=== PATIENT | male | born 1960 | race Caucasian/White ===

== ENCOUNTER 2020-07-30 20:57 | Inpatient (IN) ==
[2020-07-30 21:56] LABS: Alanine Aminotransferase 26 U/L (12-78); Aspartate Aminotransferase 12 U/L (15-37); BUN Creatinine Ratio 14.3 (10-20); Basophils # (auto) 0.02 K/uL (0-0.2); Basophils % (auto) 0.2 %; Blood Urea Nitrogen 20 mg/dl (7-18); Carbon Dioxide 27 mmol/L (21-32); Chloride 107 mmol/L (98-107); Eosinophils # (auto) 0.05 K/uL (0-0.5); Eosinophils % (auto) 0.5 %; Est GFR (African American) 63.5 ml/min; Est GFR (Non-African American) 54.8 ml/min; Glucose 89 mg/dl (70-99); Hematocrit (blood only) 44.5 % (42-52); Hemoglobin 15.3 g/dL (14.0-18.0); Immature Granulocytes # (auto) 0.01 K/uL (0.00-0.02); Immature Granulocytes % (auto) 0.1 %; Lymphocytes # (auto) 1.33 K/uL (1.2-3.4); Lymphocytes % (auto) 14.3 %; Magnesium 2.3 mg/dl (1.8-2.4); Mean Corpuscular Hemoglobin 31.7 pg (25-34); Mean Corpuscular Hgb Conc 34.4 g/dL (32-36); Mean Corpuscular Volume 92.1 fL (80-100); Mean Platelet Volume 9.8 fL (7.4-10.4); Monocytes # (auto) 0.82 K/uL (0.11-0.59); Monocytes % (auto) 8.8 %; Neutrophils # (auto) 7.07 K/uL (1.4-6.5); Neutrophils % (auto) 76.1 %; Partial Thromboplastin Ratio 0.9; Partial Thromboplastin Time 24.6 Seconds (21.0-31.0); Platelet Count 236 K/uL (130-400); Potassium 4.1 mmol/L (3.5-5.1); RDW Coefficient of Variation 13.3 % (11.5-14.5); RDW Standard Deviation 44.9 fL (36.4-46.3); Red Blood Count 4.83 M/uL (4.7-6.1); Sodium 141 mmol/L (136-145)
[2020-07-30 22:01] LABS: Albumin Globulin Ratio 1.1 (0.9-2); Alkaline Phosphatase 115 U/L (45-117); Bilirubin,Total 0.4 mg/dl (0.2-1); Globulin 3.8 gm/dl (2.5-4.0); Total Protein 7.8 gm/dl (6.4-8.2); Troponin I < 0.015 ng/ml (0-0.045)
[2020-07-30] MEDS ORDERED: OPTIRAY 320 125ml IV ONE (22:38)
--- NOTE | 2020-07-30 22:45 | Emergency Department Note ---
Impression & Plan Right leg weakness, HTN (hypertension) ED Provider Note Provider: Meek Puentes MD DATE OF SERVICE: 07/30/2020 CHIEF COMPLAINT: Right-sided leg weakness HISTORY OF PRESENT ILLNESS: Patient is a 60-year-old gentleman distant history in 2002 of a fairly large right-sided stroke as well as a history of chronic back pain hypertension on aspirin presenting today via private vehicle from home with reports that he started to have some difficulty with his right leg today. Evidently went to the pharmacy around 5:00pm had difficulty getting on the car because his right leg was not working as well as it normally does. Reports significant chronic weakness in the right arm and a little bit in the right leg but much worsened today in the right leg. Normally drives and ambulates without issues. No reported chronic speech issues. No trauma or falls reported. He is evidently able to get his stuff at the pharmacy and come home and was ambulating normally at home but very anxious. Family was able to convince him to come here for further evaluation after some delay at home. Presents here for 1/2-hour since the onset of his symptoms. The patient in discussion with his family does not reportedly have new speech issues or facial droop although he is quite anxious and tearful at times. Patient is chronic low back pain issues chronically on narcotics at home but this is not reported to be changed. REVIEW OF SYSTEMS: A total of 10 review of systems was obtained and negative except as stated above in the HPI. PAST MEDICAL HISTORY: As noted above MEDICATIONS: Reviewed home medications includes aspirin SOCIAL HISTORY: Former smoker, lives at home PHYSICAL EXAM: GENERAL: alert and oriented on stretcher but anxious Head: normocephalic and atraumatic EYES: No injection, discharge or icterus. PERRL NECK: Trachea midline. Supple. ENT: Mucous membranes pink and moist. Pharynx without erythema or exudate. LUNGS: Airway patent. No retractions. Breath sounds clear HEART: Regular rate and rhythm. No chest wall tenderness ABDOMEN: Soft and non-tender, without guarding or rebound. SKIN: Acyanotic, warm, dry, without rashes EXTREMITIES: No significant tenderness or deformity of the lower extremities with the right lower extremity in a foot drop orthotic NEUROLOGICAL: No aphasia. No slurred speech. Patient with a questionable slight right facial droop but family are states this is unchanged from previous. Patient with chronic right arm weakness he states is at baseline. Some slight right leg drift initially on exam he states does feel worse than normal. Left a rm and leg seem to be working appropriately. No aphasia. Some very slight dysarthria but discussion with patient and family not sure that this is new. EK bpm normal sinus rhythm. No PVC or PAC. No acute ST segment elevation or depression. QTC 447. CONTINUOUS CARDIAC MONITORING: was ordered and showed a heart rate of 70s to 90s bpm in normal sinus rhythm Patient's laboratory studies and imaging reviewed. Differential includes Infection, dehydration, metabolic abnormality, hypo/hyperg lycemia, electrolyte disturbance, anemia, hypoxia, cardiac sources, intracerebral event, toxicologic, neurologic, as well as other pathologies. IMPRESSION/MEDICAL DECISION MAKING: Patient with history of CVA with worsening right leg issues he reports this evening arrives at 4 and half hours an outside the TPA window. Was not made a stroke alert because of this. CTA without evidence of large vessel occlusion discussed the CONCHITA findings with telestroke Dr. Johns at [facility] believes likely more congenital. Stenoses of the carotids are noted but do not need acute intervention tonight. Blood work years without significant abnormality. Patient quite anxious initially hypertensive though this improves some while here. Given his evening medications. Question if this is a new stroke versus TIA/recrudescence of old CVA. Given this and his history recommended he stay for further evaluation overnight as well as MRI. He was in agreement with this plan. Patient is already on aspirin. Hospitalist was contacted. DIAGNOSIS: Right leg weakness, hypertension DISPOSITION: Hospitalist will evaluate Patient was agreeable with this plan. Preliminary Findings Only See Final Report For Complete Findings CT HEAD: Large zone of encephalomalacia involving the left frontal and parietal lobes suggesting combined chronic left MCA and CONCHITA territory infarcts. Wallerian degeneration extending through the left corticospinal tract. Ex vacuo enlargement of the left lateral ventricle. Background of involutional and chronic small vessel ischemic change. No CT evidence of acute territorial infarct. No hemorrhage. No skull fracture. Sinuses and mastoid air cells are clear. Radiologist: Luis Antonio Schmitz M.D. Study ready at 22:53 and initial results transmitted at 23:06 Preliminary Findings Only See Final Report For Complete Findings CTA HEAD: Intracranial atherosclerosis. Absent right A1 segment with filling of the right CONCHITA via the anterior communicating artery. Patent intracranial circulation. No large vessel occlusion. No aneurysm. Radiologist: Luis Antonio Schmitz M.D. Study ready at 22:53 and initial results transmitted at 23:06 Preliminary Findings Only See Final Report For Complete Findings CTA NECK: Right common carotid artery is patent and normal in caliber. Severe stenosis at the origin of the right ICA due to atherosclerotic plaque. Remainder of the right ICA is adequately patent. Mild (less than 50%) stenosis of the mid left common carotid artery due to atherosclerotic plaque. Right ICA is adequately patent. Bilateral vertebral arteries are adequately patent, with dominant left vertebral artery. Left thyroid lobe nodule measuring 1.5 cm. Recommend further evaluation with thyroid ultrasound if not previously performed. Radiologist: Luis Antonio Schmitz M.D. Study ready at 22:53 and initial results transmitted at 23:06 Past Med/Surg History Social History Smoking Status: Former smoker Feels Safe at Home: Yes Allergies Allergies Allergy/AdvReac Type Severity Reaction Status Date / Time No Known Allergies Allergy Severe Verified 07/30/20 21:51 Home Meds Home Medications Medication Instructions Recorded Confirmed aspirin 81 mg PO HS 07/30/20 07/30/20 atorvastatin 20 mg PO HS 07/30/20 07/30/20 gabapentin 300 mg PO QID 07/30/20 07/30/20 hydrocodone-acetaminophen 1 tab PO DIRECTED PRN 07/30/20 07/30/20 lisinopril 10 mg PO HS 07/30/20 07/30/20 sertraline 100 mg PO HS 07/30/20 07/30/20 trazodone 100 mg PO HS 07/30/20 07/30/20 Results & Data (ED) Vital Signs Vital Signs - 24 hr 07/30/20 21:03 07/30/20 21:24 07/30/20 21:25 Temperature 36.8 C Temperature Source Temporal Artery Scan Pulse Rate 91 H 90 90 Pulse Rate from SpO2 Sensor Respiratory Rate 18 Respiratory Effort / Characteristics Non-Labored Respiratory Depth Normal Blood Pressure 184/89 H 211/118 H Blood Pressure Mean 120 149 Pulse Oximetry 98 Oxygen Delivery Method Room Air Sepsis Recent Fever Within 48 Hours No Sepsis New/Unexplained Change in Mental Status No Sepsis Action Taken by Nursing No Action Required 07/30/20 21:30 07/30/20 21:35 07/30/20 21:40 Temperature Temperature Source Pulse Rate 85 81 84 Pulse Rate from SpO2 Sensor Respiratory Rate 20 16 22 Respiratory Effort / Characteristics Respiratory Depth Blood Pressure 207/137 H Blood Pressure Mean 160 Pulse Oximetry Oxygen Delivery Method Sepsis Recent Fever Within 48 Hours Sepsis New/Unexplained Change in Mental Status Sepsis Action Taken by Nursing 07/30/20 21:50 07/30/20 22:00 07/30/20 22:10 Temperature Temperature Source Pulse Rate 81 83 79 Pulse Rate from SpO2 Sensor 80 82 80 Respiratory Rate 20 19 18 Respiratory Effort / Characteristics Respiratory Depth Blood Pressure 145/83 H Blood Pressure Mean 103 Pulse Oximetry 96 96 95 Oxygen Delivery Method Sepsis Recent Fever Within 48 Hours Sepsis New/Unexplained Change in Mental Status Sepsis Action Taken by Nursing 07/30/20 22:20 07/30/20 23:00 07/30/20 23:30 Temperature Temperature Source Pulse Rate 79 79 79 Pulse Rate from SpO2 Sensor 79 79 Respiratory Rate 16 15 17 Respiratory Effort / Characteristics Respiratory Depth Blood Pressure 151/80 H 131/72 Blood Pressure Mean 103 91 Pulse Oximetry 96 95 Oxygen Delivery Method Sepsis Recent Fever Within 48 Hours Sepsis New/Unexplained Change in Mental Status Sepsis Action Taken by Nursing Laboratory Data Result diagrams: 07/30/20 21:20 07/30/20 21:20 Lab Results 07/30/20 07/30/20 07/30/20 Range/Units 21:20 21:20 21:20 WBC 9.30 (4.8-10.8) K/uL RBC 4.83 (4.7-6.1) M/uL Hgb 15.3 (14.0-18.0) g/dL Hct 44.5 (42-52) % MCV 92.1 (80-100) fL MCH 31.7 (25-34) pg MCHC 34.4 (32-36) g/dL RDW Std Deviation 44.9 (36.4-46.3) fL RDW Coeff of Jamarcus 13.3 (11.5-14.5) % Plt Count 236 (130-400) K/uL MPV 9.8 (7.4-10.4) fL Immature Gran % (Auto) 0.1 % Neut % (Auto) 76.1 % Lymph % (Auto) 14.3 % Mobile % (Auto) 8.8 % Eos % (Auto) 0.5 % Baso % (Auto) 0.2 % Neut # (Auto) 7.07 H (1.4-6.5) K/uL Lymph # (Auto) 1.33 (1.2-3.4) K/uL Mobile # (Auto) 0.82 H (0.11-0.59) K/uL Eos # (Auto) 0.05 (0-0.5) K/uL Baso # (Auto) 0.02 (0-0.2) K/uL Immature Gran # (Auto) 0.01 (0.00-0.02) K/uL PT 10.0 (9.0-12.0) Seconds INR 1.0 (0.9-1.1) APTT 24.6 (21.0-31.0) Seconds PTT Ratio 0.9 Sodium 141 (136-145) mmol/L Potassium 4.1 (3.5-5.1) mmol/L Chloride 107 (98-107) mmol/L Carbon Dioxide 27 (21-32) mmol/L Anion Gap 6.0 (3-11) BUN 20 H (7-18) mg/dl Creatinine 1.38 (0.6-1.4) mg/dl Est Cr Clr Drug Dosing Not Reportable Est GFR ( Amer) 63.5 ml/min Est GFR (Non-Af Amer) 54.8 ml/min BUN/Creatinine Ratio 14.3 (10-20) Glucose 89 (70-99) mg/dl POC Glucose (70-99) mg/dl Calcium 9.0 (8.5-10.1) mg/dl Magnesium 2.3 (1.8-2.4) mg/dl Total Bilirubin 0.4 (0.2-1) mg/dl AST 12 L (15-37) U/L ALT 26 (12-78) U/L Alkaline Phosphatase 115 (45-117) U/L Troponin I < 0.015 (0-0.045) ng/ml Total Protein 7.8 (6.4-8.2) gm/dl Albumin 4.0 (3.4-5.0) gm/dl Globulin 3.8 (2.5-4.0) gm/dl Albumin/Globulin Ratio 1.1 (0.9-2) COVID-19 Eval Order SARS-CoV-2 (PCR) (Negative) Blood Type Antibody Screen 07/30/20 07/30/20 07/30/20 Range/Units 21:22 21:41 22:02 WBC (4.8-10.8) K/uL RBC (4.7-6.1) M/uL Hgb (14.0-18.0) g/dL Hct (42-52) % MCV (80-100) fL MCH (25-34) pg MCHC (32-36) g/dL RDW Std Deviation (36.4-46.3) fL RDW Coeff of Jamarcus (11.5-14.5) % Plt Count (130-400) K/uL MPV (7.4-10.4) fL Immature Gran % (Auto) % Neut % (Auto) % Lymph % (Auto) % [place] % (Auto) % Eos % (Auto) % Baso % (Auto) % Neut # (Auto) (1.4-6.5) K/uL Lymph # (Auto) (1.2-3.4) K/uL [place] # (Auto) (0.11-0.59) K/uL Eos # (Auto) (0-0.5) K/uL Baso # (Auto) (0-0.2) K/uL Immature Gran # (Auto) (0.00-0.02) K/uL PT (9.0-12.0) Seconds INR (0.9-1.1) APTT (21.0-31.0) Seconds PTT Ratio Sodium (136-145) mmol/L Potassium (3.5-5.1) mmol/L Chloride (98-107) mmol/L Carbon Dioxide (21-32) mmol/L Anion Gap (3-11) BUN (7-18) mg/dl Creatinine (0.6-1.4) mg/dl Est Cr Clr Drug Dosing Est GFR ( Amer) ml/min Est GFR (Non-Af Amer) ml/min BUN/Creatinine Ratio (10-20) Glucose (70-99) mg/dl POC Glucose 108 H (70-99) mg/dl Calcium (8.5-10.1) mg/dl Magnesium (1.8-2.4) mg/dl Total Bilirubin (0.2-1) mg/dl AST (15-37) U/L ALT (12-78) U/L Alkaline Phosphatase (45-117) U/L Troponin I (0-0.045) ng/ml Total Protein (6.4-8.2) gm/dl Albumin (3.4-5.0) gm/dl Globulin (2.5-4.0) gm/dl Albumin/Globulin Ratio (0.9-2) COVID-19 Eval Order Covid19 at [facility] SARS-CoV-2 (PCR) (Negative) Blood Type O Positive Antibody Screen NEGATIVE 07/30/20 Range/Units 22:02 WBC (4.8-10.8) K/uL RBC (4.7-6.1) M/uL Hgb (14.0-18.0) g/dL Hct (42-52) % MCV (80-100) fL MCH (25-34) pg MCHC (32-36) g/dL RDW Std Deviation (36.4-46.3) fL RDW Coeff of Jamarcus (11.5-14.5) % Plt Count (130-400) K/uL MPV (7.4-10.4) fL Immature Gran % (Auto) % Neut % (Auto) % Lymph % (Auto) % [place] % (Auto) % Eos % (Auto) % Baso % (Auto) % Neut # (Auto) (1.4-6.5) K/uL Lymph # (Auto) (1.2-3.4) K/uL Mobile # (Auto) (0.11-0.59) K/uL Eos # (Auto) (0-0.5) K/uL Baso # (Auto) (0-0.2) K/uL Immature Gran # (Auto) (0.00-0.02) K/uL PT (9.0-12.0) Seconds INR (0.9-1.1) APTT (21.0-31.0) Seconds PTT Ratio Sodium (136-145) mmol/L Potassium (3.5-5.1) mmol/L Chloride (98-107) mmol/L Carbon Dioxide (21-32) mmol/L Anion Gap (3-11) BUN (7-18) mg/dl Creatinine (0.6-1.4) mg/dl Est Cr Clr Drug Dosing Est GFR ( Amer) ml/min Est GFR (Non-Af Amer) ml/min BUN/Creatinine Ratio (10-20) Glucose (70-99) mg/dl POC Glucose (70-99) mg/dl Calcium (8.5-10.1) mg/dl Magnesium (1.8-2.4) mg/dl Total Bilirubin (0.2-1) mg/dl AST (15-37) U/L ALT (12-78) U/L Alkaline Phosphatase (45-117) U/L Troponin I (0-0.045) ng/ml Total Protein (6.4-8.2) gm/dl Albumin (3.4-5.0) gm/dl Globulin (2.5-4.0) gm/dl Albumin/Globulin Ratio (0.9-2) COVID-19 Eval Order SARS-CoV-2 (PCR) NEGATIVE (Negative) Blood Type Antibody Screen Administered Medications Discontinued Medications Ioversol (Optiray 320 125ml) 120 ml IV ONCE ONE Stop: 07/30/20 22:39 Last Admin: 07/30/20 22:38 Dose: 120 ml Documented by: [id number] Discharge Plan Visit Data Chief Complaint: Stroke/CVA Symptoms Stated Complaint: STROKE SYMPTOMS, SLURRED SPEECH ED Provider: Meek Puentes Discharge Problem: Right leg weakness, HTN (hypertension) Patient Disposition: Being Evaluated by Hospitalist Forms Stand Alone Forms: [facility] Prescriptions Prescriptions: No Action atorvastatin 20 mg tablet 20 mg PO HS RF: 0 trazodone 50 mg tablet 100 mg PO HS RF: 0 sertraline 100 mg tablet 100 mg PO HS RF: 0 aspirin 81 mg Tablet,Delayed Release (Dr/Ec) 81 mg PO HS RF: 0 hydrocodone-acetaminophen 7.5-325 mg tablet 1 tab PO DIRECTED PRN (Reason: Pain) RF: 0 lisinopril 10 mg tablet 10 mg PO HS RF: 0 gabapentin 300 mg capsule 300 mg PO QID RF: 0 Referrals Referrals: Lacie Santoro PA-C [Primary Care Provider] - Discharge Problem: HTN (hypertension) Qualifiers: Hypertension type: unspecified Qualified Code(s): I10 - Essential (primary) hypertension
[2020-07-31] MEDS ORDERED: lisinopril 5 MG TAB PO ONE (00:25)
[2020-07-31] MEDS ORDERED: ASPIRIN 81 MG CHEW PO STA (00:25)
[2020-07-31] MEDS ORDERED: HYDROCODONE/ACETAMINOPHEN 7.5/325MG TAB PO STA (00:25)
[2020-07-31] MEDS ORDERED: GABAPENTIN 300 MG CAP PO ONE (00:27)
[2020-07-31] MEDS ORDERED: CLOPIDOGREL BISULFATE 75 MG TAB PO ONE (00:55)
[2020-07-31] MEDS ORDERED: MULTI-VITAMIN INFUSION 10 ML, THIAMINE HCL 100 MG, FOLIC ACID 1 MG in SODIUM CHLORIDE 0... IV ONE (00:55)
--- NOTE | 2020-07-31 00:57 | History & Physical Report ---
Date of Service July 31, 2020 Assessment & Plan (1) TIA (transient ischemic attack): Transient worsening of chronic RLE weakness secondary to old CVA Possible TIA Possible aspirin failure hypertension, stable hyperlipidemia on statin Rx chronic pain, stable on regimen past tobacco abuse alcohol abuse as per records. Incidental finding of thyroid nodule on CT OBS Medical telemetry Neurochecks MRI brain Plavix for possible aspirin failure until recurrent stroke ruled out TTE for additional stroke work-up Neurology consult Re: TIA AWSS, DT precautions Follow official read for CT neck regarding thyroid nodule, outpatient thyroid ultrasound if warranted DVT prophylaxis. Lovenox subcu Full code Text document was generated using [employer] voice recognition software. It may contain grammatical or spelling errors. Kindly contact undersigned for clarification of any documentation item in question. History of Present Illness Chief Complaint: Right leg weakness Primary Care Provider: Dr. Gu History obtained from patient and records. Medical history significant CVA, PVD sp surgery, hypertension, hyperlipidemia, chronic pain anxiety disorder, past tobacco abuse, alcohol abuse as per records. Last [facility] confinement 2002 for right hemiparesis secondary to ischemic CVA. Right upper extremity weakness did not improve with rehab. RLE weakness and speech improved as per patient. This morning, patient noted RLE weakness more than usual, transient symptoms. Patient denies headache, chest pain, S OB. Usual dysarthria, right facial droop as per patient. Patient compliant with home meds. Patient's family sent patient to the ER for evaluation. Medical History as above Surgical History : Appendectomy, back surgery, carotid endarterectomy Family History : DM, heart disease, stroke Personal/Social history : Past tobacco abuse, alcohol abuse as per records although denied by patient, disabled Allergies Allergy/AdvReac Type Severity Reaction Status Date / Time No Known Allergies Allergy Severe Verified 07/30/20 21:51 Home Medications Medication Instructions Recorded Confirmed Type aspirin 81 mg PO HS 07/30/20 07/30/20 History atorvastatin 20 mg PO HS 07/30/20 07/30/20 History gabapentin 300 mg PO QID 07/30/20 07/30/20 History hydrocodone-acetaminophen 1 tab PO DIRECTED PRN 07/30/20 07/30/20 History lisinopril 10 mg PO HS 07/30/20 07/30/20 History sertraline 100 mg PO HS 07/30/20 07/30/20 History trazodone 100 mg PO HS 07/30/20 07/30/20 History Past Med/Surg History Social History Smoking Status: Former smoker Second Hand Exposure: No; Do You Dip or Chew Tobacco: No; Hx Alcohol Use: Yes Alcohol type: beer Hx Substance Use: No Preferred Language: Hebrew Communication Ability: Effective 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 Also has right foot orthotic Review of Systems Review of Systems: As per HPI, all 10 systems reviewed, all other ROS negative Physical Exam Physical Exam: GENERAL: Comfortable, pleasant, obese, dysarthric (chronic as per patient), no respiratory distress SKIN: Normal color, warm HEENT: [place] palpebral conjunctivae, no ptosis, dry buccal mucosa NECK : Supple, short neck, no tenderness CHEST : CTA, no tenderness HEART : RRR, no obvious murmurs ABDOMEN: Some distention, nontender EXTREMITIES : No LE swelling/tenderness, no other conspicuous deformities noted NEUROLOGIC : Coherent, chronic right facial droop, chronic dysarthria, chronic RUE paralysis, MMTS RLE 3/5 (chronic as per patient), LUE/LLE 4/5 Results & Data Results & Data ([facility]) Vital Signs (Past 12 Hours) Vital Signs Temp Pulse Resp BP Pulse Ox 07/30/20 23:30 79 17 131/72 95 07/30/20 23:00 79 15 151/80 H 07/30/20 22:20 79 16 96 07/30/20 22:10 79 18 95 07/30/20 22:00 83 19 145/83 H 96 07/30/20 21:50 81 20 96 07/30/20 21:40 84 22 07/30/20 21:35 81 16 207/137 H 07/30/20 21:30 85 20 07/30/20 21:25 90 07/30/20 21:24 90 211/118 H 07/30/20 21:03 36.8 C 91 H 18 184/89 H 98 Laboratory Results Laboratory Results WBC 9.30 K/uL (4.8-10.8) 07/30/20 21:20 RBC 4.83 M/uL (4.7-6.1) 07/30/20 21:20 Hgb 15.3 g/dL (14.0-18.0) 07/30/20 21:20 Hct 44.5 % (42-52) 07/30/20 21:20 MCV 92.1 fL (80-100) 07/30/20 21:20 MCH 31.7 pg (25-34) 07/30/20 21:20 MCHC 34.4 g/dL (32-36) 07/30/20 21:20 RDW Std Deviation 44.9 fL (36.4-46.3) 07/30/20 21: RDW Coeff of Jamarcus 13.3 % (11.5-14.5) 07/30/20 21: Plt Count 236 K/uL (130-400) 07/30/20 21:20 MPV 9.8 fL (7.4-10.4) 07/30/20 21:20 Immature Gran % (Auto) 0.1 % 07/30/20 21:20 Neut % (Auto) 76.1 % 07/30/20 21:20 Lymph % (Auto) 14.3 % 07/30/20 21:20 [place] % (Auto) 8.8 % 07/30/20 21:20 Eos % (Auto) 0.5 % 07/30/20 21:20 Baso % (Auto) 0.2 % 07/30/20 21:20 Neut # (Auto) 7.07 K/uL (1.4-6.5) H 07/30/20 21:20 Lymph # (Auto) 1.33 K/uL (1.2-3.4) 07/30/20 21:20 [place] # (Auto) 0.82 K/uL (0.11-0.59) H 07/30/20 21:20 Eos # (Auto) 0.05 K/uL (0-0.5) 07/30/20 21:20 Baso # (Auto) 0.02 K/uL (0-0.2) 07/30/20 21:20 Immature Gran # (Auto) 0.01 K/uL (0.00-0.02) 07/30/20 21:20 PT 10.0 Seconds (9.0-12.0) 07/30/20 21:20 INR 1.0 (0.9-1.1) 07/30/20 21:20 APTT 24.6 Seconds (21.0-31.0) 07/30/20 21:20 PTT Ratio 0.9 07/30/20 21:20 Sodium 141 mmol/L (136-145) 07/30/20 21:20 Potassium 4.1 mmol/L (3.5-5.1) 07/30/20 21:20 Chloride 107 mmol/L (98-107) 07/30/20 21:20 Carbon Dioxide 27 mmol/L (21-32) 07/30/20 21:20 Anion Gap 6.0 (3-11) 07/30/20 21:20 BUN 20 mg/dl (7-18) H 07/30/20 21:20 Creatinine 1.38 mg/dl (0.6-1.4) 07/30/20 21:20 Est Cr Clr Drug Dosing Not Reportable 07/30/20 21:20 Est GFR ( Amer) 63.5 ml/min 07/30/20 21:20 Est GFR (Non-Af Amer) 54.8 ml/min 07/30/20 21:20 BUN/Creatinine Ratio 14.3 (10-20) 07/30/20 21:20 Glucose 89 mg/dl (70-99) 07/30/20 21:20 POC Glucose 108 mg/dl (70-99) H 07/30/20 21:22 Calcium 9.0 mg/dl (8.5-10.1) 07/30/20: Magnesium 2.3 mg/dl (1.8-2.4) 07/30/20 21:20 Total Bilirubin 0.4 mg/dl (0.2-1) 07/30/20 21:20 AST 12 U/L (15-37) L 07/30/20 21:20 ALT 26 U/L (12-78) 07/30/20 21:20 Alkaline Phosphatase 115 U/L (45-117) 07/30/20 21:20 Troponin I < 0.015 ng/ml (0-0.045) 07/30/20 21: Total Protein 7.8 gm/dl (6.4-8.2) 07/30/20 21:20 Albumin 4.0 gm/dl (3.4-5.0) 07/30/20 21:20 Globulin 3.8 gm/dl (2.5-4.0) 07/30/20 21:20 Albumin/Globulin Ratio 1.1 (0.9-2) 07/30/20 21:20 COVID-19 Eval Order Covid19 at [facility] 07/30/20 22:02 SARS-CoV-2 (PCR) NEGATIVE (Negative) 07/30/20 22:02 Blood Type O Positive 07/30/20 21:41 Antibody Screen NEGATIVE 07/30/20 21:[address] head initial read: Large zone encephalomalacia left frontal and parietal lobes suggesting chronic left MCA and CONCHITA territory infarcts. Wallerian degeneration extending through the left corticospinal tract. Ex vacuo enlargement of the left lateral ventricle. Involutional and chronic small vessel ischemic change. No CT evidence of acute territorial infarct. No hemorrhage. No skull fracture. Sinus and mastoid air cells are clear. CT angio head initial read: Intracranial atherosclerosis. Absent right A1 segment with filling of the right CONCHITA via anterior communicating artery. Patent intracranial circulation. No large vessel occlusion. No aneurysm. CTA neck initial read: Right common carotid artery is patent normal caliber. Severe stenosis at the origin of the right ICA due to atherosclerotic plaque. Remainder of right ICA as adequately patent. Mild less than 50% stenosis mid left common carotid artery due to atherosclerotic plaque. Right ICA is adequately patent. Bilateral vertebral arteries are adequately patent with dominant left vertebral artery. Left thyroid lobe nodule measuring 1.5 cm. Recommend further evaluation with thyroid ultrasound if not previously performed. EKG as per my interpretation: Rate 85, NSR, normal axis, no ischemia
[2020-07-31 01:55] LABS: Appearance Urine Clear (Clear); Bacteria Urine Automated Negative (Negative); Bilirubin Urine Negative (Negative); Blood Urine 2+ (Negative); Cast Urine Automated 0 /lpf (0-5); Color Urine Yellow; Glucose Urine UA Negative (Negative); Ketones Urine Negative (Negative); Leukocyte Esterase Urine Negative (Negative); Nitrite Urine Negative (Negative); Protein Urine Negative (Negative); Specific Gravity Urine > 1.045 (1.000-1.030); Urobilinogen Urine Negative (Negative)
[2020-07-31] MEDS ORDERED: LORazepam 2 MG/4 ML VIAL IV PRN (03:04)
[2020-07-31] MEDS ORDERED: PROMETHAZINE HCL 12.5 MG in SODIUM CHLORIDE 0.9% 50 ML IV PRN (03:04)
[2020-07-31] MEDS ORDERED: ATIVAN IV ALCOHOL WITHDRAWL IV PRN (03:04)
[2020-07-31] MEDS ORDERED: ACETAMINOPHEN 325 MG TAB PO PRN (03:04)
[2020-07-31] MEDS ORDERED: LORazepam 1 MG/2 ML VIAL IV PRN (03:04)
[2020-07-31] MEDS ORDERED: LORazepam 3 MG/6 ML VIAL IV PRN (03:04)
[2020-07-31 06:05] LABS: Basophils # (auto) 0.01 K/uL (0-0.2); Basophils % (auto) 0.1 %; Eosinophils % (auto) 1.2 %; Hematocrit (blood only) 41.2 % (42-52); Hemoglobin 13.8 g/dL (14.0-18.0); Immature Granulocytes # (auto) 0.01 K/uL (0.00-0.02); Immature Granulocytes % (auto) 0.1 %; Lymphocytes % (auto) 19.3 %; Mean Corpuscular Hemoglobin 31.7 pg (25-34); Mean Corpuscular Hgb Conc 33.5 g/dL (32-36); Mean Corpuscular Volume 94.5 fL (80-100); Mean Platelet Volume 9.5 fL (7.4-10.4); Monocytes # (auto) 0.79 K/uL (0.11-0.59); Monocytes % (auto) 9.5 %; Neutrophils # (auto) 5.79 K/uL (1.4-6.5); Neutrophils % (auto) 69.8 %; Platelet Count 221 K/uL (130-400); RDW Coefficient of Variation 13.6 % (11.5-14.5); RDW Standard Deviation 47.2 fL (36.4-46.3); Red Blood Count 4.36 M/uL (4.7-6.1)
[2020-07-31 06:34] LABS: Estimated Average Glucose 100 mg/dl; Hemoglobin A1C 5.1 % (4.5-5.6)
[2020-07-31 06:40] LABS: BUN Creatinine Ratio 20.1 (10-20); Calcium 8.8 mg/dl (8.5-10.1); Creatinine Clr Calc Pharmacy 87.2 ml/min; Est GFR (African American) 88.4 ml/min; Est GFR (Non-African American) 76.2 ml/min; Potassium 4.1 mmol/L (3.5-5.1)
--- NOTE | 2020-07-31 07:03 | CT Scan Report ---
CT head/brain wo con CLINICAL HISTORY: Stroke Like Symptoms COMPARISON STUDY: No previous studies for comparison. TECHNIQUE: Axial CT of the brain is performed from the vertex to the skull base. IV contrast was not administered for this examination. A dose lowering technique was utilized adhering to the principles of ALARA. CT DOSE: FINDINGS: No intra or extra-axial mass lesions are visualized. There is a large old left MCA, and CONCHITA distribut ion infarct. This involves portions of the left frontal lobe, left parietal lobe and left basal gangl ia. There is an equivocal age indeterminate right central pontine infarct.. There are patchy white matter hypodensities likely on a small vessel basis. There is compensatory dilatation of the left lateral ventricle due to the old left hemispheric infarc t There is mild maxillary sinus mucosal thickening. IMPRESSION: 1. Old large left MCA distribution infarct 2. Equivocal age indeterminant right central pontine infarct 2. No evidence of acute hemorrhage. ACT 112: Negative or not required by law. Electronically signed by: Benito Monroe M.D. 07/31/2020 7:02 AM
[2020-07-31] MEDS: ENOXAPARIN INJ 40 MG/0.4 ML SYR SQ SCH (08:40)
--- NOTE | 2020-07-31 08:56 | Magnetic Resonance Report ---
MRI OF THE BRAIN WITHOUT IV CONTRAST CLINICAL HISTORY: Transient ischemic attack. Right upper and lower extremity weakness. COMPARISON STUDY: CT of the brain dated 07/30/2020. TECHNIQUE: MRI of the brain was performed utilizing various T1 and T2-weighted sequences in the axial , sagittal, and coronal planes. IV contrast was not administered for this examination. FINDINGS: Brain parenchyma: Left MCA territory encephalomalacia is consistent with a remote infarct. There is w allerian degeneration of the left mariusz an ex vacuo dilatation of the left lateral ventricle. There is mild microangiopathic disease. There is no hemorrhage or mass effect. There is an 11 mm focus of res tricted diffusion identified in the right aspect of the mariusz consistent with acute to subacute ischem ia. No additional foci of acute ischemia are identified. Alba-white matter differentiation is preserv ed. A small focus of hemosiderin deposition in the left basal ganglia may represent the sequelae of r emote hemorrhage. Chronic lacunar infarcts are noted in the thalami and mariusz. No extra-axial fluid co llection is seen. The cerebellar tonsils are normal in configuration. Ventricles, sulci, and cisterns: Prominent secondary to involutional change. See above. Pituitary and sella: Partially empty sella is incidentally noted. Intracranial vasculature: Normal flow voids are maintained at the skull base. Orbits: The bony orbits are grossly intact. Orbital contents are normal in appearance. Sinuses and mastoids: There is trace mucosal thickening within the maxillary antra. The paranasal sin uses are otherwise clear. There is a small right mastoid effusion. Calvarium: Unremarkable. Cervical cord: Partially visualized cervical spinal cord is normal in morphology and signal intensity . IMPRESSION: 1. There is a small acute to subacute lacunar infarct identified in the mariusz. 2. No additional foci of acute ischemia are identified. 3. There is no evidence of hemorrhage or mass effect. 4. Remote left MCA territory infarct. ACT 112: Negative or not required by law. Electronically signed by: Alvin Spears M.D. 07/31/2020 8:55 AM
--- NOTE | 2020-07-31 09:18 | CT Scan Report ---
CT angio neck with con CLINICAL HISTORY: Stroke Like Symptoms COMPARISON STUDY: No previous studies for comparison. TECHNIQUE: CT angiography was performed from the aortic arch to the skull base. MIP imaging was perfo rmed. The patient was scanned in a dynamic helical fashion during intravenous administration of 120 c c of Optiray. A dose lowering technique was utilized adhering to the principles of ALARA. CT DOSE: 1353.38 mGy.cm Technique: CT angiogram of the carotid and vertebral arteries was obtained using intravenous contrast and 3-D reconstruction. NASCET criteria was utilized. Findings: Partially calcified atherosclerotic plaques are seen within bilateral carotid bulbs and associated wi th severe, approximately 90% stenosis at the origin of the right internal carotid artery. Peripheral calcified plaques are seen within cavernosal portion of the right and left internal caroti d arteries associated with less than 50% stenosis. Calcified plaque is seen at the origin of the right vertebral artery which might cause approximately 50% stenosis however evaluation is limited due to motion and beam hardening artifact. Left predominan t vertebral circulation is seen. Distal aspect of the left vertebral artery is tortuous. Peripheral c alcified plaques are seen at the origin of the left vertebral artery and within the C3 and C4 segment without hemodynamically significant stenosis. Diffuse narrowing of the V4 segment of the right vertebral artery is seen which might represent devel opmental variant. There is no evidence of vertebral dissection. Irregular heterogeneously hypoattenuating 1.6 cm nodule is seen within left thyroid lobe. IMPRESSION: 1. Severe stenosis at the origin of the right internal carotid artery due to partially calcified ludy que. 2. Other areas of atherosclerotic involvement of the carotid and vertebral arteries without hemodyna mically significant stenosis as detailed above. 3. Left predominant vertebral circulation. Diffuse narrowing of the V4 segment of the right vertebra l artery might represent developmental variant. 4. Large left thyroid nodule. Please correlate above-mentioned findings was prior history and result s of thyroid ultrasound. ACT 112: Positive. There are findings on this exam that require communication between the performing entity and the patient following Patient Test Result Information Act ([place] Act 112) guidelines. The above report was generated using voice recognition software. It may contain grammatical, syntax o r spelling errors. Electronically signed by: Gema Mo DO 07/31/2020 9:17 AM
--- NOTE | 2020-07-31 09:31 | CT Scan Report ---
CT angio head w con CLINICAL HISTORY: Stroke Like Symptoms TECHNIQUE: CT angiography of the head was performed in a dynamic helical fashion during intravenous a dministration of 120 cc of Optiray. MIP imaging was performed. A dose lowering technique was utilized adhering to the principles of ALARA. CT DOSE: COMPARISON STUDY: No previous studies for comparison. FINDINGS: Peripherally calcified plaques are seen within cavernosal and supraclinoid aspect of bilateral dental intern al carotid artery which probably causing moderate stenosis in the supraclinoid portion however evalua tion is limited due to blooming artifact from heavily calcified plaques. Right and left middle cerebral arteries are normally opacified without evidence of focal occlusion or significant stenosis. A1 segment on the right is not opacified. Bilateral anterior cerebral arteries are filling from the l eft anterior communicating artery. Distal aspect of right and left ACAs are patent. Basilar artery is normally opacified. Right and left [place] are patent. Hypoplastic bilateral posterior communicating arteries likely representing developmental variant. IMPRESSION: 1. Absent A1 segment on the right. Right and left anterior cerebral arteries are patent and extendin g from the left anterior communicating artery. Above-mentioned findings might represent developmental variant. 2. Heavy peripherally calcified plaques within supraclinoid aspect of bilateral internal carotid art eries with possible moderate stenosis. Limited exam due to blooming artifact. ACT 112: Positive. There are findings on this exam that require communication between the performing entity and the patient following Patient Test Result Information Act [place] Act 112) guidelines. The above report was generated using voice recognition software. It may contain grammatical, syntax o r spelling errors. Electronically signed by: Gema Mo DO 07/31/2020 9:30 AM
[2020-07-31] MEDS: GABAPENTIN 300 MG CAP PO SCH ×4 (11:30→20:24)
[2020-07-31] MEDS: oxyCODONE HCL IR 5 MG TAB (IMMEDIATE RELEASE) PO PRN ×2 (12:40→20:23)
--- NOTE | 2020-07-31 15:15 | Electrocardiogram Report ---
Test Reason : Blood Pressure : / mmHG Vent. Rate : 087 BPM Atrial Rate : 087 BPM P-R Int : 140 ms QRS Dur : 082 ms QT Int : 372 ms P-R-T Axes : 059 052 033 degrees QTc Int : 447 ms Normal sinus rhythm Normal ECG When compared with ECG of 10-NOV-2002 04:22, ST no longer elevated in Anterior leads Confirmed by Jermaine Mittal ([id number]) on 07/31/2020 3:14:57 PM Referred By: Lacie Santoro Confirmed By:Jermaine Mittal
[2020-07-31] MEDS ORDERED: ASPIRIN 81 MG ECTAB PO SCH (21:00)
[2020-07-31] MEDS ORDERED: traZODone HCL 100 MG TAB PO SCH (21:00)
[2020-07-31] MEDS ORDERED: SERTRALINE HCL 100 MG TABLET PO SCH (21:00)
[2020-07-31] MEDS ORDERED: ATORVASTATIN 20 MG TAB PO SCH (21:00)
[2020-08-01] MEDS: oxyCODONE HCL IR 5 MG TAB (IMMEDIATE RELEASE) PO PRN (04:16)
--- NOTE | 2020-08-01 08:01 | Consultation Report ---
DATE OF CONSULTATION: 07/31/2020 REASON FOR CONSULTATION: Stroke. HISTORY OF PRESENT ILLNESS: The patient is a 60-year-old right-handed male with a history of prior l eft MCA stroke in the setting of high-grade left carotid stenosis, status post left carotid endartere ctomy, hypertension, hyperlipidemia, chronic pain, anxiety, past tobacco use and alcohol abuse. At baseline, the patient has fairly significant right hemiparesis affecting the right arm greater karime n leg and needs a brace in his right lower extremity. He typically ambulates without a cane or a wal ker. He has no history of seizure. On this background, the patient has otherwise been well, and whi le running an errand, he attempted to get out of a car and noted increased weakness in his right lowe r extremity, which has persisted. He denies any double vision, change in vision, vertigo, new facial numbness or numbness elsewhere. H e denies any new weakness in the arms. His gait is more unstable. There was no accompanying headach e, chest pain, palpitations or shortness of breath. No history of rheumatic fever or murmur. PAST MEDICAL HISTORY: As above. PAST SURGICAL HISTORY: Appendectomy, multiple lumbar surgeries, left carotid endarterectomy. FAMILY HISTORY: Father had a stroke in his 40s related to carotid artery disease. Diabetes and hear t disease are also present in the family. SOCIAL HISTORY: The patient is a former smoker, drinks about 2 cans of beer per day and was on disab ility prior to his stroke in 2002. HOME MEDICATIONS: Aspirin 81 mg, atorvastatin, gabapentin 300 mg 4 times a day, hydrocodone, lisinop ril, sertraline and trazodone. DATA: Echocardiogram: Study was technically adequate. Left ventricular systolic function is normal, EF 60%-65%. There is rtfz-ft-wlnbbosd mitral annular calcification. Grade I diastolic dysfunction. Atria are normal in size. Resolution does not allow assessment for a PFO. The study was technical ly difficult. The patient's electrocardiogram is notable for normal sinus rhythm, normal ECG. MRI o f the brain, which I have reviewed, shows a small acute to subacute lacunar infarction in the right h emipons. No other additional foci of acute ischemia. Remote large left MCA infarction. Some hemosi terrence in the left basal ganglia, may represent sequela of a remote hemorrhage. Chronic lacunar infar ctions are noted in the thalami and mariusz. CTA of the head shows an absent A1 segment on the right, h eavily peripherally calcified plaques within the supraclinoid bilateral internal carotid arteries wit h possible mild stenosis. There is severe stenosis at the origin of the right internal carotid arter y due to partially calcified plaque. Other areas of atherosclerotic involvement of the carotid and v erts without hemodynamically significant stenosis. Left predominant vertebral circulation. Diffuse n arrowing of the V4 segment of the right vertebral, may be a developmental variant. Large left thyroid nodule. White count 9.3, H and H 15.3/44.5, platelet count 236. PT, PTT unremarkable. Chemistry n otable for a BUN of 20, glucose of 108. His LDL is 66. Urinalysis notable for 2+ blood, 10-30 red c ells, 5-10 epithelial cells and negative ethanol. PHYSICAL EXAMINATION: VITAL SIGNS: Blood pressure 150/83, 75, 18, 36.7, 96% on room air. The patient is awake and alert. Speech is dysarthric with a component of expressive language dysfunc tion. Naming to confrontation was normal. Three-step commands were normal and there was no right/le ft confusion. There are no carotid bruits and no heart murmurs. Heart is regular rate and rhythm. Pupils are equal, round and reactive to light. The optic nerves are unremarkable. There are normal singh to confrontation and motility. There is a flattening of the right nasolabial fold and dysarth jamie. Right upper extremity is at best about 2+. Any sustained movement results in significant tremo r of the right upper extremity. Right lower extremity is 3- proximally. The quad is 4-, TA is trace , the gastroc about 2, the hamstring about 3-. Tone is increased in the right arm and right leg. Ref lexes are diffusely increased on the right. Toes are downgoing. Uhakbu-hs-ygmf is normal on the lef t as is [id number]. On the right, he is unable to perform and npin-lo-ynwa is not able to be perfor med. Gait was not testable. There is right hemianesthesia in the face, arm and leg to temperature a nd light touch. IMPRESSION: History of large left middle cerebral artery infarction in the setting of high-grade lef t carotid stenosis. New right pontine infarction, likely small vessel. PLAN: 1. Add Plavix to aspirin, continue for 21 days and then Plavix 75 mg once a day. 2. Blood pressure monitoring. If it remains above goal after discharge, then a more intensive regime n would be recommended. 3. LDL is at goal. 4. The patient is not known to be diabetic. 5. Asymptomatic right internal carotid stenosis, recommend vascular surgery consultation as an outpa tient. Recommend physical therapy consultation. The patient will likely need inpatient rehabilitati on. 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 The patient should see us in followup post kassy limon. Job ID: [id number]
[2020-08-01] MEDS: ENOXAPARIN INJ 40 MG/0.4 ML SYR SQ SCH (08:36)
[2020-08-01] MEDS: GABAPENTIN 300 MG CAP PO SCH (08:36)
[2020-08-01] MEDS ORDERED: FOLIC ACID 1 MG TAB PO SCH (09:00)
[2020-08-01] MEDS ORDERED: MULTIVITAMIN TAB PO SCH (09:00)
[2020-08-01] MEDS ORDERED: CLOPIDOGREL BISULFATE 75 MG TAB PO SCH (09:00)
[2020-08-01] MEDS ORDERED: THIAMINE HCL 100 MG TAB PO SCH (09:00)
--- NOTE | 2020-08-01 11:45 | Discharge Summary ---
Date of Service August 01, 2020 Admission HPI Per Admitting Provider History obtained from patient and records. Medical history significant CVA, PVD sp surgery, hypertension, hyperlipidemia, chronic pain anxiety disorder, past tobacco abuse, alcohol abuse as per records. Last [facility] confinement 2002 for right hemiparesis secondary to ischemic CVA. Right upper extremity weakness did not improve with rehab. RLE weakness and speech improved as per patient. This morning, patient noted RLE weakness more than usual, transient symptoms. Patient denies headache, chest pain, S OB. Usual dysarthria, right facial droop as per patient. Patient compliant with home meds. Patient's family sent patient to the ER for evaluation. Medical History as above Surgical History : Appendectomy, back surgery, carotid endarterectomy Family History : DM, heart disease, stroke Personal/Social history : Past tobacco abuse, alcohol abuse as per records although denied by patient, disabled Admission Exam Per Admitting Provider GENERAL: Comfortable, pleasant, obese, dysarthric (chronic as per patient), no respiratory distress SKIN: Normal color, warm HEENT: [place] palpebral conjunctivae, no ptosis, dry buccal mucosa NECK : Supple, short neck, no tenderness CHEST : CTA, no tenderness HEART : RRR, no obvious murmurs ABDOMEN: Some distention, nontender EXTREMITIES : No LE swelling/tenderness, no other conspicuous deformities noted NEUROLOGIC : Coherent, chronic right facial droop, chronic dysarthria, chronic RUE paralysis, MMTS RLE 3/5 (chronic as per patient), LUE/LLE 4/5 Principal Diagnosis Acute/Subacute Pontine CVA Hypertension hyperlipidemia chronic pain past tobacco abuse alcohol abuse as per records. Incidental finding of thyroid nodule on CT Discharge Exam ROS-No Headache, No Visual Changes, No Nausea, No Vomiting, No Fever, No Chills, No Neck Pain or Stiffness, No Chest Pain, No Palpitations, No SOB, No MALCOLM, No Cough, No Sputum, No Wheezing, No Abdominal Pain, No Diarrhea, No Hematemesis, No Hemoptysis, No Unexpected Weight Loss, No Flank pain, No Melena, No Hematochezia, No Frequency, No Urgency, No Burning, No Hematuria, No Rashes, No Diaphoresis. Appetite is Normal, +R sided weakness at baseline Physical Exam Gen-AAO x 3, NAD, Afebrile Head-NCAT, EOMI, PERRLA, Anicteric Sclera, No Posterior Pharyngeal Erythema Neck-Supple, No JVD, No Thyromegaly, No Masses, No LAD, No Bruits Lungs-Clear to Auscultation Bilaterally, No Rales, No Rhonchi, No Wheezing, No Crepitus Chest-No S4, +S1, +S2, No S3, No Murmurs, No Rubs, No Gallops, No Ectopy Abdomen-Soft, Bowel Sounds Present, Non Tender, Non Distended, No Hepatomegaly, No Splenomegaly, No Palpable Masses, No Rebound, No Rigidity, No Guarding Musculoskeletal-Full Range of Motion Bilaterally, No CVAT Extremities-No Cyanosis, No Clubbing, No Edema Nuero-Cranial Nerves II-XII grossly intact, Motor/DTRs/Strength decreased on R- Chronicl Psych-Normal Mood Discharge Data Allergies Allergy/AdvReac Type Severity Reaction Status Date / Time No Known Allergies Allergy Severe Verified 07/30/20 21:51 Consultations 07/31/20 00:10 ED Decision to Admit Stat 07/31/20 03:04 Consult Neurology Routine Ordered Studies 07/30/20 21:34 CT angio head w con Stat CT angio neck with con Stat CT head/brain wo con Stat 07/31/20 03:04 MR brain wo con Routine Current Diagnoses Transient cerebral ischemic attack, unspecified (07/31/20) Allergies No Known Allergies Allergy (Severe, Verified 07/30/20 21:51) Height/Weight/Isolation Height 5 ft 9 in Weight 102 kg Chemistry 07/30/20 07/31/20 21:20 05:47 Sodium 141 141 Potassium 4.1 4.1 Chloride 107 110 H Carbon Dioxide 27 28 Anion Gap 6.0 3.0 BUN 20 H 21 H Creatinine 1.38 1.05 Glucose 89 98 Urinalysis 07/31/20 01:28 Urine Color Yellow Urine Appearance Clear Urine pH 5.0 Ur Specific [place] > 1.045 H Urine Protein Negative Urine Glucose (UA) Negative Urine Ketones Negative Urine Blood 2+ H Urine Nitrite Negative Urine Bilirubin Negative Hospital Course (1) HTN (hypertension): (2) Right leg weakness: (3) Pontine lesion: Did not have a TIA hypertension, stable hyperlipidemia on statin Rx chronic pain, stable on regimen past tobacco abuse alcohol abuse as per records. Incidental finding of thyroid nodule on CT Plavix and aspirin for 21 days then DC ASA and continue Plavix Neurology on case-OP vascular and ZIO Thyroid nodule Patient refusing rehab or SNF, will DC c HHC/HPT/OT Total Time Total Time Spent Total Time Spent (In Minutes): 45 mins Total Time Includes: Examination of the Patient, Discharge Planning, Medication Reconciliation and Communication With Other Providers Discharge Plan Discharge Items Patient Disposition: Home - Home Health Services Reason For Visit: CVA Discharge Diagnosis: Acute/Subacute Pontine CVA Hypertension hyperlipidemia chronic pain past tobacco abuse alcohol abuse as per records. Incidental finding of thyroid nodule on CT Condition on Discharge: Fair Health Concerns: Worsening symptoms Activity: Resume your previous activity Lifting: Gradually increase as tolerated Bathing: No limitations Sexual Activity: When tolerated Exercise/Sports: Gradually increase as tolerated Driving/Machine Use: None Weightbearing: Left weightbearing and Right partial Non-emergency contact: Primary Care Provider and Neurologist Call non-emergency contact if: you have any medication questions Follow-up/Referrals: Alexsandra Francisco MD [Physician] - Lacie Santoro PA-C [Primary Care Provider] - (Date & Time 08/08/2020 9:00 AM Provider [facility]orne[facility] Diet: Heart Healthy Addtl Attending Provider Instructions: Follow up with PCP for ZIO monitor for your heart and a Vascular Surgery eval to check you carotids. Stop Aspirin in 21 days and just continue Plavix (Clopridogrel) Pending Studies at Discharge: No Stand-Alone Forms: My [employer], Smoking Cessation Medications and DC Order Prescriptions: New clopidogrel 75 mg Tablet 75 mg PO QAM Qty: 30 RF: 3 multivitamin [Daily-Bret] Tablet 1 tab PO QAM Qty: 30 RF: 0 thiamine HCl (vitamin B1) [Vitamin B-1] 100 mg Tablet 100 mg PO QAM Qty: 30 RF: 0 folic acid 1 mg Tablet 1 mg PO QAM Qty: 30 RF: 0 Continued atorvastatin 20 mg tablet 20 mg PO HS RF: 0 trazodone 50 mg tablet 100 mg PO HS RF: 0 sertraline 100 mg tablet 100 mg PO HS RF: 0 hydrocodone-acetaminophen 7.5-325 mg tablet 1 tab PO DIRECTED PRN (Reason: Pain) RF: 0 lisinopril 10 mg tablet 10 mg PO HS RF: 0 gabapentin 300 mg capsule 300 mg PO QID RF: 0 aspirin 81 mg Tablet,Delayed Release (Dr/Ec) 81 mg PO HS Qty: 0 RF: 0 Discharge Orders: Discharge Order (Routine); Ordered 08/01/20 Ordered By: Neal Winston Admission Data Admit Date/Time: 07/31/20 09:45 Attending Provider: Neal Winston Admit Provider: Rick Bernardo Primary Care Provider: Lacie Santoro Other Providers: Rick Bernardo ; Alexsandra Molina ; Gil Lim Kathleen ; Eloy Julian
== END 2020-08-01 13:26 | disposition home health service (06) | DRG 65 ==
LOC: ED 20:57 → 2S 20:57

== ENCOUNTER 2023-11-22 15:28 | Inpatient (IN) ==
--- OUTSIDE RECORDS SUMMARY | 2023-11-22 15:32 | External Medical Summary | Summary of Care ---
Author Name Unknown Organization [facility] Address [address] [facility] [place] [address] Phone [phone] Care Team Providers Care Revenue Investigator Name Role Phone Lacie Santoro PA-C Primary Care Provider Reason for Visit * Reason Onset Date Comments Med Request 10/07/2023 Encounter Details Date Type Department Care Team (Late st Contact Info) Description 10/07/2023 Telephone Family Practice/Pediatrics, [place] [address] [facility] [place] [address] Lacie Santoro PA-C [address] [facility] [place] [address] Med Request Allergies No known active allergiesdocumented as of this encounter (statuses as of 10/07/2023) Medications Medication Sig Dispensed Refills Start Date End Date Status Multivitamin Adult Extra C Oral Tablet Chewable 1 Tablet. 08/01/2020 Active Thiamine HCl 100 MG Oral Tablet (vitamin B-1) Take 1 Tablet by mouth in the morning. 08/01/2020 Active Atorvastatin Calcium 20 MG Oral Tablet (Lipitor)Indications: Dyslipidemia, goal LDL below 70 Take 1 Tablet by mouth in the morning. 90 Tablet 3 09/24/2022 Active Citalopram Hydrobromide 40 MG Oral Tablet (CeleXA)Indications:M ajor depressive disorder, recurrent episode, moderate (HCC) TAKE 1 TABLET BY MOUTH EVERY DAY IN THE MORNING 90 Tablet 3 09/24/2022 Active Docusate Sodium 100 MG Oral Capsule (Colace)Indications:C onstipation, unspecified constipation type Take 1 Capsule by mouth in the morning and 1 Capsule before bedtime. 180 Capsule 3 09/24/2022 Active predniSONE 5 MG Oral Tablet (Deltasone)Indication s:Malignant neoplasm of prostate (HCC) Take 1 Tablet by mouth in the morning. 30 Tablet 5 11/24/2022 Active Gabapentin 800 MG Oral Tablet (Neurontin)Indication s:Other chronic back pain TAKE 1 TABLET BY MOUTH IN THE MORNING AND 1 TABLET AT NOON AND 1 TABLET BEFORE BEDTIME. 90 Tablet 3 05/10/2023 Active Abiraterone Acetate 250 MG Oral Tablet (Zytiga)Indications:M alignant neoplasm of prostate (HCC) Take 4 Tablets by mouth in the morning. Take on an empty stomach (1 hour before or 2 hours after food). 120 Tablet 5 06/18/2023 Active amLODIPine Besylate 5 MG Oral Tablet (Norvasc) Take 1 Tablet by mouth in the morning. 30 Tablet 5 06/27/2023 Active traZODone HCl 50 MG Oral Tablet (Desyrel)Indications: Insomnia, unspecified type TAKE 1 TO 2 TABLETS BY MOUTH EVERY DAY PRIOR TO SLEEPING DIRECTED 180 Tablet 3 07/10/2023 Active predniSONE 5 MG Oral Tablet (Deltasone)Indication s:Malignant neoplasm of prostate (HCC) Take 1 tablet by mouth in the morning. 30 Tablet 5 07/27/2023 Active Lisinopril 40 MG Oral Tablet TAKE 1 TABLET EVERY MORNING. 90 Tablet 1 09/08/2023 Active HYDROcodone-Acetamino phen 5-325 MG Oral TabletIndications:Dis placement of lumbar intervertebral disc without myelopathy,Pain medication agreement Take 1 Tablet by mouth every 6 hours as needed for Pain, Mild. 75 Tablet 09/10/2023 Active Clopidogrel Bisulfate 75 MG Oral Tablet (pLAVix) TAKE 1 TABLET BY MOUTH EVERY DAY IN THE MORNING 90 Tablet 1 09/30/2023 Active documented as of this encounter (statuses as of 10/07/2023) Active Problems Problem Noted Date Diagnosed Date Malignant neoplasm of prostate 11/14/2022 Elevated prostate specific antigen (PSA) 022 Thyroid nodule 08/04/2020 Overview: Seen when he had CVA 07/2020 Left nodule Would recommend f/u thyroid us History of adenomatous polyp of colon 05/15/2014 Overview: 09/24/2017 tubullovillous Pain medication agreement 03/01/2012 Dyslipidemia, goal LDL below 70 06/17/2011 HTN, GOAL BELOW 140/90 01/15/2009 Overview: Modified per HTN protocol #16. 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 ADVANCE DIRECTIVE INFORMATION 08/14/2004 06/13/2016 Overview: No, Advance Directive brochure given to patient. Alcohol dependence 05/16/2004 8 Overview: deleted in error ICD-10 update of inactive term Dyslipidemia, goal to be determined 01/16/2004 03/09/2008 Overview: Resolved per Duplicate Protocol #2. Hemorrhagic disorder due to intrinsic circulating anticoagulants 01/04/2003 08/11/2017 Overview: inr 2-3 ICD-10 update of inactive term Dyslipidemia, goal to be determined 09/17/2001 06/17/2011 HYPERTENSION NOS 01/01/2009 Overview: Modified per HTN protocol #16. Alcohol dependence 5 Overview: ICD-10 update of inactive term documented as of this encounter (statuses as of 10/07/2023) Immunizations Name Administration Dates Next Due COVID-19 mRNA, LNP-s, No Pre serve, 2-Dose Series (Pfizer) 05/25/2020,05/04/2020 Pneumococcal Polysaccharide PPV23 (Pneumovax) 11/18/2005 Seasonal Influenza Virus Vac cine, Unspecified Formulation 01/11/2020,12/20/2018,05/20/2018,01/14,11/19/2015,10/23/2014,10/17/2013 ,2013,12/03/2010,11/29/2007,08/2006,11/18/2005 Seasonal Influenza, PF, 6 M & above, IM , (FluLaval or Fluzone) 11/13/2022,10/30/2020,01/11/2020,12/20,05/20/2018,01/14/2017 Seasonal Influenza, Quadriva lent, No Preserve, IM 11/19/2015 Seasonal Influenza, Split, I IV3, With Preserve, Inj 10/23/2014,10/17/2013,2013,12/03,11/29/2007,12/16/2006,11/18/2005 TD, Preservative Free 07/31/2022,03/21/2005 TDAP (age 10 and older)(Boostrix) 10/01/2011 documented as of this encounter Social History Tobacco Use Types Packs/Day Years Used Date Smoking Tobacco: Former Cigarettes 0.5 28 1 975 - 2002 Smokeless Tobacco: Never Comments:after cva (approx 1 0 yrs ago) Alcohol Use Standard Drinks/Week Comments Yes 14 (1 standard drink = 0.6 oz pure alcohol) 2- beers a day liquor 2 shots daily PHQ-2 Answer Date Recorded PHQ Adult Total Score 0 08/25/2022 Hunger Vital Sign Answer Date Recorded Within the past 12 months, y ou worried that your food would run out before you got the money to buy more. Patient declined Within the past 12 months, t he food you bought just didn't last and you didn't have money to get more. Patient declined Sex and Gender Information Value Date Recorded Sex Assigned at Male 05/20/2018 3:06 PM EDT Gender Identity Male 05/20/2018 3:06 PM EDT Sexual Orientation Straight 05/20/2018 3: 06 PM EDT Job Start Date Occupation Industry Not on file Not on file Not on file documented as of this encounter Miscellaneous Notes * Telephone Encounter - Soraida Nascimento CPhT - 10/07/2023 3:42 PM EDT Patient calling in regarding a medication last prescribed by PCP office, transferring caller to Medication Refill Line for further assistance. Thank you, Cindy Nascimento CPhT [employer] Crewmember III [facility] [address] [place] [address], [address] [address] documented in this encounter Plan of Treatment Upcoming Encounters Date Type Department Care Team (Late st Contact Info) Description 10/26/2023 9:45 AM EDT Pharmacy Pharmacy Hematology Oncology [facility], [address] [address] [facility], [facility] Clinic Hem/Onc [facility] [place] [address] 12/18/2023 3:00 PM EST Office Visit Hematology Oncology, [address] [place] [address] Florin Young MD [address] [facility] [place] [address] 03/08/2024 4:20 PM EST Telemedicine Family Practice/Pediatrics, [place] [address] [place] [address] Sherry Casas MD [address] [place] [address] 09/05/2024 12:30 PM EDT Office Visit Oral Maxillofacial Surgery, [place] [address] [place] [address] Reginaldo Allred DDS, MD [address] [place] [address] Scheduled Procedures Name Priority Associated Diagnoses Date/Ti me COLONOSCOPY FLEXIBLE PROXIMAL DIAGNOSTIC Recall History of colon polyps Health Maintenance Due Date Last Done Comments HIV Screening 1974 Zoster Vaccines (1 of 2) 1978 Cologuard 2004 Sigmoidoscopy 2004 Pneumococcal Vaccine: Pediatrics (0 to 5 Years) and At-Risk Patients (6 to 64 Years) (2 of 2 - PCV) 11/18/2006 11/18/2005 Fecal Occult Blood Test 03/01/2013 03/01/19 13, 12/03/2010, 12/16/2006 COVID-19 Vaccine (3 - Pfizer risk series) 06/22/2020 05/25/2020, 05/04/2020 Colonoscopy 09/21/2020 09/21/2017, 09/09, 05/12/2014, Additional history exists Colorectal Cancer Screening 09/21/2020 Depression Monitoring 08/26/2023 08/25/2022 Influenza Vaccine (FLU shot) (#1) 2023 11/13/2022, 10/30/2020, 01/11/2020, Additional history exists GFR 06/07/2024 06/08/2023, 04/10, 04/06/2023, Additional history exists Albumin/Creatinine Ratio 11/06/2024 11/06/2021 Diabetes Screening 06/07/2026 06/08/2023, 0 05/04/2023, 04/06/2023, Additional history exists Lipid Panel 09/09/2028 09/10/2023, 07/11, 11/06/2021, Additional history exists DTap/Tdap Vaccines (3 - Td or Tdap) 07/31/2032 07/31/2022, 10/01/2011, 03/21/2005, Additional history exists HPV (Gardasil) Vaccine Aged Out No lo nger eligible based on patient's age to complete this topic Hepatitis B Vaccine Aged Out No longe r eligible based on patient's age to complete this topic MENINGOCOCCAL (MENACTRA/MENVEO) Aged Out No longer eligible based on patient's age to complete this topic documented as of this encounter Medical Devices Not on filedocumented as of this encounter Care Teams Revenue Investigator Relationship Specialty Start Date End Date Lacie Santoro PA-C [address] [place] [address] PCP - General Physician Immigration Attorney 10/30/20 documented as of this encounter
--- OUTSIDE RECORDS SUMMARY | 2023-11-22 15:32 | External Medical Summary | Summary of Care ---
Author Name Unknown Organization [facility] Address [address] [place] [address] Phone [phone] Care Team Providers Care Ware Cleaner Name Role Phone Lacie Santoro PA-C Primary Care Provider Encounter Details Date Type Department Care Team (Late st Contact Info) Description 09/08/2023 Telephone Oral Maxillofacial Surgery, [place] [address] [place], [place] [id number] Services, Replaced By [facility] [address] [place] [address] Allergies No known active allergiesdocumented as of this encounter (statuses as of 09/08/2023) Medications Medication Sig Dispensed Refills Start Date [...] the morning. 30 Tablet 5 11/24/2022 Active Clopidogrel Bisulfate 75 MG Oral Tablet (pLAVix) TAKE 1 TABLET BY MOUTH EVERY DAY IN THE MORNING 90 Tablet 3 01/26/2023 Active Gabapentin 800 MG Oral Tablet (Neurontin)Indication [...] the morning. 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 75 Tablet 08/14/2023 Active Lisinopril 40 MG Oral Tablet TAKE 1 TABLET EVERY MORNING. 90 Tablet 1 09/08/2023 Active documented as of this encounter (statuses as of 09/08/2023) Active Problems Problem Noted Date Diagnosed Date [...] as of this encounter (statuses as of 09/08/2023) Resolved Problems Problem Noted Date Diagnosed Date [...] as of this encounter (statuses as of 09/08/2023) Immunizations Name Administration Dates Next Due COVID-19 mRNA, LNP-s, No Pre serve, 2-Dose Series ([employer]) 05/25/2020,05/04/2020 Pneumococcal Polysaccharide PPV23 (Pneumovax) 11/18/2005 Seasonal [...] encounter Miscellaneous Notes * Telephone Encounter - Gail Dolan OSA - 09/08/2023 2:28 PM EDT Pts exts were cx by the office pt is currently going through chemo treatments there is nothing to reschedule to until August of next year please advise Ty documented in this encounter Plan of Treatment Upcoming Encounters Date Type Department Care Team (Late st Contact Info) Description 09/10/2023 7:10 AM EDT Laboratory Lab Mobile Phlebotomy [facility] [address] [place] [address] [facility], [facility] Mobile Home Draw [address] [place] [address] 09/11/2023 3:00 PM EDT Office Visit Hematology Oncology, [address] [place] [address] Florin Young MD [address] [place] [address] [place] [address] 10/26/2023 9:45 AM EDT Pharmacy Pharmacy Hematology Oncology [facility] [address] [place] [address] [facility], [facility] Hem/Onc [address] [place] [address] 03/08/2024 5:20 PM EST Telemedicine Family Practice/Pediatrics, [place] [address] [place] [address] Lacie Santoro PA-C [address] [place] [address] Scheduled Procedures Name Priority Associated Diagnoses Date/Ti [...] 05/04/2023, 04/06/2023, Additional history exists Lipid Panel 08/01/2027 07/31/2022, 10/11, 01/03/2020, Additional history exists DTaP,Tdap,and Td Vaccines (3 - Td or Tdap) 07/31/2032 07/31/2022, 10/01/2011, 03/21/2005, Additional history exists Hepatitis C Screening Completed 05/20/2018 HPV (Gardasil) Vaccine Aged Out No lo [...] filedocumented as of this encounter Care Teams Ware Cleaner Relationship Specialty Start Date End Date Lacie Santoro PA-C [place] [phone] PCP - General Physician Manager Fixed Income 10/30/20 documented as of this encounter
--- OUTSIDE RECORDS SUMMARY | 2023-11-22 15:32 | External Medical Summary | Summary of Care ---
Author Name Unknown Organization [facility] Address [address] [facility] [place] [address] Phone [phone] Care Team Providers Care Shower Room Attendant Name Role Phone Kee Santoro PA-C Primary Care Provider Reason for Visit * Reason Comments eRx-Medication Refill Encounter Details Date Type Department Care Team (Late st Contact Info) Description [facility] [address] [facility] [place] [address] Kee Santoro PA-C [address] [facility] [place] [phone] Allergies No known active allergiesdocumented as of this encounter (statuses as of 09/08/2023) Medications Medication Sig Dispensed Refills Start Date End Date Status Multivitamin Adult Extra C Oral Tablet Chewable 1 Tablet. 08/01/2020 Active Thiamine HCl 100 MG Oral Tablet (vitamin B-1) Take 1 Tablet by mouth in the morning. 08/01/2020 Active Atorvastatin Calcium 20 MG Oral Tablet (Lipitor)Indication s:Dyslipidemia, goal LDL below 70 Take 1 Tablet by mouth in the morning. 90 Tablet 3 09/24/2022 Active Citalopram Hydrobromide 40 MG Oral Tablet (CeleXA)Indications :Major depressive disorder, recurrent episode, moderate (HCC) TAKE 1 TABLET BY MOUTH EVERY DAY IN THE MORNING 90 Tablet 3 09/24/2022 Active Docusate Sodium 100 MG Oral Capsule (Colace)Indications :Constipation, unspecified constipation type Take 1 Capsule by mouth in the morning and 1 Capsule before bedtime. 180 Capsule 3 09/24/2022 Active predniSONE 5 MG Oral Tablet (Deltasone)Indicati ons:Malignant neoplasm of prostate (HCC) Take 1 Tablet by mouth in the morning. 30 Tablet 5 11/24/2022 Active Clopidogrel Bisulfate 75 MG Oral Tablet (pLAVix) TAKE 1 TABLET BY MOUTH EVERY DAY IN THE MORNING 90 Tablet 3 01/26/2023 Active Gabapentin 800 MG Oral Tablet (Neurontin)Indicati ons:Other chronic back pain TAKE 1 TABLET BY MOUTH IN THE MORNING AND 1 TABLET AT NOON AND 1 TABLET BEFORE BEDTIME. 90 Tablet 3 05/10/2023 Active Abiraterone Acetate 250 MG Oral Tablet (Zytiga)Indications :Malignant neoplasm of prostate (HCC) Take 4 Tablets by mouth in the morning. Take on an empty stomach (1 hour before or 2 hours after food). 120 Tablet 5 06/18/2023 Active amLODIPine Besylate 5 MG Oral Tablet (Norvasc) Take 1 Tablet by mouth in the morning. 30 Tablet 5 06/27/2023 Active traZODone HCl 50 MG Oral Tablet (Desyrel)Indication s:Insomnia, unspecified type TAKE 1 TO 2 TABLETS BY MOUTH EVERY DAY PRIOR TO SLEEPING DIRECTED 180 Tablet 3 07/10/2023 Active predniSONE 5 MG Oral Tablet (Deltasone)Indicati ons:Malignant neoplasm of prostate (HCC) Take 1 tablet by mouth in the morning. 30 Tablet 5 07/27/2023 Active HYDROcodone-Acetami nophen 5-325 MG Oral TabletIndications:D isplacement of lumbar intervertebral disc without myelopathy,Pain medication agreement Take 1 Tablet by mouth every 6 hours as needed for Pain, Mild. 75 Tablet 08/14/2023 Active Lisinopril 40 MG Oral Tablet TAKE 1 TABLET EVERY MORNING. 90 Tablet 1 09/08/2023 Active Lisinopril 40 MG Oral Tablet Take 1 Tablet by mouth in the morning. 30 Tablet 5 01/11/2023 09/08/19 24 Discontinued documented as of this encounter (statuses as [...] Former Cigarettes 0.5 28 1 975 - 2003 Smokeless Tobacco: Never Comments:after cva (approx 1 [...] encounter Miscellaneous Notes * Telephone Encounter - Walter Rios [facility] - 09/08/2023 2:23 PM EDTSigned Prescriptions: Disp Refills Lisinopril 40 MG Oral Tablet 90 Tab*1 Sig: TAKE 1 TABLET EVERY MORNING.Authorizing Provider: KEE SANTORO User: WALTER RIOS documented in this encounter Plan of Treatment Upcoming Encounters Date Type Department Care Team (Late st Contact Info) Description 09/10/2023 7:10 AM EDT Laboratory Lab [facility]lebotomy [facility] [address] [facility] [place] [address] [facility], [facility] Mobile Home Draw [address] [place] [address] 09/11/2023 3:00 PM EDT Office Visit Hematology Oncology, [place] [address] [place] [address] [place] [address] Florin Young MD [address] [place] [address] [place] [address] 10/26/2023 9:45 AM EDT Pharmacy Pharmacy Hematology Oncology [facility] [address] [place] [address] [facility], [facility] Hem/Onc [address] [place] [address] 03/08/2024 5:20 PM EST Telemedicine Family Practice/Pediatrics, [place] [address] [place] [address] Kee Santoro PA-C [address] [place] [address] Scheduled Procedures Name Priority Associated Diagnoses Date/Ti [...] filedocumented as of this encounter Care Teams Shower Room Attendant Relationship Specialty Start Date End Date Kee Santoro PA-C [facility] [place] [address] PCP - General Physician Animal Warden 10/30/20 documented as of this encounter
--- OUTSIDE RECORDS SUMMARY | 2023-11-22 15:32 | External Medical Summary | Summary of Care ---
Author Name Unknown Organization [facility] Address [address] [facility] [place] [address] Phone [phone] Care Team Providers Care Margin Analyst Name Role Phone Kee Santoro PA-C Primary Care Provider Reason for Visit * Reason Onset Date Comments Medication Refill 09/09/2023 Encounter Details Date Type Department Care Team (Late st Contact Info) Description 09/09[facility]2023 [facility] [address] [facility] [place] [id number] Kee Santoro PA-C [address] [facility] [place] [phone] LUMBAR DISC DISPLACEMENT; Pain medication agreement Allergies No known active allergiesdocumented as of this encounter (statuses as of 09/10/2023) Medications Medication Sig Dispensed Refills Start Date End Date Status Multivitamin Adult Extra C Oral Tablet Chewable 1 Tablet. 08/01/2020 Active Thiamine HCl 100 MG Oral Tablet (vitamin B-1) Take 1 Tablet by mouth in the morning. 08/01/2020 Active Atorvastatin Calcium 20 MG Oral Tablet (Lipitor)Indications :Dyslipidemia, goal LDL below 70 Take 1 Tablet by mouth in the morning. 90 Tablet 3 09/24/2022 Active Citalopram Hydrobromide 40 MG Oral Tablet (CeleXA)Indications: Major depressive disorder, recurrent episode, moderate (HCC) TAKE 1 TABLET BY MOUTH EVERY DAY IN THE MORNING 90 Tablet 3 09/24/2022 Active Docusate Sodium 100 MG Oral Capsule (Colace)Indications: Constipation, unspecified constipation type Take 1 Capsule by mouth in the morning and 1 Capsule before bedtime. 180 Capsule 3 09/24/2022 Active predniSONE 5 MG Oral Tablet (Deltasone)Indicatio ns:Malignant neoplasm of prostate (HCC) Take 1 Tablet by mouth in the morning. 30 Tablet 5 11/24/2022 Active Clopidogrel Bisulfate 75 MG Oral Tablet (pLAVix) TAKE 1 TABLET BY MOUTH EVERY DAY IN THE MORNING 90 Tablet 3 01/26/2023 Active Gabapentin 800 MG Oral Tablet (Neurontin)Indicatio ns:Other chronic back pain TAKE 1 TABLET BY MOUTH IN THE MORNING AND 1 TABLET AT NOON AND 1 TABLET BEFORE BEDTIME. 90 Tablet 3 05/10/2023 Active Abiraterone Acetate 250 MG Oral Tablet (Zytiga)Indications: Malignant neoplasm of prostate (HCC) Take 4 Tablets by mouth in the morning. Take on an empty stomach (1 hour before or 2 hours after food). 120 Tablet 5 06/18/2023 Active amLODIPine Besylate 5 MG Oral Tablet (Norvasc) Take 1 Tablet by mouth in the morning. 30 Tablet 5 06/27/2023 Active traZODone HCl 50 MG Oral Tablet (Desyrel)Indications :Insomnia, unspecified type TAKE 1 TO 2 TABLETS BY MOUTH EVERY DAY PRIOR TO SLEEPING DIRECTED 180 Tablet 3 07/10/2023 Active predniSONE 5 MG Oral Tablet (Deltasone)Indicatio ns:Malignant neoplasm of prostate (HCC) Take 1 tablet by mouth in the morning. 30 Tablet 5 07/27/2023 Active Lisinopril 40 MG Oral Tablet TAKE 1 TABLET EVERY MORNING. 90 Tablet 1 09/08/2023 Active HYDROcodone-Acetamin ophen 5-325 MG Oral TabletIndications: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 75 Tablet 09/10/2023 Active HYDROcodone-Acetamin ophen 5-325 MG Oral TabletIndications: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 75 Tablet 08/14/2023 4 Discontinue d(Refill) documented as of this encounter (statuses as of 09/10/2023) Active Problems Problem Noted Date Diagnosed Date [...] as of this encounter (statuses as of 09/10/2023) Resolved Problems Problem Noted Date Diagnosed Date [...] as of this encounter (statuses as of 09/10/2023) Immunizations Name Administration Dates Next Due COVID-19 [...] encounter Miscellaneous Notes * Telephone Encounter - Kee Santoro PA-C - 09/10/2023 9:46 AM EDT Signed Prescriptions: Disp Refills HYDROcodone-Acetaminophen 5-325 MG Oral Ta*75 Tab*0 Sig: Take 1 Tablet by mouth every 6 hours as needed for Pain, Mild.Authorizing Provider: KEE SANTORO---- * Telephone Encounter - Maddie Bhandari [facility] - 09/10/2023 9:11 AM EDTPending Prescriptions: Disp Refills HYDROcodone-Acetaminophen 5-325 MG Oral Ta*75 Tab*0 Sig: Take 1 Tablet by mouth every 6 hours as needed for Pain, Mild. * Telephone Encounter - Maddie Bhandari [facility] - 09/10/2023 9:11 AM EDT I have reviewed the patients controlled substance dispensing history in the Prescription Drug Monitoring Program in compliance with the [facility] regulations before prescribing a controlled substance. PDMP checked on 09/10/2023. Pending Prescriptions: Disp Refills HYDROcodone-Acetaminophen 5-325 MG Oral T*75 Tab*0 Sig: Take 1 Tablet by mouth every 6 hours as needed for Pain, Mild. Last Visit: 09/02/2023 (in office), 07/01/2023 (telemedicine) Next Visit: 03/08/2024 Date medication was last filled: 08/17/23 Date medication is due for refill: 09/04/23 Pharmacy: [address] Is this request for a controlled substance? Yes and Urine Drug Screen was completed Toxicology results: Results for orders placed or performed in visit on 09/02/23 PAIN MANAGEMENT DRUG PANEL, URINE W/ INTERPRETATION Result Value Compliance Interpretation Based on medication info provided, The presence of hydrocodone, dihydrocodeine and hydromorphone is CONSISTENT with hydrocodone prescription. Amphetamines Screen, U Negative Benzodiazepines Screen, U Negative Cannabinoids Screen, U Negative Cocaine Metabolite Screen, U Negative Fentanyl Screen, U Negative Hydrocodone Screen, U Positive (A) Methadone Metabolite Screen, U Negative Morphine/Codeine Screen, U Refer to confirmation results (A) Oxycodone Screen, U Negative Valid Interpretation Normal Creatinine, U 71 Narrative Cutoff Concentrations: Drug Level Amphetamines 500 ng/mL Benzodiazepines 100 ng/mL Cannabinoids 50 ng/mL Cocaine Metabolite 150 ng/mL Fentanyl 1 ng/mL Hydrocodone / Hydromorphone 300 ng/mL Methadone Metabolite 100 ng/mL Morphine / Codeine 300 ng/mL Oxycodone / Oxymorphone 100 ng/mL Screening results are presumptive and can only be used for medical purposes. Confirmatory testing is available upon request. Please approve if appropriate. Thanks, Maddie Bhandari Clinical Pharmacist [facility] ([facility]) [phone] 09/10/2023, 9:11 AM * Telephone Encounter - Maranda Sousa CPhT - 09/09/2023 1:49 PM EDT Did you pend patient's preferred pharmacy and medication before forwarding?yes Pharmacy: [facility] [address] Pending Prescriptions: Disp Refills HYDROcodone-Acetaminophen 5-325 MG Oral T*75 Tab*0 Sig: Take 1 Tablet by mouth every 6 hours as needed for Pain, Mild. Last Visit: 09/02/2023 (in office), 07/01/2023 (telemedicine) Next Visit: 03/08/2024 If no future appointments scheduled, and last appointment is greater than a year ago, please schedule patient for a follow-up appointment Last date the medication was ordered: Is this request for a controlled substance?Yes, What was the last refill date w/ quantity 75 and dosage 5/325mg and Urine Drug Screen was completed Urine Drug Screen: Results for orders placed or performed in visit on 09/02/23 PAIN MANAGEMENT DRUG PANEL, URINE W/ INTERPRETATION Result Value Compliance Interpretation Based on medication info provided, The presence of hydrocodone, dihydrocodeine and hydromorphone is CONSISTENT with hydrocodone prescription. Amphetamines Screen, U Negative Benzodiazepines Screen, U Negative Cannabinoids Screen, U Negative Cocaine Metabolite Screen, U Negative Fentanyl Screen, U Negative Hydrocodone Screen, U Positive (A) Methadone Metabolite Screen, U Negative Morphine/Codeine Screen, U Refer to confirmation results (A) Oxycodone Screen, U Negative Valid Interpretation Normal Creatinine, U 71 Narrative Cutoff Concentrations: Drug Level Amphetamines 500 ng/mL Benzodiazepines 100 ng/mL Cannabinoids 50 ng/mL Cocaine Metabolite 150 ng/mL Fentanyl 1 ng/mL Hydrocodone / Hydromorphone 300 ng/mL Methadone Metabolite 100 ng/mL Morphine / Codeine 300 ng/mL Oxycodone / Oxymorphone 100 ng/mL Screening results are presumptive and can only be used for medical purposes. Confirmatory testing is available upon request. Patient Phone Numbers Labs: Lab Results Component Value Date/Time CREAT 1.3 (H) 06/08/2023 07:55 AM CREAT 1.4 (H) 01/03/2020 03:15 PM POTASSIUM 4.7 06/08/2023 07:55 AM POTASSIUM 4.8 01/03/2020 03:15 PM TSH 1.14 11/06/2021 01:11 PM TSH 0.92 12/03/2010 12:54 PM LDLCALC 71 07/31/2022 03:02 PM LDLCALC 70 01/03/2020 03:15 PM LDLDIRECT NOT APPLICABLE 01/03/2020 03:15 PM ALT 10 06/08/2023 07:55 AM ALT 23 01/03/2020 03:15 PM documented in this encounter Plan of Treatment Upcoming Encounters Date Type Department Care Team (Late st Contact Info) Description 09/11/2023 3:00 PM EDT Office Visit Hematology Oncology, [address] [place] [phone] Florin Young MD [address] [place] [address] [place] [phone] 10/26/2023 9:45 AM EDT Pharmacy Pharmacy Hematology Oncology [facility] [address] [place] [address] Gm, [facility] Hem/Onc [address] [place] [address] 03/08/2024 5:20 PM EST [facility] [address] [place] [address] Kee Santoro PA-C [address] [place] [address] Scheduled Procedures Name Priority Associated Diagnoses Date/Ti [...] Not on filedocumented as of this encounter Visit Diagnoses Diagnosis LUMBAR DISC DISPLACEMENT Displacement of lumbar intervertebral disc without myelopathy Pain medication agreement Encounter for long-term (current) use of other medications documented in this encounter Care Teams Margin Analyst Relationship Specialty Start Date End Date Kee Santoro PA-C [facility] [place] [address] PCP - General Physician Sewer Pipe Offbearer 10/30/20 documented as of this encounter
--- OUTSIDE RECORDS SUMMARY | 2023-11-22 15:32 | External Medical Summary ---
Author Name Unknown Address Unknown Organization [facility] [address] [place] [id number] Laboratory Report Ordering Provider Test Date Status MARY DODSON 09/10/2023 07:43:00 Final Observation Date Value Abnormality Reference (Units ) Status SYNC LEUKOCYTES IN BLOOD BY AUTOMATED COUNT 09/10/2023 07:43:00 8.70 4.00-10.80 (K/uL) Final Segs 09/10/2023 07:43:00 59.0 40.0-75.0 (%) Final Lymphs % 09/10/2023 07:43:00 22.9 18.0-42.0 (%) Final Monos 09/10/2023 07:43:00 8.3 1.0-11.0 (%) Final Eosinophils 09/10/2023 07:43:00 9.5 Above high normal 0.0-6.0 (%) Final Basos 09/10/2023 07:43:00 0.3 0.0-2.0 (%) Final Absolute Segs 09/10/2023 07:43:00 5.13 1.80-7.70 (K/uL) Final Lymphs, absolute 09/10/2023 07:43:00 1.99 1.00-4.80 (K/ul) Final Monos, Abs 09/10/2023 07:43:00 0.72 0.00-1.10 (K/uL) Final Eos, Abs 09/10/2023 07:43:00 0.83 Above high normal 0.00-0.70 (K/uL) Final Basos, Abs 09/10/2023 07:43:00 0.03 0.00-0.20 (K/uL) Final Performing Location [facility] [address] [place] [id number]
--- OUTSIDE RECORDS SUMMARY | 2023-11-22 15:32 | External Medical Summary | Summary of Care ---
Author Name Unknown Organization [facility] Address [address] [facility] [address] Phone [phone] Care Team Providers Care Cleaning Validation Consultant Name Role Phone MaudeLouLaciesamson Santana PA-C Primary Care Provider Reason for Visit * Reason Comments Follow Up Encounter Details Date Type Department Care Team (Late st Contact Info) Description 09/11/2023 3:00 PM EDT Office Visit Hematology Oncology, [address] [place] [address] Florin Bergman MD [address] [place] [address] [place] [phone] Malignant neoplasm of prostate (HCC)* Allergies No known active allergiesdocumented as of this encounter (statuses as of 09/11/2023) Medications Medication Sig Dispensed Refills Start Date [...] for Pain, Mild. 75 Tablet 09/10/2023 Active documented as of this encounter (statuses as of 09/11/2023) Active Problems Problem Noted Date Diagnosed Date [...] as of this encounter (statuses as of 09/11/2023) Resolved Problems Problem Noted Date Diagnosed Date [...] as of this encounter (statuses as of 09/11/2023) Immunizations Name Administration Dates Next Due COVID-19 [...] on file documented as of this encounter Last Filed Vital Signs Vital Sign Reading Time Taken Comments Blood Pressure 119/63 09/11/2023 3:15 PM EDT Pulse 72 09/11/2023 3:15 PM EDT Temperature 36.4 C (97.5 F) 09/11/2023 3:15 PM ED T Respiratory Rate 18 09/11/2023 3:15 PM EDT Oxygen Saturation 98% 09/11/2023 3:15 PM EDT Inhaled Oxygen Concentration - - Weight 96 kg (211 lb 9.6 oz) 09/11/2023 3:15 PM EDT Height - - Body Mass Index 30.89 09/02/2023 3:02 PM EDT documented in this encounter Progress Notes * Florin Bergman MD - 09/11/2023 4:42 PM EDT 09/11/2023 Ziggy Acuna 1960 MD Lacie Matthews PA-C [address] [facility] [place] [address] HPI: He is a very pleasant 63 year old man who is seen at this time for evaluation of advanced prostate cancer he has been noted to have elevated PSA he also has had multiple medical problems including 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 Current Outpatient Medications Medication Sig Dispense Refill Multivitamin Adult Extra C Oral Tablet Chewable 1 Tablet. Thiamine HCl 100 MG Oral Tablet (vitamin B-1) Take 1 Tablet by mouth in the morning. Atorvastatin Calcium 20 MG Oral Tablet (Lipitor) Take 1 Tablet by mouth in the morning. 90 Tablet 3 Citalopram Hydrobromide 40 MG Oral Tablet (CeleXA) TAKE 1 TABLET BY MOUTH EVERY DAY IN THE MORNING 90 Tablet 3 Docusate Sodium 100 MG Oral Capsule (Colace) Take 1 Capsule by mouth in the morning and 1 Capsule before bedtime. 180 Capsule 3 predniSONE 5 MG Oral Tablet (Deltasone) Take 1 Tablet by mouth in the morning. 30 Tablet 5 Clopidogrel Bisulfate 75 MG Oral Tablet (pLAVix) TAKE 1 TABLET BY MOUTH EVERY DAY IN THE MORNING 90Tablet 3 Gabapentin 800 MG Oral Tablet (Neurontin) TAKE 1 TABLET BY MOUTH IN THE MORNING AND 1 TABLET AT NOON AND 1 TABLET BEFORE BEDTIME. 90 Tablet 3 Abiraterone Acetate 250 MG Oral Tablet (Zytiga) Take 4 Tablets by mouth in the morning. Take on an empty stomach (1 hour before or 2 hours after food). 120 Tablet 5 amLODIPine Besylate 5 MG Oral Tablet (Norvasc) Take 1 Tablet by mouth in the morning. 30 Tablet 5 traZODone HCl 50 MG Oral Tablet (Desyrel) TAKE 1 TO 2 TABLETS BY MOUTH EVERY DAY PRIOR TO SLEEPING DIRECTED 180 Tablet 3 predniSONE 5 MG Oral Tablet (Deltasone) Take 1 tablet by mouth in the morning. 30 Tablet 5 Lisinopril 40 MG Oral Tablet TAKE 1 TABLET EVERY MORNING. 90 Tablet 1 HYDROcodone-Acetaminophen 5-325 MG Oral Tablet Take 1 Tablet by mouth every 6 hours as needed for Pain, Mild. 75 Tablet 0 No current facility-administered medications for this visit. Past Medical History: Diagnosis Date Dyslipidemia Past Surgical History: Procedure Laterality Date COLONOSCOPY, DIAGNOSTIC (RECTUM) 05/12/2014 Diverticulosis, hyperplastic polyp, tubulovillous adenoma, 3 yr repeat/COLONOSCOPY FLEXIBLE PROXIMAL DIAGNOSTIC performed by Denny Augustin MD at [facility]COPY [facility] COLONOSCOPY, DIAGNOSTIC (RECTUM) 09/21/2017 TVA polyp, repeat 3 yrs/COLONOSCOPY FLEXIBLE PROXIMAL DIAGNOSTIC performed by Issac Magdaleno MD at [facility]OSCOPY [facility] MISCELLANEOUS ORDER ([facility] ONLY) lumbar surgery x 2 REMOVAL OF RUPTURED APPENDIX 06/2012 ev THROMBOENDARECTOMY W/PATCH,NECK INCISION 2003? left,carotid endarterectomy, [facility] Family History Problem Relation Name Age of Onset Other (not in touch) Brother Other (not in touch) Brother Other (not in touch) Sister Diabetes Father 46 Stroke Father 46 Hypertension Father 46 Heart Disorder Father 46 mi Heart Disorder Uncle (Unspecified) mi Heart Disorder Uncle (Unspecified) mi Heart Disorder Uncle (Unspecified) mi Other (car accident) Sister Social History Socioeconomic History Marital status: Unknown Spouse name: Not on file Number of children: 4 Years of education: Not on file Highest education level: Not on file Occupational History Occupation: disability Employer: [employer] 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 Employer: [place] [address] Tobacco Use Smoking status: Former Current packs/day: 0.00 Average packs/day: 0.5 packs/day for 28.0 years (14.0 ttl pk-yrs) Types: Cigarettes Start date: 1974 Quit date: 2002 Years since quittin.6 Smokeless tobacco: Never Tobacco comments: 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) Vaping Use Vaping status: Never Used Substance and Sexual Activity Alcohol use: Yes Alcohol/week: 14.0 standard drinks of alcohol Types: 14 12 oz of beer per week Comment: 2- beers a day liquor 2 shots daily Drug use: No Sexual activity: Yes Partners: Female Other Topics Concern Service Not Asked Blood Transfusions Not Asked Caffeine Concern Not Asked Occupational Exposure Not Asked Hobby Hazards Not Asked Sleep Concern Not Asked Stress Concern Not Asked Weight Concern Not Asked Special Diet Not Asked Back Care Not Asked Exercise Not Asked Bike Helmet Not Asked Seat Belt Not Asked Self-Exams Not Asked Social History Narrative Not on file Social Determinants of Health Financial Resource Strain: Not on file Food Insecurity: Patient Declined (08/25/2022) Hunger Vital Sign Worried About Running Out of Food in the Last Year: Patient declined Ran Out of Food in the Last Year: Patient declined Transportation Needs: Not on file Social Connections: Unknown (09/11/2023) Social Connections How often do you feel lonely or isolated from those around you? (Adult - for ages 18 years and over): Not on file Housing Stability: Not on file ROS: Constitutional: + weight loss , + weakness, and + fatigue Eyes: no worsening of vision, no eye pain, redness, discharge, and no diplopia ENT: no hearing loss, no congestion, no runny nose, no sore throat, no tinnitus Resp: no cough, no sputum, no wheezing, no SOB, and no hemoptysis Cardiac: no chest pain, no orthopnea, no dyspnea on exertion, no PND, no edema, no claudication, and no palpitations GI: no pain, no heartburn, no diarrhea, no constipation, no blood/melena, no nausea, no vomiting Musculoskeletal: no significant joint or muscle pain and no swelling Male : no nocturia and no hematuria Neuro: no memory loss, + paralysis right side , and + weakness right side Psych: denies feeling down, depressed or hopeless in past month, denies being bothered by little interest or pleasure in doing things in past month, and no insomnia Heme: no fever, no chills, no sweats, and no bleeding/bruising Endo: no unplanned weight change Skin: no rash, no itching, and no new/changing skin lesions PHYSICAL EXAMINATION: Triage Pain Assessment None General Appearance: He appears chronically ill in no distress unable to move right arm and leg significant other is with her for the visit feels ok at this time no specific issues Skin: Normal - No skin rash, petechiae, ecchymosis noted HEENT: Normal - No oral or pharyngeal masses, ulceration or thrush noted, no sinus tenderness Neck: Normal - Supple, normal carotid upstrokes, no palpable thyromegaly Lymph Nodes: Normal - No palpable lymph nodes in the neck, supraclavicular, axillary, inguinal, or epitrochlear areas Lungs/Thorax: Normal - Clear to auscultation and percussion Heart: Normal - Regular rate and rhythm, normal S1, S2, no appreciable murmurs, rubs, gallops Pulses: Normal - 2+ throughout and symmetrical Abdomen: Normal - Soft, nontender, bowel sounds present, no appreciable hepatosplenomegaly, no palpable masses Musculoskeletal: Normal - No pain on palpation over bony prominence, no edema, no evidence of gout,no joint or bony deformity Neurologic: right arm and leg plegia ambulates with cane Results for orders placed or performed in visit on 09/10/23 PSA Result Value Ref Range PSA 5.08 (H) <4.10 ng/mL LIPID PANEL WITH DIRECT LDL IF TG IS HIGH Result Value Ref Range Triglycerides 100 <=174 mg/dL Cholesterol 139 <200 mg/dL HDL Cholesterol 44 >39 mg/dL Non-HDL Cholesterol 95 <=159 mg/dL LDL Cholesterol 75 <=129 mg/dL CBC Result Value Ref Range WBC 8.70 4.00 - 10.80 K/uL RBC 3.35 4.50 - 5.25 M/uL HGB 11.2 (L) 14.0 - 16.8 g/dL HCT 34.8 (L) 40.0 - 48.4 % MCV 103.9 82.0 - 99.5 fL MCH 33.4 27.0 - 34.0 pg MCHC 32.2 32.0 - 36.0 g/dL RDW 13.8 11.5 - 15.5 % PLT 228 140 - 400 K/uL MPV 11.0 6.6 - 11.1 fL DIFFERENTIAL, AUTOMATED Result Value Ref Range WBC 8.70 4.00 - 10.80 K/uL Neutrophils % 59.0 40.0 - 75.0 % Lymphocytes % 22.9 18.0 - 42.0 % Monocytes % 8.3 1.0 - 11.0 % Eosinophils % 9.5 (H) 0.0 - 6.0 % Basophils % 0.3 0.0 - 2.0 % Absolute Neutrophils 5.13 1.80 - 7.70 K/uL Absolute Lymphocytes 1.99 1.00 - 4.80 K/ul Absolute Monocytes 0.72 0.00 - 1.10 K/uL Absolute Eosinophils 0.83 (H) 0.00 - 0.70 K/uL Absolute Basophils 0.03 0.00 - 0.20 K/uL ASSESSMENT: advanced prostate cancer hormone sensitive PLAN: discussed at length with them responding well to treatment PSA is 5.08 will plan to reevaluate in 3 months continue present treatment regimen all questions answered to apparent satisfaction cancall with any questions or concerns 30 minutes was spent reviewing records counseling and coordination of care and report preparation will proceed in this fashion Florin Bergman MD documented in this encounter Nursing Notes * Sindi Delong MED ASSIST - 09/11/2023 3:15 PM EDT Patient was instructed to not get up on the exam table/exam chair until directed and assisted by their provider; patient is to remain seated in the chair/ wheelchair/ exam table/ exam chair for fall prevention and safety reasons. Patient is aware to have assistance to step down off exam table/exam chair with personnel. Patient voiced full comprehension of instructions. documented in this encounter Plan of Treatment Upcoming Encounters Date Type Department Care Team (Late st Contact Info) Description 10/26/2023 9:45 AM EDT Pharmacy Pharmacy Hematology Oncology [facility] [address] [place] [address] Gm, [facility] Hem/Onc [address] [place] [address] 12/18/2023 3:00 PM EST Office Visit Hematology Oncology, [address] [place] [address] Florin Bergman MD [address] [place] [address] [place] [address] 03/08/2024 5:20 PM EST [facility] [address] [place] [address] Lacie Santoro PA-C [address] [place] [address] Scheduled Orders Name Type Priority Associated Diagnoses Orde r Schedule CBC WITH WBC DIFFERENTIAL Lab Routine Malignant neoplasm of prostate (HCC) Expected: 12/12/2023 (Approximate), Expires: 03/09/2024 COMPREHENSIVE METABOLIC PANEL Lab Routine Malignant neoplasm of prostate (HCC) Expected: 12/12/2023 (Approximate), Expires: 03/09/2024 PSA Lab Routine Malignant neoplasm of prostate (HCC) Expected: 12/12/2023 (Approximate), Expires: 03/09/2024 Scheduled Procedures Name Priority Associated Diagnoses Date/Ti [...] 09/09/2028 09/10/2023, 07/11, 11/06/2021, Additional history exists DTaP,Tdap,and Td Vaccines (3 [...] as of this encounter Visit Diagnoses Diagnosis Malignant neoplasm of prostate (HCC)- Primary Malignant neoplasm of prostate documented in this encounter Care Teams Cleaning Validation Consultant Relationship Specialty Start Date End Date Lacie Santoro PA-C [place] [address] PCP - General Physician Assistance Specialist 10/30/20 documented as of this encounter
--- OUTSIDE RECORDS SUMMARY | 2023-11-22 15:32 | External Medical Summary | Summary of Care ---
Author Name Unknown Organization [facility] Address [address] [facility] [place] [address] Phone [phone] Care Team Providers Care Data Reviewer Name Role Phone Lacie Santoro PA-C Primary Care Provider Reason for Visit * Reason Comments eRx-Medication Refill Encounter Details Date Type Department Care Team (Late st Contact Info) Description 09/25/2023 Refill Family Practice/Pediatrics, [place] [address] [facility] [place] [phone] Lacie Santoro PA-C [address] [facility] [place] [address] Allergies No known active allergiesdocumented as of this encounter (statuses as of 09/30/2023) Medications Medication Sig Dispensed Refills Start Date [...] as of this encounter (statuses as of 09/30/2023) Active Problems Problem Noted Date Diagnosed Date [...] as of this encounter (statuses as of 09/30/2023) Resolved Problems Problem Noted Date Diagnosed Date [...] as of this encounter (statuses as of 09/30/2023) Immunizations Name Administration Dates Next Due COVID-19 mRNA, LNP-s, No Pre serve, 2-Dose Series (Pfizer) 05/25/2020,05/04/2020 Diptheria/Tetanus (Adult) 03/14/1998 Pneumococcal Polysaccharide PPV23 (Pneumovax) 11/18/2005 Seasonal Influenza [...] as of this encounter Miscellaneous Notes * Addendum Note - Soraida Lin CPhT - 09/30/2023 4:00 PM EDTAddended by: SORAIDA LIN on: 09/30/2023 04:00 PM Modules accepted: Orders * Telephone Encounter - Soraida Lin CPhT - 09/30/2023 3:57 PM EDT Pt's was very upset stating that she has been using [facility] for almost 1 year anddoesn't understand why this was still listed as being at [facility]. Caller became very upset and [facility]. Caller requested to speak with a pt advocate. Transferred caller as requested. Please reroute Rx to [facility] Pending Prescriptions: Disp Refills Clopidogrel Bisulfate 75 MG Oral Tablet (*90 Tab*3 Sig: TAKE 1 TABLET BY MOUTH EVERY DAY IN THE MORNING Refused Prescriptions: Disp Refills Clopidogrel Bisulfate 75 MG Oral Tablet (p*90 Tab*3 Sig: TAKE 1 TABLET BY MOUTH DAILY IN THE MORNING Refused By: WALDEMAR PANTOJA Reason for Refusal: Too soon Last Visit: 09/02/2023 (in office), 07/01/2023 (telemedicine) 03/08/2024 If no future appointments scheduled, and last appointment is greater than a year ago, please schedule patient for a follow-up appointment Last date the medication was ordered: 01/26/23 Patient Phone Numbers Labs: Lab Results Component Value Date/Time CREAT 1.3 (H) 06/08/2023 07:55 AM CREAT 1.4 (H) 01/03/2020 03:15 PM POTASSIUM 4.7 06/08/2023 07:55 AM POTASSIUM 4.8 01/03/2020 03:15 PM TSH 1.14 11/06/2021 01:11 PM TSH 0.92 12/03/2010 12:54 PM LDLCALC 75 09/10/2023 07:43 AM LDLCALC 70 01/03/2020 03:15 PM LDLDIRECT NOT APPLICABLE 01/03/2020 03:15 PM ALT 10 06/08/2023 07:55 AM ALT 23 01/03/2020 03:15 PM * Telephone Encounter - [facility], located within [facility] - 09/28/2023 9:34 AM EDTRefused Prescriptions: Disp Refills Clopidogrel Bisulfate 75 MG Oral Tablet (p*90 Tab*3 Sig: TAKE 1TABLET BY MOUTH DAILY IN THE MORNINGRefused By: WALDEMAR PANTOJA for Refusal: Too soon------ Electronically signed by [facility]dem[facility], located [facility] at 09/28/2023 9:34 AM EDT documented in this encounter Plan of Treatment Upcoming Encounters Date Type Department Care Team (Late st Contact Info) Description 10/26/2023 9:45 AM EDT Pharmacy Pharmacy Hematology Oncology [place] [address] [place] [address] [facility], [facility] Hem/Onc [address] [place] [facility] [place] [address] 12/18/2023 3:00 PM EST Office Visit Hematology Oncology, [address] [place] [address] Florin Young MD [address] [place] [address] [place] [address] 03/08/2024 5:20 PM EST Telemedicine Family Practice/Pediatrics, [place] [address] [place] [address] Lacie Santoro PA-C [address] [place] [address] 09/05/2024 12:30 PM EDT [facility] [address] [place] [address] Reginaldo Allred DDS, MD [address] [place] [address] Scheduled Procedures Name Priority Associated Diagnoses Date/Ti [...] filedocumented as of this encounter Care Teams Data Reviewer Relationship Specialty Start Date End Date Lacie Santoro PA-C [facility] [place] [id number] PCP - General Physician Water Fabricator Operator 10/30/20 documented as of this encounter
--- OUTSIDE RECORDS SUMMARY | 2023-11-22 15:32 | External Medical Summary | Summary of Care ---
Author Name Unknown Organization [facility] Address [address] [place] [address] Phone [phone] Care Team Providers Care Innersole Fitter Name Role Phone MaudeLouLaciesamson Santana PA-C Primary Care Provider Reason for Visit * Reason Comments Medication Management Encounter Details Date Type Department Care Team (Late st Contact Info) Description 10/26/2023 9:45 AM EDT Pharmacy Pharmacy Hematology Oncology [facility] [address] [place] [address] [facility], [facility] Hem/Onc [address] [place] [address] Malignant neoplasm of prostate (HCC)* Allergies No known active allergiesdocumented as of this encounter (statuses as of 10/26/2023) Medications Medication Sig Dispensed Refills Start Date [...] the morning. 90 Tablet 3 09/24/2022 Active Docusate Sodium [...] EVERY MORNING. 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 75 Tablet 10/09/2023 Active Citalopram Hydrobromide 40 MG Oral Tablet (CeleXA)Indications:M ajor depressive disorder, recurrent episode, moderate (HCC) TAKE 1 TABLET BY MOUTH EVERY DAY IN THE MORNING 90 Tablet 3 10/21/2023 Active documented as of this encounter (statuses as of 10/26/2023) Active Problems Problem Noted Date Diagnosed Date [...] as of this encounter (statuses as of 10/26/2023) Resolved Problems Problem Noted Date Diagnosed Date [...] as of this encounter (statuses as of 10/26/2023) Immunizations Name Administration Dates Next Due COVID-19 mRNA, LNP-s, No Pre serve, 2-Dose Series (Pfizer) 05/25/2020,05/04/2020 Pneumococcal Polysaccharide PPV23 (Pneumovax) 11/18/2005 Seasonal Influenza Virus Vac cine, Unspecified Formulation 01/11/2020,12/20/2018,05/20/2018,01/14,11/19/2015,10/23/2014,10/17/2013 ,2013,12/03/2010,11/29/2007,08/2006,11/18/2005 Seasonal Influenza, PF, 6 M & above, IM , (FluLaval or Fluzone) 11/13/2022,10/30/2020,01/11/2020,12/20,05/20/2018,01/14/2017 Seasonal Influenza, Quadriva lent, No Preserve, IM 11/19/2015 Seasonal Influenza, Trivalen t, (IIV3), with Preserv, (Fluzone) 10/23/2014,10/17/2013,2013,12/03,11/29/2007,12/16/2006,11/18/2005 TD, Preservative Free 07/31/2022,03/21/2005 TDAP (age [...] on file documented as of this encounter Progress Notes * Eunice Victoria, [facility] - 10/26/2023 1:38 PM EDT MEDICATION THERAPY MANAGEMENT ABIRATERONE TREATMENT PROGRESS NOTE Ziggy Acuna June [id number] Patient Phone Numbers SO: Uriel Merchant Preferred Lab: [facility] ([facility]) Specialty Pharmacy: [facility] Communication: Left message requesting return call to assess toleration to therapy Treatment: Medication: Abiraterone (Zytiga) Indication/Staging/Diagnosis Code: prostate cancer / C61 Dose: 1000mg daily Administration: empty stomach (1 hour before or 2 hours after a meal) Start Date: 11/27/22 Primary Belting Cutter/Oncologist: Dr. Young Additional Therapy: Prednisone 5mg daily Supportive Care Meds: Leuprolide Prophylactic Meds: Lisinopril 40mg daily Amlodipine 2.5mg daily Treatment History: 11/03/22-present: Leuprolide 11/01/22-11/08/22: bicalutamide x 7 days to prevent tumor flare Dose adjustment / medication hold: 12/24/22-12/30/22: abiraterone held for HTN Interval History: Pt reports h/o stroke and chronic back pain resolved with gabapentin and [place] Per OV 06/05/23, lab monitoring extended to q3mo with OV Changes to medication list since last visit? No Assessment and Plan: Continue currrent therapy and q3mo labs via [facility] Next due with OV Staff message sent to [facility] requesting lab draw on 12/16 If pt continues good medication tolerability for > 1 year and every 3-4 month provider follow upwith labs, then MTM to discharge pt from clinic at next encounter Assessment of compliance: N/A Assessment of adverse effects attributed to drug therapy: N/A Dose adjustment needed based on lab or adverse drug reaction? No Follow up: 7 weeks OV/labs; 13 weeks MTM Eunice Victoria, PharmD, BCOP Clinical Pharmacist, [facility] Oral Chemotherapy [facility] 10/26/2023, 1:42 PM Monitoring Parameters: Estimated CrCl Serum creatinine: 1.3 mg/dL (H) 06/08/23 0755 Estimated creatinine clearance: 66.1 mL/min (A) Hepatitis panel Latest Reference Range & Units 12/15/22 07:18 Hepatitis B Surface Antigen Negative Negative Hepatitis B Surface Antibody, Quantitative mIU/mL <3.5 HEPATITIS B SURFACE ANTIBODY Rpt Hepatitis B Surface Antibody, Interpretation NOT immune to Hepatitis B Virus Hepatitis B Surface Antibody, Qualitative Negative Hepatitis B Core Antibodies IgG and IgM Negative Negative test N/A Suggested lab monitoring Suggested lab monitoring: LFTs baseline, every 2 weeks x 3 months, then every month (patients with moderate hep impairment: every 1 week x 1 month, every two weeks x 2 months, then every month), BMP baseline and monthly; BP baseline and monthly Treatment Parameters Per PI Pertinent labs: N/A Time Spent on Encounter: < 5 minutes documented in this encounter Plan of Treatment Upcoming Encounters Date Type Department Care Team (Late st Contact Info) Description 12/18/2023 3:00 PM EST Office Visit Hematology Oncology, [address] [place] [address] Florin Young MD [address] [place] [address] [place] [address] 01/25/2024 9:45 AM EST Pharmacy Pharmacy Hematology Oncology [facility] [address] [facility] [place] [address] [facility], [facility] Hem/Onc [address] [place] [address] 03/08/2024 4:20 PM EST Telemedicine Family Practice/Pediatrics, [place] [address] [place] [address] Sherry Casas MD [address] [place] [address] 09/05/2024 12:30 PM EDT Office Visit Oral Maxillofacial Surgery, [place] [address] [place] [address] Reginaldo Allred DDS, [address] [place] [address] Scheduled Procedures Name Priority Associated Diagnoses Date/Ti [...] prostate documented in this encounter Care Teams Innersole Fitter Relationship Specialty Start Date End Date Lacie Santoro PA-C [facility] [place] [address] PCP - General Physician Furnace Combustion Analyst 10/30/20 documented as of this encounter
--- OUTSIDE RECORDS SUMMARY | 2023-11-22 15:32 | External Medical Summary | Summary of Care ---
Author Name Unknown Organization [facility] Address [address] [place] [address] Phone [phone] Care Team Providers Care Choirmaster Name Role Phone Kee Santoro PA-C Primary Care Provider Reason for Visit * Reason Onset Date Comments Medication Refill 10/19/2023 Encounter Details Date Type Department Care Team (Late st Contact Info) Description [facility]/19[facility] [address] [place] [phone] Kee Santoro PA-C [address] [place] [address] Major depressive disorder, recurrent episode, moderate (HCC) Allergies No known active allergiesdocumented as of this encounter (statuses as of 10/21/2023) Medications Medication Sig Dispensed Refills Start Date [...] 11/24/2022 Active Gabapentin 800 MG Oral Tablet (Neurontin)Indicatio [...] THE MORNING 90 Tablet 1 09/30/2023 Active HYDROcodone-Acetamin ophen 5-325 MG Oral TabletIndications: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 75 Tablet 10/09/2023 Active Citalopram Hydrobromide 40 MG Oral Tablet (CeleXA)Indications: Major depressive disorder, recurrent episode, moderate (HCC) TAKE 1 TABLET BY MOUTH EVERY DAY IN THE MORNING 90 Tablet 3 10/21/2023 Active Citalopram Hydrobromide 40 MG Oral Tablet (CeleXA)Indications: Major depressive disorder, recurrent episode, moderate (HCC) TAKE 1 TABLET BY MOUTH EVERY DAY IN THE MORNING 90 Tablet 3 09/24/2022 4 Discontinue d(Refill) documented as of this encounter (statuses as of 10/21/2023) Active Problems Problem Noted Date Diagnosed Date [...] as of this encounter (statuses as of 10/21/2023) Resolved Problems Problem Noted Date Diagnosed Date [...] as of this encounter (statuses as of 10/21/2023) Immunizations Name Administration Dates Next Due COVID-19 [...] encounter Miscellaneous Notes * Telephone Encounter - Annmarie Wilson [facility] - 10/21/2023 6:17 AM EDTSigned Prescriptions: Disp Refills Citalopram Hydrobromide 40 MG Oral Tablet *90 Tab*3 Sig: TAKE 1 TABLET BY MOUTH EVERY DAY IN THE MORNING Authorizing Provider: KEE SANTORO Ordering User: ANNMARIE WILSON * Telephone Encounter - Hodan Bernal, manager of employee relations - 10/19/2023 10:32 AM EDT Did you pend patient's preferred pharmacy and medication before forwarding?yes Pharmacy: [facility] [address] Pending Prescriptions: Disp Refills Citalopram Hydrobromide 40 MG Oral Tablet*90 Tab*3 Sig: TAKE 1 TABLET BY MOUTH EVERY DAY IN THE MORNING Last Visit: 09/02/2023 (in office), 07/01/2023 (telemedicine) Next Visit: 03/08/2024 If no future appointments scheduled, and last appointment is greater than a year ago, please schedule patient for a follow-up appointment Last date the medication was ordered: Is this request for a controlled substance?No Urine Drug Screen: Results for orders placed [...] 01:11 PM TSH 0.92 12/03/2010 12:54 PM LDL 75 09/10/2023 07:43 AM LDL 70 01/03/2020 03:15 PM LDL NOT APPLICABLE 01/03/2020 03:15 PM ALT 10 06/08/2023 07:55 AM ALT 23 01/03/2020 03:15 PM documented in this encounter Plan of Treatment Upcoming Encounters Date Type Department Care Team (Late st Contact Info) Description 10/26/2023 9:45 AM EDT Pharmacy Pharmacy Hematology Oncology [address] [address] [facility], [facility] Hem/Onc [address] [place] [address] 12/18/2023 3:00 PM EST Office Visit Hematology Oncology, [address] [place] [address] Florin Young MD [address] [place] [address] [place] [address] 03/08/2024 4:20 PM EST Telemedicine Family Practice/Pediatrics, [place] [address] [place] [address] Sherry Casas MD [address] [place] [address] 09/05/2024 12:30 PM EDT [facility] [address] [place] [address] Reginaldo Allred DDS, MD [address] [place] [address] Scheduled Procedures Name Priority Associated Diagnoses Date/Ti [...] as of this encounter Visit Diagnoses Diagnosis Major depressive disorder, recurrent episode, moderate (HCC) Major depressive disorder, recurrent episode, moderate documented in this encounter Care Teams Choirmaster Relationship Specialty Start Date End Date Kee Santoro PA-C [facility] [place] [address] PCP - General Physician Mgmt Specialist 10/30/20 documented as of this encounter
--- OUTSIDE RECORDS SUMMARY | 2023-11-22 15:32 | External Medical Summary | Summary of Care ---
Author Name Unknown Organization [facility] Address [address] [place] [address] Phone [phone] Care Team Providers Care Director Of Category Management Name Role Phone Lacie Santoro PA-C Primary Care Provider Encounter Details Date Type Department Care Team (Late st Contact Info) Description 09/08/2023 Telephone Oral Maxillofacial Surgery, [place] [address] [place], [place] [id number] Services, [facility] [address] [place] [address] Allergies No known active allergiesdocumented as of this encounter (statuses as of 09/14/2023) Medications Medication Sig Dispensed Refills Start Date [...] as of this encounter (statuses as of 09/14/2023) Active Problems Problem Noted Date Diagnosed Date [...] as of this encounter (statuses as of 09/14/2023) Resolved Problems Problem Noted Date Diagnosed Date [...] as of this encounter (statuses as of 09/14/2023) Immunizations Name Administration Dates Next Due COVID-19 [...] encounter Miscellaneous Notes * Telephone Encounter - Fiona Menendez OSA - 09/14/2023 3:03 PM EDT Lvm to return to schedule * Telephone Encounter - Gail Dolan OSA [...] 9:45 AM EDT Pharmacy Pharmacy Hematology Oncology [facility] [address] [place] [address] [facility], [facility] Hem/Onc [address] [place] [address] 12/18/2023 3:00 PM EST Office Visit Hematology Oncology, [address] [place] [address] Florin Young MD [address] [place] [address] [place] [address] 03/08/2024 5:20 PM EST Telemedicine Family Practice/Pediatrics, [place] [address] [address] Lacie Santoro PA-C [address] [place] [address] Scheduled Procedures Name Priority Associated Diagnoses Date/Ti [...] filedocumented as of this encounter Care Teams Director Of Category Management Relationship Specialty Start Date End Date Lacie Santoro PA-C [facility] [place] [address] PCP - General Physician Senior Firmware Engineer 10/30/20 documented as of this encounter
--- OUTSIDE RECORDS SUMMARY | 2023-11-22 15:32 | External Medical Summary | Summary of Care ---
Author Name Unknown Organization [facility] Address [address] [facility] [place] [address] Phone [phone] Care Team Providers Care Van Driver Name Role Phone Lacie Santoro PA-C Primary Care Provider Reason for Visit * Reason Comments Follow Up Encounter Details Date Type Department Care Team (Latest Contact Info) Description 09/02/2023 3:00 PM EDT Office Visit Family Practice/Pediatrics [facility] [address] [facility] [place] [address] Lacie Santoro PA-C [address] [facility] [place] [address] HTN, GOAL BELOW 140/90*; Major depressive disorder, recurrent episode, moderate (HCC); Malignant neoplasm of prostate (HCC); MEDICATION USE AGREEMENT; Encounter for long-term (current) use of medications; Screening for cardiovascular condition Allergies No known active allergiesdocumented as of this encounter (statuses as of 09/07/2023) Medications Medication Sig Dispensed Refills Start Date [...] the morning. 30 Tablet 5 11/24/2022 Active Lisinopril 40 MG Oral Tablet Take 1 Tablet by mouth in the morning. 30 Tablet 5 01/11/2023 Active Clopidogrel Bisulfate 75 MG Oral Tablet [...] for Pain, Mild. 75 Tablet 08/14/2023 Active documented as of this encounter (statuses as of 09/07/2023) Active Problems Problem Noted Date Diagnosed Date [...] as of this encounter (statuses as of 09/07/2023) Resolved Problems Problem Noted Date Diagnosed Date [...] as of this encounter (statuses as of 09/07/2023) Immunizations Name Administration Dates Next Due COVID-19 [...] Sign Reading Time Taken Comments Blood Pressure 120/80 09/02/2023 3:02 PM EDT Pulse 71 09/02/2023 3:02 PM EDT Temperature 37.3 C (99.1 F) 09/02/2023 3:02 PM ED T Respiratory Rate 20 09/02/2023 3:02 PM EDT Oxygen Saturation 97% 09/02/2023 3:02 PM EDT Inhaled Oxygen Concentration - - Weight 96.4 kg (212 lb 9.6 oz) 09/02/2023 3:02 P M EDT Height 176.3 cm (5' 9.4") 09/02/2023 3:02 PM EDT Body Mass Index 31.03 09/02/2023 3:02 PM EDT documented in this encounter Progress Notes * Lacie Santoro PA-C - 09/02/2023 3:12 PM EDT Subjective: Ziggy Chan is a 63 year old male. Chief Complaint Patient presents with Follow Up HPI: Patient is a 63 y/o male who presents here today for a 6 month return. Presents by himself, his "" who he later calls his sig other dropped him off. He has been having a very hard time at home because she is depressed and does not want to help herself. She will help him "if he falls to call 911", but does not eat with her - he has to cook, she will talk at him but not have conversations. It is really affecting him that she does not want to get help - her excuse is she has no insurance which he offered to pay for the visit. She needs to call insurance to help him with his meds, which she has not done yet. His pain is stable, continues with same meds. I have evaluated Ziggy Chan and have documentation of an appropriate physical exam, diagnostic testing/imaging results, and pain assessment indicating [id number] pain. FOR RENEWAL REQUESTS: Ziggy experienced an improvement in pain control and level of functioning while taking the requested medication? Yes Ziggy is being monitored for adverse events and warning signs of serious problems, such as overdose and opioid use disorder? Yes FOR ALL REQUESTS: The requested opioid medication will be used in combination with tolerated non- drug therapies and non-opioid medications? Yes The anticipated duration of therapy with opioids is: 1 year Ziggy was evaluated for risk factors for opioid-related harm, and if at high risk for opioid-related harm I considered prescribing naloxone? Yes If the patient is also prescribed a benzodiazepine, the benzodiazepine or opioid is being tapered or concomitant use is medically necessary? Not applicable patient not prescribed benzodiazepine. Ziggy signed a medication use agreement which is scanned into their medical record? Yes I or my delegate searched the PDMP to review the patient's controlled substance prescription history before prescribing the requested medication? Yes CAGE-AID Have you felt you ought to cut down on your drinking or drug use? No Have people annoyed you by criticizing your drinking or drug use? No Have you felt bad or guilty about your drinking or drug use? No Have you ever had a drink or used drugs first thing in the morning to steady your nerves or to get rid of a hangover (eye-opening)? No Two or more positive responses indicate the need for further evaluation. Urine drug screen needed every 12 months for less than 50 MME, every 6 months for 50 MME and higher. Results for orders placed or performed in visit on 07/31/22 PAIN MANAGEMENT DRUG PANEL, URINE W/ INTERPRETATION Result Value Compliance Interpretation Based on the medication information provided: The presence of hydrocodone, dihydrocodeine and hydromorphone is CONSISTENT with hydrocodone use. Amphetamines Screen, U Negative Benzodiazepines Screen, U Negative Cannabinoids Screen, U Negative Cocaine Metabolite Screen, U Negative Fentanyl Screen, U Negative Hydrocodone Screen, U Refer to confirmation results (A) Methadone Metabolite Screen, U Negative Morphine/Codeine Screen, U Refer to confirmation results (A) Oxycodone Screen, U Refer to confirmation results (A) Valid Interpretation Normal Creatinine, U 128 Narrative Cutoff Concentrations: Drug Level Amphetamines 500 ng/mL Benzodiazepines 100 ng/mL Cannabinoids 50 ng/mL Cocaine Metabolite 150 ng/mL Fentanyl 1 ng/mL Hydrocodone / Hydromorphone 300 ng/mL Methadone Metabolite 100 ng/mL Morphine / Codeine 300 ng/mL Oxycodone / Oxymorphone 100 ng/mL Screening results are presumptive and can only be used for medical purposes. Confirmatory testing is available upon request. 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 30 Tablet 5 HYDROcodone-Acetaminophen 5-325 MG Oral Tablet Take 1 Tablet by mouth every 6 hours as needed for Pain, Mild. 75 Tablet 0 No current facility-administered medications for this visit. Review of patient's allergies indicates: No Known Allergies Objective: BP 120/80 (BP Site: Left Arm, BP Position: Sitting, BP Cuff Size: Regular) | Pulse 71 | Temp 37.3 C (99.1 F) (Tympanic) | Resp 20 | Ht 1.763 m (5' 9.4") | Wt 96.4 kg (212 lb 9.6 oz) | SpO2 97% | BMI 31.03 kg/m | BSA 2.17 m Physical Exam: General: alert, tearful Head: Normocephalic, No masses, lesions, tenderness or abnormalities Ears: External ears normal, Canals clear, TM's Normal Nose: no mucosal erythema, no mucosal edema, no purulent discharge Oropharynx: no exudate, no erythema, lips, buccal mucosa, and tongue normal, and mucous membranes are moist, poor dentition Neck: supple, no adenopathy, thyroid normal size, non-tender, without nodularity Heart: regular rate & rhythm, no murmur, and no gallops Lungs: lungs clear to auscultation Abdomen: abdomen soft, non-tender, normal bowel sounds, and no masses or organomegaly Extremities: no joint deformities, effusion, or inflammation, +brace to RLE ASSESSMENT/PLAN: HTN, GOAL BELOW 140/90 (Primary) - controlled Major depressive disorder, recurrent episode, moderate (HCC) - keep same meds, declined therapy Malignant neoplasm of prostate (HCC) - follows with hem/onc MEDICATION USE AGREEMENT - MERLIN and urine tox today, continue same meds - PAIN MANAGEMENT DRUG PANEL, URINE W/ INTERPRETATION; Future; Expected date: 09/02/2023 - PAIN MANAGEMENT DRUG PANEL, URINE W/ INTERPRETATION Encounter for long-term (current) use of medications - PAIN MANAGEMENT DRUG PANEL, URINE W/ INTERPRETATION; Future; Expected date: 09/02/2023 - PAIN MANAGEMENT DRUG PANEL, URINE W/ INTERPRETATION Screening for cardiovascular condition - will get labs with home draw on 09/09 - LIPID PANEL WITH DIRECT LDL IF TG IS HIGH; Future; Expected date: 09/10/2023 Return in 6 months video or sooner if needed Declined shingrix, prevnar, and colon cancer screen Lacie Santoro PA-C I spent a total of 36 minutes on the date of service in preparation, delivery, and documentation ofthe care provided to this patient. documented in this encounter Nursing Notes * Coleen Mabry CMA - 09/02/2023 3:02 PM EDT Chief Complaint Patient presents with Follow Up documented in this encounter Plan of Treatment Upcoming Encounters Date Type Department Care Team (Late st Contact Info) Description 09/10/2023 7:10 AM EDT Laboratory Lab Mobile Phlebotomy [facility] [address] [place] [address] [facility] Mobile Home Draw [address] [place] [address] 09/11/2023 3:00 PM EDT Office Visit Hematology Oncology, [address] [place] [address] Florin Young MD [address] [place] [address] [place] [address] 10/26/2023 9:45 AM EDT Pharmacy Pharmacy Hematology Oncology [facility] [address] [place] [address] [facility], [facility] Hem/Onc [address] [place] [address] 03/08/2024 5:20 PM EST Telemedicine Family Practice/Pediatrics, [place] [address] [place] [address] Lacie Santoro PA-C [address] [place] [address] Scheduled Orders Name Type Priority Associated Diagnoses Orde r Schedule LIPID PANEL WITH DIRECT LDL IF TG IS HIGH Lab Routine Screening for cardiovascular condition Expected: 09/10/2023, Expires: 09/01/2024 Scheduled Procedures Name Priority Associated Diagnoses Date/Ti [...] Not on filedocumented as of this encounter Procedures Procedure Name Priority Date/Time Associated Diagnosis Comments PAIN MANAGEMENT DRUG PANEL, URINE W/ INTERPRETATION Routine 09/02/2023 4:04 PM EDT MEDICATION USE AGREEMENT Encounter for long-term (current) use of medications OPIOIDS, URINE CONFIRMATION Routine 09/02/2023 4:04 PM EDT MEDICATION USE AGREEMENT Encounter for long-term (current) use of medications documented in this encounter Results * (ABNORMAL) OPIOIDS, URINE CONFIRMATION (09/02/2023 4:04 PM EDT) [facility] Methodology LC-MS/MS 09/06/2023 10:54 AM EDT LABORATORY [facility] Codeine Confirmation, U Negative Negative 09/06/2023 10:54 AM EDT LABORATORY C Morphine Confirmation, U Negative Negative 09/06/2023 10:54 AM EDT LABORATORY [facility] Hydrocodone Confirmation, U 900(H) Negative ng/mL 09/06/2023 10:54 AM EDT LABORATORY [facility] Hydromorphone Confirmation, U 177(H) Negative ng/mL 09/06/2023 10:54 AM EDT LABORATORY [facility] Dihydrocodeine Confirmation, U 337(H) Negative ng/mL 09/06/2023 10:54 AM EDT LABORATORY [facility] Oxycodone Confirmation, U Negative Negative 09/06/2023 10:54 AM EDT LABORATORY [facility] Oxymorphone Confirmation, U Negative Negative 09/06/2023 10:54 AM EDT LABORATORY [facility] Urine Urine specimen obtained by clean catch procedure / Unknown Non-blood Collection / Unknown 09/02/2023 4:04 PM EDT 09/02/2023 4:04 PM EDT Narrative LABORATORY [facility] - 09/06/2023 10:54 AM EDT Cutoff Concentrations: Drug Level Codeine 40 ng/mL Morphine 40 ng/mL Hydrocodone 40 ng/mL Hydromorphone 40 ng/mL Dihydrocodeine 40 ng/mL Oxycodone 50 ng/mL Oxymorphone 50 ng/mL This test was developed and its performance characteristics determined by [employer]. It has not been cleared or approved by the [place] Food and Drug Administration. Lacie Santoro PA-C LAB URINE ORDER LD LABORATORY [facility] [address] [place] [address] * (ABNORMAL) PAIN MANAGEMENT DRUG PANEL, URINE W/ INTERPRETATION (09/02/2023 4:04 PM EDT) Compliance Interpretation Based on medication info provided, The presence of hydrocodone, dihydrocodeine and hydromorphone is CONSISTENT with hydrocodone prescription. 09/07/2023 11:35 AM EDT LABORATORY [facility] Comment:Changed Report: Prev iously reported on 09/03/2023 at 1436 EDT. See Results History in EPIC for previous versions of the report. Amphetamines Screen, U Negative Negative 09/07/2023 11:35 AM EDT LABORATORY C Benzodiazepines Screen, U Negative Negative 09/07/2023 11:35 AM EDT LABORATORY [facility] Cannabinoids Screen, U Negative Negative 09/07/2023 11:35 AM EDT LAB[facility]ATORY [facility] Cocaine Metabolite Screen, U Negative Negative 09/07/2023 11:35 AM EDT LABORATORY [facility] Fentanyl Screen, U Negative Negative 09/07/2023 11:35 AM EDT LABORATORY C Hydrocodone Screen, U Positive(A) Negative 09/07/2023 11:35 AM EDT LABORATORY C Methadone Metabolite Screen, U Negative Negative 09/07/2023 11:35 AM EDT LABORATORY C Morphine/Codeine Screen, U Refer to confirmation results(A) Negative 09/07/2023 11:35 AM EDT LABORATORY C Oxycodone Screen, U Negative Negative 09/07/2023 11:35 AM EDT LABORATORY C Valid Interpretation Normal 09/07/2023 11:35 AM EDT LABORATORY C Creatinine, U 71 mg/dL 09/07/2023 11:35 AM EDT LABORATORY C Urine Urine specimen obtained by clean catch procedure / Unknown Non-blood Collection / Unknown 09/02/2023 4:04 PM EDT 09/02/2023 4:04 PM EDT Narrative LABORATORY [facility] - 09/07/2023 11:35 AM EDT Cutoff Concentrations: Drug Level Amphetamines 500 ng/mL Benzodiazepines 100 ng/mL Cannabinoids 50 ng/mL Cocaine Metabolite 150 ng/mL Fentanyl 1 ng/mL Hydrocodone / Hydromorphone 300 ng/mL Methadone Metabolite 100 ng/mL Morphine / Codeine 300 ng/mL Oxycodone / Oxymorphone 100 ng/mL Screening results are presumptive and can only be used for medical purposes. Confirmatory testing is available upon request. Lacie Santoro PA-C LAB URINE ORDER LD LABORATORY [facility] [address] [facility] [place] [phone] documented in this encounter Visit Diagnoses Diagnosis HTN, GOAL BELOW 140/90- Primary Unspecified essential hypertension Major depressive disorder, recurrent episode, moderate (HCC) Major depressive disorder, recurrent episode, moderate Malignant neoplasm of prostate (HCC) Malignant neoplasm of prostate MEDICATION USE AGREEMENT Encounter for long-term (current) use of medications Encounter for long-term (current) use of other medications Screening for cardiovascular condition Screening for other and unspecified cardiovascular conditions documented in this encounter Care Teams Van Driver Relationship Specialty Start Date End Date Lacie Santoro PA-C [facility] [place] [address] PCP - General Physician Railway Signal Operator 10/30/20 documented as of this encounter
--- OUTSIDE RECORDS SUMMARY | 2023-11-22 15:32 | External Medical Summary | Summary of Care ---
Author Name Unknown Organization [facility] Address [address] [facility] [place] [address] Phone [phone] Care Team Providers Care Social Organization Professor Name Role Phone Lacie Santoro PA-C Primary Care Provider Reason for Visit * Reason Comments eRx-Medication Refill Encounter Details Date Type Department Care Team (Late st Contact Info) Description 09/25/2023 Refill Family Practice/Pediatrics, [place] [address] [facility] [place] [phone] Lacie Santoro PA-C [address] [facility] [place] [address] Allergies No known active allergiesdocumented as of this encounter (statuses as of 09/28/2023) Medications Medication Sig Dispensed Refills Start Date [...] as of this encounter (statuses as of 09/28/2023) Active Problems Problem Noted Date Diagnosed Date [...] as of this encounter (statuses as of 09/28/2023) Resolved Problems Problem Noted Date Diagnosed Date [...] as of this encounter (statuses as of 09/28/2023) Immunizations Name Administration Dates Next Due COVID-19 [...] encounter Miscellaneous Notes * Telephone Encounter - Waldemar Pantoja [facility] - 09/28/2023 9:34 AM EDTRefused Prescriptions: Disp Refills Clopidogrel Bisulfate 75 MG Oral Tablet (p*90 Tab*3 Sig: TAKE 1TABLET BY MOUTH DAILY IN THE MORNINGRefused By: WALDEMAR PANTOJA for Refusal: Too soon------ documented in this encounter Plan of Treatment Upcoming Encounters Date Type Department Care Team (Late st Contact Info) Description 10/26/2023 9:45 AM EDT Pharmacy Pharmacy Hematology Oncology [facility] [address] [place] [address] [facility] [place], [facility] Hem/Onc [address] [place] [address] 12/18/2023 3:00 PM EST Office Visit Hematology Oncology, [address] [place] [address] Florin Young MD [address] [place] [address] [place] [address] 03/08/2024 5:20 PM EST Telemedicine Family Practice/Pediatrics, [place] [address] [place] [address] Lacie Santoro PA-C [address] [place] [address] 09/05/2024 12:30 PM EDT [facility] [address] [place] [address] Reginaldo Allred DDS, MD [address] [place], [place] [id number] Scheduled Procedures Name Priority Associated Diagnoses Date/Ti [...] filedocumented as of this encounter Care Teams Social Organization Professor Relationship Specialty Start Date End Date Lacie Santoro PA-C [facility] [place] [address] PCP - General Physician Slip Injector And Applicator 10/30/20 documented as of this encounter
--- OUTSIDE RECORDS SUMMARY | 2023-11-22 15:32 | External Medical Summary | Summary of Care ---
Author Name Unknown Organization [facility] Address [address] [facility] [place] [address] Phone [phone] Care Team Providers Care Plastics Sheet Finishing Press Operator Name Role Phone Kee Moscoso PA-C Primary Care Provider Reason for Visit * Reason Onset Date Comments Medication Refill 10/07/2023 Encounter Details Date Type Department Care Team (Late st Contact Info) Description [facility] [address] [facility] [place] [address] Kee Moscoso PA-C [address] [facility] [place] [address] LUMBAR DISC DISPLACEMENT; Pain medication agreement Allergies No known active allergiesdocumented as of this encounter (statuses as of 10/09/2023) Medications Medication Sig Dispensed Refills Start Date [...] for Pain, Mild. 75 Tablet 10/09/2023 Active HYDROcodone-Acetamin ophen 5-325 MG Oral TabletIndications: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 75 Tablet 09/10/2023 4 Discontinue d(Refill) documented as of this encounter (statuses as of 10/09/2023) Active Problems Problem Noted Date Diagnosed Date [...] as of this encounter (statuses as of 10/09/2023) Resolved Problems Problem Noted Date Diagnosed Date [...] as of this encounter (statuses as of 10/09/2023) Immunizations Name Administration Dates Next Due COVID-19 [...] Miscellaneous Notes * Telephone Encounter - Kee Moscoso PA-C - 10/09/2023 8:24 AM EDT Signed Prescriptions: Disp Refills HYDROcodone-Acetaminophen 5-325 MG Oral Ta*75 Tab*0 Sig: Take 1 Tablet by mouth every 6 hours as needed for Pain, Mild.Authorizing Provider: KEE MOSCOSO---- * Telephone Encounter - Cheryl Sebastian RP - 10/09/2023 7:34 AM EDT Pending Prescriptions: Disp Refills HYDROcodone-Acetaminophen 5-325 MG Oral Ta*75 Tab*0 Sig: Take 1 Tablet by mouth every 6 hours as needed for Pain, Mild. * Telephone Encounter - Cheryl Sebastian RPh - 10/09/2023 7:34 AM EDT I have reviewed the patients controlled substance dispensing history in the Prescription Drug Monitoring Program in compliance with the [facility] regulations before prescribing a controlled substance. PDMP checked on 10/09/2023. Pending Prescriptions: Disp Refills HYDROcodone-Acetaminophen 5-325 MG Oral T*75 Tab*0 Sig: Take 1 Tablet by mouth every 6 hours as needed for Pain, Mild. Last Visit: 09/02/2023 (in office), 07/01/2023 (telemedicine) Next Visit: 03/08/2024 Date medication was last filled: 09/10/23 Date medication is due for refill: 09/28/23 [facility]acy: [facility] [address] [place] Is this request for a controlled substance? [...] available upon request. Please approve if appropriate. Thank you, Cheryl Sebastian, PharmD Clinical Pharmacist [facility] [phone] 10/09/2023, 7:34 AM * Telephone Encounter - Jay Zhu, insurance sales executive - 10/07/2023 3:44 PM EDT Did you pend patient's preferred pharmacy and medication before forwarding?yes Pharmacy: [facility] [address] Pending Prescriptions: Disp Refills HYDROcodone-Acetaminophen 5-325 MG Oral T*75 Tab*0 Sig: Take 1 Tablet by mouth every 6 hours as needed for Pain, Mild. Last Visit: 09/02/2023 (in office), 07/01/2023 (telemedicine) Next Visit: 03/08/2024 If no future appointments scheduled, and last appointment is greater than a year ago, please schedule patient for a follow-up appointment Last date the medication was ordered: 09/10/2023 Is this request for a controlled substance?Yes, What was the last refill date 09/10/2023 w/ quantity 75 tabs and dosage 5-325 mg and Urine Drug Screen Not completed Urine Drug Screen: Results for orders [...] 9:45 AM EDT Pharmacy Pharmacy Hematology Oncology [address] [address] [facility] [place], [facility] Hem/Onc [address] [place] [address] 12/18/2023 3:00 PM EST Office Visit Hematology Oncology, [address] [place] [address] Florin Young MD [address] [place] [address] [place] [address] 03/08/2024 4:20 PM EST [facility] [address] [place] [address] Sherry Casas MD [address] [place] [address] 09/05/2024 12:30 PM EDT Office Visit Oral Maxillofacial Surgery[address] [address] Reginaldo Allred DDS, MD [facility] [place] [address] Scheduled Procedures Name Priority Associated Diagnoses Date/Ti [...] medications documented in this encounter Care Teams Plastics Sheet Finishing Press Operator Relationship Specialty Start Date End Date Kee Moscoso PA-C [facility] [place] [address] PCP - General Physician Programs Manager 10/30/20 documented as of this encounter
--- OUTSIDE RECORDS SUMMARY | 2023-11-22 15:32 | External Medical Summary | Summary of Care ---
Author Name Unknown Organization [facility] Address [address] [facility] [place] [address] Phone [phone] Care Team Providers Care Dispatch Lead Name Role Phone Lacie Santoro PA-C Primary Care Provider Reason for Visit * Reason Comments eRx-Medication Refill Encounter Details Date Type Department Care Team (Late st Contact Info) Description 09/25/2023 Refill Family Practice/Pediatrics, [place] [address] [facility] [place] [address] Lacie Santoro PA-C [facility] [place] [address] Allergies No known active allergiesdocumented as of [...] upset stating that she has been using [place] [facility] for almost 1 year anddoesn't understand why this was still listed as being at [facility]. Caller became very upset and [facility]. Caller requested to speak with a pt advocate. Transferred caller as requested. Please reroute Rx to [facility] Pending Prescriptions: Disp Refills Clopidogrel Bisulfate [...] PM * Telephone Encounter - Waldemar Pantoja [facility] - 09/28/2023 9:34 AM EDTRefused Prescriptions: Disp Refills Clopidogrel Bisulfate 75 MG Oral Tablet (p*90 Tab*3 Sig: TAKE 1TABLET BY MOUTH DAILY IN THE MORNINGRefused By: WALDEMAR PANTOJA for Refusal: Too soon------ documented in this encounter Plan of Treatment Upcoming Encounters Date Type Department Care Team (Late st Contact Info) Description 10/26/2023 9:45 AM EDT Pharmacy Pharmacy Hematology Oncology [place] [address] [place] [facility] [place] [address] [facility] [place], [facility] Hem/Onc [address] [place] [facility] [place] [address] 12/18/2023 3:00 PM EST Office Visit Hematology Oncology, [address] [place] [address] Florin Young MD [address] [place] [address] [place] [address] 03/08/2024 5:20 PM EST Telemedicine Family Practice/Pediatrics, [place] [address] [place] [address] Lacie Santoro PA-C [address] [place] [address] 09/05/2024 12:30 PM EDT [facility] [address] [place] [address] Reginaldo Allred DDS, MD [address] [place] [address] Scheduled Procedures Name Priority Associated Diagnoses Date/Ti [...] filedocumented as of this encounter Care Teams Dispatch Lead Relationship Specialty Start Date End Date Lacie Santoro PA-C [facility] [place] [address] PCP - General Physician Topographical Field Assistant 10/30/20 documented as of this encounter
--- OUTSIDE RECORDS SUMMARY | 2023-11-22 15:32 | External Medical Summary ---
Author Name Unknown Address Unknown Organization K01:[facility] [address] [place] [address] Laboratory Report Ordering Provider Test Date Status MARY DODSON 09/10/2023 07:43:00 Final Observation Date Value Abnormality Reference (Units ) Status PSA 09/10/2023 07:43:00 5.08 Above high normal <4 .10 (ng/mL) Final Performing Location [facility] - [address] [place] [address]
--- OUTSIDE RECORDS SUMMARY | 2023-11-22 15:32 | External Medical Summary | Summary of Care ---
Author Name Unknown Organization [facility] Address [address] [facility] [place] [address] Phone [phone] Care Team Providers Care Animal Eviscerator Name Role Phone Kee Santoro PA-C Primary Care Provider Reason for Visit * Reason Comments eRx-Medication Refill Encounter Details Date Type Department Care Team (Late st Contact Info) Description 09/25/2023 Refill Family Practice/Pediatrics, [place] 250 [facility] [place] [address] Kee Santoro PA-C 250 [facility] [place] [address] Allergies No known active allergiesdocumented as of [...] THE MORNING 90 Tablet 1 09/30/2023 Active Clopidogrel Bisulfate 75 MG Oral Tablet (pLAVix) TAKE 1 TABLET BY MOUTH EVERY DAY IN THE MORNING 90 Tablet 3 01/26/2023 Discontinue d(Refill) documented as of this encounter [...] encounter Miscellaneous Notes * Telephone Encounter - Fiordaliza Mcadams RP - 09/30/2023 4:51 PM EDT Signed Prescriptions: Disp Refills Clopidogrel Bisulfate 75 MG Oral Tablet (p*90 Tab*1 Sig: TAKE 1 TABLET BY MOUTH EVERY DAY IN THE MORNINGAuthorizing Provider: KEE SANTORO User: FIORDALIZA MCADAMS Prescriptions: Disp Refills Clopidogrel Bisulfate 75 MG Oral Tablet (p*90Tab*3 Sig: TAKE 1 TABLET BY MOUTH DAILY IN THE MORNINGRefused By: WALDEMAR PANTOJA for Refusal: Too soon * Addendum Note - Fiordaliza Mcadams RPh - 09/30/2023 4:51 PM EDTAddended by: FIORDALIZA MCADAMS on: 09/30/2023 04:51 PM Modules accepted: Orders * Telephone Encounter - Fiordaliza Mcadams RP - 09/30/2023 4:51 PM EDT Patient is switching pharmacies. Reissued balance of refills on current prescription(s) to [address] Thank you, Fiordaliza Mcadams PharmD, TONE Clinical Pharmacist [facility] ([facility]) 09/30/23 4:51 PM [phone] * Addendum Note - Soraida Lin CPhT - 09/30/2023 4:00 PM EDTAddended by: SORAIDA LIN on: 09/30/2023 04:00 PM Modules accepted: Orders * Telephone Encounter - Soraida Lin CPhT - 09/30/2023 3:57 PM EDT Pt's was very upset stating that she has been using [place] [facility] for almost 1 year anddoesn't understand why this was still listed as being at [facility]. Caller became very upset and [facility] not[facility]. Caller requested to speak with a pt advocate. Transferred caller as requested. Please reroute Rx to [address] Pending Prescriptions: Disp Refills Clopidogrel Bisulfate [...] PM * Telephone Encounter - Waldemar Pantoja [facility] - 09/28/2023 9:34 AM EDTRefused Prescriptions: Disp Refills Clopidogrel Bisulfate 75 MG Oral Tablet (p*90 Tab*3 Sig: TAKE 1 TABLET BY MOUTH DAILY IN THE MORNINGRefused By: WALDEMAR PANTOJA for Refusal: Too soon----- documented in this encounter Plan of Treatment Upcoming Encounters Date Type Department Care Team (Late st Contact Info) Description 10/26/2023 9:45 AM EDT Pharmacy Pharmacy Hematology Oncology [place] [address] [place] [facility] [place] [address] [facility] [place] Hem/Onc [address] [place] [address] 12/18/2023 3:00 PM EST Office Visit Hematology Oncology, [address] [place] [address] Florin Young MD [address] [place] [address] [place] [address] 03/08/2024 5:20 PM EST Telemedicine Family Practice/Pediatrics, [place] [address] [place] [address] Kee Santoro PA-C [address] [place] [address] 09/05/2024 12:30 PM EDT [facility] [address] [place] [address] Reginaldo Allred DDS, [address] [place] [address] Scheduled Procedures Name Priority Associated Diagnoses Date/Ti [...] filedocumented as of this encounter Care Teams Animal Eviscerator Relationship Specialty Start Date End Date Kee Santoro PA-C [facility] [place] [address] PCP - General Physician Medical Social Worker 10/30/20 documented as of this encounter
--- OUTSIDE RECORDS SUMMARY | 2023-11-22 15:32 | External Medical Summary ---
Author Name Unknown Address Unknown Organization K0G:[facility] [address] [place] [address] Laboratory Report Ordering Provider Test Date Status MARY DODSON 09/10/2023 07:43:00 Final Observation Date Value Abnormality Reference (Units ) Status WBC, Total 09/10/2023 07:43:00 8.70 4.00-10.8 0 (K/uL) Final RBC 09/10/2023 07:43:00 3.35 4.50-5.25 (M/uL) Final Hemoglobin 09/10/2023 07:43:00 11.2 Below low normal 14 .0-16.8 (g/dL) Final HCT 09/10/2023 07:43:00 34.8 Below low normal 40. 0-48.4 (%) Final MCV 09/10/2023 07:43:00 103.9 82.0-99.5 (fL) Final MCH 09/10/2023 07:43:00 33.4 27.0-34.0 (pg) Final MCHC 09/10/2023 07:43:00 32.2 32.0-36.0 (g/dL) Final RDW 09/10/2023 07:43:00 13.8 11.5-15.5 (%) Final Platelets 09/10/2023 07:43:00 228 140-400 (K /uL) Final MPV 09/10/2023 07:43:00 11.0 6.6-11.1 ( fL) Final Performing Location [facility] [place] [facility] [address] [place] [address]
--- OUTSIDE RECORDS SUMMARY | 2023-11-22 15:33 | External Medical Summary | Summary of Care ---
Author Name Unknown Organization [facility] [address] [facility] [address] Phone [phone] Care Team Providers Care Bed And Breakfast Cook Name Role Phone Lacie Santoro PA-C Primary Care Provider Reason for Visit * Reason Comments Follow Up Encounter Details Date Type Department Care Team (Latest Contact Info) Description 09/02/2023 3:00 PM EDT Office Visit Family Practice/Pediatrics [facility] [address] [facility] [place] [address] Lacie Santoro PA-C [facility] [place] [address] HTN, GOAL BELOW 140/90*; Major depressive disorder, recurrent episode, moderate (HCC); Malignant neoplasm of prostate (HCC); MEDICATION USE AGREEMENT; Encounter for long-term (current) use of medications; Screening for cardiovascular condition Allergies No known active allergiesdocumented as of this encounter (statuses as of 09/02/2023) Medications Medication Sig Dispensed Refills Start Date [...] as of this encounter (statuses as of 09/02/2023) Active Problems Problem Noted Date Diagnosed Date [...] as of this encounter (statuses as of 09/02/2023) Resolved Problems Problem Noted Date Diagnosed Date [...] as of this encounter (statuses as of 09/02/2023) Immunizations Name Administration Dates Next Due COVID-19 [...] diagnostic testing/imaging results, and pain assessment indicating [id number] pain. FOR RENEWAL REQUESTS: Ziggy experienced an [...] shingrix, prevnar, and colon cancer screen Lacie L Rittle, PA-C I spent a total of 36 [...] AM EDT Laboratory Lab Mobile Phlebotomy [facility] [address] [place] [address] [facility] Draw [address] [place] [address] 09/11/2023 3:00 PM EDT Office Visit Hematology Oncology, [address] [place] [address] Florin Young MD [address] [place] [address] [place] [address] 10/08/2023 1:30 PM EDT Office Visit Oral Maxillofacial Surgery, [place] [address] [facility] [place] [address] Reginaldo Allred DDS, MD [address] [place] [address] 10/26/2023 9:45 AM EDT Pharmacy Pharmacy Hematology Oncology [facility], [place] 100 [address] [facility] [place] [address] [facility] [place], [facility] Hem/Onc [address] [place] [address] 03/08/2024 5:20 PM EST Telemedicine Family Practice/Pediatrics[address] [place] [address] Lacie Santoro PA-C [address] [facility] [place] [address] Pending Results Name Type Priority Associated Diagnoses Date /Time PAIN MANAGEMENT DRUG PANEL, URINE W/ INTERPRETATION Lab Routine MEDICATION USE AGREEMENT Encounter for long-term (current) use of medications 09/02/2023 4:04 PM EDT Scheduled Orders Name Type Priority Associated Diagnoses Orde r Schedule PAIN MANAGEMENT DRUG PANEL, URINE W/ INTERPRETATION Lab Routine MEDICATION USE AGREEMENT Encounter for long-term (current) use of medications Expected: 09/02/2023 (Approximate), Expires: 09/01/2024 LIPID PANEL WITH DIRECT LDL IF TG [...] as of this encounter Visit Diagnoses Diagnosis HTN, GOAL [...] conditions documented in this encounter Care Teams Bed And Breakfast Cook Relationship Specialty Start Date End Date Lacie Santoro PA-C [facility] [place] [address] PCP - General Physician Helicopter Utility Aircrewman 10/30/20 documented as of this encounter
--- OUTSIDE RECORDS SUMMARY | 2023-11-22 15:33 | External Medical Summary ---
Author Name Unknown Address Unknown Organization K01:[facility] - [address] [facility]. [facility] [address] Laboratory Report Ordering Provider Test Date Status DNAIS SWEET 09/02/2023 16:04:45 Final Drugs that require complianc e testing:

Opioids:
Hydrocodone: Quantity 5mg Date/Time of last Dose 8am

Benzodiazepines
None

Cutoff Concentrations:
Drug Level
Codeine 40 ng/mL
Morphine 40 ng/mL
Hydrocodone 40 ng/mL
Hydromorphone 40 ng/mL
Dihydrocodeine 40 ng/mL
Oxycodone 50 ng/mL
Oxymorphone 50 ng/mL

This test was developed and its performance characteristics determined by [facility]. It has not been cleared or approved by the [place] Food and Drug Administration. Observation Date Value Abnormality Reference (Units ) Status METHODOLOGY 09/02/2023 16:04:45 LC-MS/MS Final Codeine 09/02/2023 16:04:45 Negative Negative Final Morphine, Urine confirmatory 09/02/2023 16:04:45 Negative Negative Final HYDROcodone cutoff [Mass/volume] in Urine for Confirmatory method 09/02/2023 16:04:45 900 Above high normal Negative (ng/mL) Final Hydromorphone, Urine confirmatory 09/02/2023 16:04:45 177 Above high normal Negative (ng/mL) Final Dihydrocodeine [Mass/volume] in Urine by Confirmatory method 09/02/2023 16:04:45 337 Above high normal Negative (ng/mL) Final oxyCODONE [Presence] in Urine by Screen method 09/02/2023 16:04:45 Negative Negative Final oxyMORphone cutoff [Mass/volume] in Urine for Confirmatory method 09/02/2023 16:04:45 Negative Negative Final Performing Location LABORATORY [facility] - [facility] [place] [address]
--- OUTSIDE RECORDS SUMMARY | 2023-11-22 15:33 | External Medical Summary | Summary of Care ---
Author Name Unknown Organization [facility] Address [address] [facility] [place] [address] Phone [phone] Care Team Providers Care Tactical Air Control Party Name Role Phone Lacie Santoro PA-C Primary Care Provider Encounter Details Date Type Department Care Team (Late st Contact Info) Description 08/24/2023 Orders Only Hematology Oncology, [address] [place] [address] Florin Young MD [address] [place] [address] [place] [address] Malignant neoplasm of prostate (HCC)* Allergies No known active allergiesdocumented as of this encounter (statuses as of 08/24/2023) Medications Medication Sig Dispensed Refills Start Date [...] as of this encounter (statuses as of 08/24/2023) Active Problems Problem Noted Date Diagnosed Date [...] as of this encounter (statuses as of 08/24/2023) Resolved Problems Problem Noted Date Diagnosed Date [...] as of this encounter (statuses as of 08/24/2023) Immunizations Name Administration Dates Next Due COVID-19 [...] on file documented as of this encounter Plan of Treatment Upcoming Encounters Date Type Department Care Team (Late st Contact Info) Description 09/02/2023 3:00 PM EDT [facility] [address] [place] [address] Lacie Santoro PA-C [address] [place] [address] 09/10/2023 7:10 AM EDT Laboratory Lab Mobile Phlebotomy [facility] [address] [place] [address] [facility] Draw [address] [place] [address] 09/11/2023 3:00 PM EDT Office Visit Hematology Oncology, [address] [place] [address] Florin Young MD [address] [place] [address] [place] [address] 10/08/2023 1:30 PM EDT [facility] [address] [place] [address] Reginaldo Allred DDS, MD [address] [place] [address] 10/26/2023 9:45 AM EDT Pharmacy Pharmacy Hematology Oncology [facility] [address] [place] [address] [facility], [facility] Hem/Onc [address] [place] [address] Scheduled Orders Name Type Priority Associated Diagnoses Orde r Schedule CBC WITH WBC DIFFERENTIAL Lab Routine Malignant neoplasm of prostate (HCC) Expected: 09/10/2023 (Approximate), Expires: 08/23/2024 PSA Lab Routine Malignant neoplasm of prostate (HCC) Expected: 09/10/2023 (Approximate), Expires: 08/23/2024 Scheduled Procedures Name Priority Associated Diagnoses Date/Ti [...] prostate documented in this encounter Care Teams Tactical Air Control Party Relationship Specialty Start Date End Date Lacie Santoro PA-C 250 [place] [address] PCP - General Physician Photographer Aerial 10/30/20 documented as of this encounter
--- OUTSIDE RECORDS SUMMARY | 2023-11-22 15:33 | External Medical Summary | Summary of Care ---
Author Name Unknown Organization [facility] Address [address] [facility] [place] [address] Phone [phone] Care Team Providers Care Locum Tenens Psychiatrist Name Role Phone Kee Santoro PA-C Primary Care Provider Reason for Referral * Medication Prior Authorization - Closed Specialty Diagnoses / Procedures Referred By Eloise caruso Referred To Contact Diagnoses Displacement of lumbar intervertebral disc without myelopathy Pain medication agreement Kee Santoro PA-C [address] [place] [address] Referral ID Status Reason Start Date Expiration Date Visits Re quested Visits Authorized [id number] Closed 999 999 Reason for Visit * Reason Onset Date Comments Medication Refill 06/17/2023 Encounter Details Date Type Department Care Team (Late st Contact Info) Description 06/17[facility]2023 [facility] [address] [place] [address] Kee Santoro PA-C [address] [place] [phone] LUMBAR DISC DISPLACEMENT; Pain medication agreement Allergies No known active allergiesdocumented as of this encounter (statuses as of 06/19/2023) Medications Medication Sig Dispensed Refills Start Date End Date Status Multivitamin Adult Extra C Oral Tablet Chewable 1 Tablet. 0 08/01/2020 Active Thiamine HCl 100 MG Oral Tablet (vitamin B-1) Take 1 Tablet by mouth in the morning. 0 08/01/2020 Active Atorvastatin Calcium 20 MG Oral [...] before bedtime. 180 Capsule 3 09/24/2022 Active traZODone HCl 50 MG Oral Tablet (Desyrel)Indications :Insomnia, unspecified type TAKE 1 TO 2 TABLETS BY MOUTH EVERY DAY PRIOR TO SLEEPING DIRECTED 180 Tablet 3 09/24/2022 Active predniSONE 5 MG Oral Tablet (Deltasone)Indicatio ns:Malignant neoplasm of prostate (HCC) Take 1 Tablet by mouth in the morning. 30 Tablet 5 11/24/2022 Active predniSONE 5 MG Oral Tablet (Deltasone)Indicatio ns:Malignant neoplasm of prostate (HCC) Take 1 tablet by mouth in the morning. 30 Tablet 5 12/16/2022 Active Lisinopril 40 MG Oral Tablet Take 1 Tablet by mouth in the morning. 30 Tablet 5 01/11/2023 Active amLODIPine Besylate 5 MG Oral Tablet (Norvasc) Take 1 Tablet by mouth in the morning. 30 Tablet 5 01/13/2023 Active Clopidogrel Bisulfate 75 MG Oral Tablet (pLAVix) TAKE 1 TABLET BY MOUTH EVERY DAY IN THE MORNING 90 Tablet 3 01/26/2023 Active Gabapentin 800 MG Oral Tablet (Neurontin)Indicatio ns:Other chronic back pain TAKE 1 TABLET BY MOUTH IN THE MORNING AND 1 TABLET AT NOON AND 1 TABLET BEFORE BEDTIME. 90 Tablet 3 05/10/2023 Active HYDROcodone-Acetamin ophen 5-325 MG Oral TabletIndications: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 75 Tablet 0 06/19/2023 Active HYDROcodone-Acetamin ophen 5-325 MG Oral TabletIndications: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 75 Tablet 0 05/21/2023 4 Discontinue d(Refill) documented as of this encounter (statuses as of 06/19/2023) Active Problems Problem Noted Date Diagnosed Date [...] as of this encounter (statuses as of 06/19/2023) Resolved Problems Problem Noted Date Diagnosed Date [...] as of this encounter (statuses as of 06/19/2023) Immunizations Name Administration Dates Next Due COVID-19 [...] Telephone Encounter - Kee Santoro PA-C - 06/19/2023 7:20 AM EDT Signed Prescriptions: Disp Refills HYDROcodone-Acetaminophen 5-325 MG Oral Ta*75 Tab*0 Sig: Take 1 Tablet by mouth every 6 hours as needed for Pain, Mild.Authorizing Provider: KEE SANTORO---- * Telephone Encounter - Annmarie Wilson [facility] - 06/19/2023 5:50 AM EDT Pending Prescriptions: Disp Refills HYDROcodone-Acetaminophen 5-325 MG Oral Ta*75 Tab*0 Sig: Take 1 Tablet by mouth every 6 hours as needed for Pain, Mild. * Telephone Encounter - Annmarie Wilson RPh - 06/19/2023 5:50 AM EDT I have reviewed the patients controlled substance dispensing history in the Prescription Drug Monitoring Program in compliance with the [facility] regulations before prescribing a controlled substance. PDMP checked on 06/19/2023. Pending Prescriptions: Disp Refills HYDROcodone-Acetaminophen 5-325 MG Oral T*75 Tab*0 Sig: Take 1 Tablet by mouth every 6 hours as needed for Pain, Mild. Last Visit: 08/25/2022 (in office), 02/27/2023 (telemedicine) Next Visit: 09/02/2023 Date medication was last filled: 05/20 Date medication is due for refill: 06/08 Pharmacy: [facility] [address] Is this request for a controlled [...] request. Please approve if appropriate. Thank you, Annmarie Wilson, Mikael. Clinical Pharmacist Centralized Clinical Pharmacy Services (CCPS) (formerly Telepharmacy) 06/19/2023, 5:50 AM * Telephone Encounter - Reyna Scherer PHARM Tech - 06/17/2023 6:08 PM EDT Did you pend patient's preferred pharmacy and medication before forwarding?yes Pharmacy: [facility] [address] Pending Prescriptions: Disp Refills HYDROcodone-Acetaminophen 5-325 MG Oral T*75 Tab*0 Sig: Take 1 Tablet by mouth every 6 hours as needed for Pain, Mild. Last Visit: 08/25/2022 (in office), 02/27/2023 (telemedicine) Next Visit: 09/02/2023 If no future appointments scheduled, and last appointment is greater than a year ago, please schedule patient for a follow-up appointment Last date the medication was ordered: 05/21/2023 Is this request for a controlled substance?Yes, What was the last refill date 05/21/2023 w/ [id number] and dosage 5-325 mg and Urine Drug Screen was completed Urine [...] Care Team (Late st Contact Info) Description 07/03/2023 9:30 AM EDT Pharmacy Pharmacy Hematology Oncology [facility] [address] [place] [address] [facility] Hem/Onc [address] [place] [address] 09/02/2023 3:00 PM EDT [facility] [address] [place] [address] Kee Santoro PA-C [address] [place] [address] 09/11/2023 3:00 PM EDT Office Visit Hematology Oncology, [address] [place] [address] Florin Young MD [address] [place] [address] [place] [address] 09/21/2023 2:00 PM EDT Office Visit Oral Maxillofacial Surgery, [place] [address] [place] [address] Reginaldo Allred DDS, MD [address] [place], [place] [id number] Scheduled Procedures Name Priority Associated Diagnoses Date/Ti [...] Additional history exists Colorectal Cancer Screening 09/21/2020 GFR 06/07/2024 06/08/2023, 04/10, 04/06/2023, Additional history exists Albumin/Creatinine Ratio 11/06/2024 11/06/2021 Diabetes Screening 06/07/2026 06/08/2023, 0 05/04/2023, 04/06/2023, Additional history exists Lipid Panel 08/01/2027 07/31/2022, 10/11, 01/03/2020, Additional history exists DTaP,Tdap,and Td Vaccines (3 - Td or Tdap) 07/31/2032 07/31/2022, 10/01/2011, 03/21/2005, Additional history exists Influenza Vaccine (FLU shot) Completed 06/2022, 10/30/2020, 01/11/2020, Additional history exists GARDASIL-HPV IMMUNIZATION SERIES Aged Out No longer eligible based on patient's age to complete this topic Hepatitis B Aged Out No longer eligi ble based on patient's age to complete this [...] medications documented in this encounter Care Teams Locum Tenens Psychiatrist Relationship Specialty Start Date End Date [facility] Sant[facility] [place] [address] PCP - General Physician Duct Installer 10/30/20 documented as of this encounter
--- OUTSIDE RECORDS SUMMARY | 2023-11-22 15:33 | External Medical Summary | Summary of Care ---
Author Name Unknown Organization [facility] Address [address] [facility] [place] [address] Phone [phone] Care Team Providers Care Technical Manager Chemical Plant Name Role Phone Kee Santoro PA-C Primary Care Provider Reason for Visit * Reason Comments eRx-Medication Refill Encounter Details Date Type Department Care Team (Late st Contact Info) Description 06/26[facility]23 [facility] [address] [facility] [place] [address] Kee Santoro PA-C [address] [facility] [place] [address] Allergies No known active allergiesdocumented as of this encounter (statuses as of 06/27/2023) Medications Medication Sig Dispensed Refills Start Date [...] 11/24/2022 Active predniSONE 5 MG Oral Tablet (Deltasone)Indicati [...] BEFORE BEDTIME. 90 Tablet 3 05/10/2023 Active HYDROcodone-Acetami nophen 5-325 MG Oral TabletIndications:D isplacement of lumbar intervertebral disc without myelopathy,Pain medication agreement Take 1 Tablet by mouth every 6 hours as needed for Pain, Mild. 75 Tablet 0 06/19/2023 Active Abiraterone Acetate 250 MG Oral Tablet (Zytiga)Indications :Malignant neoplasm of prostate (HCC) Take 4 Tablets by mouth in the morning. Take on an empty stomach (1 hour before or 2 hours after food). 120 Tablet 5 06/18/2023 Active amLODIPine Besylate 5 MG Oral Tablet (Norvasc) Take 1 Tablet by mouth in the morning. 30 Tablet 5 06/27/2023 Active amLODIPine Besylate 5 MG Oral Tablet (Norvasc) Take 1 Tablet by mouth in the morning. 30 Tablet 5 01/13/2023 06/27/19 24 Discontinued documented as of this encounter (statuses as of 06/27/2023) Active Problems Problem Noted Date Diagnosed Date [...] as of this encounter (statuses as of 06/27/2023) Resolved Problems Problem Noted Date Diagnosed Date [...] as of this encounter (statuses as of 06/27/2023) Immunizations Name Administration Dates Next Due COVID-19 [...] encounter Miscellaneous Notes * Telephone Encounter - Kofi Barker [facility] - 06/27/2023 12:39 PM EDT Signed Prescriptions: Disp Refills amLODIPine Besylate 5 MG Oral Tablet (Norv*30 Tab*5 Sig: Take 1Tablet by mouth in the morning.Authorizing Provider: KEE SANTORO User: KOFI BARKER documented in this encounter Plan of Treatment Upcoming Encounters Date Type Department Care Team (Late st Contact Info) Description 07/03/2023 9:30 AM EDT Pharmacy Pharmacy Hematology Oncology [facility] [address] [place] [address] [facility], [facility] Hem/Onc [address] [place] [address] 09/02/2023 3:00 PM EDT [facility] [address] [place] [address] [address] Kee Santoro PA-C [address] [address] 09/11/2023 3:00 PM EDT Office Visit Hematology Oncology, [address] [place] [address] Florin Young MD [address] [place] [address] 09/21/2023 2:00 PM EDT Office Visit Oral Maxillofacial Surgery, [place] [address] [place] [address] Reginaldo Allred DDS, MD [address] [place], [place] [id number] Scheduled Procedures Name Priority Associated Diagnoses Date/Ti [...] filedocumented as of this encounter Care Teams Technical Manager Chemical Plant Relationship Specialty Start Date End Date Kee Santoro PA-C [address] [place] [address] [place] [address] PCP - General Physician Stone Grader 10/30/20 documented as of this encounter
--- OUTSIDE RECORDS SUMMARY | 2023-11-22 15:33 | External Medical Summary | Summary of Care ---
Author Name Unknown Organization [facility] Address [address] [facility] [place] [address] Phone [phone] Care Team Providers Care Bench Assembler Name Role Phone Lacie Santoro PA-C Primary Care Provider Reason for Visit * Reason Comments Medication Refill Encounter Details Date Type Department Care Team (Late st Contact Info) Description 07/27/2023 Refill Hematology Oncology, [address] [place] [address] Florin Hernandez MD [address] [place] [address] [place] [address] Malignant neoplasm of prostate (HCC) Allergies No known active allergiesdocumented as of this encounter (statuses as of 07/27/2023) Medications Medication Sig Dispensed Refills Start Date [...] SLEEPING DIRECTED 180 Tablet 3 07/10/2023 Active HYDROcodone-Acetamin ophen 5-325 MG Oral TabletIndications: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 75 Tablet 07/16/2023 Active predniSONE 5 MG Oral Tablet (Deltasone)Indicatio ns:Malignant neoplasm of prostate (HCC) Take 1 tablet by mouth in the morning. 30 Tablet 5 07/27/2023 Active predniSONE 5 MG Oral Tablet (Deltasone)Indicatio ns:Malignant neoplasm of prostate (HCC) Take 1 tablet by mouth in the morning. 30 Tablet 5 12/16/2022 Discontinue d(Refill) documented as of this encounter (statuses as of 07/27/2023) Active Problems Problem Noted Date Diagnosed Date [...] as of this encounter (statuses as of 07/27/2023) Resolved Problems Problem Noted Date Diagnosed Date [...] as of this encounter (statuses as of 07/27/2023) Immunizations Name Administration Dates Next Due COVID-19 [...] encounter Miscellaneous Notes * Telephone Encounter - Eunice Loaiza RPh - 07/27/2023 8:49 AM EDT Signed Prescriptions: Disp Refills predniSONE 5 MG Oral Tablet (Deltasone) 30 Tab*5 Sig: Take 1 tablet by mouth in the morning.Authorizing Provider: FLORIN HERNANDEZ User: EUNICE LOAIZA documented in this encounter Plan of Treatment Upcoming Encounters Date Type Department Care Team (Late st Contact Info) Description 08/17/2023 9:45 AM EDT Pharmacy Pharmacy Hematology Oncology [facility] [address] [place] [address] [facility], [facility] Hem/Onc [address] [place] [address] 09/02/2023 3:00 PM EDT Office Visit Family Practice/Pediatrics, [place] [address] [place] [address] [address] Lacie Santoro PA-C [address] [place] [address] [address] 09/10/2023 7:10 AM EDT Laboratory Lab Mobile Phlebotomy [facility] [address] [place] [address] [facility], [facility] Mobile Home Draw [address] [place] [address] 09/11/2023 3:00 PM EDT Office Visit Hematology Oncology, [address] [place] [address] Florin Hernandez MD [address] [place] [address] [place] [address] 10/08/2023 1:30 PM EDT [facility] [address] [place] [address] Reginaldo Allred DDS, MD [address] [place] [address] Scheduled Procedures Name Priority Associated Diagnoses Date/Ti [...] Cancer Screening 09/21/2020 Depression Monitoring 08/26/2023 08/25/2022 GFR 06/07/2024 06/08/2023, 04/10, 04/06/2023, Additional history [...] Visit Diagnoses Diagnosis Malignant neoplasm of prostate (HCC) Malignant neoplasm of prostate documented in this encounter Care Teams Bench Assembler Relationship Specialty Start Date End Date Lacie Santoro PA-C [facility] [place] [address] PCP - General Physician Education Program Coordinator 10/30/20 documented as of this encounter
--- OUTSIDE RECORDS SUMMARY | 2023-11-22 15:33 | External Medical Summary | Summary of Care ---
Author Name Unknown Organization [facility] Address [address] [place] [address] Phone [phone] Care Team Providers Care Rn Review Name Role Phone Lacie Santoro PA-C Primary Care Provider Reason for Visit * Reason Comments Medication Management Encounter Details Date Type Department Care Team (Late st Contact Info) Description 08/17/2023 9:45 AM EDT Pharmacy Pharmacy Hematology Oncology [facility] [address] [place] [address] [facility], [facility] Hem/Onc [address] [place], [place] [id number] Malignant neoplasm of prostate (HCC)* Allergies No known active allergiesdocumented as of this encounter (statuses as of 08/17/2023) Medications Medication Sig Dispensed Refills Start Date [...] as of this encounter (statuses as of 08/17/2023) Active Problems Problem Noted Date Diagnosed Date [...] as of this encounter (statuses as of 08/17/2023) Resolved Problems Problem Noted Date Diagnosed Date [...] as of this encounter (statuses as of 08/17/2023) Immunizations Name Administration Dates Next Due COVID-19 [...] encounter Progress Notes * Eunice Victoria, [facility] - 08/17/2023 11:51 AM EDT MEDICATION THERAPY MANAGEMENT ABIRATERONE TREATMENT PROGRESS NOTE Ziggy Acuna [id number] Patient Phone Numbers SO: Uriel Merchant Preferred Lab: [facility] ([facility]) Specialty Pharmacy: [facility] Communication: Spoke to: Patient Treatment: Medication: Abiraterone (Zytiga) Indication/Staging/Diagnosis Code: prostate cancer / C61 Dose: 1000mg daily Administration: empty stomach (1 hour before or 2 hours after a meal) Start Date: 11/27/22 Primary Meteorology Professor/Oncologist: Dr. Young Additional Therapy: Prednisone 5mg daily Supportive Care Meds: Leuprolide Prophylactic Meds: Lisinopril 40mg daily Amlodipine 2.5mg daily Treatment History: 11/03/22-present: Leuprolide 11/01/22-11/08/22: bicalutamide x 7 days to prevent tumor flare Dose adjustment / medication hold: 12/24/22-12/30/22: abiraterone held for HTN Interval History: Pt reports h/o stroke and chronic back pain resolved with gabapentin and [place] Per OV 06/05/23, lab monitoring extended to q3mo with OV Reports stable BP < 150/90 No concerns, tolerating therapy well Changes to medication list since last visit? No Assessment and Plan: Continue BP monitoring and contact PCP if BP > 150/90 Continue currrent therapy and q3mo labs via [facility] (next due with OV) Assessment of compliance: compliant Assessment of adverse effects attributed to drug therapy: Edema/fluid retention - absent HTN - absent Joint swelling or discomfort - absent Arthralgias/Myalgias - absent Diarrhea/Constipation - absent Dose adjustment needed based on lab or adverse drug reaction? No Follow up: 4 weeks OV/labs; 10 weeks MTM Eunice Victoria, PharmD, BCOP Clinical Pharmacist, [facility] Oral Chemotherapy [facility] 08/17/2023, 11:56 AM Monitoring Parameters: Estimated CrCl Creatinine clearance cannot be calculated (Unknown ideal weight.) Hepatitis panel Latest Reference Range & Units [...] Pertinent labs: N/A Time Spent on Encounter: 6 - 10 minutes Encounter Group: Oncology Encounter Interventions Item Category: Oral Chemotherapy Abiraterone Problem/Rationale: Safety: Needs additional monitoring - Medication Requires monitoring Pharmacist Intervention(s): Toxicity monitoring Magnitude of Intervention: Monitoring with direction (Level 1) documented in this encounter Plan of Treatment Upcoming Encounters Date Type Department Care Team (Late st Contact Info) Description 09/02/2023 3:00 PM EDT [facility] [address] [place] [address] Lacie Santoro PA-C [address] [place] [address] 09/10/2023 7:10 AM EDT Laboratory Lab Mobile Phlebotomy [facility] [address] [place] [address] [facility], [facility] Mobile Home Draw [address] [place] [address] 09/11/2023 3:00 PM EDT Office Visit Hematology Oncology, [address] [place] [address] Florin Young MD [address] [place] [address] [place] [address] 10/08/2023 1:30 PM EDT Office Visit Oral Maxillofacial Surgery, [place] [address] [place] [address] Reginaldo Allred DDS, MD [address] [place] [address] 10/26/2023 9:45 AM EDT Pharmacy Pharmacy Hematology Oncology [facility], [place] [address] [place] [address] [place], [facility] Clinic Hem/Onc [facility] [place] [address] Scheduled Procedures Name Priority Associated Diagnoses Date/Ti [...] 01/11/2020, Additional history exists GFR 06/07/2024 06/08/2023, 0306/2023, 04/06/2023, Additional history exists Albumin/Creatinine Ratio 11/06/2024 [...] prostate documented in this encounter Care Teams Rn Review Relationship Specialty Start Date End Date Lacie Santoro PA-C [facility] [place] [address] PCP - General Physician Stitch Marker 10/30/20 documented as of this encounter
--- OUTSIDE RECORDS SUMMARY | 2023-11-22 15:33 | External Medical Summary | Summary of Care ---
Author Name Unknown Organization [facility] Address [address] [place] [address] Phone [phone] Care Team Providers Care Curb Worker Name Role Phone Lacie Santoro PA-C Primary Care Provider Reason for Visit * Reason Comments Medication Management Encounter Details Date Type Department Care Team (Late st Contact Info) Description 07/03/2023 9:30 AM EDT Pharmacy Pharmacy Hematology Oncology [facility] [address] [place], [place] [phone] [facility], [facility] Hem/Onc [address] [place], [place] [phone] Malignant neoplasm of prostate (HCC)* Allergies No known active allergiesdocumented as of this encounter (statuses as of 07/03/2023) Medications Medication Sig Dispensed Refills Start Date [...] 11/24/2022 Active predniSONE 5 MG Oral Tablet (Deltasone)Indication [...] BEFORE BEDTIME. 90 Tablet 3 05/10/2023 Active HYDROcodone-Acetamino phen 5-325 MG Oral TabletIndications:Dis placement of lumbar intervertebral disc without myelopathy,Pain medication agreement Take 1 Tablet by mouth every 6 hours as needed for Pain, Mild. 75 Tablet 06/19/2023 Active Abiraterone Acetate 250 MG Oral Tablet (Zytiga)Indications:M alignant neoplasm of prostate (HCC) Take 4 Tablets by mouth in the morning. Take on an empty stomach (1 hour before or 2 hours after food). 120 Tablet 5 06/18/2023 Active amLODIPine Besylate 5 MG Oral Tablet (Norvasc) Take 1 Tablet by mouth in the morning. 30 Tablet 5 06/27/2023 Active documented as of this encounter (statuses as of 07/03/2023) Active Problems Problem Noted Date Diagnosed Date [...] as of this encounter (statuses as of 07/03/2023) Resolved Problems Problem Noted Date Diagnosed Date [...] as of this encounter (statuses as of 07/03/2023) Immunizations Name Administration Dates Next Due COVID-19 [...] this encounter Progress Notes * Eunice Victoria, [facility] - 07/03/2023 1:08 PM EDT MEDICATION THERAPY MANAGEMENT ABIRATERONE TREATMENT PROGRESS NOTE Ziggy Acuna [id number] Patient Phone Numbers SO: Uriel Merchant Preferred Lab: [facility] ([facility]) Specialty Pharmacy: [facility] Communication: Spoke to: Patient Treatment: Medication: Abiraterone (Zytiga) Indication/Staging/Diagnosis Code: prostate cancer / C61 Dose: 1000mg daily Administration: empty stomach (1 hour before or 2 hours after a meal) Start Date: 11/27/22 Primary Mixing Plant Operator/Oncologist: Dr. Young Additional Therapy: Prednisone 5mg daily Supportive Care Meds: Leuprolide Prophylactic Meds: Lisinopril 40mg daily Amlodipine 2.5mg daily Treatment History: 11/03/22-present: Leuprolide 11/01/22-11/08/22: bicalutamide x 7 days to prevent tumor flare Dose adjustment / medication hold: 12/24/22-12/30/22: abiraterone held for HTN Interval History: Pt reports h/o stroke and chronic back pain resolved with gabapentin and [place] Per OV 06/05/23, lab monitoring extended to q3mo with OV Reports stable BP < 150/90 Continues to endorse fatigue that does not affect QoL or ADLs No other concerns, tolerating therapy well Changes to medication list since last visit? No Assessment and Plan: Continue BP monitoring and contact PCP if BP > 150/90 Reviewed resting when needed, working when able, and to contact office if fatigue affects QoL or ADLs Continue currrent therapy Staff message sent to [facility] regarding next lab draw 09/09 prior to OV 09/10 Assessment of compliance: compliant Assessment of adverse effects attributed to drug therapy: Edema/fluid retention - absent HTN - absent Joint swelling or discomfort - absent Arthralgias/Myalgias - absent Diarrhea/Constipation - absent Dose adjustment needed based on lab or adverse drug reaction? No Follow up: 6 weeks Eunice Victoria, PharmD, BCOP Clinical Pharmacist, [facility] Oral Chemotherapy [facility] 07/03/2023, 1:13 PM Monitoring Parameters: Estimated CrCl Serum creatinine: 1.3 mg/dL (H) 06/08/23 0755 Estimated creatinine clearance: 66.2 mL/min (A) Hepatitis panel Latest Reference Range [...] monitoring - Medication Requires monitoring Pharmacist Intervention(s): Care coordination, Non-pharmacological intervention provided, and Toxicity monitoring Magnitude of Intervention: Monitoring with direction (Level 1) documented in this encounter Plan of Treatment Upcoming Encounters Date Type Department Care Team (Late st Contact Info) Description 08/17/2023 9:45 AM EDT Pharmacy Pharmacy Hematology Oncology [place] [address] [place] [address] [facility], [facility] Hem/Onc [address] [place] [address] 09/02/2023 3:00 PM EDT [facility] [address] [address] [address] Lacie Santoro PA-C [address] [address] 09/11/2023 3:00 PM EDT Office Visit Hematology Oncology, [address] [place] [address] Florin Young MD [address] [place] [address] [place] [address] 09/21/2023 2:00 PM EDT [facility] [address] [place] [address] Reginaldo Allred DDS, MD [address] [place] [address] Scheduled Procedures Name Priority Associated Diagnoses Date/Ti [...] prostate documented in this encounter Care Teams Curb Worker Relationship Specialty Start Date End Date Lacie Santoro PA-C [facility] [place] [address] PCP - General Physician Data Collection Associate 10/30/20 documented as of this encounter
--- OUTSIDE RECORDS SUMMARY | 2023-11-22 15:33 | External Medical Summary | Summary of Care ---
Author Name Unknown Organization [facility] Address [address] [facility] [address] Phone [phone] Care Team Providers Care Biodiesel Division Manager Name Role Phone Lacie Santoro PA-C Primary Care Provider Encounter Details Date Type Department Care Team (Late st Contact Info) Description 09/01/2023 Orders Only PATIENT PORTAL DO NOT DELETE THIS DEPT USED BY [place] [id number] Allergies No known active allergiesdocumented as of this encounter (statuses as of 09/01/2023) Medications Medication Sig Dispensed Refills Start Date [...] as of this encounter (statuses as of 09/01/2023) Active Problems Problem Noted Date Diagnosed Date [...] as of this encounter (statuses as of 09/01/2023) Resolved Problems Problem Noted Date Diagnosed Date [...] as of this encounter (statuses as of 09/01/2023) Immunizations Name Administration Dates Next Due COVID-19 mRNA, LNP-s, No Pre serve, 2-Dose Series (Ipracom) 05/25/2020,05/04/2020 Pneumococcal Polysaccharide PPV23 (Pneumovax) 11/18/2005 Seasonal [...] 09/02/2023 3:00 PM EDT [facility] [address] [address] [address] Lacie Santoro PA-C [address] [address] 09/10/2023 7:10 AM EDT Laboratory Lab Mobile Phlebotomy [facility] [address] [place] [address] [facility], [facility] Mobile Home Draw [address] [place] [address] 09/11/2023 3:00 PM EDT [facility] [address] [facility] [place] [address] Florin Young MD [address] [place] [address] [place] [address] 10/08/2023 1:30 PM EDT [facility] [address] [place] [address] Reginaldo Allred DDS, MD [address] [place] [address] 10/26/2023 9:45 AM EDT Pharmacy Pharmacy Hematology Oncology [facility] [address] [place] [address] [facility], [facility] Hem/Onc [address] [place] [address] Scheduled Procedures Name Priority Associated Diagnoses Date/Ti [...] filedocumented as of this encounter Care Teams Biodiesel Division Manager Relationship Specialty Start Date End Date Lacie Santoro PA-C [place] [address] PCP - General Physician Infrastructure Director 10/30/20 documented as of this encounter
--- OUTSIDE RECORDS SUMMARY | 2023-11-22 15:33 | External Medical Summary | Summary of Care ---
Author Name Unknown Organization [facility] Address [address] [facility] [address] Phone [phone] Care Team Providers Care Caregivers Homecare Name Role Phone Lacie Santoro PA-C Primary Care Provider Reason for Visit * Reason Comments Follow Up Encounter Details Date Type Department Care Team (Latest Contact Info) Description 09/02/2023 3:00 PM EDT Office Visit Family Practice/Pediatrics [facility] [address] [facility] [place] [address] Lacie Santoro PA-C [address] [facility] [place] [address] HTN, GOAL BELOW 140/90*; Major depressive disorder, [...] diagnostic testing/imaging results, and pain assessment indicating [id number] pain. FOR RENEWAL REQUESTS: Ziggy experienced an [...] EDT Laboratory Lab Mobile Phlebotomy [facility] [address] [place] [address] [facility], Gml Mobile Home Draw [address] [place] [address] 09/11/2023 3:00 PM EDT Office Visit Hematology Oncology[address] [place] [address] Florin Young MD [address] [place] [address] [place] [address] 10/08/2023 1:30 PM EDT Office Visit Oral Maxillofacial Surgery, [place] [address] [place] [address] Reginaldo Allred DDS, MD [address] [place] [address] 10/26/2023 9:45 AM EDT Pharmacy Pharmacy Hematology Oncology [address] [address] [facility], [facility] Hem/Onc [facility] [place] [place] [address] 03/08/2024 5:20 PM EST Telemedicine Family Practice/Pediatrics, [place] [address] [address] Lacie Santoro PA-C [address] [address] Pending Results Name Type Priority Associated Diagnoses [...] conditions documented in this encounter Care Teams Caregivers Homecare Relationship Specialty Start Date End Date Lacie Santoro PA-C [address] [place] [address] [address] PCP - General Physician Desulphurizer Operator 10/30/20 documented as of this encounter
--- OUTSIDE RECORDS SUMMARY | 2023-11-22 15:33 | External Medical Summary | Summary of Care ---
Author Name Unknown Organization [facility] Address [address] [facility] [place] [address] Phone [phone] Care Team Providers Care Radiology Interventional Physician Name Role Phone Lacie Santoro PA-C Primary Care Provider Reason for Visit * Reason Onset Date Comments Advice 06/29/2023 Depression Encounter Details Date Type Department Care Team (Late st Contact Info) Description 06/29/2023 Telephone Family Practice/Pediatrics, [place] 250 [facility] [place] [address] Lacie Santoro PA-C 250 [facility] [place] [address] Advice (Depression) Allergies No known active allergiesdocumented as of this encounter (statuses as of 06/29/2023) Medications Medication Sig Dispensed Refills Start Date [...] as of this encounter (statuses as of 06/29/2023) Active Problems Problem Noted Date Diagnosed Date [...] as of this encounter (statuses as of 06/29/2023) Resolved Problems Problem Noted Date Diagnosed Date [...] as of this encounter (statuses as of 06/29/2023) Immunizations Name Administration Dates Next Due COVID-19 [...] encounter Miscellaneous Notes * Telephone Encounter - Lacie Santoro PA-C - 06/29/2023 5:31 PM EDT Noted. * Telephone Encounter - Kayleen Brown MED ASSIST - 06/29/2023 3:28 PM EDT Called and spoke to pt, relayed providers message, pt agreed to do a VV. Pt is scheduled with Lacie Santoro on 07/01/2023 at 6:20PM * Telephone Encounter - Lacie Santoro PA-C - 06/29/2023 3:25 PM EDT Is pt agreeable to a video visit to discuss? * Telephone Encounter - Coleen Mabry CMA - 06/29/2023 11:56 AM EDT To PCP- Please see message and advise. Coleen Mabry CMA * Telephone Encounter - Twyla Johnson OSA - 06/29/2023 9:25 AM EDT Patient significant other calling regarding patients mental status. States he has been crying a lotand does not want to leave the house, due to his physical limitations. States she thinks he needs some kind of counseling and maybe some other help with cognative functions. Trouble speaking. Good call back number is [phone] documented in this encounter Plan of Treatment Upcoming Encounters Date Type Department Care Team (Late st Contact Info) Description 07/01/2023 6:20 PM EDT Telemedicine [facility] [address] [place] [address] Lacie Santoro PA-C [address] [place] [address] 07/03/2023 9:30 AM EDT Pharmacy Pharmacy Hematology Oncology [facility] [address] [place] [address] [facility], [facility] Clinic Hem/Onc [address] [place] [address] 09/02/2023 3:00 PM EDT Office Visit [facility] [address] [place] [address] [address] Lacie Santoro PA-C 250 [facility] [place] [address] 09/11/2023 3:00 PM EDT Office Visit Hematology Oncology[address] [place] [address] Florin Young MD [address] [place] [address] [place] [address] 09/21/2023 2:00 PM EDT [facility] [address] [place] [address] Reginaldo Allred DDS, MD [address] [place] [address] Scheduled Procedures Name Priority Associated Diagnoses Date/Ti [...] filedocumented as of this encounter Care Teams Radiology Interventional Physician Relationship Specialty Start Date End Date Lacie Santoro PA-C [place] [id number] PCP - General Physician Lead Pressman 10/30/20 documented as of this encounter
--- OUTSIDE RECORDS SUMMARY | 2023-11-22 15:33 | External Medical Summary | Summary of Care ---
Author Name Unknown Organization [facility] Address [address] [facility] [place] [address] Phone [phone] Care Team Providers Care Montessori Paraprofessional Name Role Phone Lacie Santoro PA-C Primary Care Provider Encounter Details Date Type Department Care Team (Late st Contact Info) Description 07/01/2023 6:20 PM EDT [facility]med[facility] [address] [place] [address] Lacie Santoro PA-C 250 [facility] [place] [address] Major depressive disorder, recurrent episode, moderate (HCC)*; History of stroke; Hemiplegia affecting dominant side, post-stroke (HCC) Allergies No known active allergiesdocumented as of this encounter (statuses as of 07/01/2023) Medications Medication Sig Dispensed Refills Start Date [...] as of this encounter (statuses as of 07/01/2023) Active Problems Problem Noted Date Diagnosed Date [...] as of this encounter (statuses as of 07/01/2023) Resolved Problems Problem Noted Date Diagnosed Date [...] as of this encounter (statuses as of 07/01/2023) Immunizations Name Administration Dates Next Due COVID-19 [...] as of this encounter Progress Notes * Lacie Santoro PA-C - 07/01/2023 6:17 PM EDT Patient location: HOME. I was in a hospital or clinic location. After connecting through [employer],patient was verified with two unique identifiers. Patient (or authorized legal ocean import representative) was then informed that this was a Telemedicine visit and being conducted confidentially over secure lines. Methods to assure confidentiality were taken. Patient acknowledged consent and understanding of pr ivacy and security of the Telemedicine visit. The patient agreed to participate. Subjective: Ziggy Chan is a 63 year old male. No chief complaint on file. HPI: Patient is a 63 y/o male who presents here today for a discussion. PSA continues to go down - he is following with Dr. Young for this and on zytiga. Admits it makes him tired. Sig other called in the other day stating he has been crying a lot for the past few weeks. He states his daughter was coming up from [facility] - she stopped coming to see him which upsets him. The last time he saw her was 2 years ago. He will talk to her every 2-3 months. Daughter is planning on coming in September. His other daughter lives 15 mins apart but does not have a good relationship with the mom, who Ziggy lives with. States every since he had his stroke 20 years ago, things have changed. Denies any suicidal thoughts or thoughts of self harm. "I can't do anything because of my stroke". is at home with him who cares for him. Cannot read because of the stroke, has a hard time walking due to it. Patient Active Problem List Diagnosis chronic pain [...] 1 Capsule before bedtime. 180 Capsule 3 traZODone HCl 50 MG Oral Tablet (Desyrel) TAKE 1 TO 2 TABLETS BY MOUTH EVERY DAY PRIOR TO SLEEPING DIRECTED 180 Tablet 3 predniSONE 5 MG Oral Tablet (Deltasone) Take 1 Tablet by mouth in the morning. 30 Tablet 5 predniSONE 5 MG Oral Tablet (Deltasone) Take [...] 1 TABLET BEFORE BEDTIME. 90 Tablet 3 HYDROcodone-Acetaminophen 5-325 MG Oral Tablet Take 1 Tablet by mouth every 6 hours as needed for Pain, Mild. 75 Tablet 0 Abiraterone Acetate 250 MG Oral Tablet (Zytiga) Take 4 Tablets by mouth in the morning. Take on an empty stomach (1 hour before or 2 hours after food). 120 Tablet 5 amLODIPine Besylate 5 MG Oral Tablet (Norvasc) Take 1 Tablet by mouth in the morning. 30 Tablet 5 No current facility-administered medications for this visit. Review of patient's allergies indicates: No Known Allergies Objective: There were no vitals taken for this visit. Physical Exam: General: alert, very tearful ASSESSMENT/PLAN: Major depressive disorder, recurrent episode, moderate (HCC) (Primary) - on max dose of celexa-offered to add wellbutrin but declined, refused psychology, dicussed with pt some ways to make relationship with daughter better, he will try this by calling her more and explaining how upset he is History of stroke with hemiplagia - can offer rehab but has done this in the past Return in August as scheduled or sooner if needed Lacie Santoro PA-C I spent a total of 27 minutes on the date of service in preparation, delivery, and documentation ofthe care provided to this patient. documented in this encounter Plan of Treatment Upcoming Encounters Date Type Department Care Team (Late st Contact Info) Description 07/03/2023 9:30 AM EDT Pharmacy Pharmacy Hematology Oncology [facility] [place] [address] [place] [address] [facility] Clinic Hem/Onc [address] [place] [address] 09/02/2023 3:00 PM EDT Office [facility] 250 [facility] [place] [address] Lacie Santoro PA-C 250 [facility] [place] [address] 09/11/2023 3:00 PM EDT Office Visit Hematology Oncology, [address] [place] [address] Florin Young MD [address] [place] [address] [place] [address] 09/21/2023 2:00 PM EDT [facility] [address] [place] [address] Reginaldo Allred DDS, MD [address] [place], [place] [id number] Scheduled Procedures Name Priority Associated Diagnoses Date/Ti [...] Diagnosis Major depressive disorder, recurrent episode, moderate (HCC)- Primary Major depressive disorder, recurrent episode, moderate History of stroke Transient ischemic attack (TIA), and cerebral infarction without residual deficits Hemiplegia affecting dominant side, post-stroke (HCC) Hemiplegia affecting dominant side, late effect of cerebrovascular disease documented in this encounter Care Teams Montessori Paraprofessional Relationship Specialty Start Date End Date Lacie Santoro PA-C [address] [place] [address] PCP - General Physician Fusion Analyst 10/30/20 documented as of this encounter
--- OUTSIDE RECORDS SUMMARY | 2023-11-22 15:33 | External Medical Summary | Summary of Care ---
Author Name Unknown Organization [facility] Address [address] [facility] [place] [address] Phone [phone] Care Team Providers Care Resource Conservation Manager Name Role Phone Kee Santoro PA-C Primary Care Provider Reason for Visit * Reason Onset Date Comments Medication Refill 07/09/2023 Encounter Details Date Type Department Care Team (Late st Contact Info) Description 07/09/2023 [facility] 250 [facility] [place] [address] Kee Santoro PA-C 250 [facility] [place] [address] Insomnia, unspecified type Allergies No known active allergiesdocumented as of this encounter (statuses as of 07/10/2023) Medications Medication Sig Dispensed Refills Start Date [...] SLEEPING DIRECTED 180 Tablet 3 07/10/2023 Active traZODone HCl 50 MG Oral Tablet (Desyrel)Indications :Insomnia, unspecified type TAKE 1 TO 2 TABLETS BY MOUTH EVERY DAY PRIOR TO SLEEPING DIRECTED 180 Tablet 3 09/24/2022 05/30/202 4 Discontinue d(Refill) documented as of this encounter (statuses as of 07/10/2023) Active Problems Problem Noted Date Diagnosed Date [...] as of this encounter (statuses as of 07/10/2023) Resolved Problems Problem Noted Date Diagnosed Date [...] as of this encounter (statuses as of 07/10/2023) Immunizations Name Administration Dates Next Due COVID-19 [...] encounter Miscellaneous Notes * Telephone Encounter - Reginaldo Gonzalez [facility] - 07/10/2023 1:22 PM EDTSigned Prescriptions: Disp Refills traZODone HCl 50 MG Oral Tablet (Desyrel) 180 Ta*3 Sig: TAKE 1 TO 2 TABLETS BY MOUTH EVERY DAY PRIOR TO SLEEPING DIRECTED Authorizing Provider: KEE SANTORO Ordering User: REGINALDO GONZALEZ * Telephone Encounter - Mark-Donna Benz, manager report - 07/09/2023 1:47 PM EDT Did you pend patient's preferred pharmacy and medication before forwarding?yes Pharmacy: [facility] Pending Prescriptions: Disp Refills traZODone HCl 50 MG Oral Tablet (Desyrel) 180 Ta*3 Sig: TAKE 1 TO 2 TABLETS BY MOUTH EVERY DAY PRIOR TO SLEEPING DIRECTED Last Visit: 08/25/2022 (in office), 07/01/2023 (telemedicine) Next Visit: 09/02/2023 If no future appointments scheduled, and last appointment is greater than a year ago, please schedule patient for a follow-up appointment Last date the medication was ordered: 09/24/2022 Is this request for a controlled substance?No [...] 9:45 AM EDT Pharmacy Pharmacy Hematology Oncology [facility] [address] [place] [address] [facility], [facility], [facility] Clinic Hem/Onc [address] [place] [address] 09/02/2023 3:00 PM EDT [facility] 250 [facility] [place] [address] Kee Santoro PA-C 250 [facility] [address] 09/10/2023 7:10 AM EDT Laboratory Lab Mobile Phlebotomy [facility] [address] [place] [address] [facility], Gml Mobile Home Draw [address] [place] [address] 09/11/2023 3:00 PM EDT Office Visit Hematology Oncology[address] [place] [address] Florin Young MD [address] [place] [address] [place] [address] 10/08/2023 1:30 PM EDT [facility] [address] [place] [address] Reginaldo Allred DDS, MD [address] [place] [address] Scheduled Procedures Name Priority Associated Diagnoses Date/Ti [...] as of this encounter Visit Diagnoses Diagnosis Insomnia, unspecified type documented in this encounter Care Teams Resource Conservation Manager Relationship Specialty Start Date End Date Kee Santoro PA-C Formerly named [facility] [place] [address] PCP - General Physician Floral Manager 10/30/20 documented as of this encounter
--- OUTSIDE RECORDS SUMMARY | 2023-11-22 15:33 | External Medical Summary | Summary of Care ---
Author Name Unknown Organization [facility] Address [address] [facility] [place] [address] Phone [phone] Care Team Providers Care Director Of Product Marketing Name Role Phone Kee Santoro PA-C Primary Care Provider Reason for Referral * Medication Prior Authorization - Closed Specialty Diagnoses / Procedures Referred By Eloise caruso Referred To Contact Diagnoses Displacement of lumbar intervertebral disc without myelopathy Pain medication agreement Kee Santoro PA-C [address] [place] [address] Referral ID Status Reason Start Date Expiration Date Visits Re quested Visits Authorized [id number] Closed 999 999 Reason for Visit * Reason Onset Date Comments Medication Refill 07/15/2023 Encounter Details Date Type Department Care Team (Late st Contact Info) Description 07/15/2023 [facility] [address] [place] [address] Kee Santoro PA-C [address] [place] [phone] LUMBAR DISC DISPLACEMENT; Pain medication agreement Allergies No known active allergiesdocumented as of this encounter (statuses as of 07/16/2023) Medications Medication Sig Dispensed Refills Start Date [...] for Pain, Mild. 75 Tablet 07/16/2023 Active HYDROcodone-Acetamin ophen 5-325 MG Oral TabletIndications: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 75 Tablet 06/19/2023 4 Discontinue d(Refill) documented as of this encounter (statuses as of 07/16/2023) Active Problems Problem Noted Date Diagnosed Date [...] as of this encounter (statuses as of 07/16/2023) Resolved Problems Problem Noted Date Diagnosed Date [...] as of this encounter (statuses as of 07/16/2023) Immunizations Name Administration Dates Next Due COVID-19 mRNA, LNP-s, No Pre serve, 2-Dose Series ([employer]) 05/25/2020,05/04/2020 Pneumococcal Polysaccharide PPV23 (Pneumovax) 11/18/2005 Seasonal [...] Telephone Encounter - Kee Santoro PA-C - 07/16/2023 2:44 PM EDT Signed Prescriptions: Disp Refills HYDROcodone-Acetaminophen 5-325 MG Oral Ta*75 Tab*0 Sig: Take 1 Tablet by mouth every 6 hours as needed for Pain, Mild.Authorizing Provider: KEE SANTORO---- * Telephone Encounter - Cheryl Sebastian [facility] - 07/16/2023 1:51 PM EDT Pending Prescriptions: Disp Refills HYDROcodone-Acetaminophen 5-325 MG Oral Ta*75 Tab*0 Sig: Take 1 Tablet by mouth every 6 hours as needed for Pain, Mild. * Telephone Encounter - Cheryl Sebastian [facility] - 07/16/2023 1:50 PM EDT I have reviewed the patients controlled substance dispensing history in the Prescription Drug Monitoring Program in compliance with the [facility] regulations before prescribing a controlled substance. PDMP checked on 07/16/2023. Pending Prescriptions: Disp Refills HYDROcodone-Acetaminophen 5-325 MG Oral T*75 Tab*0 Sig: Take 1 Tablet by mouth every 6 hours as needed for Pain, Mild. Last Visit: 08/25/2022 (in office), 07/01/2023 (telemedicine) Next Visit: 09/02/2023 Date medication was last filled: 06/19/23 Date medication is due for refill: 07/07/23 Pharmacy: [facility] [address] Is this request for a controlled [...] Please approve if appropriate. Thank you, Cheryl Sebastian PharmD Clinical Pharmacist [facility] ([facility]) [phone] 07/16/2023, 1:50 PM * Telephone Encounter - Hodan Bernal PHARM Tech - 07/15/2023 3:34 PM EDT Did you pend patient's preferred pharmacy and medication before forwarding?yes Pharmacy: [facility] [address] Pending Prescriptions: Disp Refills HYDROcodone-Acetaminophen 5-325 MG Oral T*75 Tab*0 Sig: Take 1 Tablet by mouth every 6 hours as needed for Pain, Mild. Last Visit: 08/25/2022 (in office), 07/01/2023 (telemedicine) Next Visit: 09/02/2023 If no future appointments scheduled, and last appointment is greater than a year ago, please schedule patient for a follow-up appointment Last date the medication was ordered: Is this request for a controlled substance?Yes, What was the last refill date 06/18 w/ quantity 75 and dosage 5 325 mg and Urine Drug Screen Not completed [...] AM EDT Pharmacy Pharmacy Hematology Oncology [facility] [address] [place] [address] [facility] [place], [facility] Hem/Onc [address] [place] [address] 09/02/2023 3:00 PM EDT Office Visit Family Practice/Pediatrics, [place] [address] [address] Kee Santoro PA-C [address] [place] [address] [address] 09/10/2023 7:10 AM EDT Laboratory Lab Mobile Phlebotomy [facility] [address] [place] [address] [facility], Gml Mobile Home Draw [address] [facility] [place] [address] 09/11/2023 3:00 PM EDT Office Visit Hematology Oncology, [address] [place] [address] Florin Young MD [address] [place] [address] [place] [address] 10/08/2023 1:30 PM EDT [facility] [address] [place] [address] Reginaldo Allred DDS, MD [address] [place], [place] [phone] Scheduled Procedures Name Priority Associated Diagnoses Date/Ti [...] medications documented in this encounter Care Teams Director Of Product Marketing Relationship Specialty Start Date End Date Kee Santoro PA-C [facility] [place] [address] PCP - General Physician Hvac Designer 10/30/20 documented as of this encounter
--- OUTSIDE RECORDS SUMMARY | 2023-11-22 15:33 | External Medical Summary | Summary of Care ---
Author Name Unknown Organization [facility] Address [address] [facility] [place] [address] Phone [phone] Care Team Providers Care Biopsychologist Name Role Phone Lacie Santoro PA-C Primary Care Provider Reason for Visit * Reason Onset Date Comments Medication Refill 08/12/2023 Encounter Details Date Type Department Care Team (Late st Contact Info) Description 08/12/2023 [facility] 250 [facility] [place] [address] Lacie Santoro PA-C 250 [facility] [place] [address] LUMBAR DISC DISPLACEMENT; Pain medication agreement Allergies No known active allergiesdocumented as of this encounter (statuses as of 08/14/2023) Medications Medication Sig Dispensed Refills Start Date [...] the morning. 30 Tablet 5 07/27/2023 Active HYDROcodone-Acetamin ophen 5-325 MG Oral TabletIndications: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 75 Tablet 08/14/2023 Active HYDROcodone-Acetamin ophen 5-325 MG Oral TabletIndications: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 75 Tablet 07/16/2023 4 Discontinue d(Refill) documented as of this encounter (statuses as of 08/14/2023) Active Problems Problem Noted Date Diagnosed Date [...] as of this encounter (statuses as of 08/14/2023) Resolved Problems Problem Noted Date Diagnosed Date [...] as of this encounter (statuses as of 08/14/2023) Immunizations Name Administration Dates Next Due COVID-19 [...] encounter Miscellaneous Notes * Telephone Encounter - Harshil Boo Jr., DO - 08/14/2023 10:02 AM EDT Signed Prescriptions: Disp Refills HYDROcodone-Acetaminophen 5-325 MG Oral Ta*75 Tab*0 Sig: Take 1 Tablet by mouth every 6 hours as needed for Pain, Mild. Authorizing Provider: HARSHIL BOO JR * Telephone Encounter - Jelani Nagy [facility] - 08/14/2023 10:01 AM EDT Pending Prescriptions: Disp Refills HYDROcodone-Acetaminophen 5-325 MG Oral Ta*75 Tab*0 Sig: Take 1 Tablet by mouth every 6 hours as needed for Pain, Mild. * Telephone Encounter - Jelani Nagy [facility] - 08/14/2023 10:00 AM EDT I have reviewed the patients controlled substance dispensing history in the Prescription Drug Monitoring Program in compliance with the [facility] regulations before prescribing a controlled substance. PDMP checked on 08/14/2023. Pending Prescriptions: Disp Refills HYDROcodone-Acetaminophen 5-325 MG Oral T*75 Tab*0 Sig: Take 1 Tablet by mouth every 6 hours as needed for Pain, Mild. Last Visit: 08/25/2022 (in office), 07/01/2023 (telemedicine) Next Visit: 09/02/2023 Date medication was last filled: 07/16/23 Date medication is due for refill: 08/02/23 Pharmacy: [address] Is this request for a controlled substance? Yes and Urine Drug Screen Not completed Please approve if appropriate. Thanks, Jelani Nagy, PharmD Clinical Pharmacist [facility] ([facility]) [phone] 08/14/2023, 10:00 AM * Telephone Encounter - Genevieve Delvalle [facility] - 08/12/2023 2:41 PM EDT Did you pend patient's preferred pharmacy and medication before forwarding?yes Pharmacy: [address] Pending Prescriptions: Disp Refills HYDROcodone-Acetaminophen 5-325 MG Oral T*75 Tab*0 Sig: Take 1 Tablet by mouth every 6 hours as needed for Pain, Mild. Last Visit: 08/25/2022 (in office), 07/01/2023 (telemedicine) Next Visit: 09/02/2023 If no future appointments scheduled, and last appointment is greater than a year ago, please schedule patient for a follow-up appointment Last date the medication was ordered: 07/16/23 Is this request for a controlled substance?Yes, What was the last refill date 07/16/23 w/ quantity 75and dosage Take 1 Tablet by mouth every 6 hours as needed for Pain, Mild and Urine Drug Screen was completed Urine [...] 9:45 AM EDT Pharmacy Pharmacy Hematology Oncology [address] [address] [facility], [facility] Hem/Onc [address] [place] [address] [place] [address] 09/02/2023 3:00 PM EDT [facility] [address] [address] [address] Lacie Santoro PA-C [address] [place] [address] 09/10/2023 7:10 AM EDT Laboratory Lab Mobile Phlebotomy [facility] [address] [place] [address] [facility], Gml Mobile Home Draw [address] [place] [address] 09/11/2023 3:00 PM EDT [facility] [place] [address] Florin Young MD 75 [facility] [place] [address] 10/08/2023 1:30 PM EDT [facility] [address] [place] [address] Reginaldo Allred DDS, MD [address] [place] [address] Scheduled Procedures Name Priority Associated Diagnoses Date/Ti [...] medications documented in this encounter Care Teams Biopsychologist Relationship Specialty Start Date End Date Lacie Santoro PA-C [facility] [place] [address] PCP - General Physician Lens Coating Technician 10/30/20 documented as of this encounter
--- OUTSIDE RECORDS SUMMARY | 2023-11-22 15:34 | External Medical Summary ---
Author Name Unknown Address Unknown Organization K0G:[facility] [address] [place] [address] Laboratory Report Ordering Provider Test Date Status MARY DODSON 06/08/2023 07:55:00 Final Observation Date Value Abnormality Reference (Units ) Status BUN 06/08/2023 07:55:00 26 Above high normal 6-20 (mg/dL) Final Creatinine 06/08/2023 07:55:00 1.3 Above high normal 0.6-1.2 (mg/dL) Final Glomerular filtration rate/1.73 sq M.predicted [Volume Rate/Area] in Serum, Plasma or Blood by Creatinine-based formula (CKD-EPI) 06/08/2023 07:55:00 63 >=60 (mL/min) Final eGFR is calculated based on the CKD-EPI 2020 equation Sodium 06/08/2023 07:55:00 140 135-146 (m mol/L) Final Potassium 06/08/2023 07:55:00 4.7 3.5-5.1 (m mol/L) Final Cl 06/08/2023 07:55:00 106 98-107 (mm ol/L) Final CO2 06/08/2023 07:55:00 26 22-32 (mmo l/L) Final Anion gap 06/08/2023 07:55:00 8 7-15 (mmol /L) Final Glucose 06/08/2023 07:55:00 90 70-120 (mg /dL) Final Albumin 06/08/2023 07:55:00 3.8 3.8-5.0 (g /dL) Final AST (Aspartate aminotransferase) 06/08/2023 07:55:00 13 10-50 (U/L) Final Alk Phos 06/08/2023 07:55:00 110 35-130 (U/ L) Final Bilirubin, Total 06/08/2023 07:55:00 0.4 <=1 .2 (mg/dL) Final Calcium 06/08/2023 07:55:00 9.1 8.4-10.2 ( mg/dL) Final Protein 06/08/2023 07:55:00 6.1 6.0-8.3 (g /dL) Final ALT (Alanine aminotransferase) 06/08/2023 07:55:00 10 10-50 (U/L) Final Performing Location [facility] [address] [facility] [address]
--- OUTSIDE RECORDS SUMMARY | 2023-11-22 15:34 | External Medical Summary ---
Author Name Unknown Address Unknown Organization K01:[facility] [address] [place] [address] Laboratory Report Ordering Provider Test Date Status MARY DODSON 06/08/2023 07:55:00 Final Observation Date Value Abnormality Reference (Units ) Status PSA 06/08/2023 07:55:00 6.96 Above high normal <4 .10 (ng/mL) Final Performing Location [facility] - [address] [place] [address]
--- OUTSIDE RECORDS SUMMARY | 2023-11-22 15:34 | External Medical Summary | Summary of Care ---
Author Name Unknown Organization [facility] Address [address] [place] [address] Phone [phone] Care Team Providers Care Rocket Motor Mechanic Name Role Phone Lacie Santoro PA-C Primary Care Provider Reason for Visit * Reason Onset Date Comments Test Results 06/12/2023 Young patient. Encounter Details Date Type Department Care Team (Late st Contact Info) Description 06/12/2023 Telephone Hematology Oncology, [place] [address] [place] [address] Services, Scheduling [address] [place] [address] Test Results (Young patient./) Allergies No known active allergiesdocumented as of this encounter (statuses as of 06/12/2023) Medications Medication Sig Dispensed Refills Start Date [...] SLEEPING DIRECTED 180 Tablet 3 09/24/2022 Active Abiraterone Acetate 250 MG Oral Tablet (Zytiga)Indications:M alignant neoplasm of prostate (HCC) Take 4 Tablets by mouth in the morning. Take on an empty stomach (1 hour before or 2 hours after food). 120 Tablet 5 11/19/2022 Active predniSONE 5 MG Oral Tablet (Deltasone)Indication [...] for Pain, Mild. 75 Tablet 0 05/21/2023 Active documented as of this encounter (statuses as of 06/12/2023) Active Problems Problem Noted Date Diagnosed Date [...] as of this encounter (statuses as of 06/12/2023) Resolved Problems Problem Noted Date Diagnosed Date [...] as of this encounter (statuses as of 06/12/2023) Immunizations Name Administration Dates Next Due COVID-19 [...] encounter Miscellaneous Notes * Telephone Encounter - Macie Butler RN - 06/12/2023 4:09 PM EDT I called patient back and provided PSA results. * Telephone Encounter - Kenya Anderson OSA - 06/12/2023 3:49 PM EDT Who is Requesting Test Results: Uriel - spouse Primary Care Provider : Lacie Santoro PA-C Tests Results Requested : PSA Date of Test : 06/08/23 Location of Test: [facility] Ordering Provider: Florin Young M Patient has been made aware that the turnaround time for test results are typically as follows: Laboratory results = within 2-3 days ([facility]), 3-5 days (Non-[facility], ie. [facility]) Urine Cultures = within 2-3 days depending on growth within the culture Pathology results (biopsy results/PAP) = 1-2 weeks Radiology results = about 1 week Cologuard results = within 2 weeks from the shipment date COVID testing = about 24 hours documented in this encounter Plan of Treatment Upcoming Encounters Date Type Department Care Team (Late st Contact Info) Description 07/03/2023 9:30 AM EDT Pharmacy Pharmacy Hematology Oncology [facility] [place] [address] [facility] [place] [address] [facility] [place], [facility] Hem[facility]Onc [address] [facility] [address] 09/02/2023 3:00 PM EDT Office Visit Family Practice/Pediatrics[address] [place] [address] Lacie Santoro PA-C [address] [place] [address] 09/11/2023 3:00 PM EDT Office Visit Hematology Oncology, [address] [place] [address] Florin Young MD [address] [place] [address] [place] [address] 09/21/2023 2:00 PM EDT Office Visit Oral Maxillofacial Surgery, [place] [address] [place] [address] Reginaldo Allred DDS, MD [address] [place] [address] Scheduled Procedures Name Priority Associated Diagnoses Date/Ti [...] filedocumented as of this encounter Care Teams Rocket Motor Mechanic Relationship Specialty Start Date End Date Lacie Santoro PA-C [facility] [place] [address] PCP - General Physician Picker Machine Operator 10/30/20 documented as of this encounter
--- OUTSIDE RECORDS SUMMARY | 2023-11-22 15:34 | External Medical Summary | Summary of Care ---
Author Name Unknown Organization [facility] Address [address] [facility] [place] [address] Phone [phone] Care Team Providers Care Honeycomb Decapper Name Role Phone Lacie Santoro PA-C Primary Care Provider Reason for Visit * Reason Comments Medication Refill Encounter Details Date Type Department Care Team (Late st Contact Info) Description 06/18/2023 Refill Hematology Oncology, [address] [place] [address] Florin Hernandez MD [address] [place] [address] [place] [address] Malignant neoplasm of prostate (HCC) Allergies No known active allergiesdocumented as of this encounter (statuses as of 06/18/2023) Medications Medication Sig Dispensed Refills Start Date [...] Pain, Mild. 75 Tablet 0 05/21/2023 Active Abiraterone Acetate 250 MG Oral Tablet (Zytiga)Indications: Malignant neoplasm of prostate (HCC) Take 4 Tablets by mouth in the morning. Take on an empty stomach (1 hour before or 2 hours after food). 120 Tablet 5 06/18/2023 Active Abiraterone Acetate 250 MG Oral Tablet (Zytiga)Indications: Malignant neoplasm of prostate (HCC) Take 4 Tablets by mouth in the morning. Take on an empty stomach (1 hour before or 2 hours after food). 120 Tablet 5 11/19/2022 4 Discontinue d(Refill) documented as of this encounter (statuses as of 06/18/2023) Active Problems Problem Noted Date Diagnosed Date [...] as of this encounter (statuses as of 06/18/2023) Resolved Problems Problem Noted Date Diagnosed Date [...] as of this encounter (statuses as of 06/18/2023) Immunizations Name Administration Dates Next Due COVID-19 [...] Notes * Telephone Encounter - Eunice Loaiza RP - 06/18/2023 3:08 PM EDT Signed Prescriptions: Disp Refills Abiraterone Acetate 250 MG Oral Tablet (Zy*120 Ta*5 Sig: Take 4Tablets by mouth in the morning. Take on an empty stomach (1 hour before or 2 hours after food).Authorizing Provider: FLORIN HERNANDEZ User: EUNICE LOAIZA * Telephone Encounter - Eunice Loaiza RP - 06/18/2023 3:07 PM EDT Refill Request EPIC Note Clinical Pharmacy Service (Hematology/Oncology): Refill Request(s) PHYSICIAN ACTION: No Assessment & Plan After reviewing the parameters in order to refill the patient's medication(s), the following was determined: The medication(s), abiraterone, was refilled and no parameters need to be addressed No communication to requesting entity necessary Refill Parameters The following parameters were assessed in order to decide whether or not this refill was appropriate: Refill Parameter Comments If the patient was seen in the last 6 months (12 months for MPN patients) Yes - 06/05/23 If the labs were completed per prescribing information recommendations or provider recommendations Yes - 06/08/23 If the labs were within normal limits or stable at baseline yes If the dose was correct and/or if the prescription sig reflects the current prescribed dose yes If there were any new drug interactions with the patient's oral chemotherapy no If there were any care gaps/baseline labs that need to be addressed no Eunice Loaiza [facility] Ambulatory Clinical Pharmacist | Oral Chemotherapy Clinic [facility] 06/18/2023, 3:08 PM documented in this encounter Plan of Treatment Upcoming Encounters Date Type Department Care Team (Late st Contact Info) Description 07/03/2023 9:30 AM EDT Pharmacy Pharmacy Hematology Oncology [address] [address] [facility] [place] Clinic Hem/[place]c [facility] [place] [address] 09/02/2023 3:00 PM EDT [facility] [address] [address] Lacie [facility]oro PA-C [address] [facility] [place] [address] 09/11/2023 3:00 PM EDT Office Visit Hematology Oncology[address] [place] [address] Florin Hernandez MD [address] [place] [address] [place] [address] 09/21/2023 2:00 PM EDT Office Visit Oral Maxillofacial Surgery[address] [address] Reginaldo Allred DDS, MD [facility] [place] [address] Scheduled Procedures Name Priority Associated Diagnoses Date/Ti [...] prostate documented in this encounter Care Teams Honeycomb Decapper Relationship Specialty Start Date End Date Lacie Santoro PA-C [facility] [place] [address] PCP - General Physician President And Chief Commercial Officer 10/30/20 documented as of this encounter"
--- OUTSIDE RECORDS SUMMARY | 2023-11-22 15:34 | External Medical Summary ---
Author Name Unknown Address Unknown Organization K0G:[facility] [address] [place] [address] Laboratory Report Ordering Provider Test Date Status MARY DODSON 06/08/2023 07:55:00 Final Observation Date Value Abnormality Reference (Units ) Status WBC, Total 06/08/2023 07:55:00 7.91 4.00-10.8 0 (K/uL) Final RBC 06/08/2023 07:55:00 3.65 4.50-5.25 (M/uL) Final Hemoglobin 06/08/2023 07:55:00 11.9 Below low normal 14 .0-16.8 (g/dL) Final HCT 06/08/2023 07:55:00 37.1 Below low normal 40. 0-48.4 (%) Final MCV 06/08/2023 07:55:00 101.6 82.0-99.5 (fL) Final MCH 06/08/2023 07:55:00 32.6 27.0-34.0 (pg) Final MCHC 06/08/2023 07:55:00 32.1 32.0-36.0 (g/dL) Final RDW 06/08/2023 07:55:00 13.6 11.5-15.5 (%) Final Platelets 06/08/2023 07:55:00 211 140-400 (K /uL) Final MPV 06/08/2023 07:55:00 10.9 6.6-11.1 ( fL) Final Performing Location [facility] [address] [place] [address]
--- OUTSIDE RECORDS SUMMARY | 2023-11-22 15:34 | External Medical Summary | Summary of Care ---
Author Name Unknown Organization [facility] Address [address] [place] [address] Phone [phone] Care Team Providers Care Motor Builder Assembler Name Role Phone Lacie Santoro PA-C Primary Care Provider Reason for Visit * Reason Comments Follow Up * Additional Visits (Within 10 days (routine)) - Closed Specialty Diagnoses / Procedures Referred By Eloise t Referred To Contact Hematology Oncology Diagnoses Malignant neoplasm of prostate (HCC) Procedures [facility] [place] OFFICE/OUTPATIENT ESTABLISHED MOD MDM 30 MIN Florin Bergman MD [address] [place] [address] [place] [address] Hem/Onc [place] [address] [place] [address] Referral ID Status Reason Start Date Expiration Date V isits Requested Visits Authorized [id number] Closed Specialty Services Required 05/19/2023 07/10/2023 1 1 Encounter Details Date Type Department Care Team (Late st Contact Info) Description 06/05/2023 1:30 PM EDT Office Visit Hematology OncologyJessie [address] [place] [address] [place] [address] Florin Bergman MD [address] [place] [address] [place] [address] Malignant neoplasm of prostate (HCC)* Allergies No known active allergiesdocumented as of this encounter (statuses as of 06/05/2023) Medications Medication Sig Dispensed Refills Start Date [...] as of this encounter (statuses as of 06/05/2023) Active Problems Problem Noted Date Diagnosed Date [...] as of this encounter (statuses as of 06/05/2023) Resolved Problems Problem Noted Date Diagnosed Date [...] as of this encounter (statuses as of 06/05/2023) Immunizations Name Administration Dates Next Due COVID-19 mRNA, LNP-s, No Pre serve, 2-Dose Series ([email or web address]) 05/25/2020,05/04/2020 Pneumococcal Polysaccharide PPV23 (Pneumovax) 11/18/2005 Seasonal [...] Sign Reading Time Taken Comments Blood Pressure - - Pulse - - Temperature 36.8 C (98.2 F) 06/05/2023 1:22 PM ED T Respiratory Rate 16 06/05/2023 1:22 PM EDT Oxygen Saturation - - Inhaled Oxygen Concentration - - Weight 96.4 kg (212 lb 8 oz) 06/05/2023 1:22 PM EDT Height - - Body Mass Index 31.02 07/31/2022 1:49 PM EDT documented in this encounter Progress Notes * Florin Bergman MD - 06/05/2023 1:47 PM EDT 06/05/2023 Ziggy Acuna 1960 MD Lacie Matthews PA-C [address] [facility] [place] [address] HPI: He is a very pleasant 63 [...] has been disabled since 1995 worked for [employer] smoked2 ppd in the past and uses alcohol socially FMH is positive for prostate cancer he is seen at this time for further evaluation Review of patient's allergies indicates: No Known [...] PRIOR TO SLEEPING DIRECTED 180 Tablet 3 Abiraterone Acetate 250 MG Oral Tablet (Zytiga) Take 4 Tablets by mouth in the morning. Take on an empty stomach (1 hour before or 2 hours after food). 120 Tablet 5 predniSONE 5 MG Oral Tablet (Deltasone) Take 1 Tablet by mouth in the morning. 30 Tablet 5 predniSONE 5 MG Oral Tablet (Deltasone) Take 1 tablet by mouth in the morning. 30 Tablet 5 Lisinopril 40 MG Oral Tablet Take 1 Tablet by mouth in the morning. 30 Tablet 5 amLODIPine Besylate 5 MG Oral [...] performed by Denny Augustin MD at ENDOSCOPY [facility] COLONOSCOPY, DIAGNOSTIC (RECTUM) 09/21/2017 TVA polyp, repeat 3 yrs/COLONOSCOPY FLEXIBLE PROXIMAL DIAGNOSTIC performed by Issac Magdaleno MD at ENDOSCOPY [facility] MISCELLANEOUS ORDER ([facility] ONLY) lumbar surgery x 2 REMOVAL OF RUPTURED APPENDIX 06/2012 ev THROMBOENDARECTOMY W/PATCH,NECK INCISION 2003? left,carotid endarterectomy, [facility] [place] [facility] Family History Problem Relation Age of Onset Other (not in touch) Brother Other (not in touch) Brother Other (not in touch) Sister Diabetes Father Stroke Father Hypertension Father Heart Disorder Father mi Heart Disorder Uncle (Unspecified) mi Heart Disorder Uncle (Unspecified) mi Heart Disorder Uncle (Unspecified) mi Other (car accident) Sister Social History Socioeconomic History Marital status: Unknown Spouse name: Not on file Number of children: 4 Years of education: Not on file Highest education level: Not on file Occupational History Occupation: disability Employer: [employer] 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 Employer: [employer] Tobacco Use Smoking status: Former Current packs/day: 0.00 Average packs/day: 0.5 packs/day for 28.0 years (14.0 ttl pk-yrs) Types: Cigarettes Start date: 1974 Quit date: 2002 Years since quittin.3 Smokeless tobacco: Never Tobacco comments: 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) Vaping Use Vaping Use: Never used Substance and Sexual Activity Alcohol use: Yes [...] Patient declined Transportation Needs: Not on file Physical Activity: Not on file Stress: Not on file Social Connections: Not on file Intimate Partner Violence: Not on file Housing Stability: Not on [...] orders placed or performed in visit on 05/04/23 COMPREHENSIVE METABOLIC PANEL Result Value Ref Range BUN 18 6 - 20 mg/dL Creatinine 1.2 0.6 - 1.2 mg/dL Estimated Glomerular Filtration Rate 68 >=60 mL/min Sodium 144 135 - 146 mmol/L Potassium 4.2 3.5 - 5.1 mmol/L Chloride 107 98 - 107 mmol/L CO2 28 22 - 32 mmol/L Anion Gap 9 7 - 15 mmol/L Glucose 87 70 - 120 mg/dL Albumin 3.7 (L) 3.8 - 5.0 g/dL AST 10 10 - 50 U/L Alkaline Phosphatase 110 35 - 130 U/L Bilirubin, Total 0.3 <=1.2 mg/dL Calcium 9.2 8.4 - 10.2 mg/dL Protein 5.9 (L) 6.0 - 8.3 g/dL ALT 8 (L) 10 - 50 U/L MYCODE SST1 Result Value Ref Range MyCode Specimen Freezing of extracted DNA, whole blood and/or serum. MYCODE SST2 Result Value Ref Range MyCode Specimen Freezing of extracted DNA, whole blood and/or serum. ASSESSMENT: advanced prostate cancer hormone sensitive PLAN: discussed at length with them responding well to treatment PSA is due to be drawn Thursday willreview when available will plan to reevaluate in 3 months continue present treatment regimen all questions answered to apparent satisfaction can call with any questions or concerns 30 minutes was spent reviewing records counseling and coordination of care and report preparation will proceed in thisfashion Florin Bergman MD documented in this encounter Nursing Notes * Kassandra Hutson LPN - 06/05/2023 1:23 PM EDT Patient was instructed to not [...] Care Team (Late st Contact Info) Description 06/08/2023 8:00 AM EDT Laboratory Lab Mobile Phlebotomy [facility] [address] [place], [place] [address] [facility], [facility] Mobile Home Draw [address] [place], [place] [address] 07/03/2023 9:30 AM EDT Pharmacy Pharmacy Hematology Oncology [facility] [address] [place] [address] [facility] [place], [facility] Clinic Hem/Onc [address] [place] [address] 09/02/2023 3:00 PM EDT [facility] [address] [place] [address] Lacie Santoro PA-C [address] [facility] [place] [address] 09/11/2023 3:00 PM EDT Office Visit Hematology Oncology, [place] [address] [facility] [place] [address] Florin Bergman MD [address] [place] [address] [place] [address] 09/21/2023 2:00 PM EDT [facility] [address] [place] [address] Reginaldo Allred DDS, MD [address] [place] [address] Scheduled Orders Name Type Priority Associated Diagnoses Orde r Schedule CBC WITH WBC DIFFERENTIAL Lab Routine Malignant neoplasm of prostate (HCC) Expected: 06/05/2023 (Approximate), Expires: 12/02/2023 COMPREHENSIVE METABOLIC PANEL Lab Routine Malignant neoplasm of prostate (HCC) Expected: 06/05/2023 (Approximate), Expires: 12/02/2023 PSA Lab Routine Malignant neoplasm of prostate (HCC) Expected: 06/05/2023 (Approximate), Expires: 12/02/2023 Scheduled Procedures Name Priority Associated Diagnoses Date/Ti me COLONOSCOPY FLEXIBLE PROXIMAL DIAGNOSTIC Recall History of colon polyps Health Maintenance Due Date Last Done Comments HIV Screening 1975 Zoster Vaccines (1 of 2) 1978 Pneumococcal Vaccine: Pediatrics (0 to 5 Years) and At-Risk Patients (6 to 64 Years) (2 of 2 - PCV) 11/18/2006 11/18/2005 COVID-19 Vaccine (3 - Pfizer risk series) 06/22/2020 05/25/2020, 05/04/2020 COLONOSCOPY-EVERY 3 YRS AGES 18-100 09/21/2020 09/21/2017, 09/21/2017, 05/12/2014, Additional history exists GFR 05/03/2024 05/04/2023, 03/13, 03/02/2023, Additional history exists Albumin/Creatinine Ratio 11/06/2024 11/06/2021 Diabetes Screening 05/03/2026 05/04/2023, 0 04/06/2023, 03/02/2023, Additional history exists Lipid Panel 08/01/2027 07/31/2022, [...] prostate documented in this encounter Care Teams Motor Builder Assembler Relationship Specialty Start Date End Date Lacie Santoro PA-C [place] [address] PCP - General Physician It Infrastructure Manager 10/30/20 documented as of this encounter
--- OUTSIDE RECORDS SUMMARY | 2023-11-22 15:34 | External Medical Summary ---
Author Name Unknown Address Unknown Organization K0G:LABORATORY [facility] [address] [place] [address] Laboratory Report Ordering Provider Test Date Status MARY DODSON 06/08/2023 07:55:00 Final Observation Date Value Abnormality Reference (Units ) Status SYNC LEUKOCYTES IN BLOOD BY AUTOMATED COUNT 06/08/2023 07:55:00 7.91 4.00-10.80 (K/uL) Final Segs 06/08/2023 07:55:00 59.8 40.0-75.0 (%) Final Lymphs % 06/08/2023 07:55:00 27.4 18.0-42.0 (%) Final Monos 06/08/2023 07:55:00 8.7 1.0-11.0 (%) Final Eosinophils 06/08/2023 07:55:00 3.7 0.0-6.0 (%) Final Basos 06/08/2023 07:55:00 0.4 0.0-2.0 (%) Final Absolute Segs 06/08/2023 07:55:00 4.73 1.80-7.70 (K/uL) Final Lymphs, absolute 06/08/2023 07:55:00 2.17 1.00-4.80 (K/ul) Final Monos, Abs 06/08/2023 07:55:00 0.69 0.00-1.10 (K/uL) Final Eos, Abs 06/08/2023 07:55:00 0.29 0.00-0.70 (K/uL) Final Basos, Abs 06/08/2023 07:55:00 0.03 0.00-0.20 (K/uL) Final [facility] [place] [address]
--- NOTE | 2023-11-22 15:49 | Emergency Department Note ---
Impression & Plan Fall Admission ED Provider Note HPI: History obtained from patient. The patient is a 63-year-old gentleman with history of prior CVA, currently on Plavix and aspirin, who presents the emergency department with a chief complaint of right-sided flank pain/rib pain after a fall 2 days ago. Patient states that Thursday he fell from a standing position and hit his ribs against a door. Patient does not think that he hit his head. Patient states that he has not been walking since he fell. His contacted EMS today for him to be evaluated. On arrival here to the ED the patient is alert, he is hemodynamically stable, he complains of pain in the right rib area but otherwise denies focal complaint of pain. ROS: - Per HPI Differential Diagnosis: Rib fracture, pneumothorax, hemothorax, intracranial hemorrhage to include subdural hematoma, solid organ injury of the abdomen/pelvis, pelvic fracture, hip fracture, amongst other potential pathologies. *Outpatient medications and allergy history reviewed. 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 Lab work shows no leukocytosis, hemoglobin is normal at 14.3, platelet count is normal, CMP does not show any evidence of any critical findings. Urinalysis shows 2+ blood with trace leukocyte esterase. CT imaging of the head and cervical spine did not show any evidence of any traumatic findings. CT imaging of the chest does not show any evidence of rib fractures, there is no pneumothorax or hemothorax. CT imaging of the abdomen pelvis does not show any traumatic findings but does note kidney stones within the renal pelvis bilaterally with some associated hydronephrosis. Patient's urinalysis does not suggest infection. Patient otherwise does not appear to be septic. Low suspicion that the stone is what is causing his right flank pain at this time as it remains in the renal pelvis. Patient is also noted to have stones on the left side where he is not having pain. Ambulatory trial was attempted at the bedside with the ED RNs, the patient did not do well and only made several steps with assistance with a cane and with the bedside RNs helping him and he was not able to make it back to the bed. His significant other later arrived at the bedside and stated that she felt the patient needed to be admitted for physical therapy assessment and potentially placement to an inpatient physical therapy facility. I discussed this with the patient, he is in agreement for admission. Patient's presentation was discussed with the on-call hospitalist for [facility], Dr. Lin, and the patient was placed for admission in stable condition for further care. Consultants/Discussions held with other healthcare providers: -Hospitalist, Dr. Lin Disposition discussion held by myself with: -Patient and the patient's significant other at the bedside Diagnosis: 1. Mechanical fall, acute 2. Right flank pain/contusion, acute 3. Ambulatory dysfunction, acute on chronic 4. History of CVA with residual right-sided weakness Disposition: Admission Deni Lyles DO Emergency Medicine Past Med/Surg History Problem List (Updated 11/22/23 @ 19:13 by Deni Lyles DO) Fall (Acute) Pontine lesion Right leg weakness (Acute) HTN (hypertension) (Acute) Social History Smoking Status: Former smoker Second Hand Exposure: No; Do You Dip or Chew Tobacco: No; Hx Alcohol Use: Yes Alcohol type: beer Hx Substance Use: No Preferred Language: Northern Irish Communication Ability: Effective Manager Compliance Required: No Beliefs That Will Affect Care: None marital status: Current Living Situation: Family Current Living Situation Comment: With Uriel and daughter Feels Safe at Home: Yes Assistive Devices: None Allergies Allergies Allergy/AdvReac Type Severity Reaction Status Date / Time No Known Allergies Allergy Severe Verified 07/30/20 21:51 Home Meds Home Medications Medication Instructions Recorded Confirmed atorvastatin 20 mg tablet 20 mg PO HS 07/30/20 11/22/23 gabapentin 300 mg capsule 300 mg PO QID 07/30/20 11/22/23 hydrocodone 7.5 mg-acetaminophen 1 tab PO DIRECTED PRN Pain 07/30/20 11/22/23 325 mg tablet lisinopril 10 mg tablet 10 mg PO HS 07/30/20 11/22/23 trazodone 50 mg tablet 100 mg PO HS 07/30/20 11/22/23 citalopram See Rx Instructions .Route .COMPLEX 11/22/23 11/22/23 Previous Rx's Medication Instructions Recorded clopidogrel 75 mg tablet 75 mg PO QAM #30 tabs 08/01/20 folic acid 1 mg tablet 1 mg PO QAM #30 tabs 08/01/20 multivitamin (Daily-Bret tablet) 1 tab PO QAM #30 tabs 08/01/20 thiamine HCl (vitamin B1) 100 mg 100 mg PO QAM #30 tabs 08/01/20 tablet (Vitamin B-1) Results & Data (ED) Vital Signs Vital Signs - 24 hr 11/22/23 15:38 11/22/23 15:51 11/22/23 16:08 Temperature 37.6 C H Temperature Source Oral Pulse Rate 75 71 70 Pulse Rate [Apical] Pulse Rate from SpO2 Sensor Pulse Rhythm [Apical] Pulse Strength [Apical] Respiratory Rate 23 19 Respiratory Effort / Characteristics Short of Breath Respiratory Depth Respiratory Pattern Blood Pressure 162/80 H Blood Pressure [Left Radial Artery] Blood Pressure Mean 107 Blood Pressure Mean [Left Radial Artery] Blood Pressure Position Semi-fowlers Blood Pressure Position [Left Radial Artery] Pulse Oximetry 94 95 Oxygen Delivery Method Room Air Room Air Sepsis Recent Fever Within 48 Hours No Sepsis New/Unexplained Change in Mental Status No Sepsis Action Taken by Nursing No Action Required 11/22/23 17:15 11/22/23 18:00 11/22/23 19:00 Temperature Temperature Source Pulse Rate 68 67 Pulse Rate [Apical] 73 Pulse Rate from SpO2 Sensor 67 67 Pulse Rhythm [Apical] Regular Pulse Strength [Apical] Normal Respiratory Rate 16 19 18 Respiratory Effort / Characteristics Non-Labored Spontaneous Respiratory Depth Normal Respiratory Pattern Regular Blood Pressure 152/83 H Blood Pressure [Left Radial Artery] 157/97 H Blood Pressure Mean 116 Blood Pressure Mean [Left Radial Artery] 117 Blood Pressure Position Blood Pressure Position [Left Radial Artery] Lying Pulse Oximetry 92 96 98 Oxygen Delivery Method Room Air Sepsis Recent Fever Within 48 Hours Sepsis New/Unexplained Change in Mental Status Sepsis Action Taken by Nursing Laboratory Data 11/22/23 15:45 11/22/23 15:45 Lab Results 11/22/23 11/22/23 11/22/23 Range/Units 15:45 17:06 17:43 WBC 9.43 (4.8-10.8) K/ul RBC 4.40 L (4.70-6.10) M/uL Hgb 14.3 (14.0-18.0) g/dl Hct 42.6 (42.0-52.0) % MCV 96.8 (80.0-100.0) fL MCH 32.5 (25.0-34.0) pg MCHC 33.6 (32.0-36.0) g/dL RDW Std Deviation 44.4 (36.4-46.3) fL RDW Coeff of Jamarcus 12.4 (11.5-14.5) % Plt Count 252 (130-400) K/uL MPV 10.1 (9.4-12.4) fL Immature Gran % (Auto) 0.4 % Neut % (Auto) 84.5 % Lymph % (Auto) 6.9 % [place] % (Auto) 5.4 % Eos % (Auto) 2.3 % Baso % (Auto) 0.5 % Neut # (Auto) 7.96 H (1.40-6.50) K/uL Lymph # (Auto) 0.65 L (1.20-3.40) K/uL Sutton # (Auto) 0.51 (0.11-0.59) K/uL Eos # (Auto) 0.22 (0.00-0.50) K/uL Baso # (Auto) 0.05 (0.00-0.20) K/uL Immature Gran # (Auto) 0.04 (0.01-0.20) K/uL PT 10.3 (9.0-12.0) Seconds INR 0.9 (0.9-1.1) Sodium 141 (136-145) mmol/L Potassium 3.8 (3.5-5.1) mmol/L Chloride 105 (98-107) mmol/L Carbon Dioxide 28 (21-32) mmol/L Anion Gap 8 (3-11) BUN 18 (6-23) mg/dl Creatinine 1.13 (0.6-1.4) mg/dl Est Cr Clr Drug Dosing 76.4 ml/min eGFR 72.58 BUN/Creatinine Ratio 15.9 (10-20) Glucose 112 H (70-99(Fasting)) mg/dl Lactate 1.3 (0.4-2.0) mmol/L Calcium 9.4 (8.6-10.3) mg/dl Total Bilirubin 0.9 (0.2-1.0) mg/dl AST 13 (13-39) U/L ALT 10 (7-52) U/L Alkaline Phosphatase 117 H (34-104) U/L Total Creatine Kinase 36 (30-223) U/L Total Protein 7.2 (6.0-8.3) gm/dl Albumin 4.3 (3.4-5.0) gm/dl Globulin 2.9 (2.5-4.0) gm/dl Albumin/Globulin Ratio 1.5 (0.9-2) Urine Color Yellow Urine Appearance Cloudy A (Clear) Urine pH 5.5 (4.5-7.5) Ur Specific [place] 1.016 (1.000-1.030) Urine Protein Negative (Negative) Urine Glucose (UA) Negative (Negative) Urine Ketones Negative (Negative) Urine Blood 2+ H (Negative) Urine Nitrite Negative (Negative) Urine Bilirubin Negative (Negative) Urine Urobilinogen Negative (Negative) Ur Leukocyte Esterase Trace H (Negative) Urine WBC (Auto) 0-5 (0-5) /hpf Urine RBC (Auto) 11-20 H (0-2) /hpf U Hyaline Cast (Auto) 0-2 (0-2) /lpf U Epithel Cells (Auto) 0-2 (0-2) /hpf Urine Bacteria (Auto) None Seen (None Seen) Uric Acid Crystals Present A (None Prsent) Hyaline Casts Present A (None Presnt) /lpf Administered Medications Discontinued Medications Ioversol (Optiray 320 100ml) 93 ml IV ONCE ONE Stop: 11/22/23 16:46 Last Admin: 11/22/23 16:46 Dose: 93 ml Documented By: EDK Morphine Sulfate (Morphine Sulfate 4 Mg/Ml 1 Ml Carp\Vial) 4 mg IV NOW STA Stop: 11/22/23 15:46 Last Admin: 11/22/23 15:58 Dose: 4 mg Documented By: LAILA Ondansetron HCl (Ondansetron Inj 2 Mg/Ml 2 Ml Vial) 4 mg IV NOW STA Stop: 11/22/23 15:46 Last Admin: 11/22/23 15:59 Dose: 4 mg Documented By: LAILA Imaging Data Radiologist's Impression: Abdomen/Pelvis CT 11/22/23 15:[address] WITH CONTRAST; CT ABDOMEN AND PELVIS WITH IV CONTRAST ONLY HISTORY: Acute chest and abdominal trauma Trauma TECHNIQUE: Multiaxial CT images of the chest, abdomen and pelvis were performed following the IV administration of 93 cc of Optiray. A dose lowering technique was utilized adhering to the principles of ALARA. COMPARISON: None. FINDINGS: CT CHEST: Left-sided thyroid nodules measure up to 1.6 cm. No pathologically enlarged lymph nodes. Heart is mildly enlarged without pericardial effusion. Extensive coronary artery calcifications. No thoracic aortic aneurysm. Unremarkable pulmonary artery. Trace pleural effusions with mild dependent bibasilar atelectasis. No pneumothorax, suspicious pulmonary nodules or masses. Unremarkable soft tissues. There is atrophy of the right upper extremity musculature. No acute fracture identified. CT ABDOMEN/PELVIS: No free air. Limited study secondary to a upper extremity positioning. Unremarkable spleen, pancreas and right adrenal gland. Left adrenal gland calcifications appear chronic. Unremarkable gallbladder and liver. Patency of the hepatic and portal veins. Cortical thinning of the kidneys with left greater than right atrophy. Kidneys measure 7.7 cm in length on the left and 9.7 cm on the right. 1.4 cm calculus in the left renal pelvis with mild pelviectasis. 1.1 cm calculus of the inferior pole left kidney. 2.8 cm staghorn calculus of the right renal pelvis with mild hydronephrosis and urothelial thickening. Partial distention of the urinary bladder with mild wall thickening. Atherosclerosis of the aorta without aneurysm. No lymphadenopathy. Asymmetric atrophy of the right thigh and gluteal musculature. No bowel obstruction or bowel wall thickening. Scattered large and small bowel air-fluid levels. The appendix is surgically absent. No acute fracture identified. Mild inferior endplate compression L1 is likely chronic. IMPRESSION: 1. No acute posttraumatic intrathoracic, intra-abdominal or intrapelvic abnormality identified. 2. 2.8 cm staghorn calculus of the right renal pelvis results in mild hydronephrosis. 3. Large calculi of the left kidney with 1.4 cm calculus in the left renal pelvis resulting in mild pelvocaliectasis. Follow up with urology is needed. 4. Trace pleural effusions with mild bibasilar atelectasis. 5. Atrophy of the right upper and lower extremity musculature compatible with the patient's chronic right hemiplegia. 6. Additional findings as above. ACT 112: Negative or not required by law. Electronically signed by: Azam Shelton M.D. 11/22/2023 5:[address] 11/22/23 15:45 CT cervical spine wo con CT DOSE: 3787.46 mGy.cm CLINICAL HISTORY: 63 years-old Male with Trauma. Acute neck pain status post trauma COMPARISON: CTA neck 07/30/2020 TECHNIQUE: Multiple axial CT images of the cervical spine were obtained without contrast. A dose lowering technique was utilized adhering to the principles of ALARA. FINDINGS: Generalized appearance of the bones. Moderate intervertebral disc space narrowing and bridging osteophytosis at C6-C7. Severe C1-C2 degeneration. Mild to moderate multilevel facet arthrosis. No acute fractures or fixation. Multilevel neural foraminal narrowing, suboptimally evaluated by CT. Mild mucosal thickening of the paranasal sinuses. 1.3 cm hypodense left thyroid nodule. The cervical soft tissues appear unremarkable. The visualized lung apices appear clear. IMPRESSION: No acute cervical spine fracture or subluxation. ACT 112: Negative or not required by law. The above report was generated using voice recognition software. It may contain grammatical, syntax or spelling errors. Electronically signed by: Azam Shelton M.D. 11/22/2023 4:[address] 11/22/23 15:[address] WITH CONTRAST; CT ABDOMEN AND PELVIS WITH IV CONTRAST ONLY HISTORY: Acute chest and abdominal trauma Trauma TECHNIQUE: Multiaxial CT images of the chest, abdomen and pelvis were performed following the IV administration of 93 cc of Optiray. A dose lowering technique was utilized adhering to the principles of ALARA. COMPARISON: None. FINDINGS: CT CHEST: Left-sided thyroid nodules measure up to 1.6 cm. No pathologically enlarged lymph nodes. Heart is mildly enlarged without pericardial effusion. Extensive coronary artery calcifications. No thoracic aortic aneurysm. Unremarkable pulmonary artery. Trace pleural effusions with mild dependent bibasilar atelectasis. No pneumothorax, suspicious pulmonary nodules or masses. Unremarkable soft tissues. There is atrophy of the right upper extremity musculature. No acute fracture identified. CT ABDOMEN/PELVIS: No free air. Limited study secondary to a upper extremity positioning. Unremarkable spleen, pancreas and right adrenal gland. Left adrenal gland calcifications appear chronic. Unremarkable gallbladder and liver. Patency of the hepatic and portal veins. Cortical thinning of the kidneys with left greater than right atrophy. Kidneys measure 7.7 cm in length on the left and 9.7 cm on the right. 1.4 cm calculus in the left renal pelvis with mild pelviectasis. 1.1 cm calculus of the inferior pole left kidney. 2.8 cm staghorn calculus of the right renal pelvis with mild hydronephrosis and urothelial thickening. Partial distention of the urinary bladder with mild wall thickening. Atherosclerosis of the aorta without aneurysm. No lymphadenopathy. Asymmetric atrophy of the right thigh and gluteal musculature. No bowel obstruction or bowel wall thickening. Scattered large and small bowel air-fluid levels. The appendix is surgically absent. No acute fracture identified. Mild inferior endplate compression L1 is likely chronic. IMPRESSION: 1. No acute posttraumatic intrathoracic, intra-abdominal or intrapelvic abnormality identified. 2. 2.8 cm staghorn calculus of the right renal pelvis results in mild hydronephrosis. 3. Large calculi of the left kidney with 1.4 cm calculus in the left renal pelvis resulting in mild pelvocaliectasis. Follow up with urology is needed. 4. Trace pleural effusions with mild bibasilar atelectasis. 5. Atrophy of the right upper and lower extremity musculature compatible with the patient's chronic right hemiplegia. 6. Additional findings as above. ACT 112: Negative or not required by law. Electronically signed by: Azam Shelton M.D. 11/22/2023 5:[address] 11/22/23 15:45 CT head/brain wo con CLINICAL HISTORY: 63 years-old Male with Trauma. Acute head trauma status post fall TECHNIQUE: Multiple axial CT images of the head were obtained without contrast. A dose lowering technique was utilized adhering to the principles of ALARA. COMPARISON: CT cervical spine of same day, head CT 07/30/2020 FINDINGS: No acute intracranial hemorrhage, midline shift, intracranial mass, hydrocephalus, territorial ischemia or abnormal extra-axial collection. Large chronic left MCA infarct. Involutional changes with chronic microvascular ischemic disease. Cerebrovascular calcifications. The calvarium is intact. Numerous dental caries with periapical cysts of the teeth. The paranasal sinuses, mastoid air cells, and middle ear cavities are clear. IMPRESSION: Chronic findings without acute intracranial abnormality identified. ACT 112: Negative or not required by law. The above report was generated using voice recognition software. It may contain grammatical, syntax or spelling errors. Electronically signed by: Azam Shelton M.D. 11/22/2023 4:54 PM Discharge Plan Visit Data Chief Complaint: Rib Injury/Pain Stated Complaint: FALL, RIB PAIN ED Provider: Deni Lyles Discharge Problem: Fall Forms Stand Alone Forms: [facility] 365 docobites Prescriptions Prescriptions: No Action atorvastatin 20 mg tablet 20 mg PO HS trazodone 50 mg tablet 100 mg PO HS hydrocodone-acetaminophen 7.5-325 mg tablet 1 tab PO DIRECTED PRN (Reason: Pain) lisinopril 10 mg tablet 10 mg PO HS gabapentin 300 mg capsule 300 mg PO QID clopidogrel 75 mg Tablet 75 mg PO QAM Qty: 30 3RF multivitamin [Daily-Bret] Tablet 1 tab PO QAM Qty: 30 0RF thiamine HCl (vitamin B1) [Vitamin B-1] 100 mg Tablet 100 mg PO QAM Qty: 30 0RF folic acid 1 mg Tablet 1 mg PO QAM Qty: 30 0RF citalopram See Rx Instructions .ROUTE .COMPLEX Rx Instructions: PT COULD NOT VERIFY DOSE OR STRENGTH Referrals Referrals: Lacie Santoro PA-C [Outside Practitioners] - Discharge Problem: Fall Qualifiers: Encounter type: initial encounter Qualified Code(s): W19.XXXA - Unspecified fall, initial encounter
[2023-11-22] MEDS: MoRPHine SULFATE 4 MG/ML 1 ML CARP\\VIAL IV STA (15:58)
[2023-11-22] MEDS: ONDANSETRON INJ 2 MG/ML 2 ML VIAL IV STA (15:59)
[2023-11-22 16:00] LABS: Basophils # (auto) 0.05 K/uL (0.00-0.20); Basophils % (auto) 0.5 %; Eosinophils # (auto) 0.22 K/uL (0.00-0.50); Eosinophils % (auto) 2.3 %; Hematocrit (blood only) 42.6 % (42.0-52.0); Hemoglobin 14.3 g/dl (14.0-18.0); Immature Granulocytes # (auto) 0.04 K/uL (0.01-0.20); Immature Granulocytes % (auto) 0.4 %; Lymphocytes # (auto) 0.65 K/uL (1.20-3.40); Lymphocytes % (auto) 6.9 %; Mean Corpuscular Hemoglobin 32.5 pg (25.0-34.0); Mean Corpuscular Hgb Conc 33.6 g/dL (32.0-36.0); Mean Corpuscular Volume 96.8 fL (80.0-100.0); Mean Platelet Volume 10.1 fL (9.4-12.4); Monocytes # (auto) 0.51 K/uL (0.11-0.59); Monocytes % (auto) 5.4 %; Neutrophils # (auto) 7.96 K/uL (1.40-6.50); Neutrophils % (auto) 84.5 %; Platelet Count 252 K/uL (130-400); RDW Coefficient of Variation 12.4 % (11.5-14.5); RDW Standard Deviation 44.4 fL (36.4-46.3); White Blood Count 9.43 K/ul (4.8-10.8)
[2023-11-22 16:23] LABS: Albumin Globulin Ratio 1.5 (0.9-2); Albumin Level 4.3 gm/dl (3.4-5.0); BUN Creatinine Ratio 15.9 (10-20); Bilirubin,Total 0.9 mg/dl (0.2-1.0); Calcium 9.4 mg/dl (8.6-10.3); Creatinine Clr Calc Pharmacy 76.4 ml/min; Globulin 2.9 gm/dl (2.5-4.0); Potassium 3.8 mmol/L (3.5-5.1); Total Protein 7.2 gm/dl (6.0-8.3)
[2023-11-22 16:30] LABS: INR 0.9 (0.9-1.1); Prothrombin Time 10.3 Seconds (9.0-12.0)
[2023-11-22] MEDS: OPTIRAY 320 100ml IV ONE (16:46)
--- NOTE | 2023-11-22 16:56 | CT Scan Report ---
CT head/brain wo con CLINICAL HISTORY: 63 years-old Male with Trauma. Acute head trauma status post fall TECHNIQUE: Multiple axial CT images of the head were obtained without contrast. A dose lowering tech nique was utilized adhering to the principles of ALARA. COMPARISON: CT cervical spine of same day, head CT 07/30/2020 FINDINGS: No acute intracranial hemorrhage, midline shift, intracranial mass, hydrocephalus, territorial ischem ia or abnormal extra-axial collection. Large chronic left MCA infarct. Involutional changes with smooth and burr worker composites akil microvascular ischemic disease. Cerebrovascular calcifications. The calvarium is intact. Numerous dental caries with periapical cysts of the teeth. The paranasal si nuses, mastoid air cells, and middle ear cavities are clear. IMPRESSION: Chronic findings without acute intracranial abnormality identified. ACT 112: Negative or not required by law. The above report was generated using voice recognition software. It may contain grammatical, syntax o r spelling errors. Electronically signed by: Azam Shelton M.D. 11/22/2023 4:54 PM
--- NOTE | 2023-11-22 17:00 | CT Scan Report ---
CT cervical spine wo con CT DOSE: 3787.46 mGy.cm CLINICAL HISTORY: 63 years-old Male with Trauma. Acute neck pain status post trauma COMPARISON: CTA neck 07/30/2020 TECHNIQUE: Multiple axial CT images of the cervical spine were obtained without contrast. A dose low ering technique was utilized adhering to the principles of ALARA. FINDINGS: Generalized appearance of the bones. Moderate intervertebral disc space narrowing and bridg ing osteophytosis at C6-C7. Severe C1-C2 degeneration. Mild to moderate multilevel facet arthrosis. N o acute fractures or fixation. Multilevel neural foraminal narrowing, suboptimally evaluated by CT. M ild mucosal thickening of the paranasal sinuses. 1.3 cm hypodense left thyroid nodule. The cervical s oft tissues appear unremarkable. The visualized lung apices appear clear. IMPRESSION: No acute cervical spine fracture or subluxation. ACT 112: Negative or not required by law. The above report was generated using voice recognition software. It may contain grammatical, syntax o r spelling errors. Electronically signed by: Azam Shelton M.D. 11/22/2023 4:57 PM
--- NOTE | 2023-11-22 17:11 | CT Scan Report ---
CHEST CT WITH CONTRAST; CT ABDOMEN AND PELVIS WITH IV CONTRAST ONLY HISTORY: Acute chest and abdominal trauma Trauma TECHNIQUE: Multiaxial CT images of the chest, abdomen and pelvis were performed following the IV admi nistration of 93 cc of Optiray. A dose lowering technique was utilized adhering to the principles o f ALARA. COMPARISON: None. FINDINGS: CT CHEST: Left-sided thyroid nodules measure up to 1.6 cm. No pathologically enlarged lymph nodes. He art is mildly enlarged without pericardial effusion. Extensive coronary artery calcifications. No tho racic aortic aneurysm. Unremarkable pulmonary artery. Trace pleural effusions with mild dependent bib asilar atelectasis. No pneumothorax, suspicious pulmonary nodules or masses. Unremarkable soft tissue s. There is atrophy of the right upper extremity musculature. No acute fracture identified. CT ABDOMEN/PELVIS: No free air. Limited study secondary to a upper extremity positioning. Unremarkabl e spleen, pancreas and right adrenal gland. Left adrenal gland calcifications appear chronic. Unremar kable gallbladder and liver. Patency of the hepatic and portal veins. Cortical thinning of the kidneys with left greater than right atrophy. Kidneys measure 7.7 cm in daron th on the left and 9.7 cm on the right. 1.4 cm calculus in the left renal pelvis with mild pelviectas is. 1.1 cm calculus of the inferior pole left kidney. 2.8 cm staghorn calculus of the right renal pel vis with mild hydronephrosis and urothelial thickening. Partial distention of the urinary bladder wit h mild wall thickening. Atherosclerosis of the aorta without aneurysm. No lymphadenopathy. Asymmetric atrophy of the right thigh and gluteal musculature. No bowel obstruction or bowel wall thickening. S cattered large and small bowel air-fluid levels. The appendix is surgically absent. No acute fracture identified. Mild inferior endplate compression L1 is likely chronic. IMPRESSION: 1. No acute posttraumatic intrathoracic, intra-abdominal or intrapelvic abnormality identified. 2. 2.8 cm staghorn calculus of the right renal pelvis results in mild hydronephrosis. 3. Large calculi of the left kidney with 1.4 cm calculus in the left renal pelvis resulting in mild p elvocaliectasis. Follow up with urology is needed. 4. Trace pleural effusions with mild bibasilar atelectasis. 5. Atrophy of the right upper and lower extremity musculature compatible with the patient's chronic r ight hemiplegia. 6. Additional findings as above. ACT 112: Negative or not required by law. Electronically signed by: Azam Shelton M.D. 11/22/2023 5:09 PM
[2023-11-22 18:26] LABS: Appearance Urine Cloudy (Clear); Bacteria Urine Automated None Seen (None Seen); Bilirubin Urine Negative (Negative); Blood Urine 2+ (Negative); Cast Urine Automated 0-2 /lpf (0-2); Color Urine Yellow; Epithelial Cell Urine Auto 0-2 /hpf (0-2); Glucose Urine UA Negative (Negative); Ketones Urine Negative (Negative); Leukocyte Esterase Urine Trace (Negative); Nitrite Urine Negative (Negative); Protein Urine Negative (Negative); Specific Gravity Urine 1.016 (1.000-1.030); Urobilinogen Urine Negative (Negative); WBC Urine Automated 0-5 /hpf (0-5); pH Urine 5.5 (4.5-7.5)
[2023-11-22 18:37] LABS: Hyaline Casts Urine Present /lpf (None Presnt)
[2023-11-22 18:50] LABS: Uric Acid Crystals Urine Present (None Prsent)
--- NOTE | 2023-11-22 20:51 | History & Physical Report ---
Date of Service November 22, 2023 Assessment & Plan (1) Ambulatory dysfunction: Plan: 63-year-old male with past medical history significant for dyslipidemia, thyroid nodule, hypertension, malignant neoplasm of prostate, chronic pain syndrome secondary to cervical disc, history of stroke 21 years ago with residual right- sided weakness ambulates with cane and has some pressured speech, depression, who lives with his partner comes because of fall and ambulatory dysfunction. Patient says he fell last Thursday night as his legs got entangled. He fell on the right side on the furniture and was not able to get up. His partner called EMS. EMS helped him get up but that night he did not want to come to ER because he thought he will get better. But the pain was getting worse and he was not able to ambulate because of pain. Pain is more in the rib cage and the hip region on the right side. Denies any fevers. No headache. No dizziness. No runny nose or sore throat. No cough. No chest pain or shortness of breath. No nausea and abdominal pain. Normal bowel and bladder movements. Hemodynamics are okay. Ambulatory dysfunction Since mechanical fall last Thursday and having pain in the right rib cage area and right hip area History of CVA with right-sided weakness and ambulates with a cane CT head, CT chest, cervical spine CT, CT abdomen pelvis no acute findings Pain control PT OT Renal calculi CT abdomen pelvis showing 2.8 cm staghorn calculus of the right renal pelvis results in mild hydronephrosis 1.4 cm calculus in the left renal pelvis resulting mild pelvocaliectasis will consult urology in a.m. for further recommendations History of CVA Right-sided weakness On Plavix and statin Hypertension On lisinopril and amlodipine Hyperlipidemia on statin Depression On citalopram History of left carotid endarterectomy On aspirin and Plavix History of 2 back surgeries chronic pain on gabapentin and hydrocodone prn History of prostate cancer On Zytiga and prednisone DVT prophylaxis Lovenox Disposition Medical floor Full code. History of Present Illness Chief Complaint: Fall and ambulatory dysfunction Primary Care Provider: NO PCP 63-year-old male with past medical history significant for dyslipidemia, thyroid nodule, hypertension, malignant neoplasm of prostate, chronic pain syndrome secondary to cervical disc, history of stroke 21 years ago with residual right- sided weakness ambulates with cane and has some pressured speech, depression, who lives with his partner comes because of fall and ambulatory dysfunction. Patient says he fell last Thursday night as his legs got entangled. He fell on the right side on the furniture and was not able to get up. His partner called EMS. EMS helped him get up but that night he did not want to come to ER because he thought he will get better. But the pain was getting worse and he was not able to ambulate because of pain. Pain is more in the rib cage and the hip region on the right side. Denies any fevers. No headache. No dizziness. No runny nose or sore throat. No cough. No chest pain or shortness of breath. No nausea and abdominal pain. Normal bowel and bladder movements. Hemodynamics are okay. Past medical history. As mentioned above Past surgical history. Colonoscopy. Lumbar surgery x 2. Left carotid endarterectomy. Social history. Quit smoking 2002. Smoked 0.5 packs a day for 28 years. Drinks 2 beers daily. Liquor 2 shots daily. No drug use. Family history. Father had diabetes. ID. Hypertension and stroke. Uncle had ID. Allergies Allergy/AdvReac Type Severity Reaction Status Date / Time No Known Allergies Allergy Severe Verified 07/30/20 21:51 Home Medications Medication Instructions Recorded Confirmed Type atorvastatin 20 mg tablet 20 mg PO HS 07/30/20 11/22/23 History hydrocodone 7.5 mg-acetaminophen 1 tab PO DIRECTED PRN Pain 07/30/20 11/22/23 History 325 mg tablet trazodone 50 mg tablet 100 mg PO HS 07/30/20 11/22/23 History clopidogrel 75 mg tablet 75 mg PO QAM #30 tabs 08/01/20 11/22/23 Rx folic acid 1 mg tablet 1 mg PO QAM #30 tabs 08/01/20 11/22/23 Rx multivitamin (Daily-Bret tablet) 1 tab PO QAM #30 tabs 08/01/20 11/22/23 Rx thiamine HCl (vitamin B1) 100 mg 100 mg PO QAM #30 tabs 08/01/20 11/22/23 Rx tablet (Vitamin B-1) citalopram See Rx Instructions .Route .COMPLEX 11/22/23 11/22/23 History abiraterone 250 mg tablet 1,000 mg PO DAILY 11/23/23 11/23/23 History amlodipine 5 mg tablet 5 mg PO DAILY 11/23/23 11/23/23 History gabapentin 800 mg tablet 800 mg PO TID 11/23/23 11/23/23 History lisinopril 40 mg tablet 40 mg PO DAILY 11/23/23 11/23/23 History prednisone 5 mg tablet 5 mg PO DAILY 11/23/23 11/23/23 History Past Med/Surg History Problem List (Updated 11/22/23 @ 23:13 by Donny Lin MD) Ambulatory dysfunction Fall (Acute) Pontine lesion Right leg weakness (Acute) HTN (hypertension) (Acute) Social History Smoking Status: Former smoker Second Hand Exposure: No; Do You Dip or Chew Tobacco: No; Hx Alcohol Use: Yes Alcohol type: beer Hx Substance Use: No Preferred Language: Tristanian Communication Ability: Effective Director Advanced Required: No Beliefs That Will Affect Care: None marital status: Current Living Situation: Spouse Current Living Situation Comment: home w/ partner Feels Safe at Home: Yes Safety Concerns: Feels Safe At This Time Assistive Devices: Cane Review of Systems Review of Systems: All systems reviewed & are unremarkable except as noted in HPI & below Physical Exam Physical Exam: General- Not in distress Head- atraumatic Eyes- PERRL. ENT- oropharynx clear Neck- supple, no JVD. Lungs- clear to auscultation no wheezing or crackles Heart- regular rhythm; no murmur, no gallop. Abdomen- normal bowel sounds, soft, nontender, no distension Extremities- no pretibial edema, no erythema seen. right leg in brace Neuro- alert, oriented ; PERRL, no facial palsy;pressured speech. Results & Data Results & Data Vital Signs (Past 12 Hours) Vital Signs Temp Pulse Pulse Resp BP BP Pulse Ox 11/22/23 20:10 74 11/22/23 19:00 73 18 157/97 H 98 11/22/23 18:00 67 19 96 11/22/23 17:15 68 16 152/83 H 92 11/22/23 16:08 70 11/22/23 15:51 71 19 95 11/22/23 15:38 37.6 C H 75 23 162/80 H 94 O2 Del Method 11/22/23 20:10 11/22/23 19:00 Room Air 11/22/23 18:00 11/22/23 17:15 11/22/23 16:08 11/22/23 15:51 Room Air 11/22/23 15:38 Room Air Diagnostic Findings Laboratory Results WBC 9.43 K/ul (4.8-10.8) 11/22/23 15:45 RBC 4.40 M/uL (4.70-6.10) L 11/22/23 15:45 Hgb 14.3 g/dl (14.0-18.0) 11/22/23 15:45 Hct 42.6 % (42.0-52.0) 11/22/23 15:45 MCV 96.8 fL (80.0-100.0) 11/22/23 15:45 MCH 32.5 pg (25.0-34.0) 11/22/23 15:45 MCHC 33.6 g/dL (32.0-36.0) 11/22/23 15:45 RDW Std Deviation 44.4 fL (36.4-46.3) 11/22/23 15:45 RDW Coeff of Jamarcus 12.4 % (11.5-14.5) 11/22/23 15:45 Plt Count 252 K/uL (130-400) 11/22/23 15:45 MPV 10.1 fL (9.4-12.4) 11/22/23 15:45 Immature Gran % (Auto) 0.4 % 11/22/23 15:45 Neut % (Auto) 84.5 % 11/22/23 15:45 Lymph % (Auto) 6.9 % 11/22/23 15:45 Hays % (Auto) 5.4 % 11/22/23 15:45 Eos % (Auto) 2.3 % 11/22/23 15:45 Baso % (Auto) 0.5 % 11/22/23 15:45 Neut # (Auto) 7.96 K/uL (1.40-6.50) H 11/22/23 15:45 Lymph # (Auto) 0.65 K/uL (1.20-3.40) L 11/22/23 15:45 Hays # (Auto) 0.51 K/uL (0.11-0.59) 11/22/23 15:45 Eos # (Auto) 0.22 K/uL (0.00-0.50) 11/22/23 15:45 Baso # (Auto) 0.05 K/uL (0.00-0.20) 11/22/23 15:45 Immature Gran # (Auto) 0.04 K/uL (0.01-0.20) 11/22/23 15:45 PT 10.3 Seconds (9.0-12.0) 11/22/23 15:45 INR 0.9 (0.9-1.1) 11/22/23 15:45 Sodium 141 mmol/L (136-145) 11/22/23 15:45 Potassium 3.8 mmol/L (3.5-5.1) 11/22/23 15:45 Chloride 105 mmol/L (98-107) 11/22/23 15:45 Carbon Dioxide 28 mmol/L (21-32) 11/22/23 15:45 Anion Gap 8 (3-11) 11/22/23 15:45 BUN 18 mg/dl (6-23) 11/22/23 15:45 Creatinine 1.13 mg/dl (0.6-1.4) 11/22/23 15:45 Est Cr Clr Drug Dosing 76.4 ml/min 11/22/23 15:45 eGFR 72.58 11/22/23 15:45 BUN/Creatinine Ratio 15.9 (10-20) 11/22/23 15:45 Glucose 112 mg/dl (70-99(Fasting)) H 11/22/23 15:45 Lactate 1.3 mmol/L (0.4-2.0) 11/22/23 17:06 Calcium 9.4 mg/dl (8.6-10.3) 11/22/23 15:45 Total Bilirubin 0.9 mg/dl (0.2-1.0) 11/22/23 15:45 AST 13 U/L (13-39) 11/22/23 15:45 ALT 10 U/L (7-52) 11/22/23 15:45 Alkaline Phosphatase 117 U/L (34-104) H 11/22/23 15:45 Total Creatine Kinase 36 U/L (30-223) 11/22/23 15:45 Total Protein 7.2 gm/dl (6.0-8.3) 11/22/23 15:45 Albumin 4.3 gm/dl (3.4-5.0) 11/22/23 15:45 Globulin 2.9 gm/dl (2.5-4.0) 11/22/23 15:45 Albumin/Globulin Ratio 1.5 (0.9-2) 11/22/23 15:45 Urine Color Yellow 11/22/23 17:43 Urine Appearance Cloudy (Clear) A 11/22/23 17:43 Urine pH 5.5 (4.5-7.5) 11/22/23 17:43 Ur Specific Wells 1.016 (1.000-1.030) 11/22/23 17:43 Urine Protein Negative (Negative) 11/22/23 17:43 Urine Glucose (UA) Negative (Negative) 11/22/23 17:43 Urine Ketones Negative (Negative) 11/22/23 17:43 Urine Blood 2+ (Negative) H 11/22/23 17:43 Urine Nitrite Negative (Negative) 11/22/23 17:43 Urine Bilirubin Negative (Negative) 11/22/23 17:43 Urine Urobilinogen Negative (Negative) 11/22/23 17:43 Ur Leukocyte Esterase Trace (Negative) H 11/22/23 17:43 Urine WBC (Auto) 0-5 /hpf (0-5) 11/22/23 17:43 Urine RBC (Auto) 11-20 /hpf (0-2) H 11/22/23 17:43 U Hyaline Cast (Auto) 0-2 /lpf (0-2) 11/22/23 17:43 U Epithel Cells (Auto) 0-2 /hpf (0-2) 11/22/23 17:43 Urine Bacteria (Auto) None Seen (None Seen) 11/22/23 17:43 Uric Acid Crystals Present (None Prsent) A 11/22/23 17:43 Hyaline Casts Present /lpf (None Presnt) A 11/22/23 17:43 Impressions Abdomen/Pelvis CT 11/22/23 15:[address] WITH CONTRAST; CT ABDOMEN AND PELVIS WITH IV CONTRAST ONLY HISTORY: Acute chest and abdominal trauma Trauma TECHNIQUE: Multiaxial CT images of the chest, abdomen and pelvis were performed following the IV administration of 93 cc of Optiray. A dose lowering technique was utilized adhering to the principles of ALARA. COMPARISON: None. FINDINGS: CT CHEST: Left-sided thyroid nodules measure up to 1.6 cm. No pathologically enlarged lymph nodes. Heart is mildly enlarged without pericardial effusion. Extensive coronary artery calcifications. No thoracic aortic aneurysm. Unremarkable pulmonary artery. Trace pleural effusions with mild dependent bibasilar atelectasis. No pneumothorax, suspicious pulmonary nodules or masses. Unremarkable soft tissues. There is atrophy of the right upper extremity musculature. No acute fracture identified. CT ABDOMEN/PELVIS: No free air. Limited study secondary to a upper extremity positioning. Unremarkable spleen, pancreas and right adrenal gland. Left adrenal gland calcifications appear chronic. Unremarkable gallbladder and liver. Patency of the hepatic and portal veins. Cortical thinning of the kidneys with left greater than right atrophy. Kidneys measure 7.7 cm in length on the left and 9.7 cm on the right. 1.4 cm calculus in the left renal pelvis with mild pelviectasis. 1.1 cm calculus of the inferior pole left kidney. 2.8 cm staghorn calculus of the right renal pelvis with mild hydronephrosis and urothelial thickening. Partial distention of the urinary bladder with mild wall thickening. Atherosclerosis of the aorta without aneurysm. No lymphadenopathy. Asymmetric atrophy of the right thigh and gluteal musculature. No bowel obstruction or bowel wall thickening. Scattered large and small bowel air-fluid levels. The appendix is surgically absent. No acute fracture identified. Mild inferior endplate compression L1 is likely chronic. IMPRESSION: 1. No acute posttraumatic intrathoracic, intra-abdominal or intrapelvic abnormality identified. 2. 2.8 cm staghorn calculus of the right renal pelvis results in mild hydronephrosis. 3. Large calculi of the left kidney with 1.4 cm calculus in the left renal pelvis resulting in mild pelvocaliectasis. Follow up with urology is needed. 4. Trace pleural effusions with mild bibasilar atelectasis. 5. Atrophy of the right upper and lower extremity musculature compatible with the patient's chronic right hemiplegia. 6. Additional findings as above. ACT 112: Negative or not required by law. Electronically signed by: Azam Shelton M.D. 11/22/2023 5:[address] 11/22/23 15:45 CT cervical spine wo con CT DOSE: 3787.46 mGy.cm CLINICAL HISTORY: 63 years-old Male with Trauma. Acute neck pain status post trauma COMPARISON: CTA neck 07/30/2020 TECHNIQUE: Multiple axial CT images of the cervical spine were obtained without contrast. A dose lowering technique was utilized adhering to the principles of ALARA. FINDINGS: Generalized appearance of the bones. Moderate intervertebral disc space narrowing and bridging osteophytosis at C6-C7. Severe C1-C2 degeneration. Mild to moderate multilevel facet arthrosis. No acute fractures or fixation. Multilevel neural foraminal narrowing, suboptimally evaluated by CT. Mild mucosal thickening of the paranasal sinuses. 1.3 cm hypodense left thyroid nodule. The cervical soft tissues appear unremarkable. The visualized lung apic es appear clear. IMPRESSION: No acute cervical spine fracture or subluxation. ACT 112: Negative or not required by law. The above report was generated using voice recognition software. It may contain grammatical, syntax or spelling errors. Electronically signed by: Azam Shelton M.D. 11/22/2023 4:[address] 11/22/23 15:[address] WITH CONTRAST; CT ABDOMEN AND PELVIS WITH IV CONTRAST ONLY HISTORY: Acute chest and abdominal trauma Trauma TECHNIQUE: Multiaxial CT images of the chest, abdomen and pelvis were performed following the IV administration of 93 cc of Optiray. A dose lowering technique was utilized adhering to the principles of ALARA. COMPARISON: None. FINDINGS: CT CHEST: Left-sided thyroid nodules measure up to 1.6 cm. No pathologically enlarged lymph nodes. Heart is mildly enlarged without pericardial effusion. Extensive coronary artery calcifications. No thoracic aortic aneurysm. Unremarkable pulmonary artery. Trace pleural effusions with mild dependent bibasilar atelectasis. No pneumothorax, suspicious pulmonary nodules or masses. Unremarkable soft tissues. There is atrophy of the right upper extremity musculature. No acute fracture identified. CT ABDOMEN/PELVIS: No free air. Limited study secondary to a upper extremity positioning. Unremarkable spleen, pancreas and right adrenal gland. Left adrenal gland calcifications appear chronic. Unremarkable gallbladder and liver. Patency of the hepatic and portal veins. Cortical thinning of the kidneys with left greater than right atrophy. Kidneys measure 7.7 cm in length on the left and 9.7 cm on the right. 1.4 cm calculus in the left renal pelvis with mild pelviectasis. 1.1 cm calculus of the inferior pole left kidney. 2.8 cm staghorn calculus of the right renal pelvis with mild hydronephrosis and urothelial thickening. Partial distention of the urinary bladder with mild wall thickening. Atherosclerosis of the aorta without aneurysm. No lymphadenopathy. Asymmetric atrophy of the right thigh and gluteal musculature. No bowel obstruction or bowel wall thickening. Scattered large and small bowel air-fluid levels. The appendix is surgically absent. No acute fracture identified. Mild inferior endplate compression L1 is likely chronic. IMPRESSION: 1. No acute posttraumatic intrathoracic, intra-abdominal or intrapelvic abnormality identified. 2. 2.8 cm staghorn calculus of the right renal pelvis results in mild hydronephrosis. 3. Large calculi of the left kidney with 1.4 cm calculus in the left renal pelvis resulting in mild pelvocaliectasis. Follow up with urology is needed. 4. Trace pleural effusions with mild bibasilar atelectasis. 5. Atrophy of the right upper and lower extremity musculature compatible with th e patient's chronic right hemiplegia. 6. Additional findings as above. ACT 112: Negative or not required by law. Electronically signed by: Azam Shelton M.D. 11/22/2023 5:[address] 11/22/23 15:45 CT head/brain wo con CLINICAL HISTORY: 63 years-old Male with Trauma. Acute head trauma status post fall TECHNIQUE: Multiple axial CT images of the head were obtained without contrast. A dose lowering technique was utilized adhering to the principles of ALARA. COMPARISON: CT cervical spine of same day, head CT 07/30/2020 FINDINGS: No acute intracranial hemorrhage, midline shift, intracranial mass, hydrocephalus, territorial ischemia or abnormal extra-axial collection. Large chronic left MCA infarct. Involutional changes with chronic microvascular ischemic disease. Cerebrovascular calcifications. The calvarium is intact. Numerous dental caries with periapical cysts of the teeth. The paranasal sinuses, mastoid air cells, and middle ear cavities are clear. IMPRESSION: Chronic findings without acute intracranial abnormality identified. ACT 112: Negative or not required by law. The above report was generated using voice recognition software. It may contain grammatical, syntax or spelling errors. Electronically signed by: Azam Shelton M.D. 11/22/2023 4:54 PM ECG Additional Comments: ECG normal sinus rhythm with a rate of 72. No significant change was found. Code Status & VTE Plan VTE Prophylaxis Plan VTE Prophylaxis will be ordered: Yes
[2023-11-22] MEDS ORDERED: ACETAMINOPHEN 325 MG TAB PO PRN (22:18)
[2023-11-22] MEDS ORDERED: HYDROCODONE/ACETAMINOPHEN 7.5/325MG TAB PO PRN (22:18)
[2023-11-22] MEDS: HYDROmorphone INJ 0.5 MG/0.5 ML SYR IV PRN (22:57)
[2023-11-22] MEDS: ENOXAPARIN INJ 40 MG/0.4 ML SYR SQ SCH (23:03)
[2023-11-22] MEDS: ATORVASTATIN 20 MG TAB PO SCH (23:05)
[2023-11-22] MEDS: GABAPENTIN 300 MG CAP PO SCH (23:05)
[2023-11-22] MEDS: traZODone HCL 100 MG TAB PO SCH (23:06)
[2023-11-22] MEDS: lisinopril 10 MG TAB PO SCH (23:08)
[2023-11-23 06:11] LABS: Basophils # (auto) 0.05 K/uL (0.00-0.20); Basophils % (auto) 0.6 %; Eosinophils # (auto) 0.36 K/uL (0.00-0.50); Eosinophils % (auto) 4.2 %; Hematocrit (blood only) 34.7 % (42.0-52.0); Hemoglobin 11.9 g/dl (14.0-18.0); Immature Granulocytes # (auto) 0.03 K/uL (0.01-0.20); Immature Granulocytes % (auto) 0.3 %; Lymphocytes # (auto) 1.21 K/uL (1.20-3.40); Mean Corpuscular Hemoglobin 32.5 pg (25.0-34.0); Mean Corpuscular Hgb Conc 34.3 g/dL (32.0-36.0); Mean Corpuscular Volume 94.8 fL (80.0-100.0); Mean Platelet Volume 10.4 fL (9.4-12.4); Monocytes # (auto) 0.77 K/uL (0.11-0.59); Monocytes % (auto) 8.9 %; Neutrophils # (auto) 6.21 K/uL (1.40-6.50); Platelet Count 218 K/uL (130-400); RDW Coefficient of Variation 12.3 % (11.5-14.5); Red Blood Count 3.66 M/uL (4.70-6.10); White Blood Count 8.63 K/ul (4.8-10.8)
[2023-11-23 06:19] LABS: BUN Creatinine Ratio 16.5 (10-20); Calcium 8.7 mg/dl (8.6-10.3); Creatinine Clr Calc Pharmacy 94.9 ml/min; Magnesium 2.1 mg/dl (1.7-2.4); Potassium 3.7 mmol/L (3.5-5.1)
--- NOTE | 2023-11-23 08:28 | Electrocardiogram Report ---
Test Reason : Blood Pressure : */* mmHG Vent. Rate : 72 BPM Atrial Rate : 72 BPM P-R Int : 126 ms QRS Dur : 82 ms QT Int : 406 ms P-R-T Axes : 76 41 11 degrees QTcB Int : 444 ms Normal sinus rhythm Normal ECG When compared with ECG of 30-Jul-2020 21:19, No significant change was found Confirmed by Yunior Varela ([id number]) on 11/23/2023 8:27:54 AM Referred By: Confirmed By: Yunior Varela
[2023-11-23] MEDS: lisinopril 40 MG TAB PO SCH (08:34)
[2023-11-23] MEDS: predniSONE 5 MG TAB PO SCH (08:34)
[2023-11-23] MEDS: CITALOPRAM 40 MG TAB PO SCH (08:34)
[2023-11-23] MEDS: amLODIPine BESYLATE 5 MG TAB PO SCH (08:34)
[2023-11-23] MEDS: GABAPENTIN 800 MG TAB PO SCH (08:34)
[2023-11-23] MEDS: HYDROCODONE/ACETAMINOPHEN 7.5/325MG TAB PO PRN (08:34)
[2023-11-23] MEDS: FOLIC ACID 1 MG TAB PO SCH (08:35)
[2023-11-23] MEDS: CLOPIDOGREL BISULFATE 75 MG TAB PO SCH (08:35)
[2023-11-23] MEDS: THIAMINE HCL 100 MG TAB PO SCH (08:35)
[2023-11-23] MEDS: MULTIVITAMIN TAB PO SCH (08:35)
--- NOTE | 2023-11-23 12:11 | Urology Consultation ---
Date of Consultation November 23, 2023 Assessment & Plan (1) Staghorn calculus: Plan 63 yo male admitted with ambulatory dysfunction and rib pain after a fall at home. CT abd pelvis imaging on arrival demonstrated a 2.8cm staghorn calculus of the right renal pelvis results in mild hydronephrosis and 1.4cm calculus in the left renal pelvis resulting mild pelvocaliectasis. Afebrile with stable vitals at present Labs today show no leukocytosis and normal renal function Urinalysis with blood, trace LE, negative bacteria, negative nitrite. Voiding spontaneously, continue to monitor. Bladder scan PRN. We reviewed his CT findings of bilateral staghorn stones. We discussed acute management with ureteral stent placement. Ureteral stents were discussed as well as postoperative issues and pain management. Also discussed need for additional procedures for stone treatment. Risks/benefits discussed. All questions were answered. Plan: No plan for urological intervention. Since he is currently stable without fever or flank pain and with a normal renal function, we will plan for continued monitoring. We can arrange outpatient follow-up to further discuss management of the bilateral staghorn stones. However, if he were to develop fevers, severe flank pain, or other acute changes we can revisit ureteral stent placement. Continue supportive care and management per primary team. Urology will follow along. Plan of care reviewed with Dr. Salas, on-call urologist. History of Present Illness Attending Physician: Josie Fontaine MD History of Present Illness 63-year-old male with past medical history significant for dyslipidemia, thyroid nodule, hypertension, malignant neoplasm of prostate, chronic pain syndrome secondary to cervical disc, history of stroke 21 years ago with residual right- sided weakness and ambulates with cane who presented because of fall at home and ambulatory dysfunction. Since his mechanical fall on Thursday, he he reported pain in the right rib cage area and right hip area and presented to the ED for evaluation. On arrival he underwent CT abdomen pelvis imaging showing a 2.8 cm staghorn calculus of the right renal pelvis resulting in mild right hydronephrosis and a 1.4 cm calculus in the left renal pelvis resulting in mild pelvocaliectasis. CT head, CT chest, cervical spine CT with no acute findings. He is admitted to medicine service. Urology consulted for renal calculus. CT abdomen pelvis- 1. No acute posttraumatic intrathoracic, intra-abdominal or intrapelvic abnormality identified. 2. 2.8 cm staghorn calculus of the right renal pelvis results in mild hydronephrosis. 3. Large calculi of the left kidney with 1.4 cm calculus in the left renal pelvis resulting in mild pelvocaliectasis. Follow up with urology is needed. 4. Trace pleural effusions with mild bibasilar atelectasis. 5. Atrophy of the right upper and lower extremity musculature compatible with the patient's chronic right hemiplegia. Patient seen at bedside today. Awake and resting in bed on arrival. No acute distress. He denies back and flank pain. Reports pain to his right rib area. Denies fever, chills, sick, vomiting. Voiding without issue. Denies hematuria or dysuria. He did have breakfast this morning. He denies prior history of kidney stones. He does report a history of prostate cancer and follows with oncology. On Zytiga. Does not currently follow with urology per his report. Allergies Allergy/AdvReac Type Severity Reaction Status Date / Time No Known Allergies Allergy Severe Verified 07/30/20 21:51 Home Medications Medication Instructions Recorded Confirmed Type atorvastatin 20 mg tablet 20 mg PO HS 07/30/20 11/22/23 History hydrocodone 7.5 mg-acetaminophen 1 tab PO DIRECTED PRN Pain 07/30/20 11/22/23 History 325 mg tablet trazodone 50 mg tablet 100 mg PO HS 07/30/20 11/22/23 History clopidogrel 75 mg tablet 75 mg PO QAM #30 tabs 08/01/20 11/22/23 Rx folic acid 1 mg tablet 1 mg PO QAM #30 tabs 08/01/20 11/22/23 Rx multivitamin (Daily-Bret tablet) 1 tab PO QAM #30 tabs 08/01/20 11/22/23 Rx thiamine HCl (vitamin B1) 100 mg 100 mg PO QAM #30 tabs 08/01/20 11/22/23 Rx tablet (Vitamin B-1) citalopram See Rx Instructions .Route .COMPLEX 11/22/23 11/22/23 History abiraterone 250 mg tablet 1,000 mg PO DAILY 11/23/23 11/23/23 History amlodipine 5 mg tablet 5 mg PO DAILY 11/23/23 11/23/23 History gabapentin 800 mg tablet 800 mg PO TID 11/23/23 11/23/23 History lisinopril 40 mg tablet 40 mg PO DAILY 11/23/23 11/23/23 History prednisone 5 mg tablet 5 mg PO DAILY 11/23/23 11/23/23 History Patient History Social History Smoking Status: Former smoker Second Hand Exposure: No; Do You Dip or Chew Tobacco: No; Hx Alcohol Use: Yes Alcohol type: beer Hx Substance Use: No Preferred Language: Vietnamese Communication Ability: Effective Manager Store Required: No Beliefs That Will Affect Care: None marital status: Current Living Situation: Spouse Current Living Situation Comment: home w/ partner Feels Safe at Home: Yes Safety Concerns: Feels Safe At This Time Assistive Devices: Cane Review of Systems Review of Systems: All systems reviewed & are unremarkable except as noted in HPI & below Physical Exam Constitutional: no acute distress Neck: normal visual inspection Respiratory: no respiratory distress and no labored breathing Musculoskeletal: Head/Neck/Chest: normocephalic Neurologic: awake Psychiatric: Orientation: alert, oriented x 3 and cooperative Results & Data Vital Signs (Past 12 Hours) Vital Signs Temp Pulse Resp BP Pulse Ox O2 Del Method 11/23/23 08:40 Room Air 11/23/23 07:48 36.8 C 63 16 111/68 92 Room Air 11/23/23 05:00 61 107/70 PG Care Time/CCT Total # of Minutes Spent Total Time Spent with Patient: Total time spent is greater than 50% in coordination of care (as documented) at patient's floor/unit and/or counseling patient: Coding Level of Care Code 10456 IN/OBS CONSULT LVL 3,45M Diagnoses Staghorn calculus N20.0
--- NOTE | 2023-11-23 16:26 | Hospitalist Progress Note ---
Date of Service November 23, 2023 Assessment & Plan (1) Ambulatory dysfunction: Plan: 63-year-old male with past medical history significant for dyslipidemia, thyroid nodule, hypertension, malignant neoplasm of prostate, chronic pain syndrome secondary to cervical disc, history of stroke 21 years ago with residual right- sided weakness ambulates with cane and has some pressured speech, depression, who lives with his partner comes because of fall and ambulatory dysfunction. Patient says he fell last Thursday night as his legs got entangled. He fell on the right side on the furniture and was not able to get up. His partner called EMS. EMS helped him get up but that night he did not want to come to ER because he thought he will get better. But the pain was getting worse and he was not able to ambulate because of pain. Pain is more in the rib cage and the hip region on the right side. Denies any fevers. No headache. No dizziness. No runny nose or sore throat. No cough. No chest pain or shortness of breath. No nausea and abdominal pain. Normal bowel and bladder movements. Hemodynamics are okay. Ambulatory dysfunction Since mechanical fall last Thursday and having pain in the right rib cage area and right hip area History of CVA with right-sided weakness and ambulates with a cane CT head, CT chest, cervical spine CT, CT abdomen pelvis no acute findings Pain is reasonably controlled at rest Has had physical therapy and recommended rehab Continue current management Renal calculi-Staghorn calculi CT abdomen pelvis showing 2.8 cm staghorn calculus of the right renal pelvis results in mild hydronephrosis 1.4 cm calculus in the left renal pelvis resulting mild pelvocaliectasis will consult urology in a.m. for further recommendations Appreciate urology input and recommendation to continue conservative management for now The patient remains asymptomatic History of CVA Right-sided weakness On Plavix and statin No new symptoms Hypertension On lisinopril and amlodipine Hyperlipidemia on statin Depression On citalopram History of left carotid endarterectomy On aspirin and Plavix History of 2 back surgeries chronic pain on gabapentin and hydrocodone prn History of prostate cancer On Zytiga and prednisone DVT prophylaxis Lovenox Disposition Medical floor Full code. Admission and Anticipated Discharge Date Admission Date: November 22, 2023 Subjective 11/13/2023 The patient was seen and examined in medical floor He has been feeling much better denies any significant pain and/or nausea vomiti ng He has had physical therapy and recommended rehab Review of Systems Review of Systems: All systems reviewed and are unremarkable except as noted below Physical Exam Physical Exam: Sitting on a chair without any acute distress Constitutional: well developed, well nourished and + ill appearing Eyes: PERRL, conjunctivae normal, anicteric sclerae ENMT: external ear and nose normal, oropharynx normal Neck: trachea midline, no thyromegaly Respiratory: no respiratory distress Auscultation: lungs clear to auscultation bilaterally Cardiovascular: Rate/Rhythm: regular rate and regular rhythm; not tachycardic Heart Sounds: normal S1 and normal S2; no murmur Extremities: no edema Gastrointestinal (Abdomen): Inspection/Auscultation: normal bowel sounds; abdomen not distended Percussion/Palpation: abdomen soft; abdomen nontender Musculoskeletal: No acute arthritis involving any of the joint Neurologic: normal touch/pain/proprioception and moves all extremities; no focal motor deficits Lymphatic: no cervical or axillary lymphadenopathy Results & Data Results & Data Vital Signs (Past 12 Hours) Vital Signs Temp Pulse Resp BP Pulse Ox O2 Del Method 11/23/23 15:57 36.7 C 70 16 106/69 93 Room Air 11/23/23 08:40 Room Air 11/23/23 07:48 36.8 C 63 16 111/68 92 Room Air 11/23/23 05:00 61 107/70 Laboratory Results Short CBC 11/23/23 Range/Units 05:42 WBC 8.63 (4.8-10.8) K/ul Hgb 11.9 L (14.0-18.0) g/dl Hct 34.7 L (42.0-52.0) % Plt Count 218 (130-400) K/uL BMP 11/23/23 05:42 Sodium 140 Potassium 3.7 Chloride 105 Carbon Dioxide 28 BUN 15 Creatinine 0.91 Glucose 103 H Calcium 8.7 Urine 11/22/23 Range/Units 17:43 Urine Color Yellow Urine Appearance Cloudy A (Clear) Urine pH 5.5 (4.5-7.5) Ur Specific [place] 1.016 (1.000-1.030) Urine Protein Negative (Negative) Urine Glucose (UA) Negative (Negative) Medications Administered Current Inpatient Medications Acetaminophen (Acetaminophen 325 Mg Tab) 650 mg PO Q4H PRN PRN Reason: pain/fever Stop: 12/22/23 22:17 Hydrocodone Bitart/Acetaminophen (Hydrocodone/Acetaminophen 7.5/325mg Tab) 1 t ab PO TID PRN PRN Reason: Pain Stop: 12/06/23 22:17 Last Admin: 11/23/23 08:34 Dose: 1 tab Amlodipine Besylate (Amlodipine Besylate 5 Mg Tab) 5 mg PO DAILY [facility] Stop: 12/23/23 08:59 Last Admin: 11/23/23 08:34 Dose: 5 mg Atorvastatin Calcium (Atorvastatin 20 Mg Tab) 20 mg PO HS [facility] Stop: 12/22/23 22:17 Last Admin: 11/22/23 23:05 Dose: 20 mg Citalopram Hydrobromide (Citalopram 40 Mg Tab) 40 mg PO DAILY [facility] Stop: 12/23/23 08:59 Last Admin: 11/23/23 08:34 Dose: 40 mg Clopidogrel Bisulfate (Clopidogrel Bisulfate 75 Mg Tab) 75 mg PO QAM [facility] Stop: 12/23/23 08:59 Last Admin: 11/23/23 08:35 Dose: 75 mg Enoxaparin Sodium (Enoxaparin Inj 40 Mg/0.4 Ml Syr) 40 mg SQ Q24H [facility] Stop: 12/22/23 21:59 Last Admin: 11/22/23 23:03 Dose: 40 mg Folic Acid (Folic Acid 1 Mg Tab) 1 mg PO QAM [facility] Stop: 12/23/23 08:59 Last Admin: 11/23/23 08:35 Dose: 1 mg Gabapentin (Gabapentin 800 Mg Tab) 800 mg PO TID [facility] Stop: 12/23/23 08:59 Last Admin: 11/23/23 13:42 Dose: 800 mg Hydromorphone HCl (Hydromorphone Inj 0.5 Mg/0.5 Ml Syr) 0.5 mg IV Q4H PRN PRN Reason: Severe Pain (Scale 7, 8, 9,10) Stop: 12/06/23 22:17 Last Admin: 11/23/23 10:46 Dose: 0.5 mg Lisinopril (Lisinopril 40 Mg Tab) 40 mg PO DAILY [facility] Stop: 12/23/23 08:59 Last Admin: 11/23/23 08:34 Dose: 40 mg Miscellaneous (Order Awaiting Action [Abiraterone 250 Mg Tablet]) 1 each N/A QS [facility] Stop: 12/23/23 07:59 Last Admin: 11/23/23 14:00 Dose: Not Given Multivitamins (Multivitamin Tab) 1 tab PO QAM [facility] Stop: 12/23/23 08:59 Last Admin: 11/23/23 08:35 Dose: 1 tab Polyethylene Glycol (Polyethylene (Miralax) 17 Gm Pack) 17 gm PO DAILY PRN PRN Reason: Constipation Stop: 12/22/23 22:17 Prednisone (Prednisone 5 Mg Tab) 5 mg PO DAILY [facility] Stop: 12/23/23 08:59 Last Admin: 11/23/23 08:34 Dose: 5 mg Thiamine HCl (Thiamine Hcl 100 Mg Tab) 100 mg PO QAM [facility] Stop: 12/23/23 08:59 Last Admin: 11/23/23 08:35 Dose: 100 mg Trazodone HCl (Trazodone Hcl 100 Mg Tab) 100 mg PO HS [facility] Stop: 12/22/23 22:17 Last Admin: 11/22/23 23:06 Dose: 100 mg
[2023-11-24 07:23] LABS: Basophils # (auto) 0.04 K/uL (0.00-0.20); Basophils % (auto) 0.5 %; Eosinophils # (auto) 0.35 K/uL (0.00-0.50); Eosinophils % (auto) 4.6 %; Immature Granulocytes # (auto) 0.03 K/uL (0.01-0.20); Immature Granulocytes % (auto) 0.4 %; Lymphocytes # (auto) 0.98 K/uL (1.20-3.40); Lymphocytes % (auto) 12.9 %; Mean Corpuscular Hgb Conc 33.3 g/dL (32.0-36.0); Mean Platelet Volume 10.5 fL (9.4-12.4); Monocytes # (auto) 0.61 K/uL (0.11-0.59); Neutrophils # (auto) 5.57 K/uL (1.40-6.50); Neutrophils % (auto) 73.6 %; Platelet Count 224 K/uL (130-400); RDW Coefficient of Variation 12.7 % (11.5-14.5); RDW Standard Deviation 44.7 fL (36.4-46.3); Red Blood Count 3.75 M/uL (4.70-6.10); White Blood Count 7.58 K/ul (4.8-10.8)
[2023-11-24 07:44] LABS: BUN Creatinine Ratio 19.8 (10-20); Calcium 8.9 mg/dl (8.6-10.3); Creatinine Clr Calc Pharmacy 81.4 ml/min; Potassium 3.6 mmol/L (3.5-5.1)
--- NOTE | 2023-11-24 09:30 | Urology Progress Note ---
Date of Service November 24, 2023 Assessment & Plan (1) Staghorn calculus: Plan 63 yo male admitted with ambulatory dysfunction and rib pain after a fall at home. CT abd pelvis imaging on arrival demonstrated a 2.8cm staghorn calculus of the right renal pelvis results in mild hydronephrosis and 1.4cm calculus in the left renal pelvis resulting mild pelvocaliectasis. Afebrile with stable vitals at present Labs today show no leukocytosis and normal renal function Urinalysis with blood, trace LE, negative bacteria, negative nitrite. Voiding spontaneously, continue to monitor. Bladder scan PRN. No plan for acute urological intervention. Since he is currently stable without fever or flank pain and with a normal renal function, we will plan for continued monitoring. We can arrange outpatient follow-up to further discuss management of the bilateral staghorn stones. Continue supportive care and management per primary team. Urology will sign-off. Please call with any questions, concerns, or changes in patient status. Admission and Anticipated Discharge Date Admission Date: November 22, 2023 Subjective Pt seen at bedside this AM Awake and resting in bed on arrival No acute distress Denies f/c/n/v Denies flank, back, or suprapubic pain Still with c/o R rib pain Voiding without issue Denies hematuria or dysuria Review of Systems Constitutional: as per Subjective / HPI Genitourinary: + as per Subjective / HPI Physical Exam Constitutional: no acute distress Respiratory: no respiratory distress and no labored breathing Neurologic: awake Psychiatric: Orientation: alert, oriented x 3 and cooperative Results & Data Vital Signs (Past 12 Hours) Vital Signs Temp Pulse Resp BP Pulse Ox O2 Del Method 11/24/23 07:48 36.9 C 62 16 103/68 95 Room Air 11/23/23 22:34 36.8 C 63 18 106/69 92 Room Air PG Care Time/CCT Total # of Minutes Spent Total Time Spent with Patient: Total time spent is greater than 50% in coordination of care (as documented) at patient's floor/unit and/or counseling patient: Coding Level of Care Code 08861 SUB INP/OBS CARE 2/35MIN Diagnoses Staghorn calculus N20.0
[2023-11-24] MEDS: POLYETHYLENE (MIRALAX) 17 GM PACK PO PRN (09:41)
[2023-11-24] MEDS: SOD PHOSPHATE/SOD BIPHOSPHATE ENEMA 132 ML BTL PR STA (10:35)
[2023-11-24] MEDS: bisacodyL 10 MG SUPP PR STA (10:43)
[2023-11-24] MEDS: LIDOCAINE 5% 1 PATCH TD SCH (11:06)
--- NOTE | 2023-11-24 15:30 | Hospitalist Progress Note ---
Date of Service November 24, 2023 Assessment & Plan (1) Ambulatory dysfunction: Plan: 63-year-old male with past medical history significant for dyslipidemia, thyroid nodule, hypertension, malignant neoplasm of prostate, chronic pain syndrome secondary to cervical disc, history of stroke 21 years ago with residual right- sided weakness ambulates with cane and has some pressured speech, depression, who lives with his partner comes because of fall and ambulatory dysfunction. Patient says he fell last Thursday night as his legs got entangled. He fell on the right side on the furniture and was not able to get up. His partner called EMS. EMS helped him get up but that night he did not want to come to ER because he thought he will get better. But the pain was getting worse and he was not able to ambulate because of pain. Pain is more in the rib cage and the hip region on the right side. Denies any fevers. No headache. No dizziness. No runny nose or sore throat. No cough. No chest pain or shortness of breath. No nausea and abdominal pain. Normal bowel and bladder movements. Hemodynamics are okay. Ambulatory dysfunction -With Fall Since mechanical fall last Thursday and having pain in the right rib cage area and right hip area History of CVA with right-sided weakness and ambulates with a cane CT head, CT chest, cervical spine CT, CT abdomen pelvis no acute findings Pain is reasonably controlled at rest Has had physical therapy and recommended rehab Continue current management He has been accepted to [facility] but not yet ready today He was given additional pain patch and likely to be discharged tomorrow to [facility] to continue rehab Renal calculi-Staghorn calculi CT abdomen pelvis showing 2.8 cm staghorn calculus of the right renal pelvis results in mild hydronephrosis 1.4 cm calculus in the left renal pelvis resulting mild pelvocaliectasis will consult urology in a.m. for further recommendations Appreciate urology input and recommendation to continue conservative management for now The patient remains asymptomatic Denies any pain in the renal angles or suprapubic areas Urologist signed up and can see him as an outpatient History of CVA Right-sided weakness On Plavix and statin No new symptoms Will need to continue PT and OT Hypertension On lisinopril and amlodipine Hyperlipidemia on statin Depression On citalopram History of left carotid endarterectomy On aspirin and Plavix History of 2 back surgeries chronic pain on gabapentin and hydrocodone prn History of prostate cancer On Zytiga and prednisone DVT prophylaxis Lovenox Disposition Medical floor Full code. Admission and Anticipated Discharge Date Admission Date: November 22, 2023 Subjective 11/23/2023 The patient was seen and examined in medical floor He has been feeling much better denies any significant pain and/or nausea vomiting He has had physical therapy and recommended rehab 11/24/2023 The patient was seen and examined in medical floor He has been complaining of more pain on the right lateral and lower chest wall His bowel has not moved for the last 3 or 4 days but denies any abdominal distention or pain He denies any significant back pain Feels that he is not yet ready to be discharged today Review of Systems Review of Systems: All systems reviewed and are unremarkable except as noted below Physical Exam Physical Exam: Sitting on a chair without any acute distress Constitutional: well developed, well nourished and + ill appearing Eyes: PERRL, conjunctivae normal, anicteric sclerae ENMT: external ear and nose normal, oropharynx normal Neck: trachea midline, no thyromegaly Respiratory: no respiratory distress Auscultation: lungs clear to auscultation bilaterally Cardiovascular: Rate/Rhythm: regular rate and regular rhythm; not tachycardic Heart Sounds: normal S1 and normal S2; no murmur Extremities: no edema Chest (Breasts): Additional Comments: Tenderness involving the left lateral lower chest wall Gastrointestinal (Abdomen): Inspection/Auscultation: normal bowel sounds; abdomen not distended Percussion/Palpation: abdomen soft; abdomen nontender Neurologic: normal touch/pain/proprioception and moves all extremities; no focal motor deficits Lymphatic: no cervical or axillary lymphadenopathy Results & Data Results & Data Vital Signs (Past 12 Hours) Vital Signs Temp Pulse Resp BP Pulse Ox O2 Del Method 11/24/23 07:48 36.9 C 62 16 103/68 95 Room Air Laboratory Results Short CBC 11/24/23 Range/Units 06:33 WBC 7.58 (4.8-10.8) K/ul Hgb 12.0 L (14.0-18.0) g/dl Hct 36.0 L (42.0-52.0) % Plt Count 224 (130-400) K/uL BMP 11/24/23 06:33 Sodium 142 Potassium 3.6 Chloride 106 Carbon Dioxide 29 BUN 21 Creatinine 1.06 Glucose 90 Calcium 8.9 Medications Administered Current Inpatient Medications Acetaminophen (Acetaminophen 325 Mg Tab) 650 mg PO Q4H PRN PRN Reason: pain/fever Stop: 12/22/23 22:17 Hydrocodone Bitart/Acetaminophen (Hydrocodone/Acetaminophen 7.5/325mg Tab) 1 tab PO TID PRN PRN Reason: Pain Stop: 12/06/23 22:17 Last Admin: 11/24/23 09:45 Dose: 1 tab Amlodipine Besylate (Amlodipine Besylate 5 Mg Tab) 5 mg PO DAILY [facility] Stop: 12/23/23 08:59 Last Admin: 11/24/23 08:23 Dose: 5 mg Atorvastatin Calcium (Atorvastatin 20 Mg Tab) 20 mg PO HS [facility] Stop: 12/22/23 22:17 Last Admin: 11/23/23 19:50 Dose: 20 mg Citalopram Hydrobromide (Citalopram 40 Mg Tab) 40 mg PO DAILY [facility] Stop: 12/23/23 08:59 Last Admin: 11/24/23 08:23 Dose: 40 mg Clopidogrel Bisulfate (Clopidogrel Bisulfate 75 Mg Tab) 75 mg PO QAM [facility] Stop: 12/23/23 08:59 Last Admin: 11/24/23 08:24 Dose: 75 mg Enoxaparin Sodium (Enoxaparin Inj 40 Mg/0.4 Ml Syr) 40 mg SQ Q24H [facility] Stop: 12/22/23 21:59 Last Admin: 11/23/23 21:48 Dose: 40 mg Folic Acid (Folic Acid 1 Mg Tab) 1 mg PO QAM [facility] Stop: 12/23/23 08:59 Last Admin: 11/24/23 08:23 Dose: 1 mg Gabapentin (Gabapentin 800 Mg Tab) 800 mg PO TID [facility] Stop: 12/23/23 08:59 Last Admin: 11/24/23 13:57 Dose: 800 mg Hydromorphone HCl (Hydromorphone Inj 0.5 Mg/0.5 Ml Syr) 0.5 mg IV Q4H PRN PRN Reason: Severe Pain (Scale 7, 8, 9,10) Stop: 12/06/23 22:17 Last Admin: 11/24/23 07:13 Dose: 0.5 mg Lidocaine (Lidocaine 5% 1 Patch) 1 patch TD QAM [facility] Stop: 12/24/23 10:29 Last Admin: 11/24/23 11:06 Dose: 1 patch Lisinopril (Lisinopril 40 Mg Tab) 40 mg PO DAILY [facility] Stop: 12/23/23 08:59 Last Admin: 11/24/23 08:23 Dose: 40 mg Miscellaneous (Order Awaiting Action [Abiraterone 250 Mg Tablet]) 1 each N/A QS [facility] Stop: 12/23/23 07:59 Last Admin: 11/24/23 15:18 Dose: Not Given Miscellaneous (Remove Lidoderm Patch) 1 each N/A DAILY@2100 [facility] Stop: 12/24/23 20:59 Multivitamins (Multivitamin Tab) [facility] [place] Stop: 12/23/23 08:59 Last Admin: 11/24/23 08:24 Dose: 1 tab Polyethylene Glycol (Polyethylene (Miralax) 17 Gm Pack) 17 gm PO DAILY PRN PRN Reason: Constipation Stop: 12/22/23 22:17 Last Admin: 11/24/23 09:41 Dose: 17 gm Prednisone (Prednisone 5 Mg Tab) 5 mg PO DAILY [facility] Stop: 12/23/23 08:59 Last Admin: 11/24/23 08:23 Dose: 5 mg Thiamine HCl (Thiamine Hcl 100 Mg Tab) 100 mg PO QAM [facility] Stop: 12/23/23 08:59 Last Admin: 11/24/23 08:23 Dose: 100 mg Trazodone HCl (Trazodone Hcl 100 Mg Tab) 100 mg PO HS [facility] Stop: 12/22/23 22:17 Last Admin: 11/23/23 19:50 Dose: 100 mg
[2023-11-24] MEDS: ABIRATERONE ACETATE PO SCH (17:16)
[2023-11-25 09:00] LABS: Hematocrit (blood only) 35.8 % (42.0-52.0); Hemoglobin 12.2 g/dl (14.0-18.0); Mean Corpuscular Hemoglobin 32.2 pg (25.0-34.0); Mean Corpuscular Hgb Conc 34.1 g/dL (32.0-36.0); Mean Corpuscular Volume 94.5 fL (80.0-100.0); Platelet Count 226 K/uL (130-400); RDW Coefficient of Variation 12.7 % (11.5-14.5); Red Blood Count 3.79 M/uL (4.70-6.10); White Blood Count 6.99 K/ul (4.8-10.8)
[2023-11-25 09:14] LABS: BUN Creatinine Ratio 22.9 (10-20); Creatinine Clr Calc Pharmacy 82.2 ml/min; Potassium 3.4 mmol/L (3.5-5.1)
--- NOTE | 2023-11-25 10:52 | Hospitalist Progress Note ---
Date of Service November 25, 2023 Assessment & Plan (1) Ambulatory dysfunction: Plan: 63-year-old male with past medical history significant for dyslipidemia, thyroid nodule, hypertension, malignant neoplasm of prostate, chronic pain syndrome secondary to cervical disc, history of stroke 21 years ago with residual right- sided weakness ambulates with cane and has some pressured speech, depression, who lives with his partner comes because of fall and ambulatory dysfunction. Patient says he fell last Thursday night as his legs got entangled. He fell on the right side on the furniture and was not able to get up. His partner called EMS. EMS helped him get up but that night he did not want to come to ER because he thought he will get better. But the pain was getting worse and he was not able to ambulate because of pain. Pain is more in the rib cage and the hip region on the right side. Denies any fevers. No headache. No dizziness. No runny nose or sore throat. No cough. No chest pain or shortness of breath. No nausea and abdominal pain. Normal bowel and bladder movements. Hemodynamics stable Ambulatory dysfunction -With Fall Mechanical fall last Thursday and having pain in the right rib cage area and right hip area History of CVA with right-sided weakness and ambulates with a cane CT head, CT chest, cervical spine CT, CT abdomen pelvis no acute findings Pain is reasonably controlled at rest Has had physical therapy and recommended rehab Continue current management- patient has been on IV Dilaudid and p.o. [place]. Still with persistent pain Pain management consult placed as patient does not feel he is ready for discharge and still having persistent pain Renal calculi-Staghorn calculi CT abdomen pelvis showing 2.8 cm staghorn calculus of the right renal pelvis with mild hydronephrosis 1.4 cm calculus in the left renal pelvis resulting mild pelvocaliectasis Urology consulted, appreciate recs -recommended conservative management -outpt followup The patient remains asymptomatic Continue to monitor History of CVA Right-sided weakness On Plavix and statin No new symptoms Hypertension On lisinopril and amlodipine Hyperlipidemia on statin Depression On citalopram History of left carotid endarterectomy On aspirin and Plavix History of 2 back surgeries chronic pain on gabapentin and hydrocodone prn History of prostate cancer On Zytiga and prednisone Diet: DVT prophylaxis:Lovenox Dispo: accepted at [facility] Admission and Anticipated Discharge Date Admission Date: November 22, 2023 Subjective patient stating that he has been having persistent pain Discussion with patient that pain can be managed at acute rehab however will get pain consult states that the pain is mostly right flank and abdomen Review of Systems Review of Systems: All systems reviewed & are unremarkable except as noted in Subjective Physical Exam Physical Exam: General: Alert, oriented. No acute distress Skin: No noted rashes or bruises Psych: Appropriate mood and affect Neuro: No gross deficits HEENT: NC/AT Chest: Nontender to palpation. CV: RRR Resp: Breath sounds clear bilaterally, no increased effort of breathing. Abdomen: Soft, tender in right flank Results & Data Results & Data Vital Signs (Past 12 Hours) Vital Signs Temp Pulse Resp BP BP Pulse Ox O2 Del Method 11/25/23 09:06 97/60 L 11/25/23 07:22 36.7 C 62 17 116/73 93 Room Air
[2023-11-25] MEDS: DOCUSATE SODIUM 100 MG CAP PO SCH (22:56)
[2023-11-26 07:21] VITALS: TEMP 98.2
[2023-11-26 08:21] LABS: Basophils # (auto) 0.04 K/uL (0.00-0.20); Basophils % (auto) 0.5 %; Eosinophils # (auto) 0.63 K/uL (0.00-0.50); Eosinophils % (auto) 7.6 %; Hematocrit (blood only) 36.3 % (42.0-52.0); Hemoglobin 12.4 g/dl (14.0-18.0); Immature Granulocytes # (auto) 0.04 K/uL (0.01-0.20); Immature Granulocytes % (auto) 0.5 %; Lymphocytes # (auto) 1.25 K/uL (1.20-3.40); Lymphocytes % (auto) 15.1 %; Mean Corpuscular Hemoglobin 32.5 pg (25.0-34.0); Mean Corpuscular Hgb Conc 34.2 g/dL (32.0-36.0); Mean Corpuscular Volume 95.3 fL (80.0-100.0); Mean Platelet Volume 10.6 fL (9.4-12.4); Monocytes # (auto) 0.66 K/uL (0.11-0.59); Neutrophils # (auto) 5.66 K/uL (1.40-6.50); Neutrophils % (auto) 68.3 %; Platelet Count 249 K/uL (130-400); RDW Coefficient of Variation 12.5 % (11.5-14.5); RDW Standard Deviation 43.8 fL (36.4-46.3); Red Blood Count 3.81 M/uL (4.70-6.10); White Blood Count 8.28 K/ul (4.8-10.8)
[2023-11-26 08:41] LABS: BUN Creatinine Ratio 27.3 (10-20); Calcium 8.7 mg/dl (8.6-10.3); Creatinine Clr Calc Pharmacy 78.5 ml/min; Potassium 3.5 mmol/L (3.5-5.1)
--- NOTE | 2023-11-26 08:54 | Pain Management Consultation ---
Date of Consultation November 26, 2023 Assessment & Plan (1) Acute chest wall pain: (2) Ambulatory dysfunction: (3) Chronic pain syndrome: (4) Postlaminectomy syndrome of lumbosacral region: Plan 1. Patient with acute posterior lateral chest wall pain status post a recent fall injury without evidence of acute fracture based on imaging of the rib. We discussed chest wall contusion and expected healing process. The patient does utilize chronic hydrocodone 5/325 mg 2.5 tablets daily in the outpatient setting. Would recommend continue with hydrocodone 7.5/325 mg 2-3 tablets daily moving forward to account for increased pain since the time of his fall. Consider transitioning his hydrocodone to scheduled dosing as he does utilize hydrocodone chronically at home. 2. Will initiate a Medrol Dosepak and attempt to reduce inflammatory response since the time of his fall as he is a poor candidate for NSAID utilization due to chronic clopidogrel therapy 3. Pain service has nothing interventional to offer the patient at this time due to the diffuse nature of his pain location and no identifiable rib fracture. Should his pain localize he may be candidate for intercostal nerve block moving forward. He can be evaluated in the outpatient setting with any persistent/progressive complaints. 4. Continue with current dosing of gabapentin and lidocaine patch without change in recommendation 5. Pain service will sign off on patient as time. Thank you for allowing us to participate in the care of Mr. Thomas. History of Present Illness Reason for Consultation: Intractable chest wall pain Requesting Physician: Tatyana Negron MD Attending Physician: Tatyana Negron MD History of Present Illness Mr. 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 The patient reportedly fell approximately 6 days ago onto his right side striking a small dresser with his back and chest area. The patient has had ambulatory dysfunction due to pain that he is experiencing in the posterior lateral chest wall in the mid-lower thoracic region. Patient indicates that his pain is constant although significantly worse with movement. He describes the pain as aching and episodically sharp. His pain is localized to the posterior lateral chest wall without radiation to the anterior chest wall. He has minimal increased discomfort with deep breathing. His pain is tolerable a 3/10 while lying still but can escalate to an 8-9/10 with movement. He does utilize chronic hydrocodone in the outpatient setting 5/325 mg 2.5 tablets daily. The patient had extensive imaging upon this admission which failed to reveal any acute thoracic spine or rib fractures. The patient has been utilizing Lidoderm patch with minimal benefit. He does take gabapentin 4 mg 3 times daily chronically. He also utilizes prednisone 5 mg daily chronically secondary to his daily use of abiraterone for treatment of his prostate cancer. Patient denies fevers, chills or any known rashes. Patient has no further constitutional complaints. Plan of care discussed with Dr. Rita Carrington. Pain Assessment Full Body Front + Back: 2 1. Right mid-lower thoracic/chest wall region pain Pain scale - at its best (0-10): 3 Pain scale - at its worst (0-10): 9 Allergies Allergy/AdvReac Type Severity Reaction Status Date / Time No Known Allergies Allergy Severe Verified 07/30/20 21:51 Home Medications Medication Instructions Recorded Confirmed Type atorvastatin 20 mg tablet 20 mg PO HS 07/30/20 11/22/23 History hydrocodone 7.5 mg-acetaminophen 1 tab PO DIRECTED PRN Pain 07/30/20 11/22/23 History 325 mg tablet trazodone 50 mg tablet 100 mg PO HS 07/30/20 11/22/23 History clopidogrel 75 mg tablet 75 mg PO QAM #30 tabs 08/01/20 11/22/23 Rx folic acid 1 mg tablet 1 mg PO QAM #30 tabs 08/01/20 11/22/23 Rx multivitamin (Daily-Bret tablet) 1 tab PO QAM #30 tabs 08/01/20 11/22/23 Rx thiamine HCl (vitamin B1) 100 mg 100 mg PO QAM #30 tabs 08/01/20 11/22/23 Rx tablet (Vitamin B-1) citalopram See Rx Instructions .Route .COMPLEX 11/22/23 11/22/23 History abiraterone 250 mg tablet 1,000 mg PO DAILY 11/23/23 11/23/23 History amlodipine 5 mg tablet 5 mg PO DAILY 11/23/23 11/23/23 History gabapentin 800 mg tablet 800 mg PO TID 11/23/23 11/23/23 History lisinopril 40 mg tablet 40 mg PO DAILY 11/23/23 11/23/23 History prednisone 5 mg tablet 5 mg PO DAILY 11/23/23 11/23/23 History Pain History Pain Intensity Pain scale - at its best (0-10): 3 Pain scale - at its worst (0-10): 9 Patient History Social History Smoking Status: Former smoker Second Hand Exposure: No; Do You Dip or Chew Tobacco: No; Hx Alcohol Use: Yes Alcohol type: beer Hx Substance Use: No Preferred Language: Mexican Communication Ability: Effective [employer] Required: No Beliefs That Will Affect Care: None marital status: Current Living Situation: Spouse Current Living Situation Comment: home w/ partner Feels Safe at Home: Yes Safety Concerns: Feels Safe At This Time Assistive Devices: Cane Physical Exam 2 Physical Exam: General: Patient lying quietly in exam room in no acute distress. Patient was sleeping on arrival and was easily awakened and arousable. Speech is somewhat slowed and pressured. Mood and affect appropriate. Cognition intact. Head: Normocephalic and atraumatic. ENT: No evidence of nasal or oral mucosal lesions. Mucous membranes are moist. Eyes: Pupils equal round reactive to light. Neck: Supple without adenopathy and full range of motion. Chest: Patient was assisted in logrolling towards his left for examination with discomfort noted. Nontender to palpation of the costosternal junction. Patient is tender in the mid-lower thoracic paravertebral chest wall extending to the posterior axillary line covering approximately 3-4 rib spaces without focal tenderness. He is tender with lateral compression of the chest wall and nontender with AP compression of the chest wall. There is no costal margin tenderness to palpation. There is no visible ecchymosis, rash or skin breakdown over the posterior lateral chest wall on the right side at site of tenderness. Abdomen: Soft and nondistended. No organomegaly. Bowel sounds active. No rebound or guarding appreciated. Back/spine: Loss of lumbar lordosis with well-healed midline surgical incision. Upper extremities: Patient with limited use of his right upper extremity status post CVA with chronic weakness. Neurologic: Cranial nerves grossly intact. Ambulatory function not witnessed. Results (Pain Clinic) Diagnostic Review CT Findings: [facility], [place] [phone] CT Scan Report Patient: SY THOMAS Admit Date: 11/22/23 MR#: [id number] Address1: [address] Acct ID:[id number] Address2: [address] Date: 1960 [facility] Zip: [place] [address] Age: 63 Location: ED Sex: M Room/Bed: Att Phy: Diagnosis: FALL, RIB PAIN Helen Phy: PCP,NO Service Date: 11/22/23 Fam Phy: Interpreting Phy: Azam SheltonAdmit Phy: Ordering Phy: Deni Lyles, DO cc: ~ CHEST CT WITH CONTRAST; CT ABDOMEN AND PELVIS WITH IV CONTRAST ONLY HISTORY: Acute chest and abdominal trauma Trauma TECHNIQUE: Multiaxial CT images of the chest, abdomen and pelvis were performed following the IV administration of 93 cc of Optiray. A dose lowering technique was utilized adhering to the principles of ALARA. COMPARISON: None. FINDINGS: CT CHEST: Left-sided thyroid nodules measure up to 1.6 cm. No pathologically enlarged lymph nodes. Heart is mildly enlarged without pericardial effusion. Extensive coronary artery calcifications. No thoracic aortic aneurysm. Unremarkable pulmonary artery. Trace pleural effusions with mild dependent bibasilar atelectasis. No pneumothorax, suspicious pulmonary nodules or masses. Unremarkable soft tissues. There is atrophy of the right upper extremity musculature. No acute fracture identified. CT ABDOMEN/PELVIS: No free air. Limited study secondary to a upper extremity positioning. Unremarkable spleen, pancreas and right adrenal gland. Left adrenal gland calcifications appear chronic. Unremarkable gallbladder and liver. Patency of the hepatic and portal veins. Cortical thinning of the kidneys with left greater than right atrophy. Kidneys measure 7.7 cm in length on the left and 9.7 cm on the right. 1.4 cm calculus in the left renal pelvis with mild pelviectasis. 1.1 cm calculus of the inferior pole left kidney. 2.8 cm staghorn calculus of the right renal pelvis with mild hydronephrosis and urothelial thickening. Partial distention of the urinary bladder with mild wall thickening. Atherosclerosis of the aorta without aneurysm. No lymphadenopathy. Asymmetric atrophy of the right thigh and gluteal musculature. No bowel obstruction or bowel wall thickening. Scattered large and small bowel air-fluid levels. The appendix is surgically absent. No acute fracture identified. Mild inferior endplate compression L1 is likely chronic. IMPRESSION: 1. No acute posttraumatic intrathoracic, intra-abdominal or intrapelvic abnormality identified. 2. 2.8 cm staghorn calculus of the right renal pelvis results in mild hydronephrosis. 3. Large calculi of the left kidney with 1.4 cm calculus in the left renal pelvis resulting in mild pelvocaliectasis. Follow up with urology is needed. 4. Trace pleural effusions with mild bibasilar atelectasis. 5. Atrophy of the right upper and lower extremity musculature compatible with the patient's chronic right hemiplegia. 6. Additional findings as above. ACT 112: Negative or not required by law. Electronically signed by: Azam Shelton M.D. 11/22/2023 5:09 PM Dictated: 11/22/231657 Transcribed: 11/22/231657 [place], [place] [phone] CT Scan Report Patient: SY THOMAS Admit Date: 11/22/23 MR#: [id number] Address1: [address] [place] [address] Acct ID:[id number] Address2: [place] [address] Date: 1960 [facility] Zip: [place] [address] Age: 63 Location: ED Sex: M Room/Bed: Att Phy: Diagnosis: FALL, RIB PAIN Helen Phy: PCP,NO Service Date: 11/22/23 Fam Phy: Interpreting Phy: Azam SheltonAdmit Phy: Ordering Phy: Deni Lyles DO cc: ~ CT cervical spine wo con CT DOSE: 3787.46 mGy.cm CLINICAL HISTORY: 63 years-old Male with Trauma. Acute neck pain status post trauma COMPARISON: CTA neck 07/30/2020 TECHNIQUE: Multiple axial CT images of the cervical spine were obtained without contrast. A dose lowering technique was utilized adhering to the principles of ALARA. FINDINGS: Generalized appearance of the bones. Moderate intervertebral disc space narrowing and bridging osteophytosis at C6-C7. Severe C1-C2 degeneration. Mild to moderate multilevel facet arthrosis. No acute fractures or fixation. Multilevel neural foraminal narrowing, suboptimally evaluated by CT. Mild mucosal thickening of the paranasal sinuses. 1.3 cm hypodense left thyroid nodule. The cervical soft tissues appear unremarkable. The visualized lung apices appear clear. IMPRESSION: No acute cervical spine fracture or subluxation. ACT 112: Negative or not required by law. The above report was generated using voice recognition software. It may contain grammatical, syntax or spelling errors. Electronically signed by: Azam Shelton M.D. 11/22/2023 4:57 PM Dictated: 11/22/231654 Transcribed: 11/22/231654 Previous Records Review Previous Records: personally reviewed by me
[2023-11-26] MEDS ORDERED: methylPREDNISolone 4 MG TAB, 6 DAY TAPER PO SCH (09:00)
[2023-11-26] MEDS: methylPREDNISolone 4 MG TAB PO SCH ×2 (09:34→12:53)
--- NOTE | 2023-11-26 14:18 | Discharge Summary ---
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 Ambulatory dysfunction -With Fall Mechanical fall last Thursday and having pain in the right rib cage area and right hip area History of CVA with right-sided weakness and ambulates with a cane CT head, CT chest, cervical spine CT, CT abdomen pelvis no acute findings Pain is reasonably controlled at rest Has had physical therapy and recommended rehab Pain was treated with IV Dilaudid and p.o. [place]. Still with persistent pain Pain management consult placed, recommended/stated the following: "1. Patient with acute posterior lateral chest wall pain status post a recent fall injury without evidence of acute fracture based on imaging of the rib. We discussed chest wall contusion and expected healing process. The patient does utilize chronic hydrocodone 5/325 mg 2.5 tablets daily in the outpatient setting. Would recommend continue with hydrocodone 7.5/325 mg 2-3 tablets daily moving forward to account for increased pain since the time of his fall. Consider transitioning his hydrocodone to scheduled dosing as he does utilize hydrocodone chronically at home. 2. Will initiate a Medrol Dosepak and attempt to reduce inflammatory response since the time of his fall as he is a poor candidate for NSAID utilization due to chronic clopidogrel therapy 3. Pain service has nothing interventional to offer the patient at this time due to the diffuse nature of his pain location and no identifiable rib fracture. Should his pain localize he may be candidate for intercostal nerve block moving forward. He can be evaluated in the outpatient setting with any persistent/progressive complaints. 4. Continue with current dosing of gabapentin and lidocaine patch without change in recommendation" Patient discharged to acute rehab at [facility] with close PCP follow-up recommended Renal calculi-Staghorn calculi CT abdomen pelvis showing 2.8 cm staghorn calculus of the right renal pelvis with mild hydronephrosis 1.4 cm calculus in the left renal pelvis resulting mild pelvocaliectasis Urology consulted, appreciate recs -recommended conservative management -outpt followup The patient remains asymptomatic please ensure follow-up with urology after discharge. History of CVA Right-sided weakness On Plavix and statin No new symptoms Hypertension On lisinopril and amlodipine Hyperlipidemia on statin Depression On citalopram History of left carotid endarterectomy On aspirin and Plavix History of prostate cancer On Zytiga and prednisone prednisone held until completion of Medrol Dosepak Resume after completion of Medrol dose. Notes For Next Care Provider Please ensure follow-up with urology after discharge consider follow-up outpatient with a pain management service. 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 Patient says he fell last Thursday night as his legs got entangled. He fell on the right side on the furniture and was not able to get up. His partner called EMS. EMS helped him get up but that night he did not want to come to ER because he thought he will get better. But the pain was getting worse and he was not able to ambulate because of pain. Pain is more in the rib cage and the hip region on the right side. Denies any fevers. No headache. No dizziness. No runny nose or sore throat. No cough. No chest pain or shortness of breath. No nausea and abdominal pain. Normal bowel and bladder movements. Hemodynamics are okay. Past medical history. As mentioned above Past surgical history. Colonoscopy. Lumbar surgery x 2. Left carotid endarterectomy. Social history. Quit smoking 2002. Smoked 0.5 packs a day for 28 years. Drinks 2 beers daily. Liquor 2 shots daily. No drug use. Family history. Father had diabetes. [place]. Hypertension and stroke. Uncle had [place]. Admission Exam Per Admitting Provider General- Not in distress Head- atraumatic Eyes- PERRL. ENT- oropharynx clear Neck- supple, no JVD. Lungs- clear to auscultation no wheezing or crackles Heart- regular rhythm; no murmur, no gallop. Abdomen- normal bowel sounds, soft, nontender, no distension Extremities- no pretibial edema, no erythema seen. right leg in brace Neuro- alert, oriented ; PERRL, no facial palsy;pressured speech. Discharge Exam General: Alert, oriented. No acute distress Skin: No noted rashes or bruises Psych: Appropriate mood and affect Neuro: No gross deficits HEENT: NC/AT Chest: Nontender to palpation. CV: RRR Resp: Breath sounds clear bilaterally, no increased effort of breathing. Abdomen: Soft, tender in right flank Updated Medication List Medication Instructions Recorded Confirmed Type atorvastatin 20 mg tablet 20 mg PO HS 07/30/20 11/22/23 History hydrocodone 7.5 mg-acetaminophen 1 tab PO DIRECTED PRN Pain 07/30/20 11/22/23 History 325 mg tablet trazodone 50 mg tablet 100 mg PO HS 07/30/20 11/22/23 History clopidogrel 75 mg tablet 75 mg PO QAM #30 tabs 08/01/20 11/22/23 Rx folic acid 1 mg tablet 1 mg PO QAM #30 tabs 08/01/20 11/22/23 Rx multivitamin (Daily-Bret tablet) 1 tab PO QAM #30 tabs 08/01/20 11/22/23 Rx thiamine HCl (vitamin B1) 100 mg 100 mg PO QAM #30 tabs 08/01/20 11/22/23 Rx tablet (Vitamin B-1) citalopram See Rx Instructions .Route .COMPLEX 11/22/23 11/22/23 History abiraterone 250 mg tablet 1,000 mg PO DAILY 11/23/23 11/23/23 History amlodipine 5 mg tablet 5 mg PO DAILY 11/23/23 11/23/23 History gabapentin 800 mg tablet 800 mg PO TID 11/23/23 11/23/23 History lisinopril 40 mg tablet 40 mg PO DAILY 11/23/23 11/23/23 History prednisone 5 mg tablet 5 mg PO DAILY 11/23/23 11/23/23 History methylprednisolone 4 mg tablets in See Rx Instructions .Route 11/26/23 Rx a dose pack (Medrol (Satya)) .COMPLEX #21 ea Hospital Stay Data Consultations 11/22/23 19:08 ED Decision to Admit Stat 11/23/23 08:00 Consult Urology Routine 11/25/23 19:34 Consult Pain Management Routine Diagnostic Imagining Performed 11/22/23 15:45 CT abd pelvis IV con only Stat CT cervical spine wo con Stat CT chest diagnostic w con Stat CT head/brain wo con Stat Abdomen/Pelvis CT 11/22/23 15:[address] WITH CONTRAST; CT ABDOMEN AND PELVIS WITH IV CONTRAST ONLY HISTORY: Acute chest and abdominal trauma Trauma TECHNIQUE: Multiaxial CT images of the chest, abdomen and pelvis were performed following the IV administration of 93 cc of Optiray. A dose lowering technique was utilized adhering to the principles of ALARA. COMPARISON: None. FINDINGS: CT CHEST: Left-sided thyroid nodules measure up to 1.6 cm. No pathologically enlarged lymph nodes. Heart is mildly enlarged without pericardial effusion. Extensive coronary artery calcifications. No thoracic aortic aneurysm. Unremarkable pulmonary artery. Trace pleural effusions with mild dependent bibasilar atelectasis. No pneumothorax, suspicious pulmonary nodules or masses. Unremarkable soft tissues. There is atrophy of the right upper extremity musculature. No acute fracture identified. CT ABDOMEN/PELVIS: No free air. Limited study secondary to a upper extremity positioning. Unremarkable spleen, pancreas and right adrenal gland. Left adrenal gland calcifications appear chronic. Unremarkable gallbladder and liver. Patency of the hepatic and portal veins. Cortical thinning of the kidneys with left greater than right atrophy. Kidneys measure 7.7 cm in length on the left and 9.7 cm on the right. 1.4 cm calculus in the left renal pelvis with mild pelviectasis. 1.1 cm calculus of the inferior pole left kidney. 2.8 cm staghorn calculus of the right renal pelvis with mild hydronephrosis and urothelial thickening. Partial distention of the urinary bladder with mild wall thickening. Atherosclerosis of the aorta without aneurysm. No lymphadenopathy. Asymmetric atrophy of the right thigh and gluteal musculature. No bowel obstruction or bowel wall thickening. Scattered large and small bowel air-fluid levels. The appendix is surgically absent. No acute fracture identified. Mild inferior endplate compression L1 is likely chronic. IMPRESSION: 1. No acute posttraumatic intrathoracic, intra-abdominal or intrapelvic abnormality identified. 2. 2.8 cm staghorn calculus of the right renal pelvis results in mild hydronephrosis. 3. Large calculi of the left kidney with 1.4 cm calculus in the left renal pelvis resulting in mild pelvocaliectasis. Follow up with urology is needed. 4. Trace pleural effusions with mild bibasilar atelectasis. 5. Atrophy of the right upper and lower extremity musculature compatible with the patient's chronic right hemiplegia. 6. Additional findings as above. ACT 112: Negative or not required by law. Electronically signed by: Azam Shelton M.D. 11/22/2023 5:[address] 11/22/23 15:45 CT cervical spine wo con CT DOSE: 3787.46 mGy.cm CLINICAL HISTORY: 63 years-old Male with Trauma. Acute neck pain status post trauma COMPARISON: CTA neck 07/30/2020 TECHNIQUE: Multiple axial CT images of the cervical spine were obtained without contrast. A dose lowering technique was utilized adhering to the principles of ALARA. FINDINGS: Generalized appearance of the bones. Moderate intervertebral disc spa ce narrowing and bridging osteophytosis at C6-C7. Severe C1-C2 degeneration. Mild to moderate multilevel facet arthrosis. No acute fractures or fixation. Multilevel neural foraminal narrowing, suboptimally evaluated by CT. Mild mucosal thickening of the paranasal sinuses. 1.3 cm hypodense left thyroid nodule. The cervical soft tissues appear unremarkable. The visualized lung apices appear clear. IMPRESSION: No acute cervical spine fracture or subluxation. ACT 112: Negative or not required by law. The above report was generated using voice recognition software. It may contain grammatical, syntax or spelling errors. Electronically signed by: Azam Shelton M.D. 11/22/2023 4:[address] 11/22/23 15:[address] WITH CONTRAST; CT ABDOMEN AND PELVIS WITH IV CONTRAST ONLY HISTORY: Acute chest and abdominal trauma Trauma TECHNIQUE: Multiaxial CT images of the chest, abdomen and pelvis were performed following the IV administration of 93 cc of Optiray. A dose lowering technique was utilized adhering to the principles of ALARA. COMPARISON: None. FINDINGS: CT CHEST: Left-sided thyroid nodules measure up to 1.6 cm. No pathologically enlarged lymph nodes. Heart is mildly enlarged without pericardial effusion. Extensive coronary artery calcifications. No thoracic aortic aneurysm. Unremarkable pulmonary artery. Trace pleural effusions with mild dependent bibasilar atelectasis. No pneumothorax, suspicious pulmonary nodules or masses. Unremarkable soft tissues. There is atrophy of the right upper extremity musculature. No acute fracture identified. CT ABDOMEN/PELVIS: No free air. Limited study secondary to a upper extremity positioning. Unremarkable spleen, pancreas and right adrenal gland. Left adrenal gland calcifications appear chronic. Unremarkable gallbladder and liver. Patency of the hepatic and portal veins. Cortical thinning of the kidneys with left greater than right atrophy. Kidneys measure 7.7 cm in length on the left and 9.7 cm on the right. 1.4 cm calculus in the left renal pelvis with mild pelviectasis. 1.1 cm calculus of the inferior pole left kidney. 2.8 cm staghorn calculus of the right renal pelvis with mild hydronephrosis and urothelial thickening. Partial distention of the urinary bladder with mild wall thickening. Atherosclerosis of the aorta without aneurysm. No lymphadenopathy. Asymmetric atrophy of the right thigh and gluteal musculature. No bowel obstruction or bowel wall thickening. Scattered large and small bowel air-fluid levels. The appendix is surgically absent. No acute fracture identified. Mild inferior endplate compression L1 is likely chronic. IMPRESSION: 1. No acute posttraumatic intrathoracic, intra-abdominal or intrapelvic abnormality identified. 2. 2.8 cm staghorn calculus of the right renal pelvis results in mild hydronephrosis. 3. Large calculi of the left kidney with 1.4 cm calculus in the left renal pelvis resulting in mild pelvocaliectasis. Follow up with urology is needed. 4. Trace pleural effusions with mild bibasilar atelectasis. 5. Atrophy of the right upper and lower extremity musculature compatible with the patient's chronic right hemiplegia. 6. Additional findings as above. ACT 112: Negative or not required by law. Electronically signed by: Azam Shelton M.D. 11/22/2023 5:[address] 11/22/23 15:45 CT head/brain wo con CLINICAL HISTORY: 63 years-old Male with Trauma. Acute head trauma status post fall TECHNIQUE: Multiple axial CT images of the head were obtained without contrast. A dose lowering technique was utilized adhering to the principles of ALARA. COMPARISON: CT cervical spine of same day, head CT 07/30/2020 FINDINGS: No acute intracranial hemorrhage, midline shift, intracranial mass, hydrocephalus, territorial ischemia or abnormal extra-axial collection. Large chronic left MCA infarct. Involutional changes with chronic microvascular isch emic disease. Cerebrovascular calcifications. The calvarium is intact. Numerous dental caries with periapical cysts of the teeth. The paranasal sinuses, mastoid air cells, and middle ear cavities are clear. IMPRESSION: Chronic findings without acute intracranial abnormality identified. ACT 112: Negative or not required by law. The above report was generated using voice recognition software. It may contain grammatical, syntax or spelling errors. Electronically signed by: Azam Shelton M.D. 11/22/2023 4:54 PM Discharge Instructions Given to Patient (Per Discharging Provider) Ziggy, You were admitted and treated after a fall at home. You are being discharged to acute rehab at [facility]. You were seen by the highway painter for your chronic pain. They recommend that you continue with your Medrol Dosepak. Please hold your home prednisone while on this medication.They also recommend that you continue with the increased dose of hydrocodone 7.5/325 mg two to three tablets daily to help with your pain. Please keep close follow-up with urology after discharge for your noted kidney stones. Please keep close follow up with your primary care provider after discharge. Please do not hesitate to come back to the emergency room if your symptoms worsen or return. It was a pleasure taking care of you while you were here. Total Time Total Time Spent Total Time Spent (In Minutes): 65
[2023-11-26 14:22] VITALS: BP 120/80; PULSE 72; RESP 17; O2SAT 95
[2023-11-27] MEDS ORDERED: methylPREDNISolone 4 MG TAB PO SCH ×2 (07:00→21:00)
[2023-11-28] MEDS ORDERED: methylPREDNISolone 4 MG TAB PO SCH (07:00)
[2023-11-29] MEDS ORDERED: methylPREDNISolone 4 MG TAB PO SCH (07:00)
[2023-11-30] MEDS ORDERED: methylPREDNISolone 4 MG TAB PO SCH (07:00)
[2023-12-01] MEDS ORDERED: methylPREDNISolone 4 MG TAB PO SCH (07:00)
== END 2023-11-26 15:31 | DRG 556 ==
LOC: ED 15:28 → SUATTDRO 20:29 → 3W 20:29

== ENCOUNTER 2024-09-12 03:07 | Observation (INO) ==
[2024-09-12 03:39] LABS: Hematocrit (blood only) 35.6 % (42.0-52.0); Hemoglobin 11.6 g/dl (14.0-18.0); Immature Granulocytes # (auto) 0.08 K/uL (0.01-0.20); Immature Granulocytes % (auto) 0.9 %; Mean Corpuscular Hemoglobin 31.9 pg (25.0-34.0); Mean Corpuscular Volume 97.8 fL (80.0-100.0); Platelet Count 272 K/uL (130-400); RDW Standard Deviation 47.1 fL (36.4-46.3); Red Blood Count 3.64 M/uL (4.70-6.10); White Blood Count 9.37 K/ul (4.8-10.8)
[2024-09-12 04:02] LABS: Alanine Aminotransferase 15.0 U/L (7-52); Albumin Globulin Ratio 1.7 (0.9-2); Alkaline Phosphatase 106.0 U/L (34-104); Anion Gap 10.0 (3-11); Bilirubin,Total 0.5 mg/dl (0.2-1.0); Blood Urea Nitrogen 26.0 mg/dl (6-23); Calcium 8.6 mg/dl (8.6-10.3); Carbon Dioxide 21.0 mmol/L (21-32); Chloride 107.0 mmol/L (98-107); Creatinine Clr Calc Pharmacy 48.2 ml/min; Globulin 2.4 gm/dl (2.5-4.0); Glucose 93.0 mg/dl (70-99(Fasting)); Lipase 23.0 U/L (11-82); Magnesium 2.1 mg/dl (1.7-2.4); Potassium 4.0 mmol/L (3.5-5.1); Sodium 138.0 mmol/L (136-145); Total Protein 6.4 gm/dl (6.0-8.3)
[2024-09-12 04:10] LABS: INR 1.0 (0.9-1.1); Partial Thromboplastin Time 23 Seconds (21-31); Prothrombin Time 10.5 Seconds (9.0-12.0)
--- NOTE | 2024-09-12 04:20 | XRay Report ---
EXAM: XR chest 1V portable CLINICAL HISTORY: Trauma TECHNIQUE: An X-ray image of the chest is obtained in AP projection. COMPARISON: No prior studies are available for comparison. FINDINGS: Pulmonary Parenchyma: No evidence of consolidation, collapse, or focal opacities. No pulmonary nodules are identified. No evidence of pleural effusion or pleural thickening. Heart and Mediastinum: Heart size and shape are normal. No mediastinal widening or masses. No hilar or mediastinal lymphadenopathy. Bony Thorax: Right 3rd to 7th ribs fractures with minimal displacement at 4th rib Soft Tissues: Soft tissues overlying the chest wall are unremarkable. IMPRESSION: Right 3rd to 7th ribs fractures with minimal displacement at 4th rib (indeterminate age). No acute cariopulmonary compromise. Electronically signed by Ozzie Mathur 09-12-2024 04:20 AM
[2024-09-12] MEDS: SODIUM CHLORIDE 0.9% 1,000 ML IV ONE ×2 (04:36→07:12)
--- NOTE | 2024-09-12 05:13 | CT Scan Report ---
EXAM: CT head/brain wo con CLINICAL HISTORY: fall, ?LOC TECHNIQUE: Axial non-contrast CT scan of the brain was performed from the skull base to the high parietal region. One of the following dose reduction techniques was utilized for this exam: Automated exposure control, adjustment of the mA and/or kV according to patient size, use of iterative reconstruction. COMPARISON: None. FINDINGS: Brain Parenchyma: OBX.5.1OBX.5.1.1 Left cortical /OBX.5.1.1OBX.5.1.2 subcortical regions cystic encephalomalacia, exerting exvacuo-dilation of the frontal horn of the ipsilateral ventricle, involving left fronto-parietal lobes./OBX.5.1.2/OBX.5.1 Atrophy along the cortico-spinal tract through the posterior limb of the internal capsule into the left cerebral peduncle and mariusz, Wallerian degeneration. Few hypodense lacunar infarctions were seen at the left basal ganglia, left thalamic and mariusz regions. Diffuse periventricular white matter hypodensity. Normal attenuation of the cerebral cerebellum and brainstem. No evidence of hemorrhage or mass effect. No abnormal areas of hyperattenuation. Ventricular System: Ventricles are prominent in size and configuration. No evidence of hydrocephalus or ventricular enlargement. Subarachnoid Spaces: Promeneient sulci and cisterns. No evidence of subarachnoid hemorrhage or extra-axial fluid collections. Cerebellum and Brainstem: No masses, lesions, or areas of abnormal density. Orbits: Normal appearance of the globes, optic nerves, and extraocular muscles. No evidence of orbital masses or abnormal density. Sinuses: Clear paranasal sinuses. No evidence of sinusitis or mucosal thickening. Mastoid Air Cells: Clear mastoid air cells. No evidence of mastoiditis. Skull: Normal skull morphology. IMPRESSION: OBX.5.1OBX.5.1.11. Left cortical /OBX.5.1.1OBX.5.1.2 subcortical regions cystic encephalomalacia, exerting exvacuo-dilation of the frontal horn of the ipsilateral ventricle, involving left fronto-parietal lobes./OBX.5.1.2/OBX.5.1 OBX.5.1OBX.5.1.12. Few hypodense lacunar infarctions were seen at the left basal ganglia, left thalamic and mariusz regions, suggesting chronic ischemic insult. However, MRI with diffusion is advised if clinically indicated /OBX.5.1.1OBX.5.1.2 prior images are needed/OBX.5.1.2/OBX.5.1 3. Atrophy along the cortico-spinal tract through the posterior limb of the internal capsule into the left cerebral peduncle and mariusz, Wallerian degeneration. 4. Chronic ischaemic white matter microvascular diseases 5. Age-related involutional changes Electronically signed by Ozzie Mathur 09-12-2024 05:12 AM
--- NOTE | 2024-09-12 05:19 | CT Scan Report ---
EXAM: CT cervical spine wo con CLINICAL HISTORY: fall, ?LOC TECHNIQUE: CT scan of the cervical spine was performed without the administration of intravenous contrast. Contiguous axial images were obtained from the skull base to the upper thoracic spine. Coronal and sagittal reformatted images were also reviewed. One of the following dose reduction techniques was utilized for this exam. Automated exposure control, adjustment of the mA and/or kV according to patient size, and use of iterative reconstruction. COMPARISON: None. FINDINGS: Vertebrae: Straightening of the cervical spine, denoting myospasm. Atlantoaxial arthrosis. No evidence of dislocation. The cortical and trabecular bone patterns are normal. No signs of lytic or sclerotic lesions. Normal configuration of the posterior elements. Intervertebral Discs: Narrowed C6-C7 intervertebral disc space with anterior and posterior osteophytes. Disc osteophyte complex with diffuse bulge at C6-C7 level, exerting moderate neural foraminal compromise at the right side and mild neural compromise at the left side. No evidence of significant disc bulging or herniation. No calcifications or ossifications noted within the discs. Facet Joints: The facet joints reveal degenerative changes. Prevertebral Soft Tissues: The prevertebral soft tissues are normal in thickness without evidence of mass or abnormal fluid collection. Additional Findings: No other significant findings are noted in the visualized soft tissue structures or bony elements. IMPRESSION: 1. No acute fractures or dislocations. 2. Spondylodegenerative changes with Atlantoaxial arthrosis. OBX.5.1OBX.5.1.13. Disc osteophyte complex at C6-C7 level with diffuse bulge exerting moderate neural foraminal compromise at the right side /OBX.5.1.1OBX.5.1.2 mild neural compromise at the left side./OBX.5.1.2/OBX.5.1 4. Myospasm. Electronically signed by Ozzie Mathur 09-12-2024 05:18 AM
--- NOTE | 2024-09-12 05:58 | Emergency Department Note ---
History of Present Illness General Chief complaint: Hypotension Stated complaint: HYPOTENSIVE, GLF Time Seen by Provider: 09/12/24 03:09 History of Present Illness This is a 64-year-old male presenting to the emergency department for evaluation of injuries after ground-level fall. Patient has a history of previous stroke with some baseline ambulatory dysfunction. Patient was reportedly dizzy, when he ended up on the floor this evening. He is unsure if he had a true syncopal episode or if he fell. The patient has not had chest pain, chest tightness, or shortness of breath. History is somewhat limited. He is on Plavix but no blood thinners. No recent medication changes. He rates his current discomfort a 2/10. Home Medications Medication Instructions Recorded Confirmed Type atorvastatin 20 mg tablet 20 mg PO HS 07/30/20 09/12/24 History hydrocodone 7.5 mg-acetaminophen 1 tab PO DIRECTED PRN Pain 07/30/20 09/12/24 History 325 mg tablet clopidogrel 75 mg tablet 75 mg PO QAM #30 tabs 08/01/20 09/12/24 Rx multivitamin (Daily-Bret tablet) 1 tab PO QAM #30 tabs 08/01/20 09/12/24 Rx thiamine HCl (vitamin B1) 100 mg 100 mg PO QAM #30 tabs 08/01/20 09/12/24 Rx tablet (Vitamin B-1) citalopram 40 mg tablet 40 mg PO QAM ##0 11/22/23 09/12/24 History abiraterone 250 mg tablet 1,000 mg PO DAILY 11/23/23 09/12/24 History amlodipine 5 mg tablet 5 mg PO DAILY 11/23/23 09/12/24 History gabapentin 800 mg tablet 800 mg PO TID 11/23/23 09/12/24 History lisinopril 40 mg tablet 40 mg PO DAILY 11/23/23 09/12/24 History prednisone 5 mg tablet 5 mg PO QAM 11/23/23 09/12/24 History lamotrigine 100 mg tablet 50 mg PO BID 09/12/24 09/12/24 History Allergies Allergy/AdvReac Type Severity Reaction Status Date / Time No Known Allergies Allergy Severe Verified 07/30/20 21:51 Past Med/Surg History Problem List (Updated 09/12/24 @ 22:09 by Ko Lea PA-C) ANALILIA (acute kidney injury) (Acute) Dizziness (Acute) Acute chest wall pain Postlaminectomy syndrome of lumbosacral region Chronic pain syndrome Staghorn calculus Ambulatory dysfunction (Acute) Fall (Acute) Pontine lesion Right leg weakness (Acute) HTN (hypertension) (Acute) Social History Smoking Status: Former smoker Second Hand Exposure: No; Do You Dip or Chew Tobacco: No; Hx Alcohol Use: Yes Alcohol type: beer Hx Substance Use: No Preferred Language: Portuguese Communication Ability: Effective Account Auditor Required: No Beliefs That Will Affect Care: None marital status: Current Living Situation: Significant Other Current Living Situation Comment: home w/ partner Feels Safe at Home: Yes Assistive Devices: Cane Review of Systems A total of 10 systems reviewed and were otherwise negative Physical Exam Vital Signs Vital Signs - 24 hr 09/12/24 03:00 09/12/24 03:15 09/12/24 03:19 Temperature 36.7 C 36.7 C Temperature Source Oral Oral Pulse Rate - Lying Pulse Rate - Sitting Pulse Rate 65 66 Pulse Rate [Apical] 66 Respiratory Rate 16 16 Respiratory Effort / Characteristics Non-Labored Spontaneous Non-Labored Spontaneous Respiratory Depth Normal Normal Respiratory Pattern Regular Blood Pressure - Lying Blood Pressure - Sitting Blood Pressure 111/59 L Blood Pressure [Left Arm] 111/59 L Blood Pressure Mean 76 Blood Pressure Mean [Left Arm] 76 Pulse Oximetry 100 100 Oxygen Delivery Method Room Air Room Air Sepsis Recent Fever Within 48 Hours No Sepsis New/Unexplained Change in Mental Status N/A Sepsis Action Taken by Nursing No Action Required 09/12/24 03:20 09/12/24 03:28 09/12/24 04:00 Temperature Temperature Source Pulse Rate - Lying Pulse Rate - Sitting Pulse Rate Pulse Rate [Apical] 67 Respiratory Rate 18 Respiratory Effort / Characteristics Non-Labored Spontaneous Respiratory Depth Normal Respiratory Pattern Blood Pressure - Lying Blood Pressure - Sitting Blood Pressure Blood Pressure [Left Arm] 105/60 Blood Pressure Mean Blood Pressure Mean [Left Arm] 75 Pulse Oximetry 99 99 99 Oxygen Delivery Method Room Air Room Air Room Air Sepsis Recent Fever Within 48 Hours Sepsis New/Unexplained Change in Mental Status Sepsis Action Taken by Nursing 09/12/24 05:00 09/12/24 06:00 09/12/24 06:07 Temperature Temperature Source Pulse Rate - Lying 76 Pulse Rate - Sitting 84 Pulse Rate Pulse Rate [Apical] 77 76 Respiratory Rate 16 16 Respiratory Effort / Characteristics Respiratory Depth Normal Normal Respiratory Pattern Blood Pressure - Lying 110/68 Blood Pressure - Sitting 105/87 Blood Pressure Blood Pressure [Left Arm] 116/60 110/68 Blood Pressure Mean Blood Pressure Mean [Left Arm] 78 82 Pulse Oximetry 99 96 Oxygen Delivery Method Room Air Room Air Sepsis Recent Fever Within 48 Hours Sepsis New/Unexplained Change in Mental Status Sepsis Action Taken by Nursing VITALS: Vitals are noted on the nurse's note and reviewed by myself. Vital signs stable. GENERAL: Pleasant white male who appears in no acute distress HEAD: Normocephalic atraumatic. NECK: Supple without nuchal rigidity. No lymphadenopathy. No thyromegaly. Cervical spine is nontender. HEART: Regular rate and rhythm without murmurs gallops or rubs. LUNGS: Clear to auscultation bilaterally without wheezes, rales or rhonchi. No retractions or accessory muscle use. ABDOMEN: Positive normal bowel sounds x 4. Soft, nontender, without masses or organomegaly. No guarding or rebound tenderness. MUSCULOSKELETAL: No muscle atrophy, erythema, or edema noted. NEURO: Patient was alert and oriented to person place and time. Course Administered Medications Hydrocodone Bitart/Acetaminophen (Hydrocodone/Acetaminophen 7.5/325mg Tab) 1 tab PO KOKI Stop: 09/26/24 20:59 Last Admin: 09/12/24 20:55 Dose: 1 tab Documented By: DARA Amlodipine Besylate (Amlodipine Besylate 5 Mg Tab) 2.5 mg PO DAILY KOKI Stop: 10/12/24 08:59 Last Admin: 09/12/24 09:06 Dose: 2.5 mg Documented By: GIANLUCA Atorvastatin Calcium (Atorvastatin 20 Mg Tab) 20 mg PO KOKI Stop: 10/12/24 20:59 Last Admin: 09/12/24 20:57 Dose: 20 mg Documented By: DARA Citalopram Hydrobromide (Citalopram 40 Mg Tab) 40 mg PO [facility] KOKI Stop: 10/12/24 08:59 Last Admin: 09/12/24 09:04 Dose: 40 mg Documented By: GIANLUCA Clopidogrel Bisulfate (Clopidogrel Bisulfate 75 Mg Tab) 75 mg PO QA KOKI Stop: 10/12/24 08:59 Last Admin: 09/12/24 09:05 Dose: 75 mg Documented By: GIANLUCA Folic Acid (Folic Acid 1 Mg Tab) 1 mg PO QAM [facility] Stop: 10/12/24 08:59 Last Admin: 09/12/24 09:05 Dose: 1 mg Documented By: GIANLUCA Gabapentin (Gabapentin 800 Mg Tab) 400 mg PO TID [facility] Stop: 10/12/24 08:59 Last Admin: 09/12/24 20:57 Dose: 400 mg Documented By: Admin: 09/12/24 14:25 Dose: 400 mg Documented By: Admin: 09/12/24 09:04 Dose: 400 mg Documented By: GIANLUCA Heparin Sodium (Porcine) (Heparin Sod 5,000 Unit/0.5 Ml Vial) 5,000 units SQ Q8 [facility] Stop: 10/12/24 13:59 Last Admin: 09/12/24 20:56 Dose: 5,000 units Documented By: Admin: 09/12/24 14:25 Dose: 5,000 units Documented By: GIANLUCA Lamotrigine (Lamotrigine 25 Mg Tab) 50 mg PO BID [facility]; Protocol Stop: 10/12/24 08:59 Last Admin: 09/12/24 20:58 Dose: 50 mg Documented By: Admin: 09/12/24 09:06 Dose: 50 mg Documented By: GIANLUCA Miscellaneous (Abiraterone 250 Mg Tablet ~ Order Awaiting Action) 1 each N/A QS [facility] Stop: 10/12/24 15:59 Last Admin: 09/12/24 15:12 Dose: Not Given Documented By: GIANLUCA Multivitamins (Multivitamin Tab) 1 tab PO QAM [facility] Stop: 10/12/24 08:59 Last Admin: 09/12/24 09:05 Dose: 1 tab Documented By: GIANLUCA Prednisone (Prednisone 5 Mg Tab) 5 mg PO QAM [facility] Stop: 10/12/24 08:59 Last Admin: 09/12/24 09:06 Dose: 5 mg Documented By: GIANLUCA Discontinued Medications Sodium Chloride (Nss) 1,000 mls @ 999 mls/hr IV .[id number] ONE Stop: 09/12/24 05:06 Last Infusion: 09/12/24 06:10 Dose: Infused Documented By: Admin: 09/12/24 04:36 Dose: 999 mls/hr Documented By: WIL Thiamine HCl 100 mg/ Syringe 10 mls @ 2 mls/min IV NOW STA Stop: 09/12/24 06:12 Last Admin: 09/12/24 06:53 Dose: 2 mls/min Documented By: LAILA Sodium Chloride (Nss) 1,000 mls @ 75 mls/hr IV .[id number] ONE Stop: 09/12/24 19:30 Last Infusion: 09/12/24 20:51 Dose: Infused Documented By: Admin: 09/12/24 07:12 Dose: 75 mls/hr Documented By: LALIA Medical Decision Making Differential Diagnosis Differential diagnosis: Etiologies such as vasovagal event, infection, anemia, hypoglycemia, hypovolemia, electrolyte abnormalities, dysrhythmias, cardiac ischemia, cardiac tamponade, valvular heart disease, structural heart disease, seizure, vascular stenosis/dissection, pulmonary embolism, intracerebral event, toxicological process, neurologic event, as well as others were entertained. Laboratory Data 09/12/24 02:54 09/12/24 06:57 Lab Results 09/12/24 Range/Units 02:54 WBC 9.37 (4.8-10.8) K/ul RBC 3.64 L (4.70-6.10) M/uL Hgb 11.6 L (14.0-18.0) g/dl Hct 35.6 L (42.0-52.0) % MCV 97.8 (80.0-100.0) fL MCH 31.9 (25.0-34.0) pg MCHC 32.6 (32.0-36.0) g/dL RDW Std Deviation 47.1 H (36.4-46.3) fL RDW Coeff of Jamarcus 13.2 (11.5-14.5) % Plt Count 272 (130-400) K/uL MPV 10.9 (9.4-12.4) fL Immature Gran % (Auto) 0.9 % Neut % (Auto) 69.4 % Lymph % (Auto) 17.7 % Dunn % (Auto) 6.0 % Eos % (Auto) 5.5 % Baso % (Auto) 0.5 % Neut # (Auto) 6.50 (1.40-6.50) K/uL Lymph # (Auto) 1.66 (1.20-3.40) K/uL Dunn # (Auto) 0.56 (0.11-0.59) K/uL Eos # (Auto) 0.52 H (0.00-0.50) K/uL Baso # (Auto) 0.05 (0.00-0.20) K/uL Immature Gran # (Auto) 0.08 (0.01-0.20) K/uL PT 10.5 (9.0-12.0) Seconds INR 1.0 (0.9-1.1) APTT 23 (21-31) Seconds PTT Ratio 0.9 Sodium 138 (136-145) mmol/L Potassium 4.0 (3.5-5.1) mmol/L Chloride 107 (98-107) mmol/L Carbon Dioxide 21 (21-32) mmol/L Anion Gap 10 (3-11) BUN 26 H (6-23) mg/dl Creatinine 1.74 H (0.6-1.4) mg/dl Est Cr Clr Drug Dosing 48.2 ml/min eGFR 42.97 BUN/Creatinine Ratio 14.9 (10-20) Glucose 93 (70-99(Fasting)) mg/dl Calcium 8.6 (8.6-10.3) mg/dl Magnesium 2.1 (1.7-2.4) mg/dl Total Bilirubin 0.5 (0.2-1.0) mg/dl AST 22 (13-39) U/L ALT 15 (7-52) U/L Alkaline Phosphatase 106 H (34-104) U/L Troponin I High Sens 4.1 (0-20) pg/ml Total Protein 6.4 (6.0-8.3) gm/dl Albumin 4.0 (3.4-5.0) gm/dl Globulin 2.4 L (2.5-4.0) gm/dl Albumin/Globulin Ratio 1.7 (0.9-2) Lipase 23 (11-82) U/L TSH 3.743 (0.300-4.500) uIu/ml Imaging Data Radiologist's Impression: Cervical Spine CT 09/12/24 03:24 EXAM: CT cervical spine wo con CLINICAL HISTORY: fall, ?LOC TECHNIQUE: CT scan of the cervical spine was performed without the administration of intravenous contrast. Contiguous axial images were obtained from the skull base to the upper thoracic spine. Coronal and sagittal reformatted images were also reviewed. One of the following dose reduction techniques was utilized for this exam. Automated exposure control, adjustment of the mA and/or kV according to patient size, and use of iterative reconstruction. COMPARISON: None. FINDINGS: Vertebrae: Straightening of the cervical spine, denoting myospasm. Atlantoaxial arthrosis. No evidence of dislocation. The cortical and trabecular bone patterns are normal. No signs of lytic or sclerotic lesions. Normal configuration of the posterior elements. Intervertebral Discs: Narrowed C6-C7 intervertebral disc space with anterior and posterior osteophytes. Disc osteophyte complex with diffuse bulge at C6-C7 level, exerting moderate neural foraminal compromise at the right side and mild neural compromise at the left side. No evidence of significant disc bulging or herniation. No calcifications or ossifications noted within the discs. Facet Joints: The facet joints reveal degenerative changes. Prevertebral Soft Tissues: The prevertebral soft tissues are normal in thickness without evidence of mass or abnormal fluid collection. Additional Findings: No other significant findings are noted in the visualized soft tissue structures or bony elements. IMPRESSION: 1. No acute fractures or dislocations. 2. Spondylodegenerative changes with Atlantoaxial arthrosis. OBX.5.1OBX.5.1.13. Disc osteophyte complex at C6-C7 level with diffuse bulge exerting moderate neural foraminal compromise at the right side /OBX.5.1.1OBX.5.1.2 mild neural compromise at the left side./OBX.5.1.2/OBX.5.1 4. Myospasm. Electronically signed by Ozzie Mathur 09-12-2024 05:18 AM Chest X-Ray 09/12/24 03:24 EXAM: XR chest 1V portable CLINICAL HISTORY: Trauma TECHNIQUE: An X-ray image of the chest is obtained in AP projection. COMPARISON: No prior studies are available for comparison. FINDINGS: Pulmonary Parenchyma: No evidence of consolidation, collapse, or focal opacities. No pulmonary nodules are identified. No evidence of pleural effusion or pleural thickening. Heart and Mediastinum: Heart size and shape are normal. No mediastinal widening or masses. No hilar or mediastinal lymphadenopathy. Bony Thorax: Right 3rd to 7th ribs fractures with minimal displacement at 4th rib Soft Tissues: Soft tissues overlying the chest wall are unremarkable. IMPRESSION: Right 3rd to 7th ribs fractures with minimal displacement at 4th rib (indeterminate age). No acute cariopulmonary compromise. Electronically signed by Ozzie Mathur 09-12-2024 04:[address] 09/12/24 03:24 EXAM: CT head/brain wo con CLINICAL HISTORY: fall, ?LOC TECHNIQUE: Axial non-contrast CT scan of the brain was performed from the skull base to the high parietal region. One of the following dose reduction techniques was utilized for this exam: Automated exposure control, adjustment of the mA and/or kV according to patient size, use of iterative reconstruction. COMPARISON: None. FINDINGS: Brain Parenchyma: OBX.5.1OBX.5.1.1 Left cortical /OBX.5.1.1OBX.5.1.2 subcortical regions cystic encephalomalacia, exerting exvacuo-dilation of the frontal horn of the ipsilateral ventricle, involving left fronto-parietal lobes./OBX.5.1.2/OBX.5.1 Atrophy along the cortico-spinal tract through the posterior limb of the internal capsule into the left cerebral peduncle and mariusz, Wallerian degeneration. Few hypodense lacunar infarctions were seen at the left basal ganglia, left thalamic and mariusz regions. Diffuse periventricular white matter hypodensity. Normal attenuation of the cerebral cerebellum and brainstem. No evidence of hemorrhage or mass effect. No abnormal areas of hyperattenuation. Ventricular System: Ventricles are prominent in size and configuration. No evidence of hydrocephalus or ventricular enlargement. Subarachnoid Spaces: Promeneient sulci and cisterns. No evidence of subarachnoid hemorrhage or extra-axial fluid collections. Cerebellum and Brainstem: No masses, lesions, or areas of abnormal density. Orbits: Normal appearance of the globes, optic nerves, and extraocular muscles. No evidence of orbital masses or abnormal density. Sinuses: Clear paranasal sinuses. No evidence of sinusitis or mucosal thickening. Mastoid Air Cells: Clear mastoid air cells. No evidence of mastoiditis. Skull: Normal skull morphology. IMPRESSION: OBX.5.1OBX.5.1.11. Left cortical /OBX.5.1.1OBX.5.1.2 subcortical regions cystic encephalomalacia, exerting exvacuo-dilation of the frontal horn of the ipsilateral ventricle, involving left fronto-parietal lobes./OBX.5.1.2/OBX.5.1 OBX.5.1OBX.5.1.12. Few hypodense lacunar infarctions were seen at the left basal ganglia, left thalamic and mariusz regions, suggesting chronic ischemic insult. However, MRI with diffusion is advised if clinically indicated /OBX.5.1.1OBX.5.1.2 prior images are needed/OBX.5.1.2/OBX.5.1 3. Atrophy along the cortico-spinal tract through the posterior limb of the internal capsule into the left cerebral peduncle and mariusz, Wallerian degeneration. 4. Chronic ischaemic white matter microvascular diseases 5. Age-related involutional changes Electronically signed by Ozzie Mathur 09-12-2024 05:12 AM MDM Narrative Physical exam and history were performed. Nursing notes, EMR, and Medication List were personally reviewed. No social concerns were identified as barriers to patients care. History was provided by the Patient and EMS. Patient appears to have dizziness with fall. The patient has a history of previous stroke. IV access was established and labs were obtained. Patient was hydrated with normal saline and sent to CT scan for imaging of his head and neck. An order was placed for continuous cardiac monitoring. The monitor shows a rate of 62 with normal sinus rhythm. Patient's blood work is as above and was reviewed. He does not have a significant elevated white blood cell count, gross anemia, or significant electrolyte imbalance. He does have an elevation of his creatinine at 1.7, with a baseline around 1. He was given additional IV fluids. Troponin is negative. CT scans of the head and neck, as well as chest x-ray, were independently reviewed by myself and radiology showing no significant acute findings. Escalation of care was considered, and discussed with the patient. Initially patient wanted to try to go home, however I did ask nursing to ambulate the patient. The patient had significant discomfort with ambulation and is a very high fall risk. Case was discussed with on-call hospitalist team, who will evaluate the patient here in the ER. Please see their dictation for further patient course, plan, disposition. The chart was completed utilizing [employer] Voice Recognition Software. Grammatical errors, random word insertions, pronoun errors, and incomplete sentences are an occasional consequence of this system due to software limitations, ambient noise, and hardware issues. Any formal questions or concerns about the content, text, or information contained within the body of this dictation should be directly addressed to the provider for clarification. Impression & Plan Dizziness, Ambulatory dysfunction, ANALILIA (acute kidney injury) Discharge Plan Visit Data Chief Complaint: Hypotension Stated Complaint: HYPOTENSIVE, GLF ED Provider: Leighton Casas ED Midlevel Provider: Ko Lea Discharge Problem: Dizziness, Ambulatory dysfunction, ANALILIA (acute kidney injury) Patient Disposition: Admitted As Inpatient Condition: Fair Discharge Instructions Interventions: ED Discharge Assessment Last Done: 09/12/24 08:07
--- NOTE | 2024-09-12 06:09 | History & Physical Report ---
Date of Service September 12, 2024 Assessment & Plan (1) Dizziness: Plan: Assessment and plan below following discussion of case with ED provider and reviewing patient history/pertinent normal/abnormal diagnostic test results. Dizziness Possible orthostasis given episodic hypotension at home. ARF on CKD hx CVA/PVD sp surgery hyperlipidemia on statin Rx chronic anemia, hemoglobin at baseline thyroid nodule, benign pathology as per outpatient records urolithiasis prostate cancer on Zytiga and chronic prednisone Rx anxiety/mood disorder, stable Alcohol abuse as per records past tobacco abuse OBS Admit to medical telemetry Check orthostatic vitals Baseline UA, monitor creatinine response to IVF Renal ultrasound if without improvement in renal function Hold lisinopril Decrease maintenance amlodipine dose AWSS at risk protocol, DT precautions PT OT eval DVT prophylaxis. Heparin subcu Full code Patient request for partner to be given updates regarding care. Ms. Ernestina Merchant, contact #[phone]. Text document was generated using [employer] voice recognition software. It may contain grammatical or spelling errors. Kindly contact undersigned for clarification of any documentation item in question. History of Present Illness Chief Complaint: Dizziness, fall Primary Care Provider: Tay Mckay PA-C History obtained from patient and records. Medical history significant CVA, PVD sp surgery, hypertension, hyperlipidemia, CRI (baseline creatinine 1.4), chronic anemia (baseline hemoglobin 11-12), chronic pain, thyroid nodule, urolithiasis, prostate cancer on Zytiga and chronic prednisone Rx, anxiety/mood disorder, past tobacco abuse, alcohol abuse as per records. Last [facility] confinement November 2023 for ambulatory dysfunction and mechanical fall. Patient found to have staghorn calculi on the left renal pelvis. Conservative management as per urology. Patient with lowish BP over the past 2 weeks. SBP 90s at home. Episode of clamminess. Denies headache, chest pain, SOB. Patient seen at PCPs office last week. SBP 120s. instructed to monitor BP daily for next 2 weeks. Consider discontinuing amlodipine if with hypotension. Patient felt dizzy while standing up last night. Dizziness described as lightheadedness. No syncope, No chest pain, no SOB. Denies abdominal or flank pain. Usual right sided weakness from old stroke as per patient. Patient fell down on the ground from dizziness. SBP 110s upon EMS arrival at patient's home. Medical History as above Surgical History : Appendectomy, back surgery, carotid endarterectomy Family History : DM, heart disease, stroke Personal/Social history : Past tobacco abuse, alcohol abuse as per records although denied by patient, disabled Allergies Allergy/AdvReac Type Severity Reaction Status Date / Time No Known Allergies Allergy Severe Verified 07/30/20 21:51 Home Medications Medication Instructions Recorded Confirmed Type atorvastatin 20 mg tablet 20 mg PO HS 07/30/20 09/12/24 History hydrocodone 7.5 mg-acetaminophen 1 tab PO DIRECTED PRN Pain 07/30/20 09/12/24 History 325 mg tablet trazodone 50 mg tablet 100 mg PO HS 07/30/20 09/12/24 History clopidogrel 75 mg tablet 75 mg PO QAM #30 tabs 08/01/20 09/12/24 Rx multivitamin (Daily-Bret tablet) 1 tab PO QAM #30 tabs 08/01/20 09/12/24 Rx thiamine HCl (vitamin B1) 100 mg 100 mg PO QAM #30 tabs 08/01/20 09/12/24 Rx tablet (Vitamin B-1) citalopram 40 mg tablet 40 mg PO QAM ##0 11/22/23 09/12/24 History abiraterone 250 mg tablet 1,000 mg PO DAILY 11/23/23 09/12/24 History amlodipine 5 mg tablet 5 mg PO DAILY 11/23/23 09/12/24 History gabapentin 800 mg tablet 800 mg PO TID 11/23/23 09/12/24 History lisinopril 40 mg tablet 40 mg PO DAILY 11/23/23 09/12/24 History prednisone 5 mg tablet 5 mg PO QAM 11/23/23 09/12/24 History lamotrigine 100 mg tablet 50 mg PO BID 09/12/24 09/12/24 History Past Med/Surg History Problem List (Updated 09/12/24 @ 06:59 by Rick Bernardo MD) Dizziness Acute chest wall pain Postlaminectomy syndrome of lumbosacral region Chronic pain syndrome Staghorn calculus Ambulatory dysfunction Fall (Acute) Pontine lesion Right leg weakness (Acute) HTN (hypertension) (Acute) Social History Smoking Status: Former smoker Second Hand Exposure: No; Do You Dip or Chew Tobacco: No; Hx Alcohol Use: Yes Alcohol type: beer Hx Substance Use: No Preferred Language: Bolivian Communication Ability: Effective Order Picker/Assembler Required: No Beliefs That Will Affect Care: None marital status: Current Living Situation: Spouse Current Living Situation Comment: home w/ partner Feels Safe at Home: Yes Assistive Devices: Cane Review of Systems Review of Systems: As per HPI, all other systems reviewed and negative Physical Exam Physical Exam: GENERAL: Comfortable, pleasant, obese, dysarthric (chronic as per patient), no respiratory distress SKIN: Normal color, warm HEENT: [place] palpebral conjunctivae, no ptosis, dry buccal mucosa NECK : Supple, short neck, no tenderness CHEST : CTA, no tenderness HEART : RRR, no obvious murmurs ABDOMEN: Some distention, nontender EXTREMITIES : No LE swelling/tenderness, no other conspicuous deformities noted NEUROLOGIC : Coherent, chronic right facial droop, chronic dysarthria, chronic RUE paralysis, MMTS RLE 3/5 (chronic as per patient), LUE/LLE 4/5 Results & Data Results & Data Vital Signs (Past 12 Hours) Vital Signs Temp Pulse Pulse Resp BP BP Pulse Ox 09/12/24 05:00 77 16 116/60 99 09/12/24 04:00 67 18 105/60 99 09/12/24 03:28 99 09/12/24 03:20 99 09/12/24 03:19 36.7 C 66 16 111/59 L 100 09/12/24 03:15 65 09/12/24 03:00 36.7 C 66 16 111/59 L 100 O2 Del Method 09/12/24 05:00 Room Air 09/12/24 04:00 Room Air 09/12/24 03:28 Room Air 09/12/24 03:20 Room Air 09/12/24 03:19 Room Air 09/12/24 03:15 09/12/24 03:00 Room Air Laboratory Results Laboratory Results WBC 9.37 K/ul (4.8-10.8) 09/12/24 02:54 RBC 3.64 M/uL (4.70-6.10) L 09/12/24 02:54 Hgb 11.6 g/dl (14.0-18.0) L 09/12/24 02:54 Hct 35.6 % (42.0-52.0) L 09/12/24 02:54 MCV 97.8 fL (80.0-100.0) 09/12/24 02:54 MCH 31.9 pg (25.0-34.0) 09/12/24 02:54 MCHC 32.6 g/dL (32.0-36.0) 09/12/24 02:54 RDW Std Deviation 47.1 fL (36.4-46.3) H 09/12/24 02:54 RDW Coeff of Jamarcus 13.2 % (11.5-14.5) 09/12/24 02:54 Plt Count 272 K/uL (130-400) 09/12/24 02:54 MPV 10.9 fL (9.4-12.4) 09/12/24 02:54 Immature Gran % (Auto) 0.9 % 09/12/24 02:54 Neut % (Auto) 69.4 % 09/12/24 02:54 Lymph % (Auto) 17.7 % 09/12/24 02:54 [place] % (Auto) 6.0 % 09/12/24 02:54 Eos % (Auto) 5.5 % 09/12/24 02:54 Baso % (Auto) 0.5 % 09/12/24 02:54 Neut # (Auto) 6.50 K/uL (1.40-6.50) 09/12/24 02:54 Lymph # (Auto) 1.66 K/uL (1.20-3.40) 09/12/24 02:54 [place] # (Auto) 0.56 K/uL (0.11-0.59) 09/12/24 02:54 Eos # (Auto) 0.52 K/uL (0.00-0.50) H 09/12/24 02:54 Baso # (Auto) 0.05 K/uL (0.00-0.20) 09/12/24 02:54 Immature Gran # (Auto) 0.08 K/uL (0.01-0.20) 09/12/24 02:54 PT 10.5 Seconds (9.0-12.0) 09/12/24 02:54 INR 1.0 (0.9-1.1) 09/12/24 02:54 APTT 23 Seconds (21-31) 09/12/24 02:54 PTT Ratio 0.9 09/12/24 02:54 Sodium 138 mmol/L (136-145) 09/12/24 02:54 Potassium 4.0 mmol/L (3.5-5.1) 09/12/24 02:54 Chloride 107 mmol/L (98-107) 09/12/24 02:54 Carbon Dioxide 21 mmol/L (21-32) 09/12/24 02:54 Anion Gap 10 (3-11) 09/12/24 02:54 BUN 26 mg/dl (6-23) H 09/12/24 02:54 Creatinine 1.74 mg/dl (0.6-1.4) H 09/12/24 02:54 Est Cr Clr Drug Dosing 48.2 ml/min 09/12/24 02:54 eGFR 42.97 09/12/24 02:54 BUN/Creatinine Ratio 14.9 (10-20) 09/12/24 02:54 Glucose 93 mg/dl (70-99(Fasting)) 09/12/24 02:54 Calcium 8.6 mg/dl (8.6-10.3) 09/12/24 02:54 Magnesium 2.1 mg/dl (1.7-2.4) 09/12/24 02:54 Total Bilirubin 0.5 mg/dl (0.2-1.0) 09/12/24 02:54 AST 22 U/L (13-39) 09/12/24 02:54 ALT 15 U/L (7-52) 09/12/24 02:54 Alkaline Phosphatase 106 U/L (34-104) H 09/12/24 02:54 Troponin I High Sens 4.1 pg/ml (0-20) 09/12/24 02:54 Total Protein 6.4 gm/dl (6.0-8.3) 09/12/24 02:54 Albumin 4.0 gm/dl (3.4-5.0) 09/12/24 02:54 Globulin 2.4 gm/dl (2.5-4.0) L 09/12/24 02:54 Albumin/Globulin Ratio 1.7 (0.9-2) 09/12/24 02:54 Lipase 23 U/L (11-82) 09/12/24 02:[address] 09/12/24 03:24 EXAM: CT cervical spine wo con CLINICAL HISTORY: fall, ?LOC TECHNIQUE: CT scan of the cervical spine was performed without the administration of intravenous contrast. Contiguous axial images were obtained from the skull base to the upper thoracic spine. Coronal and sagittal reformatted images were also reviewed. One of the following dose reduction techniques was utilized for this exam. Automated exposure control, adjustment of the mA and/or kV according to patient size, and use of iterative reconstruction. COMPARISON: None. FINDINGS: Vertebrae: Straightening of the cervical spine, denoting myospasm. Atlantoaxial arthrosis. No evidence of dislocation. The cortical and trabecular bone patterns are normal. No signs of lytic or sclerotic lesions. Normal configuration of the posterior elements. Intervertebral Discs: Narrowed C6-C7 intervertebral disc space with anterior and posterior osteophytes. Disc osteophyte complex with diffuse bulge at C6-C7 level, exerting moderate neural foraminal compromise at the right side and mild neural compromise at the left side. No evidence of significant disc bulging or herniation. No calcifications or ossifications noted within the discs. Facet Joints: The facet joints reveal degenerative changes. Prevertebral Soft Tissues: The prevertebral soft tissues are normal in thickness without evidence of mass or abnormal fluid collection. Additional Findings: No other significant findings are noted in the visualized soft tissue structures or bony elements. IMPRESSION: 1. No acute fractures or dislocations. 2. Spondylodegenerative changes with Atlantoaxial arthrosis. OBX.[id number].5.1.13. Disc osteophyte complex at C6-C7 level with diffuse bulge exerting moderate neural foraminal compromise at the right side /OBX.5.1.1OBX.5.1.2 mild neural compromise at the left side./OBX.5.1.2/OBX.5.1 4. Myospasm. Electronically signed by Ozzie Mathur 09-12-2024 05:18 AM Chest X-Ray 09/12/24 03:24 EXAM: XR chest 1V portable CLINICAL HISTORY: Trauma TECHNIQUE: An X-ray image of the chest is obtained in AP projection. COMPARISON: No prior studies are available for comparison. FINDINGS: Pulmonary Parenchyma: No evidence of consolidation, collapse, or focal opacities. No pulmonary nodules are identified. No evidence of pleural effusion or pleural thickening. Heart and Mediastinum: Heart size and shape are normal. No mediastinal widening or masses. No hilar or mediastinal lymphadenopathy. Bony Thorax: Right 3rd to 7th ribs fractures with minimal displacement at 4th rib Soft Tissues: Soft tissues overlying the chest wall are unremarkable. IMPRESSION: Right 3rd to 7th ribs fractures with minimal displacement at 4th rib (indeterminate age). No acute cariopulmonary compromise. Electronically signed by Ozzie Mathur 09-12-2024 04:[address] 09/12/24 03:24 EXAM: CT head/brain wo con CLINICAL HISTORY: fall, ?LOC TECHNIQUE: Axial non-contrast CT scan of the brain was performed from the skull base to the high parietal region. One of the following dose reduction techniques was utilized for this exam: Automated exposure control, adjustment of the mA and/or kV according to patient size, use of iterative reconstruction. COMPARISON: None. FINDINGS: Brain Parenchyma: OBX.5.1OBX.5.1.1 Left cortical /OBX.5.1.1OBX.5.1.2 subcortical regions cystic encephalomalacia, exerting exvacuo-dilation of the frontal horn of the ipsilateral ventricle, involving left fronto-parietal lobes./OBX.5.1.2/OBX.5.1 Atrophy along the cortico-spinal tract through the posterior limb of the internal capsule into the left cerebral peduncle and mariusz, Wallerian degeneration. Few hypodense lacunar infarctions were seen at the left basal ganglia, left thalamic and mariusz regions. Diffuse periventricular white matter hypodensity. Normal attenuation of the cerebral cerebellum and brainstem. No evidence of hemorrhage or mass effect. No abnormal areas of hyperattenuation. Ventricular System: Ventricles are prominent in size and configuration. No evidence of hydrocephalus or ventricular enlargement. Subarachnoid Spaces: Promeneient sulci and cisterns. No evidence of subarachnoid hemorrhage or extra-axial fluid collections. Cerebellum and Brainstem: No masses, lesions, or areas of abnormal density. Orbits: Normal appearance of the globes, optic nerves, and extraocular muscles. No evidence of orbital masses or abnormal density. Sinuses: Clear paranasal sinuses. No evidence of sinusitis or mucosal thickening. Mastoid Air Cells: Clear mastoid air cells. No evidence of mastoiditis. Skull: Normal skull morphology. IMPRESSION: OBX.5.1OBX.5.1.11. Left cortical /OBX.5.1.1OBX.5.1.2 subcortical regions cystic encephalomalacia, exerting exvacuo-dilation of the frontal horn of the ipsilateral ventricle, involving left fronto-parietal lobes./OBX.5.1.2/OBX.5.1 OBX.5.1OBX.5.1.12. Few hypodense lacunar infarctions were seen at the left basal ganglia, left thalamic and mariusz regions, suggesting chronic ischemic insult. However, MRI with diffusion is advised if clinically indicated /OBX.5.1.1OBX.5.1.2 prior images are needed/OBX.5.1.2/OBX.5.1 3. Atrophy along the cortico-spinal tract through the posterior limb of the internal capsule into the left cerebral peduncle and mariusz, Wallerian degeneration. 4. Chronic ischaemic white matter microvascular diseases 5. Age-related involutional changes Electronically signed by Ozzie Mathur 09-12-2024 05:12 AM Diagnostic Findings EKG as per my interpretation :Rate 65, NSR, normal axis, T wave abnormalities septal leads, multiple artifacts
--- NOTE | 2024-09-12 06:32 | Emergency Department Note ---
ED Visit Note I was consulted by the Advanced Practice Provider Ko Lea PA-C. I performed a substantive portion of the visit including all aspects of medical decision making. .
[2024-09-12] MEDS ORDERED: PROMETHAZINE 6.25 MG/50.25 ML BAG IV PRN (06:45)
[2024-09-12] MEDS ORDERED: ACETAMINOPHEN 325 MG TAB PO PRN (06:45)
[2024-09-12] MEDS: THIAMINE HCL 100 MG in SYRINGE 9 ML IV STA (06:53)
[2024-09-12 06:56] LABS: Thyroid Stimulating Hormone 3.743 uIu/ml (0.300-4.500)
[2024-09-12 07:31] LABS: Anion Gap 7.0 (3-11); Blood Urea Nitrogen 27.0 mg/dl (6-23); Calcium 8.3 mg/dl (8.6-10.3); Carbon Dioxide 23.0 mmol/L (21-32); Chloride 110.0 mmol/L (98-107); Creatine Kinase 28.0 U/L (30-223); Creatinine Clr Calc Pharmacy 52.5 ml/min; Glucose 107.0 mg/dl (70-99(Fasting)); Potassium 4.2 mmol/L (3.5-5.1); Sodium 140.0 mmol/L (136-145)
[2024-09-12] MEDS ORDERED: NON-FORMULARY MEDICATION (Multivitamin [Daily-Vite] Tablet) PO SCH (09:00)
[2024-09-12] MEDS: GABAPENTIN 800 MG TAB PO SCH (09:04)
[2024-09-12] MEDS: CITALOPRAM 40 MG TAB PO SCH (09:04)
[2024-09-12] MEDS: CLOPIDOGREL BISULFATE 75 MG TAB PO SCH (09:05)
[2024-09-12] MEDS: MULTIVITAMIN TAB PO SCH (09:05)
[2024-09-12] MEDS: FOLIC ACID 1 MG TAB PO SCH (09:05)
[2024-09-12] MEDS: lamoTRIgine 25 MG TAB PO SCH (09:06)
--- NOTE | 2024-09-12 10:52 | Communication Note ---
Date of Service: September 12, 2024 Patient seen and examined Reported dizziness at home leading to fall. 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
--- NOTE | 2024-09-12 11:43 | Electrocardiogram Report ---
Test Reason : Blood Pressure : */* mmHG Vent. Rate : 64 BPM Atrial Rate : 64 BPM P-R Int : 132 ms QRS Dur : 84 ms QT Int : 428 ms P-R-T Axes : 57 53 21 degrees QTcB Int : 441 ms Normal sinus rhythm Nonspecific T wave abnormality Abnormal ECG When compared with ECG of 22-Nov-2023 15:36, No significant change was found Confirmed by Tray Dickinson ([id number]) on 09/12/2024 11:42:50 AM Referred By: REFERRED SELF Confirmed By: Tray Dickinson
[2024-09-12] MEDS: HEPARIN SOD 5,000 UNIT/0.5 ML VIAL SQ SCH (14:25)
[2024-09-12 16:42] LABS: Appearance Urine Clear (Clear); Bacteria Urine Automated None Seen (None Seen); Cast Urine Automated 0-2 /lpf (0-2); Epithelial Cell Urine Auto 0-2 /hpf (0-2); Glucose Urine UA Negative (Negative); WBC Urine Automated 0-5 /hpf (0-5)
[2024-09-12] MEDS: HYDROCODONE/ACETAMINOPHEN 7.5/325MG TAB PO SCH (20:55)
[2024-09-12] MEDS: ATORVASTATIN 20 MG TAB PO SCH (20:57)
[2024-09-13 06:10] LABS: Hematocrit (blood only) 32.0 % (42.0-52.0); Hemoglobin 10.7 g/dl (14.0-18.0); Immature Granulocytes # (auto) 0.02 K/uL (0.01-0.20); Immature Granulocytes % (auto) 0.3 %; Mean Corpuscular Hemoglobin 32.3 pg (25.0-34.0); Mean Corpuscular Volume 96.7 fL (80.0-100.0); Platelet Count 218 K/uL (130-400); RDW Standard Deviation 47.2 fL (36.4-46.3); Red Blood Count 3.31 M/uL (4.70-6.10); White Blood Count 6.73 K/ul (4.8-10.8)
[2024-09-13 06:25] LABS: Anion Gap 6.0 (3-11); Blood Urea Nitrogen 24.0 mg/dl (6-23); Calcium 8.5 mg/dl (8.6-10.3); Carbon Dioxide 23.0 mmol/L (21-32); Chloride 112.0 mmol/L (98-107); Creatinine Clr Calc Pharmacy 60.8 ml/min; Glucose 93.0 mg/dl (70-99(Fasting)); Potassium 4.1 mmol/L (3.5-5.1); Sodium 141.0 mmol/L (136-145)
[2024-09-13 08:09] VITALS: RESP 18; TEMP 98.2; O2SAT 95
[2024-09-13] MEDS: THIAMINE HCL 100 MG TAB PO SCH (08:15)
[2024-09-13 11:22] VITALS: BP 133/83
--- NOTE | 2024-09-13 12:04 | Discharge Summary ---
Date of Service September 13, 2024 Admission HPI Per Admitting Provider History obtained from patient and records. Medical history significant CVA, PVD sp surgery, hypertension, hyperlipidemia, CRI (baseline creatinine 1.4), chronic anemia (baseline hemoglobin 11-12), chronic pain, thyroid nodule, urolithiasis, prostate cancer on Zytiga and chronic prednisone Rx, anxiety/mood disorder, past tobacco abuse, alcohol abuse as per records. Last [facility] confinement November 2023 for ambulatory dysfunction and mechanical fall. Patient found to have staghorn calculi on the left renal pelvis. Conservative management as per urology. Patient with lowish BP over the past 2 weeks. SBP 90s at home. Episode of clamminess. Denies headache, chest pain, SOB. Patient seen at PCPs office last week. SBP 120s. instructed to monitor BP daily for next 2 weeks. Consider discontinuing amlodipine if with hypotension. Patient felt dizzy while standing up last night. Dizziness described as lightheadedness. No syncope, No chest pain, no SOB. Denies abdominal or flank pain. Usual right sided weakness from old stroke as per patient. Patient fell down on the ground from dizziness. SBP 110s upon EMS arrival at patient's home. Medical History as above Surgical History : Appendectomy, back surgery, carotid endarterectomy Family History : DM, heart disease, stroke Personal/Social history : Past tobacco abuse, alcohol abuse as per records although denied by patient, disabled Admission Exam Per Admitting Provider GENERAL: Comfortable, pleasant, obese, dysarthric (chronic as per patient), no respiratory distress SKIN: Normal color, warm HEENT: [place] palpebral conjunctivae, no ptosis, dry buccal mucosa NECK : Supple, short neck, no tenderness CHEST : CTA, no tenderness HEART : RRR, no obvious murmurs ABDOMEN: Some distention, nontender EXTREMITIES : No LE swelling/tenderness, no other conspicuous deformities noted NEUROLOGIC : Coherent, chronic right facial droop, chronic dysarthria, chronic RUE paralysis, MMTS RLE 3/5 (chronic as per patient), LUE/LLE 4/5 Principal Diagnosis Dizziness with fall at home Acute kidney injury Hypotension Discharge Exam Constitutional + well hydrated; no acute distress Eyes PERRL, conjunctivae normal, anicteric sclerae ENMT external ear and nose normal, oropharynx normal Respiratory normal respiratory effort, lungs clear to auscultation Cardiovascular Rate/Rhythm: regular rate and regular rhythm Gastrointestinal (Abdomen) normal bowel sounds, soft, nontender, no hepatosplenomegaly Musculoskeletal No pedal edema Neurologic PERRL, EOMI, chronic dysarthria, right hemiparesis Psychiatric A+Ox3, euthymic affect Discharge Data Allergies Allergy/AdvReac Type Severity Reaction Status Date / Time No Known Allergies Allergy Severe Verified 07/30/20 21:51 Consultations 09/12/24 06:02 ED Decision to Admit Stat Ordered Studies 09/12/24 03:24 CT cervical spine wo con Stat CT head/brain wo con Stat Hospital Course (1) Dizziness: (2) ANALILIA (acute kidney injury): (3) Hypotension: (4) Ambulatory dysfunction: (5) Fall: Plan Orthostatic Dizziness Hypotension BP trends on admission was from low to normal Acute kidney injury likely due to hypotension 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 Rehab recommended but patient declined CM to arrange home health services Educated patient about stopping his amlodipine and lisinopril for now, home BP check and to ensure follow up with PCP's office appointment this Thursday Total Time Total Time Spent Total Time Spent (In Minutes): 40 Total Time Includes: Examination of the Patient, Discharge Planning and Medication Reconciliation Discharge Plan Discharge Items Patient Disposition: Home - Home Health Services Reason For Visit: DIZZINESS Discharge Diagnosis: Dizziness Acute kidney injury Hypotension Condition on Discharge: Fair Activity: Resume your previous activity Non-emergency contact: Primary Care Provider Call non-emergency contact if: you have any medication questions Follow-up/Referrals: Deni Horne DO [Outside Practitioners] - 09/16/24 2:00 pm PCP,NO [Physician] - Diet: Heart Healthy Addtl Attending Provider Instructions: Mr Chan You were hospitalized and managed for the above listed diagnoses. You are being discharged home. Please ensure follow up with appointment at Family Practice on Thursday Stop taking your Lisinopril and amlodipine until follow up with your Primary Doctor. It was a pleasure taking care of you Pending Studies at Discharge: No Stand-Alone Forms: My Blogic, Smoking Cessation Medications and DC Order Prescriptions: Continued atorvastatin 20 mg tablet 20 mg PO HS hydrocodone-acetaminophen 7.5-325 mg tablet 1 tab PO DIRECTED PRN (Reason: Pain) clopidogrel 75 mg Tablet 75 mg PO QAM Qty: 30 3RF multivitamin [Daily-Bret] Tablet 1 tab PO QAM Qty: 30 0RF thiamine HCl (vitamin B1) [Vitamin B-1] 100 mg Tablet 100 mg PO QAM Qty: 30 0RF citalopram 40 mg Tablet 40 mg PO QAM Qty: 0 prednisone 5 mg tablet 5 mg PO QAM Hold Instructions: until done with medrol dose nidia. resume after completion of medrol dose pack gabapentin 800 mg tablet 800 mg PO TID abiraterone 250 mg tablet 1,000 mg PO DAILY lamotrigine 100 mg tablet 50 mg PO BID Discontinued amlodipine 5 mg tablet 5 mg PO DAILY lisinopril 40 mg tablet 40 mg PO DAILY Rx Instructions: per pt, he still takes medication. Last fill 07/28/23 30 day supply Admission Data Admit Date/Time: 09/12/24 06:10 Attending Provider: Neli Hoffmann I. Admit Provider: Rick Bernardo Primary Care Provider: Tay Mckay Other Providers: Rick Bernardo; [facility] Other Interventions: Discharge Summary Assessment (RN) Last Done: 09/13/24 14:10
[2024-09-13 14:38] VITALS: PULSE 69
== END 2024-09-13 14:43 | disposition home health service (06) ==
LOC: ED 03:07 → 2N 03:07

== ENCOUNTER 2024-12-15 16:39 | Inpatient (IN) ==
[2024-12-15 17:10] LABS: Hematocrit (blood only) 33.4 % (42.0-52.0); Hemoglobin 11.2 g/dl (14.0-18.0); Immature Granulocytes # (auto) 0.01 K/uL (0.01-0.20); Immature Granulocytes % (auto) 0.1 %; Mean Corpuscular Hemoglobin 31.7 pg (25.0-34.0); Mean Corpuscular Volume 94.6 fL (80.0-100.0); Platelet Count 300 K/uL (130-400); RDW Standard Deviation 43.5 fL (36.4-46.3); Red Blood Count 3.53 M/uL (4.70-6.10); White Blood Count 7.63 K/ul (4.8-10.8)
--- NOTE | 2024-12-15 17:32 | Emergency Department Note ---
Impression & Plan ANALILIA (acute kidney injury), Acute chest wall pain ED Provider Note NAME: SY THOMAS AGE: 64 SEX: M : 1960 ARRIVES VIA: Ambulance INFORMANT: Patient, ED PROVIDER(S): Milagro Hardwick MD CHIEF COMPLAINT: Left-sided chest pain HPI: This is a 64-year-old male presenting for left-sided chest pain. Patient notes left-sided chest pain started this morning, described as stabbing sensation with is worse upon palpation and breathing. Reports no recent falls. He reports no fevers, chills, cough. No nausea, vomiting. No leg swelling. He reports due to stroke 2002 with residual deficits. ROS: See above HPI for pertinent positives & negatives. A total of 10 systems reviewed and were otherwise negative. PAST MEDICAL HISTORY: See Below PAST SURGICAL HISTORY: See Below FAMILY HISTORY: See Below SOCIAL HISTORY: See Below HOME MEDICATIONS: See Below ALLERGIES: See Below VITALS: See Below PHYSICAL EXAMINATION: General: resting comfortably in no acute distress Head: Normocephalic and atraumatic Eyes: Normal inspection, extraocular muscles intact Ear, nose, throat: Normal external exam Neck: Normal range of motion Respiratory: lungs clear to auscultation bilaterally Cardiovascular: Regular rate/rhythm, no murmur GI: soft, nontender, no guarding or rebound Extremities: nontender, moves all extremities Neuro: The patient awake and alert, appropriately conversive, symmetric facies Skin: Warm, dry, and intact MEDICAL DECISION MAKING: this is a pleasant 64-year-old male presenting for left-sided chest pain. Patient appears clinically well, will do Screening ACS workup which includes D- dimer. - No significant leukocytosis or anemia. Electrolytes within normal limits over does reveal a creatinine 3.49 which is significantly elevated from baseline of 1.3. - Due to ANAILLIA, unable to pursue CT imaging at this time. Clinically have low concern of this as patient has negative troponin, no hypoxia, tachycardia. -However patient will require admission for his new new ANALILIA and chest pain. Low concern for acute SC with negative troponin, reassuring EKG. Does not appear septic otherwise - Care discussed with Dr. Lin for admission Differential diagnosis: ACS, PE, sepsis, pneumonia, pneumothorax Diagnostics interpreted by me: ECG: ECG independently interpreted by me with normal sinus rhythm, rate of 62, incomplete right bundle branch block normal PA, normal QTc, no ST segment elevations consistent with STEMI criteria Cardiac Monitoring: An order was placed for continuous cardiac monitoring. The monitor shows a rate of 63 with sinus rhythm. Past Med/Surg History Problem List (Updated 12/15/24 @ 23:44 by Milagro Hardwick MD) Chest pain Hypotension ANALILIA (acute kidney injury) (Acute) Dizziness (Acute) Acute chest wall pain (Acute) Postlaminectomy syndrome of lumbosacral region Chronic pain syndrome Staghorn calculus Ambulatory dysfunction (Acute) Fall (Acute) Pontine lesion Right leg weakness (Acute) HTN (hypertension) (Acute) Social History Smoking Status: Former smoker Tobacco Type: Cigarettes and Pipe Second Hand Exposure: No; Do You Dip or Chew Tobacco: No; Hx Alcohol Use: Yes Alcohol type: beer Hx Substance Use: No Preferred Language: Lithuanian Communication Ability: Impaired 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 Beliefs That Will Affect Care: None marital status: Current Living Situation: Significant Other Current Living Situation Comment: home w/ partner Feels Safe at Home: Yes Safety Concerns: Feels Safe At This Time Assistive Devices: Cane, Glasses and Walker Allergies Allergies Allergy/AdvReac Type Severity Reaction Status Date / Time No Known Allergies Allergy Severe Verified 07/30/20 21:51 Home Meds Home Medications Medication Instructions Recorded Confirmed abiraterone 250 mg tablet 1,000 mg PO DAILY 12/15/24 12/15/24 amlodipine 5 mg tablet 5 mg PO DAILY 12/15/24 12/15/24 atorvastatin 20 mg tablet 20 mg PO DAILY 12/15/24 12/15/24 citalopram 40 mg tablet 40 mg PO DAILY 12/15/24 12/15/24 clopidogrel 75 mg tablet 75 mg PO DAILY 12/15/24 12/15/24 gabapentin 800 mg tablet 800 mg PO TID 12/15/24 12/15/24 hydrocodone 5 mg-acetaminophen 325 1 tab PO Q6H PRN Pain 12/15/24 12/15/24 mg tablet lamotrigine 100 mg tablet 50 mg PO BID 12/15/24 12/15/24 multivitamin 1 tab PO DAILY 12/15/24 12/15/24 Results & Data (ED) Vital Signs Vital Signs - 24 hr 12/15/24 16:20 12/15/24 16:51 12/15/24 17:30 Temperature 36.8 C Temperature Source Oral Pulse Rate 59 L 62 60 Pulse Rate from SpO2 Sensor Pulse Rhythm Regular Pulse Strength Normal Respiratory Rate 17 20 Respiratory Effort / Characteristics Non-Labored Respiratory Depth Normal Respiratory Pattern Regular Blood Pressure 141/80 H 131/76 Blood Pressure Mean 100 94 Blood Pressure Position Sitting Pulse Oximetry 97 97 Oxygen Delivery Method Room Air Room Air Sepsis Recent Fever Within 48 Hours No Sepsis New/Unexplained Change in Mental Status No Sepsis Action Taken by Nursing No Action Required 12/15/24 17:30 12/15/24 17:30 12/15/24 17:30 Temperature Temperature Source Pulse Rate Pulse Rate from SpO2 Sensor Pulse Rhythm Pulse Strength Respiratory Rate Respiratory Effort / Characteristics Respiratory Depth Respiratory Pattern Blood Pressure 131/76 131/76 131/76 Blood Pressure Mean 94 94 94 Blood Pressure Position Pulse Oximetry Oxygen Delivery Method Sepsis Recent Fever Within 48 Hours Sepsis New/Unexplained Change in Mental Status Sepsis Action Taken by Nursing 12/15/24 17:30 12/15/24 17:30 12/15/24 17:41 Temperature Temperature Source Pulse Rate 58 L 61 Pulse Rate from SpO2 Sensor 59 L Pulse Rhythm Pulse Strength Respiratory Rate 16 Respiratory Effort / Characteristics Respiratory Depth Respiratory Pattern Blood Pressure 131/76 Blood Pressure Mean 94 Blood Pressure Position Pulse Oximetry 98 Oxygen Delivery Method Sepsis Recent Fever Within 48 Hours Sepsis New/Unexplained Change in Mental Status Sepsis Action Taken by Nursing 12/15/24 17:42 12/15/24 17:51 12/15/24 18:00 Temperature Temperature Source Pulse Rate 58 L 59 L Pulse Rate from SpO2 Sensor 58 L 59 L Pulse Rhythm Pulse Strength Respiratory Rate 15 17 Respiratory Effort / Characteristics Respiratory Depth Respiratory Pattern Blood Pressure 129/75 Blood Pressure Mean 96 Blood Pressure Position Pulse Oximetry 98 98 Oxygen Delivery Method Sepsis Recent Fever Within 48 Hours Sepsis New/Unexplained Change in Mental Status Sepsis Action Taken by Nursing 12/15/24 18:00 12/15/24 18:00 12/15/24 18:00 Temperature Temperature Source Pulse Rate Pulse Rate from SpO2 Sensor Pulse Rhythm Pulse Strength Respiratory Rate Respiratory Effort / Characteristics Respiratory Depth Respiratory Pattern Blood Pressure 129/75 129/75 129/75 Blood Pressure Mean 96 96 96 Blood Pressure Position Pulse Oximetry Oxygen Delivery Method Sepsis Recent Fever Within 48 Hours Sepsis New/Unexplained Change in Mental Status Sepsis Action Taken by Nursing 12/15/24 18:00 12/15/24 18:00 12/15/24 18:12 Temperature Temperature Source Pulse Rate 58 L 60 Pulse Rate from SpO2 Sensor 58 L 60 Pulse Rhythm Pulse Strength Respiratory Rate 15 17 Respiratory Effort / Characteristics Respiratory Depth Respiratory Pattern Blood Pressure 129/75 Blood Pressure Mean 96 Blood Pressure Position Pulse Oximetry 98 98 Oxygen Delivery Method Sepsis Recent Fever Within 48 Hours Sepsis New/Unexplained Change in Mental Status Sepsis Action Taken by Nursing 12/15/24 18:21 12/15/24 18:30 12/15/24 18:30 Temperature Temperature Source Pulse Rate 61 Pulse Rate from SpO2 Sensor 60 Pulse Rhythm Pulse Strength Respiratory Rate 25 H Respiratory Effort / Characteristics Respiratory Depth Respiratory Pattern Blood Pressure 131/73 131/73 Blood Pressure Mean 97 97 Blood Pressure Position Pulse Oximetry 98 Oxygen Delivery Method Sepsis Recent Fever Within 48 Hours Sepsis New/Unexplained Change in Mental Status Sepsis Action Taken by Nursing 12/15/24 18:30 12/15/24 18:30 12/15/24 18:30 Temperature Temperature Source Pulse Rate Pulse Rate from SpO2 Sensor Pulse Rhythm Pulse Strength Respiratory Rate Respiratory Effort / Characteristics Respiratory Depth Respiratory Pattern Blood Pressure 131/73 131/73 131/73 Blood Pressure Mean 97 97 97 Blood Pressure Position Pulse Oximetry Oxygen Delivery Method Sepsis Recent Fever Within 48 Hours Sepsis New/Unexplained Change in Mental Status Sepsis Action Taken by Nursing 12/15/24 18:30 12/15/24 18:42 12/15/24 18:51 Temperature Temperature Source Pulse Rate 61 60 58 L Pulse Rate from SpO2 Sensor 62 60 59 L Pulse Rhythm Pulse Strength Respiratory Rate 15 17 14 Respiratory Effort / Characteristics Respiratory Depth Respiratory Pattern Blood Pressure Blood Pressure Mean Blood Pressure Position Pulse Oximetry 98 99 99 Oxygen Delivery Method Sepsis Recent Fever Within 48 Hours Sepsis New/Unexplained Change in Mental Status Sepsis Action Taken by Nursing 12/15/24 19:00 12/15/24 19:00 12/15/24 19:00 Temperature Temperature Source Pulse Rate 59 L Pulse Rate from SpO2 Sensor 59 L Pulse Rhythm Pulse Strength Respiratory Rate 17 Respiratory Effort / Characteristics Respiratory Depth Respiratory Pattern Blood Pressure 130/78 130/78 Blood Pressure Mean 114 114 Blood Pressure Position Pulse Oximetry 98 Oxygen Delivery Method Sepsis Recent Fever Within 48 Hours Sepsis New/Unexplained Change in Mental Status Sepsis Action Taken by Nursing 12/15/24 19:00 12/15/24 19:00 12/15/24 19:00 Temperature Temperature Source Pulse Rate Pulse Rate from SpO2 Sensor Pulse Rhythm Pulse Strength Respiratory Rate Respiratory Effort / Characteristics Respiratory Depth Respiratory Pattern Blood Pressure 130/78 130/78 130/78 Blood Pressure Mean 114 114 114 Blood Pressure Position Pulse Oximetry Oxygen Delivery Method Sepsis Recent Fever Within 48 Hours Sepsis New/Unexplained Change in Mental Status Sepsis Action Taken by Nursing 12/15/24 19:12 12/15/24 19:21 12/15/24 19:30 Temperature Temperature Source Pulse Rate 59 L 65 63 Pulse Rate from SpO2 Sensor 59 L Pulse Rhythm Pulse Strength Respiratory Rate 19 17 20 Respiratory Effort / Characteristics Respiratory Depth Respiratory Pattern Blood Pressure Blood Pressure Mean Blood Pressure Position Pulse Oximetry 97 Oxygen Delivery Method Sepsis Recent Fever Within 48 Hours Sepsis New/Unexplained Change in Mental Status Sepsis Action Taken by Nursing 12/15/24 19:42 Temperature Temperature Source Pulse Rate 63 Pulse Rate from SpO2 Sensor 63 Pulse Rhythm Pulse Strength Respiratory Rate 23 Respiratory Effort / Characteristics Respiratory Depth Respiratory Pattern Blood Pressure Blood Pressure Mean Blood Pressure Position Pulse Oximetry 99 Oxygen Delivery Method Sepsis Recent Fever Within 48 Hours Sepsis New/Unexplained Change in Mental Status Sepsis Action Taken by Nursing Laboratory Data 12/15/24 16:46 12/15/24 19:23 Lab Results 12/15/24 12/15/24 12/15/24 Range/Units 16:46 18:22 19:23 WBC 7.63 (4.8-10.8) K/ul RBC 3.53 L (4.70-6.10) M/uL Hgb 11.2 L (14.0-18.0) g/dl POC Hgb (14.0-18.0) g/dl Hct 33.4 L (42.0-52.0) % POC Hct (42-52) % MCV 94.6 (80.0-100.0) fL MCH 31.7 (25.0-34.0) pg MCHC 33.5 (32.0-36.0) g/dL RDW Std Deviation 43.5 (36.4-46.3) fL RDW Coeff of Jamarcus 12.5 (11.5-14.5) % Plt Count 300 (130-400) K/uL MPV 11.0 (9.4-12.4) fL Immature Gran % (Auto) 0.1 % Neut % (Auto) 72.4 % Lymph % (Auto) 12.5 % Kenton % (Auto) 8.0 % Eos % (Auto) 6.3 % Baso % (Auto) 0.7 % Neut # (Auto) 5.53 (1.40-6.50) K/uL Lymph # (Auto) 0.95 L (1.20-3.40) K/uL Kenton # (Auto) 0.61 H (0.11-0.59) K/uL Eos # (Auto) 0.48 (0.00-0.50) K/uL Baso # (Auto) 0.05 (0.00-0.20) K/uL Immature Gran # (Auto) 0.01 (0.01-0.20) K/uL D-Dimer 2290 H* (0-500) ug/L FEU POC Sodium (135-144) mmol/L Sodium 140 (136-145) mmol/L POC Potassium (3.3-5.0) mmol/L Potassium TNP TNP 4.7 POC Chloride (101-112) mmol/L Chloride 106 (98-107) mmol/L Carbon Dioxide 27 (21-32) mmol/L POC Total CO2 (24-31) mmol/L Anion Gap 7 (3-11) POC Anion Gap (16-25) mmol/L POC BUN (7-18) mg/dl BUN 45 H (6-23) mg/dl Creatinine 3.49 H (0.6-1.4) mg/dl POC Creatinine (0.6-1.3) mg/dl Est Cr Clr Drug Dosing 23.6 ml/min eGFR 18.64 BUN/Creatinine Ratio 12.9 (10-20) Glucose 96 (70-99(Fasting)) mg/dl POC Glucose (other) (70-99) mg/dl Calcium 9.3 (8.6-10.3) mg/dl POC Ioniz Calcium Chanel (1.12-1.32) mmol/l Total Bilirubin 0.6 (0.2-1.0) mg/dl AST TNP TNP 9 L ALT 3 L (7-52) U/L Alkaline Phosphatase 126 H (34-104) U/L Troponin I High Sens 4.6 5.6 (0-20) pg/ml Total Protein 7.2 (6.0-8.3) gm/dl Albumin 4.1 (3.4-5.0) gm/dl Globulin 3.1 (2.5-4.0) gm/dl Albumin/Globulin Ratio 1.3 (0.9-2) Lipase 24 (11-82) U/L 12/15/24 Range/Units 19:43 WBC (4.8-10.8) K/ul RBC (4.70-6.10) M/uL Hgb (14.0-18.0) g/dl POC Hgb 12.9 L (14.0-18.0) g/dl Hct (42.0-52.0) % POC Hct 38 L (42-52) % MCV (80.0-100.0) fL MCH (25.0-34.0) pg MCHC (32.0-36.0) g/dL RDW Std Deviation (36.4-46.3) fL RDW Coeff of Jamarcus (11.5-14.5) % Plt Count (130-400) K/uL MPV (9.4-12.4) fL Immature Gran % (Auto) % Neut % (Auto) % Lymph % (Auto) % Kenton % (Auto) % Eos % (Auto) % Baso % (Auto) % Neut # (Auto) (1.40-6.50) K/uL Lymph # (Auto) (1.20-3.40) K/uL Kenton # (Auto) (0.11-0.59) K/uL Eos # (Auto) (0.00-0.50) K/uL Baso # (Auto) (0.00-0.20) K/uL Immature Gran # (Auto) (0.01-0.20) K/uL D-Dimer (0-500) ug/L FEU POC Sodium 140 (135-144) mmol/L Sodium (136-145) mmol/L POC Potassium 4.7 (3.3-5.0) mmol/L Potassium POC Chloride 110 (101-112) mmol/L Chloride (98-107) mmol/L Carbon Dioxide (21-32) mmol/L POC Total CO2 23 L (24-31) mmol/L Anion Gap (3-11) POC Anion Gap 12.0 L (16-25) mmol/L POC BUN 42 H (7-18) mg/dl BUN (6-23) mg/dl Creatinine (0.6-1.4) mg/dl POC Creatinine 3.9 H (0.6-1.3) mg/dl Est Cr Clr Drug Dosing ml/min eGFR BUN/Creatinine Ratio (10-20) Glucose (70-99(Fasting)) mg/dl POC Glucose (other) 80 (70-99) mg/dl Calcium (8.6-10.3) mg/dl POC Ioniz Calcium Chanel 1.06 L (1.12-1.32) mmol/l Total Bilirubin (0.2-1.0) mg/dl AST ALT (7-52) U/L Alkaline Phosphatase (34-104) U/L Troponin I High Sens (0-20) pg/ml Total Protein (6.0-8.3) gm/dl Albumin (3.4-5.0) gm/dl Globulin (2.5-4.0) gm/dl Albumin/Globulin Ratio (0.9-2) Lipase (11-82) U/L Administered Medications Heparin Sodium (Porcine) (Heparin Sod 5,000 Unit/0.5 Ml Vial) 5,000 units SQ Q8 KOKI Stop: 01/14/25 22:37 Last Admin: 12/15/24 23:15 Dose: 5,000 units Documented By: FRANCINE Sodium Chloride (Nss) 1,000 mls @ 50 mls/hr IV .Q20H [facility] Stop: 12/18/24 22:37 Last Admin: 12/15/24 23:10 Dose: 50 mls/hr Documented By: FRANCINE Morphine Sulfate (Morphine Sulfate 4 Mg/Ml 1 Ml Carp\Vial) 2 mg IV Q30M PRN PRN Reason: Chest Pain Stop: 12/29/24 22:37 Last Admin: 12/15/24 23:26 Dose: 2 mg Documented By: FRANCINE Nitroglycerin (Nitroglycerin Sl 0.4 Mg/Tab Tab) 0.4 mg SL Q5M PRN PRN Reason: Chest Pain Stop: 01/14/25 22:37 Last Admin: 12/15/24 23:14 Dose: 0.4 mg Documented By: FRANCINE Discontinued Medications Hydromorphone HCl (Hydromorphone Inj 0.5 Mg/0.5 Ml Syr) 0.25 mg IV NOW STA Stop: 12/15/24 19:53 Last Admin: 12/15/24 20:27 Dose: 0.25 mg Documented By: marie Sodium Chloride (Nss) 1,000 mls @ 999 mls/hr IV .Q1H1M ONE Stop: 12/15/24 20:30 Last Infusion: 12/15/24 23:10 Dose: Infused Documented By: Admin: 12/15/24 19:33 Dose: 999 mls/hr Documented By: marie Imaging Data Radiologist's Impression: Chest X-Ray 12/15/24 16:47 EXAM: X-ray chest one-view portable CLINICAL HISTORY: Chest pain PRIORS: 09/12/2024 radiograph, CT 11/22/2023 TECHNIQUE: Frontal view chest FINDINGS: The chest is well-expanded. Elevation of the left hemidiaphragm again noted. Moderate left pleural effusion also demonstrated. No airspace consolidation. Heart size is top normal. No pneumothorax. Trachea is patent. Osseous structures demonstrate no acute abnormality. No radiopaque foreign body. IMPRESSION: Left pleural effusion. ACT 112: Positive. There are findings on this examination that require communication between the performing entity and the patient following Patient Test Result Information Act ([place] ACT 112) guidelines. Electronically signed by Wanda Mejia 12-15-2024 6:10 PM Discharge Plan Visit Data Chief Complaint: Chest Pain Stated Complaint: CHEST PAIN ED Provider: Milagro Hardwick Discharge Problem: ANALILIA (acute kidney injury), Acute chest wall pain Patient Disposition: Admitted As Inpatient Condition: Fair Discharge Instructions Interventions: ED Discharge Assessment Last Done: 12/15/24 20:59
[2024-12-15 17:42] LABS: Alanine Aminotransferase 3 U/L (7-52); Albumin Globulin Ratio 1.3 (0.9-2); Albumin Level 4.1 gm/dl (3.4-5.0); Alkaline Phosphatase 126 U/L (34-104); Anion Gap 7 (3-11); Bilirubin,Total 0.6 mg/dl (0.2-1.0); Blood Urea Nitrogen 45 mg/dl (6-23); Calcium 9.3 mg/dl (8.6-10.3); Carbon Dioxide 27 mmol/L (21-32); Chloride 106 mmol/L (98-107); Creatinine Clr Calc Pharmacy 23.6 ml/min; Globulin 3.1 gm/dl (2.5-4.0); Glucose 96 mg/dl (70-99(Fasting)); Lipase 24 U/L (11-82); Sodium 140 mmol/L (136-145); Total Protein 7.2 gm/dl (6.0-8.3)
--- NOTE | 2024-12-15 18:10 | XRay Report ---
EXAM: X-ray chest one-view portable CLINICAL HISTORY: Chest pain PRIORS: 09/12/2024 radiograph, CT 11/22/2023 TECHNIQUE: Frontal view chest FINDINGS: The chest is well-expanded. Elevation of the left hemidiaphragm again noted. Moderate left pleural effusion also demonstrated. No airspace consolidation. Heart size is top normal. No pneumothorax. Trachea is patent. Osseous structures demonstrate no acute abnormality. No radiopaque foreign body. IMPRESSION: Left pleural effusion. ACT 112: Positive. There are findings on this examination that require communication between the performing entity and the patient following Patient Test Result Information Act ([place] ACT 112) guidelines. Electronically signed by Wanda Mejia 12-15-2024 6:10 PM
[2024-12-15] MEDS: SODIUM CHLORIDE 0.9% 1,000 ML IV ONE (19:33)
[2024-12-15] MEDS: HYDROmorphone INJ 0.5 MG/0.5 ML SYR IV STA (20:27)
--- NOTE | 2024-12-15 20:45 | History & Physical Report ---
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 Patient states since the morning 8 AM he is having left-sided chest pain constant pain. Severe in nature. No radiation. Also has shortness of breath. The pain is more when taking deep breath. No cough. No fevers. No headache. No runny nose or sore throat. No earaches. No nausea. No abdominal pain. Normal bowel and bladder movements. Hemodynamics are okay. Chest pain Pain more on taking deep breath Also has shortness of breath Hemodynamics okay and saturating okay on room air EKG okay. Two troponins negative Will follow serial enzymes and echo N.p.o. after midnight Also follow CT chest Monitor in telemetry Cardiac consult in a.m. for further commendation Elevated D-dimer Lower EXTR Doppler negative Will follow VQ scan ANALILIA Baseline creatinine 1.4 Presented with creatinine 3.4 Will hold lisinopril Patient states current is not taking Motrin History of kidney stones CT abdomen and pelvis showing migration of staghorn calculus to right UVJ Gentle fluids Follow repeat labs in a.m. Will follow UA Nephrology consult and urology consult Hypertension Patient in September 2024 admitted for dizziness and found to have hypotension Amlodipine and lisinopril where held at discharge Amlodipine was restarted by PCP as blood pressure was running high as outpatient on follow-up appointment Patient states he also taking lisinopril now Holding lisinopril. Continue amlodipine Monitor History of renal calculi Staghorn calculus of the right renal pelvis resulting mild hydronephrosis on previous CAT scan and also 1.4 cm calculus in the left renal pelvis resulting mild pelvocaliectasis CT of the abd/pelvis showing: "migration of the previously noted stone in the right renal pelvis, with the 2 cm long stone no impacted at the UPJ with moderate right hydronephrosis and perinephric fat stranding". Urology consulted and appreciate inputs History of CVA Right-sided weakness On Plavix and statin Hyperlipidemia On statin History of left carotid endarterectomy On statin and Plavix Depression On citalopram History of prostate cancer On Zytiga and prednisone Follows with heme-onc History of 2 back surgeries Chronic pain On gabapentin and hydrocodone as needed Anemia Chronic Hemoglobin 11.2. Seems around baseline Will follow labs DVT prophylaxis Heparin subcu Disposition Telemetry Full code. 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 Patient states since the morning 8 AM he is having left-sided chest pain constant pain. Severe in nature. No radiation. Also has shortness of breath. The pain is more when taking deep breath. No cough. No fevers. No headache. No runny nose or sore throat. No earaches. No nausea. No abdominal pain. Normal bowel and bladder movements. Hemodynamics are okay. Past medical history. As mentioned above. Past surgical history. Colonoscopy. Lumbar surgery x 2. Left carotid endarterectomy. Social history. Quit smoking 2002. Smoked 0.5 packs a day for 28 years. Drinks 2 beers daily. Liquor 2 shots daily. No drug use. Family history. Father had diabetes. [place]. Hypertension and stroke. Uncle had [place]. Allergies Allergy/AdvReac Type Severity Reaction Status Date / Time No Known Allergies Allergy Severe Verified 07/30/20 21:51 Home Medications Medication Instructions Recorded Confirmed Type abiraterone 250 mg tablet 1,000 mg PO DAILY 12/15/24 12/15/24 History amlodipine 5 mg tablet 5 mg PO DAILY 12/15/24 12/15/24 History atorvastatin 20 mg tablet 20 mg PO DAILY 12/15/24 12/15/24 History citalopram 40 mg tablet 40 mg PO DAILY 12/15/24 12/15/24 History clopidogrel 75 mg tablet 75 mg PO DAILY 12/15/24 12/15/24 History gabapentin 800 mg tablet 800 mg PO TID 12/15/24 12/15/24 History hydrocodone 5 mg-acetaminophen 325 1 tab PO Q6H PRN Pain 12/15/24 12/15/24 History mg tablet lamotrigine 100 mg tablet 50 mg PO BID 12/15/24 12/15/24 History multivitamin 1 tab PO DAILY 12/15/24 12/15/24 History Past Med/Surg History Problem List Chest pain Hypotension ANALILIA (acute kidney injury) (Acute) Dizziness (Acute) Acute chest wall pain (Acute) Postlaminectomy syndrome of lumbosacral region Chronic pain syndrome Staghorn calculus Ambulatory dysfunction (Acute) Fall (Acute) Pontine lesion Right leg weakness (Acute) HTN (hypertension) (Acute) Social History Smoking Status: Former smoker Tobacco Type: Cigarettes and Pipe Second Hand Exposure: No; Do You Dip or Chew Tobacco: No; Hx Alcohol Use: Yes Alcohol type: beer Hx Substance Use: No Preferred Language: Persian Communication Ability: Impaired 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 ENT- oropharynx clear Neck- supple, no JVD. Lungs- clear to auscultation no wheezing or crackles Heart- regular rate and rhythm; no murmur, no gallop. Abdomen- normal bowel sounds, soft, nontender, no distension Extremities- no pretibial edema, no erythema seen Neuro- alert, oriented PERRL, no facial palsy; no dysarthria; right sided w eakness Results & Data Results & Data Vital Signs (Past 12 Hours) Vital Signs Temp Pulse Resp BP Pulse Ox O2 Del Method 12/15/24 18:30 61 15 98 12/15/24 18:30 13173 12/15/24 18:30 73 12/15/24 18:30 131/73 12/15/24 18:30 13173 12/15/24 18:30 12/15/24 18:21 61 25 H 98 12/15/24 18:12 60 17 98 11/06/25 18:00 58 L 15 98 12/15/24 18:00 129/75 12/15/24 18:00 12975 12/15/24 18:00 129/75 12/15/24 18:00 129/75 12/15/24 18:00 129/12/15/24 17:51 59 L 17 98 12/15/24 17:42 58 L 15 98 12/15/24 17:41 61 12/15/24 17:30 58 L 16 98 12/15/24 17:30 131/12/15/24 17:30 13112/15/24 17:30 13112/15/24 17:30 13112/15/24 17:30 60 20 13112/15/24 16:51 36.8 C 62 17 141/80 H 97 Room Air 12/15/24 16:20 59 L 97 Room Air Diagnostic Findings Laboratory Results WBC 7.63 K/ul (4.8-10.8) 12/15/24 16:46 RBC 3.53 M/uL (4.70-6.10) L 12/15/24 16:46 Hgb 11.2 g/dl (14.0-18.0) L 12/15/24 16:46 POC Hgb 12.9 g/dl (14.0-18.0) L 12/15/24 19:43 Hct 33.4 % (42.0-52.0) L 12/15/24 16:46 POC Hct 38 % (42-52) L 12/15/24 19:43 MCV 94.6 fL (80.0-100.0) 12/15/24 16:46 MCH 31.7 pg (25.0-34.0) 12/15/24 16:46 MCHC 33.5 g/dL (32.0-36.0) 12/15/24 16:46 RDW Std Deviation 43.5 fL (36.4-46.3) 12/15/24 16:46 RDW Coeff of Jamarcus 12.5 % (11.5-14.5) 12/15/24 16:46 Plt Count 300 K/uL (130-400) 12/15/24 16:46 MPV 11.0 fL (9.4-12.4) 12/15/24 16:46 Immature Gran % (Auto) 0.1 % 12/15/24 16:46 Neut % (Auto) 72.4 % 12/15/24 16:46 Lymph % (Auto) 12.5 % 12/15/24 16:46 Beaver % (Auto) 8.0 % 12/15/24 16:46 Eos % (Auto) 6.3 % 12/15/24 16:46 Baso % (Auto) 0.7 % 12/15/24 16:46 Neut # (Auto) 5.53 K/uL (1.40-6.50) 12/15/24 16:46 Lymph # (Auto) 0.95 K/uL (1.20-3.40) L 12/15/24 16:46 Beaver # (Auto) 0.61 K/uL (0.11-0.59) H 12/15/24 16:46 Eos # (Auto) 0.48 K/uL (0.00-0.50) 12/15/24 16:46 Baso # (Auto) 0.05 K/uL (0.00-0.20) 12/15/24 16:46 Immature Gran # (Auto) 0.01 K/uL (0.01-0.20) 12/15/24 16:46 D-Dimer 2290 ug/L FEU (0-500) H* 12/15/24 16:46 POC Sodium 140 mmol/L (135-144) 12/15/24 19:43 Sodium 140 mmol/L (136-145) 12/15/24 16:46 POC Potassium 4.7 mmol/L (3.3-5.0) 12/15/24 19:43 Potassium TNP 12/15/24 18:22 POC Chloride 110 mmol/L (101-112) 12/15/24 19:43 Chloride 106 mmol/L (98-107) 12/15/24 16:46 Carbon Dioxide 27 mmol/L (21-32) 12/15/24 16:46 POC Total CO2 23 mmol/L (24-31) L 12/15/24 19:43 Anion Gap 7 (3-11) 12/15/24 16:46 POC Anion Gap 12.0 mmol/L (16-25) L 12/15/24 19:43 POC BUN 42 mg/dl (7-18) H 12/15/24 19:43 BUN 45 mg/dl (6-23) H 12/15/24 16:46 Creatinine 3.49 mg/dl (0.6-1.4) H 12/15/24 16:46 POC Creatinine 3.9 mg/dl (0.6-1.3) H 12/15/24 19:43 Est Cr Clr Drug Dosing 23.6 ml/min 12/15/24 16:46 eGFR 18.64 12/15/24 16:46 BUN/Creatinine Ratio 12.9 (10-20) 12/15/24 16:46 Glucose 96 mg/dl (70-99(Fasting)) 12/15/24 16:46 POC Glucose (other) 80 mg/dl (70-99) 12/15/24 19:43 Calcium 9.3 mg/dl (8.6-10.3) 12/15/24 16:46 POC Ioniz Calcium Chanel 1.06 mmol/l (1.12-1.32) L 12/15/24 19:43 Total Bilirubin 0.6 mg/dl (0.2-1.0) 12/15/24 16:46 AST TNP 12/15/24 18:22 ALT 3 U/L (7-52) L 12/15/24 16:46 Alkaline Phosphatase 126 U/L (34-104) H 12/15/24 16:46 Troponin I High Sens 4.6 pg/ml (0-20) 12/15/24 16:46 Total Protein 7.2 gm/dl (6.0-8.3) 12/15/24 16:46 Albumin 4.1 gm/dl (3.4-5.0) 12/15/24 16:46 Globulin 3.1 gm/dl (2.5-4.0) 12/15/24 16:46 Albumin/Globulin Ratio 1.3 (0.9-2) 12/15/24 16:46 Lipase 24 U/L (11-82) 12/15/24 16:46 Impressions Chest X-Ray 12/15/24 16:47 EXAM: X-ray chest one-view portable CLINICAL HISTORY: Chest pain PRIORS: 09/12/2024 radiograph, CT 11/22/2023 TECHNIQUE: Frontal view chest FINDINGS: The chest is well-expanded. Elevation of the left hemidiaphragm again noted. Moderate left pleural effusion also demonstrated. No airspace consolidation. Heart size is top normal. No pneumothorax. Trachea is patent. Osseous structures demonstrate no acute abnormality. No radiopaque foreign body. IMPRESSION: Left pleural effusion. ACT 112: Positive. There are findings on this examination that require communication between the performing entity and the patient following Patient Test Result Information Act ([place] ACT 112) guidelines. Electronically signed by Wanda Mejia 12-15-2024 6:10 PM ECG Additional Comments: ECG normal sinus rhythm rate of 63. No significant changes found. QTc 446 Code Status & VTE Plan VTE Prophylaxis Plan VTE Prophylaxis will be ordered: Yes
[2024-12-15 21:02] LABS: Potassium 4.7 mmol/L (3.5-5.1)
--- NOTE | 2024-12-15 22:53 | Ultrasound Report ---
Exam(s): US VENOUS BILATERAL LOWER EXTREMITIES EXAM: US Duplex Bilateral Lower Extremities Veins CLINICAL HISTORY: elevated d dimer. Evaluate for potential DVT. TECHNIQUE: Real-time duplex ultrasound scan of the bilateral lower extremity veins integrating B-mode two-dimensional vascular structure, Doppler spectral analysis, color flow Doppler imaging and compression. COMPARISON: No relevant prior studies available. FINDINGS: Right deep veins: No DVT in the right common femoral, femoral, proximal deep femoral or popliteal veins. The veins demonstrate normal color flow, are normally compressible, with normal phasic flow and/or augmentation response. The interrogated calf veins are patent. Right superficial veins: No thrombus in the saphenofemoral junction. Left deep veins: No DVT in the left common femoral, femoral, proximal deep femoral or popliteal veins. The veins demonstrate normal color flow, are normally compressible, with normal phasic flow and/or augmentation response. The interrogated calf veins are patent. Left superficial veins: No thrombus in the saphenofemoral junction. Soft tissues: No acute findings. No popliteal cyst. IMPRESSION: No evidence for deep vein thrombosis involving the bilateral lower extremities. Electronically signed by: Jay Mccray MD 12/15/24 22:52 PM
--- NOTE | 2024-12-15 22:57 | CT Scan Report ---
Exam(s): CT ABDOMEN + PELVIS Without Contrast EXAM: CT Abdomen and Pelvis Without Intravenous Contrast CLINICAL HISTORY: lilly. hx of kidney stones. TECHNIQUE: Axial computed tomography images of the abdomen and pelvis without intravenous contrast. CTDI is 20.48 mGy and DLP is 1459.13 mGy-cm. Automated exposure control was utilized for the study. A dose lowering technique was utilized adhering to the principles of ALARA. COMPARISON: CT abdomen and pelvis dated 11/22/2023 FINDINGS: Artifacts: Scatter artifact likely related to patient's arm position. Limitations: There is respiratory artifact, which degrades image quality on multiple image slices. Lung bases: Nonspecific subsegmental changes involving the posterior aspect of both lower lobes. No consolidation. Pleural space: Trace left pleural effusion noted in the posterior costophrenic margin. ABDOMEN: Liver: Unremarkable. Gallbladder and bile ducts: Subcentimeter gallstone noted in the posterior gallbladder near the gallbladder neck. The gallbladder is only mildly distended without gallbladder wall thickening. No biliary dilatation. Pancreas: Unremarkable. No ductal dilation. Spleen: Unremarkable. No splenomegaly. Adrenals: Unremarkable. No mass. Kidneys and ureters: There has been interval migration of the previously noted stone in the right renal pelvis, with the 2 cm long stone no impacted at the UPJ with moderate right hydronephrosis and perinephric fat stranding. Additional nonobstructive nephrolithiasis involving the inferior aspect of the right kidney. There is extensive calcifications involving the left kidney which is atrophic in appearance. No left hydronephrosis or left ureteral stones. Stomach and bowel: No evidence for bowel obstruction. Evaluation of the bowel mucosa is slightly limited without contrast; however, no definite focal asymmetry suggested. At least moderate stool burden. No diverticulitis. PELVIS: Appendix: No findings to suggest acute appendicitis. Bladder: Unremarkable. No stones. Reproductive: Unremarkable as visualized. ABDOMEN and PELVIS: Intraperitoneal space: Unremarkable. No free air. No significant fluid collection. Bones/joints: No acute fracture. No dislocation. Soft tissues: Unremarkable. Vasculature: Atherosclerotic disease. No abdominal aortic aneurysm. Lymph nodes: Unremarkable. No enlarged lymph nodes. IMPRESSION: 1. There has been interval migration of the previously noted stone in the right renal pelvis, with the 2 cm long stone no impacted at the UPJ with moderate right hydronephrosis and perinephric fat stranding. 2. Trace left pleural effusion noted in the posterior costophrenic margin. Electronically signed by: Jay Mccray MD 12/15/24 22:56 PM
[2024-12-15] MEDS: SODIUM CHLORIDE 0.9% 1,000 ML IV SCH (23:10)
[2024-12-15] MEDS: NITROGLYCERIN SL 0.4 MG/TAB TAB SL PRN (23:14)
--- NOTE | 2024-12-15 23:14 | CT Scan Report ---
Exam(s): CT CHEST Without Contrast EXAM: CT Chest Without Intravenous Contrast CLINICAL HISTORY: chest pain and sob. TECHNIQUE: Axial computed tomography images of the chest without intravenous contrast. CTDI is 20.48 mGy and DLP is 1459.13 mGy-cm. Automated exposure control was utilized for the study. A dose lowering technique was utilized adhering to the principles of ALARA. COMPARISON: No relevant prior studies available. FINDINGS: Lungs: Dependent subsegmental changes involving the posterior aspect of both lower lobes. Minimal curvilinear changes involving the inferior and posterior lingula. No mass. No consolidation. Pleural space: Trace layering right pleural effusion noted posteriorly at the right lung base. No loculation. No pneumothorax. Heart: Cardiac chambers are normal in size. Prominent coronary artery calcification. No significant pericardial effusion. Bones/joints: Unremarkable. No acute fracture. Soft tissues: Unremarkable. Vasculature: Atherosclerotic disease. Lymph nodes: Unremarkable. No enlarged lymph nodes. IMPRESSION: 1. Trace layering right pleural effusion noted posteriorly at the right lung base. No loculation. 2. Dependent subsegmental changes involving the posterior aspect of both lower lobes. Favor subsegmental atelectasis. Subtle infection of the left lung base is difficult to entirely exclude. Electronically signed by: Jay Mccray MD 12/15/24 23:13 PM
[2024-12-15] MEDS: HEPARIN SOD 5,000 UNIT/0.5 ML VIAL SQ SCH (23:15)
[2024-12-15] MEDS: MoRPHine SULFATE 4 MG/ML 1 ML CARP\\VIAL IV PRN (23:26)
--- NOTE | 2024-12-16 00:47 | Urology Consultation ---
Date of Consultation December 16, 2024 Assessment & Plan (1) Staghorn calculus: Patient has been admitted on the hospitalist service. Urologic recommendations are as follows: The patient had a known staghorn calculus of the right kidney. It appears as though kidney stone may have migrated distally and is now impacted at the ureteropelvic junction The patient is noted to have acute kidney injury therefore recommend holding/avoiding nephrotoxic medications I did discuss with the hospitalist service as the patient came in with chest pain and has an elevated D-dimer they are in the process of evaluating the patient's chest pain from a cardiac standpoint as well as evaluating the patient for pulmonary embolidue to the patient's acute kidney injury they have been limited in the studies they have been able to order (could not do CT scan with intravenous contrast). The patient has had 2 negative troponins but they have ordered an echocardiogram for tomorrow morning as well as a VQ scan Would recommend making the patient n.p.o. for the present time Would recommend following serial labs Urinalysis has been ordered and is pending and we will follow-up for the results of this Will reevaluate the patient the morning of 12/16/2024 to see what his kidney numbers look like and determine if cystoscopic intervention with ureteral stent may be necessary in the interim we will follow along and await results of patient's pending workup described above It Should be noted that at the time of the interview the patient was hemodynamically stable and was nontoxic-appearing and did not appear septiche was normotensive without tachycardia, fever, or leukocytosis History of Present Illness Reason for Consultation: Nephrolithiasis Attending Physician: Josie Fontaine MD History of Present Illness This is a 64-year-old male who presented to the emergency department the evening of 12/15/2024 secondary to left-sided chest pain that started the morning of 12/15/2024. Patient notes it is a stabbing type pain that is located in the left lateral aspect of his chest just above his left flank it is worse with deep inspiration and palpation. The patient says he has a known history of a kidney stone but has never required intervention for it. Currently he denies any back or flank pain. He denies any fevers, shakes, or chills. He notes he is urinating without difficulty and denies any dysuria or hematuria. He has not had any nausea or vomiting. Since arrival to the emergency department patient has had labs and imaging which independent reviewed. Chest x-ray showed concern for a possible left pleural effusion. He had a CT scan of the chest without contrast that showed only trace right pleural effusion. The patient had bilateral lower extremity venous Dopplers that showed no evidence for DVT bilaterally. He also had a CT scan of the abdomen pelvis that showed patient has right-sided hydronephrosis and he has a 2 cm long stone that was impacted at the ureteropelvic junction. No left hydronephrosis or left ureteral stones were noted. Labs including CBC were white blood cell count and platelet count were normal. Hemoglobin and hematocrit were 11.2 and 33.4. He did have an elevated D-dimer to 290. Chemistry profile showed sodium and potassium were normal. His BUN and creatinine were elevated at 45 and 3.4 (review of records shows baseline creatinine over the past year ranges from 0.9-1.7.). At the time of my interview the patient was resting comfortably in bed and he was in no distress Allergies Allergy/AdvReac Type Severity Reaction Status Date / Time No Known Allergies Allergy Severe Verified 07/30/20 21:51 Home Medications Medication Instructions Recorded Confirmed Type abiraterone 250 mg tablet 1,000 mg PO DAILY 12/15/24 12/15/24 History amlodipine 5 mg tablet 5 mg PO DAILY 12/15/24 12/15/24 History atorvastatin 20 mg tablet 20 mg PO DAILY 12/15/24 12/15/24 History citalopram 40 mg tablet 40 mg PO DAILY 12/15/24 12/15/24 History clopidogrel 75 mg tablet 75 mg PO DAILY 12/15/24 12/15/24 History gabapentin 800 mg tablet 800 mg PO TID 12/15/24 12/15/24 History hydrocodone 5 mg-acetaminophen 325 1 tab PO Q6H PRN Pain 12/15/24 12/15/24 History mg tablet lamotrigine 100 mg tablet 50 mg PO BID 12/15/24 12/15/24 History multivitamin 1 tab PO DAILY 12/15/24 12/15/24 History Patient History Social History Smoking Status: Former smoker Tobacco Type: Cigarettes and Pipe Second Hand Exposure: No; Do You Dip or Chew Tobacco: No; Hx Alcohol Use: Yes Alcohol type: beer Hx Substance Use: No Preferred Language: Belarusian Communication Ability: Impaired Exhibition Specialist Required: No Beliefs That Will Affect Care: None marital status: Current Living Situation: Significant Other Current Living Situation Comment: home w/ partner Feels Safe at Home: Yes Safety Concerns: Feels Safe At This Time Assistive Devices: Cane, Glasses and Walker Review of Systems Review of Systems: All systems reviewed & are unremarkable except as noted in HPI & below Physical Exam Constitutional: WD/WN, vitals as above Eyes: no conjunctival abnormality ENMT: Ears: no hearing impairment and no external ear abnormality Mouth: no oropharynx abnormality Neck: trachea midline Respiratory: normal respiratory effort; no respiratory distress and no labored breathing Cardiovascular: Rate/Rhythm: regular rate and regular rhythm Gastrointestinal (Abdomen): Abdomen is soft and nondistended. It is not tender to palpation Musculoskeletal: No calf tenderness Skin: no rashes Neurologic: moves all extremities Psychiatric: A+Ox3, euthymic affect Genitourinary: No CVA tenderness with percussion bilaterally Results & Data Vital Signs (Past 12 Hours) Vital Signs Temp Pulse Pulse Resp BP BP Pulse Ox 12/15/24 23:36 63 12/15/24 22:39 12/15/24 22:39 36.7 C 63 18 182/90 H 96 12/15/24 20:42 63 21 97 12/15/24 20:30 148/76 H 12/15/24 20:30 148/76 H 12/15/24 20:30 148/76 H 12/15/24 20:30 148/76 H 12/15/24 20:30 148/76 H 12/15/24 20:30 65 22 97 12/15/24 20:21 65 18 97 12/15/24 20:12 65 21 98 12/15/24 20:00 152/80 H 12/15/24 20:00 152/80 H 12/15/24 20:00 152/80 H 12/15/24 20:00 152/80 H 12/15/24 20:00 152/80 H 12/15/24 20:00 64 20 99 12/15/24 19:51 69 20 12/15/24 19:42 63 23 99 12/15/24 19:30 63 20 12/15/24 19:21 65 17 12/15/24 19:12 59 L 19 97 12/15/24 19:00 130/78 12/15/24 19:00 130/78 12/15/24 19:00 130/78 12/15/24 19:00 130/78 12/15/24 19:00 130/78 12/15/24 19:00 59 L 17 98 12/15/24 18:51 58 L 14 99 12/15/24 18:42 60 17 99 12/15/24 18:30 61 15 98 12/15/24 18:30 131/73 12/15/24 18:30 131/73 12/15/24 18:30 131/73 12/15/24 18:30 131/73 12/15/24 18:30 131/73 12/15/24 18:21 61 25 H 98 12/15/24 18:12 60 17 98 12/15/24 18:00 58 L 15 98 12/15/24 18:00 129/75 12/15/24 18:00 129/75 12/15/24 18:00 129/75 12/15/24 18:00 129/75 12/15/24 18:00 129/75 12/15/24 17:51 59 L 17 98 12/15/24 17:42 58 L 15 98 12/15/24 17:41 61 12/15/24 17:30 58 L 16 98 12/15/24 17:30 131/76 12/15/24 17:30 131/76 12/15/24 17:30 131/76 12/15/24 17:30 131/76 12/15/24 17:30 60 20 131/76 12/15/24 16:51 36.8 C 62 17 141/80 H 97 12/15/24 16:20 59 L 97 O2 Del Method 12/15/24 23:36 12/15/24 22:39 Room Air 12/15/24 22:39 Room Air 12/15/24 20:42 12/15/24 20:30 12/15/24 20:30 12/15/24 20:30 12/15/24 20:30 12/15/24 20:30 12/15/24 20:30 12/15/24 20:21 12/15/24 20:12 12/15/24 20:00 12/15/24 20:00 12/15/24 20:00 12/15/24 20:00 12/15/24 20:00 12/15/24 20:00 12/15/24 19:51 12/15/24 19:42 12/15/24 19:30 12/15/24 19:21 12/15/24 19:12 12/15/24 19:00 12/15/24 19:00 12/15/24 19:00 12/15/24 19:00 12/15/24 19:00 12/15/24 19:00 12/15/24 18:51 12/15/24 18:42 12/15/24 18:30 12/15/24 18:30 12/15/24 18:30 12/15/24 18:30 12/15/24 18:30 12/15/24 18:30 12/15/24 18:21 12/15/24 18:12 12/15/24 18:00 12/15/24 18:00 12/15/24 18:00 12/15/24 18:00 12/15/24 18:00 12/15/24 18:00 12/15/24 17:51 12/15/24 17:42 12/15/24 17:41 12/15/24 17:30 12/15/24 17:30 12/15/24 17:30 12/15/24 17:30 12/15/24 17:30 12/15/24 17:30 12/15/24 16:51 Room Air 12/15/24 16:20 Room Air PG Care Time/CCT Total # of Minutes Spent Total Time Spent with Patient: Total time spent is greater than 50% in coordination of care (as documented) at patient's floor/unit and/or counseling patient: Coding Level of Care Code 02249 INT INP/OBS CARE 3/75MIN Diagnoses Staghorn calculus N20.0
[2024-12-16 07:41] LABS: Appearance Urine Clear (Clear); Bacteria Urine Automated None Seen (None Seen); Cast Urine Automated 0-2 /lpf (0-2); Epithelial Cell Urine Auto 0-2 /hpf (0-2); Glucose Urine UA Negative (Negative); RBC Urine Automated 0-2 /hpf (0-2); WBC Urine Automated 0-5 /hpf (0-5)
--- NOTE | 2024-12-16 08:35 | Urology Progress Note ---
<Statement entered by Valente Chilel MD - 12/16/24 13:27> Chart reviewed Patient assessed plan reviewed and agree as written. Would tentatively plan for management of stones as outpatient starting on right side with staged ureteroscopy laser lithotripsy stent placement Date of Service December 16, 2024 Assessment & Plan (1) ANALILIA (acute kidney injury): (2) Staghorn calculus: Plan: Patient seen by Dr. Chilel this morning. H/o extensive bilateral renal calculi, with ct scan yesterday showing migration of right renal calculus and moderate hydronephrosis. Cardiology consult/echo pending. VQ scan also ordered. No urological procedure planned at this time. Would recommend follow up as outpatient though for treatment of the stones with ureteroscopy. If he develops fever/chills, recommend transfer to tertiary center for nephr ostomy tube placement. Recommend flomax ANALILIA: labs pending today. Admission and Anticipated Discharge Date Admission Date: December 15, 2024 Subjective 64 year old patient admitted last night with left sided chest pain. Cardiology consult pending today. Echo has been ordered. Has history of bilateral renal calculi. Currently denies flank or abdominal pain. No urinary complaints at this time. Physical Exam Constitutional: no acute distress Respiratory: normal respiratory effort Results & Data Vital Signs (Past 12 Hours) Vital Signs Temp Pulse Pulse Pulse Resp BP BP 12/16/24 08:09 36.9 C 63 18 87/60 L 12/16/24 04:00 36.9 C 61 18 100/61 12/15/24 23:36 63 12/15/24 22:39 12/15/24 22:39 36.7 C 63 18 182/90 H 12/15/24 20:42 63 21 12/15/24 20:30 148/76 H 12/15/24 20:30 148/76 H 12/15/24 20:30 148/76 H 12/15/24 20:30 148/76 H 12/15/24 20:30 148/76 H 12/15/24 20:30 65 22 Pulse Ox O2 Del Method 12/16/24 08:09 94 Room Air 12/16/24 04:00 95 Room Air 12/15/24 23:36 12/15/24 22:39 Room Air 12/15/24 22:39 96 Room Air 12/15/24 20:42 97 11/06/25 20:30 12/15/24 20:30 12/15/24 20:30 12/15/24 20:30 12/15/24 20:30 12/15/24 20:30 97 PG Care Time/CCT Total # of Minutes Spent Total Time Spent with Patient: Total time spent is greater than 50% in coordination of care (as documented) at patient's floor/unit and/or counseling patient: Coding Level of Care Code 38360 SUB INP/OBS CARE 2/35MIN Diagnoses ANALILIA (acute kidney injury) N17.9 Staghorn calculus N20.0
[2024-12-16 08:36] LABS: Anion Gap 9.0 (3-11); Blood Urea Nitrogen 42.0 mg/dl (6-23); Calcium 9.0 mg/dl (8.6-10.3); Carbon Dioxide 22.0 mmol/L (21-32); Chloride 110.0 mmol/L (98-107); Creatinine Clr Calc Pharmacy 24.1 ml/min; Glucose 91.0 mg/dl (70-99(Fasting)); Potassium 4.4 mmol/L (3.5-5.1); Sodium 141.0 mmol/L (136-145)
--- NOTE | 2024-12-16 08:51 | Cardiology Consultation ---
Date of Consultation December 16, 2024 History of Present Illness Reason for Consultation: Chest pain Requesting Physician: Leodan hospitalist Attending Physician: Josie Fontaine MD History of Present Illness HPI: Patient is a 64 year-old HTN, Dyslipidemia, hx of CVA > 20 years ago with chronic right-sided leg brace, chronic pain syndrome s/t cervical disease, malignant neoplasm of prostate that presented with left-sided chest pain. EKG NSR with incomplete Right BBB Rate 62bpm High sensitivity troponin Renal function markedly abnormal D-dimer elevated. Chest CT without contrast completed Allergies Allergy/AdvReac Type Severity Reaction Status Date / Time No Known Allergies Allergy Severe Verified 07/30/20 21:51 Home Medications Medication Instructions Recorded Confirmed Type abiraterone 250 mg tablet 1,000 mg PO DAILY 12/15/24 12/15/24 History amlodipine 5 mg tablet 5 mg PO DAILY 12/15/24 12/15/24 History atorvastatin 20 mg tablet 20 mg PO DAILY 12/15/24 12/15/24 History citalopram 40 mg tablet 40 mg PO DAILY 12/15/24 12/15/24 History clopidogrel 75 mg tablet 75 mg PO DAILY 12/15/24 12/15/24 History gabapentin 800 mg tablet 800 mg PO TID 12/15/24 12/15/24 History hydrocodone 5 mg-acetaminophen 325 1 tab PO Q6H PRN Pain 12/15/24 12/15/24 History mg tablet lamotrigine 100 mg tablet 50 mg PO BID 12/15/24 12/15/24 History multivitamin 1 tab PO DAILY 12/15/24 12/15/24 History Patient History Social History Smoking Status: Former smoker Tobacco Type: Cigarettes and Pipe Second Hand Exposure: No; Do You Dip or Chew Tobacco: No; Hx Alcohol Use: Yes Alcohol type: beer Hx Substance Use: No Preferred Language: Latvian Communication Ability: Impaired Exhibit Builder Required: No Beliefs That Will Affect Care: None marital status: Current Living Situation: Significant Other Current Living Situation Comment: home w/ partner Feels Safe at Home: Yes Safety Concerns: Feels Safe At This Time Assistive Devices: Cane, Glasses and Walker Results & Data Vital Signs (Past 12 Hours) Vital Signs Temp Pulse Pulse Pulse Resp BP Pulse Ox 12/16/24 08:09 36.9 C 63 18 87/60 L 94 12/16/24 04:00 36.9 C 61 18 100/61 95 12/15/24 23:36 63 12/15/24 22:39 12/15/24 22:39 36.7 C 63 18 182/90 H 96 12/15/24 20:42 63 21 97 O2 Del Method 12/16/24 08:09 Room Air 12/16/24 04:00 Room Air 12/15/24 23:36 12/15/24 22:39 Room Air 12/15/24 22:39 Room Air 12/15/24 20:42 PG Care Time/CCT Total # of Minutes Spent Total Time Spent with Patient: Total time spent is greater than 50% in coordination of care (as documented) at patient's floor/unit and/or counseling patient: Coding
--- NOTE | 2024-12-16 10:39 | XCELERA ---
[id number] [id number]
--- NOTE | 2024-12-16 11:32 | Cardiology Consultation ---
Date of Consultation December 16, 2024 Assessment & Plan (1) Chest pain, pleuritic: (2) ANALILIA (acute kidney injury): Plan 64-year-old male with complex history as outlined presented with symptoms of sharp pleuritic pain at least24 hours in duration. No EKG or enzyme findings to suggest myocardial injury or ischemia. Echocardiogram with preserved LV function. No significant valvular disease or pericardial effusion findings notable on presentation of acute renal failure elevated D-dimer and left pleural effusion VQ scan pending Patient does admit to 2 falls in the last 2 weeks without overt injury Impression: Pleuritic chest pain without evidence of myocardial injury or ischemia and preserved LV function. Left pleural effusion noted Recommendations: Continue thromboembolic evaluation. Consider infectious processes given persistent hypotension, acute renal insufficiency History of Present Illness Reason for Consultation: Pleuritic left chest pain Requesting Physician: Leodan toledo ` Attending Physician: Josie Fontaine MD History of Present Illness Patient is a complex 64-year-old male his underlying concerns include 1. 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 Prior left carotid enterectomy 3. Labile hypertension 4. Dyslipidemia 5. Chronic renal insufficiency 6. Renal calculi 7. Prostate carcinoma Patient is referred for evaluation of symptoms of pleuritic pain began at least a day prior to his hospitalization. Notes pain worse on deep inspiration was sharp in nature. No tachypalpitations dizziness or lightheadedness does feel slightly more exertional dyspnea but activities are limited secondary to prior stroke does ambulate with walker. Notes 2 falls within the last 10 days No overt fevers chills or productive cough no worsening edema. Appetite stable. Able to take medications as prescribed Patient presented to ER for evaluation initially mildly hypertensive now hypotensive. Serial EKGs normal, no cardiac enzyme elevation, LV systolic function normal on echocardiogram Laboratory studies notable for acute renal insufficiency, elevated D-dimer Chest x-ray with left pleural effusion Allergies Allergy/AdvReac Type Severity Reaction Status Date / Time No Known Allergies Allergy Severe Verified 07/30/20 21:51 Home Medications Medication Instructions Recorded Confirmed Type abiraterone 250 mg tablet 1,000 mg PO DAILY 12/15/24 12/15/24 History amlodipine 5 mg tablet 5 mg PO DAILY 12/15/24 12/15/24 History atorvastatin 20 mg tablet 20 mg PO DAILY 12/15/24 12/15/24 History citalopram 40 mg tablet 40 mg PO DAILY 12/15/24 12/15/24 History clopidogrel 75 mg tablet 75 mg PO DAILY 12/15/24 12/15/24 History gabapentin 800 mg tablet 800 mg PO TID 12/15/24 12/15/24 History hydrocodone 5 mg-acetaminophen 325 1 tab PO Q6H PRN Pain 12/15/24 12/15/24 History mg tablet lamotrigine 100 mg tablet 50 mg PO BID 12/15/24 12/15/24 History multivitamin 1 tab PO DAILY 12/15/24 12/15/24 History Patient History Social History Smoking Status: Former smoker Tobacco Type: Cigarettes and Pipe Second Hand Exposure: No; Do You Dip or Chew Tobacco: No; Hx Alcohol Use: Yes Alcohol type: beer Hx Substance Use: No Preferred Language: Irish Communication Ability: Impaired Web Assistant Required: No Beliefs That Will Affect Care: None marital status: Current Living Situation: Significant Other Current Living Situation Comment: home w/ partner Feels Safe at Home: Yes Safety Concerns: Feels Safe At This Time Assistive Devices: Cane, Glasses and Walker Review of Systems Review of Systems: All systems reviewed & are unremarkable except as noted in HPI & below Physical Exam Constitutional: + ill appearing; no acute distress Eyes: PERRL, conjunctivae normal, anicteric sclerae ENMT: external ear and nose normal, oropharynx normal Neck: trachea midline, no thyromegaly Respiratory: Auscultation: + diminished lung sounds Cardiovascular: Rate/Rhythm: regular rate and regular rhythm Heart Sounds: normal S1 and normal S2; no murmur and no cardiac rub Vessels: no JVD Gastrointestinal (Abdomen): normal bowel sounds, soft, nontender, no hepatosplenomegaly Musculoskeletal: no cyanosis or clubbing, extremities motor strength 5/5 Neurologic: Right hemiparesis with flaccid right arm Mild expressive aphasia Results & Data Vital Signs (Past 12 Hours) Vital Signs Temp Pulse Pulse Pulse Resp BP Pulse Ox 12/16/24 08:09 36.9 C 63 18 87/60 L 94 12/16/24 04:00 36.9 C 61 18 100/61 95 12/15/24 23:36 63 O2 Del Method 12/16/24 08:09 Room Air 12/16/24 04:00 Room Air 12/15/24 23:36 Laboratory Results Laboratory Results - last 24 hr 12/15/24 12/15/24 12/15/24 16:46 18:22 19:23 WBC 7.63 RBC 3.53 L Hgb 11.2 L POC Hgb Hct 33.4 L POC Hct MCV 94.6 MCH 31.7 MCHC 33.5 RDW Std Deviation 43.5 RDW Coeff of Jamarcus 12.5 Plt Count 300 MPV 11.0 Immature Gran % (Auto) 0.1 Neut % (Auto) 72.4 Lymph % (Auto) 12.5 [place] % (Auto) 8.0 Eos % (Auto) 6.3 Baso % (Auto) 0.7 Neut # (Auto) 5.53 Lymph # (Auto) 0.95 L [place] # (Auto) 0.61 H Eos # (Auto) 0.48 Baso # (Auto) 0.05 Immature Gran # (Auto) 0.01 D-Dimer 2290 H* POC Sodium Sodium 140 POC Potassium Potassium TNP TNP 4.7 POC Chloride Chloride 106 Carbon Dioxide 27 POC Total CO2 Anion Gap 7 POC Anion Gap POC BUN BUN 45 H Creatinine 3.49 H POC Creatinine Est Cr Clr Drug Dosing 23.6 eGFR 18.64 BUN/Creatinine Ratio 12.9 Glucose 96 POC Glucose (other) Calcium 9.3 POC Ioniz Calcium Chanel Total Bilirubin 0.6 AST TNP TNP 9 L ALT 3 L Alkaline Phosphatase 126 H Troponin I High Sens 4.6 5.6 Total Protein 7.2 Albumin 4.1 Globulin 3.1 Albumin/Globulin Ratio 1.3 Lipase 24 Urine Color Urine Appearance Urine pH Ur Specific [place] Urine Protein Urine Glucose (UA) Urine Ketones Urine Blood Urine Nitrite Urine Bilirubin Urine Urobilinogen Ur Leukocyte Esterase Urine WBC (Auto) Urine RBC (Auto) U Hyaline Cast (Auto) U Epithel Cells (Auto) Urine Bacteria (Auto) Urine Comment 12/15/24 12/16/24 12/16/24 19:43 07:30 Unknown WBC RBC Hgb POC Hgb 12.9 L Hct POC Hct 38 L MCV MCH MCHC RDW Std Deviation RDW Coeff of Jamarcus Plt Count MPV Immature Gran % (Auto) Neut % (Auto) Lymph % (Auto) [place] % (Auto) Eos % (Auto) Baso % (Auto) Neut # (Auto) Lymph # (Auto) [place] # (Auto) Eos # (Auto) Baso # (Auto) Immature Gran # (Auto) D-Dimer POC Sodium 140 Sodium 141 POC Potassium 4.7 Potassium 4.4 POC Chloride 110 Chloride 110 H Carbon Dioxide 22 POC Total CO2 23 L Anion Gap 9 POC Anion Gap 12.0 L POC BUN 42 H BUN 42 H Creatinine 3.37 H POC Creatinine 3.9 H Est Cr Clr Drug Dosing 24.1 eGFR 19.44 BUN/Creatinine Ratio 12.5 Glucose 91 POC Glucose (other) 80 Calcium 9.0 POC Ioniz Calcium Chanel 1.06 L Total Bilirubin AST ALT Alkaline Phosphatase Troponin I High Sens Total Protein Albumin Globulin Albumin/Globulin Ratio Lipase Urine Color Yellow Urine Appearance Clear Urine pH 5.0 Ur Specific [place] 1.015 Urine Protein Trace H Urine Glucose (UA) Negative Urine Ketones Trace H Urine Blood Negative Urine Nitrite Negative Urine Bilirubin Negative Urine Urobilinogen Negative Ur Leukocyte Esterase Negative Urine WBC (Auto) 0-5 Urine RBC (Auto) 0-2 U Hyaline Cast (Auto) 0-2 U Epithel Cells (Auto) 0-2 Urine Bacteria (Auto) None Seen Urine Comment Diagnostic Findings Echocardiogram 12/16/2024 Left ventricle is normal in size with mild left hypertrophy and sigmoid septum overall systolic function is normal with normal wall motion EF 60-65% There is grade 1 diastolic dysfunction No significant valvular disease No pericardial effusion ECG Additional Comments: EKG 12/16/2024 normal sinus rhythm with normal tracing at 60 bpm unchanged from prior studies PG Care Time/CCT Total # of Minutes Spent Total Time Spent with Patient: Total time spent is greater than 50% in coordination of care (as documented) at patient's floor/unit and/or counseling patient: Coding Level of Care Code 49188 IN/OBS CONSULT LVL 5,80M Diagnoses Chest pain, pleuritic R07.81 ANALILIA (acute kidney injury) N17.9
--- NOTE | 2024-12-16 11:56 | Nephrology Consultation ---
Date of Consultation December 16, 2024 Assessment & Plan (1) ANALILIA (acute kidney injury): He had Creat of 1.36 just 2 months ago and now has 3.49 and 3.37. he had normal/Slightly high BP on presentation. Currently Low BP this AM. Hold Amlo and Lisinopril. increase IVF to 100 ml/hr. Give empiric Abx--iv ceftriaxone x 1 and do urine C/s also given Staghorn calculi--these are commonly associated with Infection (2) Staghorn calculus: Give empiric Abx--iv ceftriaxone x 1 and do urine C/s also given Staghorn calculi--these are commonly associated with Infection. he does have moderate Hydronephrosis. There is no good alternate explanation for this Significant ANALILIA. unlikely for bere ball to just randomly get severe vol depletion in the absence of Diuretics or any GI Symptoms. Plus he was eating and drinking normally up until yesterday. UA is bland so ATN and other causes like GN are not very likely. reviewed urology note from 12/15 and 12/16. I believe this Hydronephrosis might be the primary cause of ANALILIA here. If labs not substantially better tomorrow would recommend urological procedure to relieve the hydro. if in doubt always better to give benefit of doubt toward relieving the Obstruction. (3) Hypotension: BP low now but was not on Adm. Hold Lisnopril and And also amlodipine Plan Time spent 64 mins History of Present Illness Reason for Consultation: ANALILIA Attending Physician: Josie Fontaine MD History of Present Illness 64/M with h/o Severe Stroke 22 years ago with residual right-sided weakness ambulates using leg brace, HTN, thyroid nodule, malignant neoplasm of prostate, chronic pain syndrome secondary to cervical disc and depression, who lives with his partner came in yesterday because of chest pain and started in the morning 8 AM left-sided chest pain constant pain. Severe in nature. No cough, fever, SOB. worsened with Deep breathing. No fevers. No headache. No runny nose or sore throat. No nausea. No abdominal pain. Normal bowel and bladder movements. Hemodynamics are okay. Making normal urine even now. has h/o renal stone. CT abdomen and pelvis now showing migration of staghorn calculus to right UVJ with moderate hydro. Urology evaluated and suggested outpt workp and management. Labs were abnormal with ANALILIA--Creat 3.49 up from baseline 1.3 just in . Overnight got some iv fluid and creat this am is still 3.37. D dimer high so had Duplex and Vq scan--negative ECHO done and fairly unremarkable. ROS--See HPI. 12 Systems reviewed and is otherwise negative Physical Exam Physical Exam: General-Not in distress MM moist. Neck- supple, no JVD. Lungs- clear to auscultation no wheezing or crackles Heart- regular rate and rhythm; no murmur, no gallop Abdomen- normal bowel sounds, soft, nontender, no distension. No CVA tenderness Extremities- no edema Neuro- alert, oriented right sided weakness Allergies Allergy/AdvReac Type Severity Reaction Status Date / Time No Known Allergies Allergy Severe Verified 07/30/20 21:51 Home Medications Medication Instructions Recorded Confirmed Type abiraterone 250 mg tablet 1,000 mg PO DAILY 12/15/24 12/15/24 History amlodipine 5 mg tablet 5 mg PO DAILY 12/15/24 12/15/24 History atorvastatin 20 mg tablet 20 mg PO DAILY 12/15/24 12/15/24 History citalopram 40 mg tablet 40 mg PO DAILY 12/15/24 12/15/24 History clopidogrel 75 mg tablet 75 mg PO DAILY 12/15/24 12/15/24 History gabapentin 800 mg tablet 800 mg PO TID 12/15/24 12/15/24 History hydrocodone 5 mg-acetaminophen 325 1 tab PO Q6H PRN Pain 12/15/24 12/15/24 History mg tablet lamotrigine 100 mg tablet 50 mg PO BID 12/15/24 12/15/24 History multivitamin 1 tab PO DAILY 12/15/24 12/15/24 History Patient History Social History Smoking Status: Former smoker Tobacco Type: Cigarettes and Pipe Second Hand Exposure: No; Do You Dip or Chew Tobacco: No; Hx Alcohol Use: Yes Alcohol type: beer Hx Substance Use: No Preferred Language: Albanian Communication Ability: Impaired Childcare Center Administrator Required: No Beliefs That Will Affect Care: None marital status: Current Living Situation: Significant Other Current Living Situation Comment: home w/ partner Feels Safe at Home: Yes Safety Concerns: Feels Safe At This Time Assistive Devices: Cane, Glasses and Walker Results & Data Vital Signs (Past 12 Hours) Vital Signs Temp Pulse Pulse Resp BP Pulse Ox O2 Del Method 12/16/24 08:09 36.9 C 63 18 87/60 L 94 Room Air 12/16/24 04:00 36.9 C 61 18 100/61 95 Room Air Laboratory Results CBC, renal Panel and DUpolex and VQ scan. Also CT abd and pelvis.
--- NOTE | 2024-12-16 12:10 | Nuclear Medicine Report ---
NM pul perfusion HISTORY: 64 years-old Male elevated d dimer, sob/chest pain. lilly acute chest pain with shortness of breath COMPARISON: Chest CT 12/15/2024 TECHNIQUE: Perfusion study was obtained following the intravenous demonstration of 5.0 mCi technetium 99 MAA injected through the left arm FINDINGS: Yesterday's chest CT demonstrated trace left pleural effusion with mild bibasilar opacities suggestiv e of atelectasis versus pneumonitis along with mild pulmonary emphysema. No large segmental perfusion defects identified. IMPRESSION: Low probability for pulmonary embolus. ACT 112: Negative or not required by law. The above report was generated using voice recognition software. It may contain grammatical, syntax o r spelling errors. Electronically signed by: Azam Shelton M.D. 12/16/2024 12:09 PM
--- NOTE | 2024-12-16 12:35 | Electrocardiogram Report ---
Test Reason : Blood Pressure : */* mmHG Vent. Rate : 63 BPM Atrial Rate : 63 BPM P-R Int : 170 ms QRS Dur : 82 ms QT Int : 436 ms P-R-T Axes : 29 29 18 degrees QTcB Int : 446 ms Normal sinus rhythm Increased R/S ratio in V1, consider early transition or posterior infarct Abnormal ECG When compared with ECG of 12-Sep-2024 03:17, No significant change was found Confirmed by Jermaine Mittal ([id number]) on 12/16/2024 12:34:59 PM Referred By: REFERRED SELF Confirmed By: Jermaine Mittal
--- NOTE | 2024-12-16 12:43 | Electrocardiogram Report ---
Test Reason : Blood Pressure : */* mmHG Vent. Rate : 62 BPM Atrial Rate : 62 BPM P-R Int : 160 ms QRS Dur : 94 ms QT Int : 430 ms P-R-T Axes : 29 42 19 degrees QTcB Int : 436 ms Normal sinus rhythm Nonspecific ST and T wave abnormality Abnormal ECG When compared with ECG of 15-Dec-2024 16:45, (unconfirmed) No significant change was found Confirmed by Jermaine Mittal ([id number]) on 12/16/2024 12:42:34 PM Referred By: REFERRED SELF Confirmed By: Jermaine Mittal
[2024-12-16] MEDS: cefTRIAXone SODIUM 2,000 MG/50 ML BAG IV SCH (12:45)
--- NOTE | 2024-12-16 12:45 | Electrocardiogram Report ---
Test Reason : Blood Pressure : */* mmHG Vent. Rate : 60 BPM Atrial Rate : 60 BPM P-R Int : 160 ms QRS Dur : 90 ms QT Int : 440 ms P-R-T Axes : 16 34 8 degrees QTcB Int : 440 ms Normal sinus rhythm Nonspecific T wave abnormality Abnormal ECG When compared with ECG of 15-Dec-2024 22:31, (unconfirmed) Non-specific change in ST segment in Anterior leads Confirmed by Jermaine Mittal ([id number]) on 12/16/2024 12:45:14 PM Referred By: REFERRED SELF Confirmed By: Jermaine Mittal
--- NOTE | 2024-12-16 14:26 | Hospitalist Progress Note ---
Date of Service December 16, 2024 Assessment & Plan (1) Chest pain: Plan: 64-year-old male past medical history significant for dyslipidemia, thyroid nodule, hypertension, malignant neoplasm of prostate, chronic pain syndrome secondary to cervical disc, history of stroke 22 years ago with residual right- sided weakness ambulates using leg brace, depression, who lives with his partner comes because of chest pain. Patient states since the morning 8 AM he is having left-sided chest pain constant pain. Severe in nature. No radiation. Also has shortness of breath. The pain is more when taking deep breath. No cough. No fevers. No headache. No runny nose or sore throat. No earaches. No nausea. No abdominal pain. Normal bowel and bladder movements. Hemodynamics are okay. Chest pain Pain more on taking deep breath Also has shortness of breath Hemodynamics okay and saturating okay on room air EKG and serial troponins have been unremarkable for any ACS echo of the heart showedLV is normal in size, mild concentric LVH, basal septum is thickened and angulated consistent with sigmoid septum, LV wall motion is normal with EF of 60 to 65%, grade 1 diastolic dysfunction and there is no significant valvular disease Appreciate cardiology input and recommendation CT of the chest showed trace layering right pleural effusion without any loculation and dependent segmental changes posterior lower lobes favors atelectasis. Subtle infection of the lung bases not excluded VQ scan was low probability for any pulmonary embolism Patient remains otherwise stable and will continue current management Hypotension with history of hypertension He is lisinopril and amlodipine while at hold on recent discharge from the hospital Later on the PCP did restart amlodipine and the patient has been taking lisinopril too Amlodipine and lisinopril are on hold due to low blood pressure Will need to rule out any infection Urine culture has been sent and blood culture has been sent as well He has been started with intravenous ceftriaxone Will also give 500 mL of normal saline bolus for low blood pressure and check a.m. cortisol level Elevated D-dimer Lower EXTR Doppler negative Will follow VQ scan- negative for any pulmonary embolism ANALILIA Baseline creatinine 1.4 Presented with creatinine 3.4 Will hold lisinopril Patient states current is not taking Motrin History of kidney stones CT abdomen and pelvis showing migration of staghorn calculus to right UVJ Gentle fluids BUN and creatinine remain unchanged Appreciate nephrology input and recommendation History of renal calculi Staghorn calculus of the right renal pelvis resulting mild hydronephrosis on previous CAT scan and also 1.4 cm calculus in the left renal pelvis resulting mild pelvocaliectasis CT of the abd/pelvis showing: "migration of the previously noted stone in the right renal pelvis, with the 2 cm long stone no impacted at the UPJ with moderate right hydronephrosis and perinephric fat stranding". Urology consulted and appreciate inputs- appreciate input and recommendation for possible cystoscopy as an inpatient versus outpatient History of CVA Right-sided weakness On Plavix and statin Hyperlipidemia On statin History of left carotid endarterectomy On statin and Plavix Depression On citalopram History of prostate cancer On Zytiga and prednisone Follows with heme-onc History of 2 back surgeries Chronic pain On gabapentin and hydrocodone as needed Anemia Chronic Hemoglobin 11.2. Seems around baseline Will follow labs DVT prophylaxis Heparin subcu Disposition Telemetry Full code. Admission and Anticipated Discharge Date Admission Date: December 15, 2024 Subjective 12/16/2024 The patient was seen and examined medical telemetry not He was admitted with chest pain He remains weak and lethargic and denies any abdominal symptoms Still has minimal chest pain Review of Systems Review of Systems: All systems reviewed and are unremarkable except as noted below Physical Exam Physical Exam: Lying in bed without any acute distress Constitutional: well developed, well nourished, + ill appearing and + obese Eyes: PERRL, conjunctivae normal, anicteric sclerae ENMT: external ear and nose normal, oropharynx normal Neck: trachea midline, no thyromegaly Respiratory: no respiratory distress Auscultation: lungs clear to auscultation bilaterally Cardiovascular: Rate/Rhythm: regular rate and regular rhythm; not tachycardic Heart Sounds: normal S1, normal S2 and + murmur Extremities: no edema Gastrointestinal (Abdomen): Inspection/Auscultation: normal bowel sounds; abdomen not distended Percussion/Palpation: abdomen soft; abdomen nontender ( no tenderness in renal angles) Musculoskeletal: no acute arthritis involving any of the joint Neurologic: alert, awake and oriented x 3. Generally weak but no focal neurodeficit Lymphatic: no cervical or axillary lymphadenopathy Results & Data Results & Data Vital Signs (Past 12 Hours) Vital Signs Temp Pulse Pulse Resp BP Pulse Ox O2 Del Method 12/16/24 08:09 36.9 C 63 18 87/60 L 94 Room Air 12/16/24 04:00 36.9 C 61 18 100/61 95 Room Air Laboratory Results Current Inpatient Medications Acetaminophen (Acetaminophen 325 Mg Tab) 650 mg PO Q4H PRN PRN Reason: Pain or Fever Stop: 01/14/25 22:37 Heparin Sodium (Porcine) (Heparin Sod 5,000 Unit/0.5 Ml Vial) 5,000 units SQ Q8 KOKI Stop: 01/14/25 22:37 Last Admin: 12/16/24 14:09 Dose: 5,000 units Sodium Chloride (Nss) 1,000 mls @ 100 mls/hr IV .Q10H KOKI Stop: 12/18/24 22:37 Last Admin: 12/16/24 14:09 Dose: 100 mls/hr Ceftriaxone Sodium (Rocephin) 2,000 mg in 50 mls @ 100 mls/hr IV Q24H KOKI Stop: 12/23/24 12:29 Last Infusion: 12/16/24 13:55 Dose: Infused Morphine Sulfate (Morphine Sulfate 4 Mg/Ml 1 Ml Carp\\Vial) 2 mg IV Q30M PRN PRN Reason: Chest Pain Stop: 12/29/24 22:37 Last Admin: 12/16/24 03:35 Dose: 2 mg Nitroglycerin (Nitroglycerin Sl 0.4 Mg/Tab Tab) 0.4 mg SL Q5M PRN PRN Reason: Chest Pain Stop: 01/14/25 22:37 Last Admin: 12/15/24 23:14 Dose: 0.4 mg Polyethylene Glycol (Polyethylene (Miralax) 17 Gm Pack) 17 gm PO DAILY PRN PRN Reason: Constipation Stop: 01/14/25 22:37 Medications Administered Current Inpatient Medications Acetaminophen (Acetaminophen 325 Mg Tab) 650 mg PO Q4H PRN PRN Reason: Pain or Fever Stop: 01/14/25 22:37 Heparin Sodium (Porcine) (Heparin Sod 5,000 Unit/0.5 Ml Vial) 5,000 units SQ Q8 KOKI Stop: 01/14/25 22:37 Last Admin: 12/16/24 14:09 Dose: 5,000 units Sodium Chloride (Nss) 1,000 mls @ 100 mls/hr IV .Q10H KOKI Stop: 12/18/24 22:37 Last Admin: 12/16/24 14:09 Dose: 100 mls/hr Ceftriaxone Sodium (Rocephin) 2,000 mg in 50 mls @ 100 mls/hr IV Q24H KOKI Stop: 12/23/24 12:29 Last Infusion: 12/16/24 13:55 Dose: Infused Morphine Sulfate (Morphine Sulfate 4 Mg/Ml 1 Ml Carp\\Vial) 2 mg IV Q30M PRN PRN Reason: Chest Pain Stop: 12/29/24 22:37 Last Admin: 12/16/24 03:35 Dose: 2 mg Nitroglycerin (Nitroglycerin Sl 0.4 Mg/Tab Tab) 0.4 mg SL Q5M PRN PRN Reason: Chest Pain Stop: 01/14/25 22:37 Last Admin: 12/15/24 23:14 Dose: 0.4 mg Polyethylene Glycol (Polyethylene (Miralax) 17 Gm Pack) 17 gm PO DAILY PRN PRN Reason: Constipation Stop: 01/14/25 22:37
[2024-12-16] MEDS: SODIUM CHLORIDE 0.9% 500 ML IV ONE (14:59)
[2024-12-16] MEDS: ACETAMINOPHEN 325 MG TAB PO PRN (20:25)
[2024-12-16] MEDS: MoRPHine SULFATE 4 MG/ML 1 ML CARP\\VIAL IV PRN (20:26)
[2024-12-17 08:48] LABS: Hematocrit (blood only) 30.0 % (42.0-52.0); Hemoglobin 9.7 g/dl (14.0-18.0); Immature Granulocytes # (auto) 0.01 K/uL (0.01-0.20); Immature Granulocytes % (auto) 0.2 %; Mean Corpuscular Hemoglobin 31.3 pg (25.0-34.0); Mean Corpuscular Volume 96.8 fL (80.0-100.0); Platelet Count 254 K/uL (130-400); RDW Standard Deviation 44.7 fL (36.4-46.3); Red Blood Count 3.10 M/uL (4.70-6.10); White Blood Count 5.92 K/ul (4.8-10.8)
[2024-12-17 09:04] LABS: Anion Gap 8.0 (3-11); Blood Urea Nitrogen 46.0 mg/dl (6-23); Calcium 8.6 mg/dl (8.6-10.3); Carbon Dioxide 22.0 mmol/L (21-32); Chloride 112.0 mmol/L (98-107); Creatinine Clr Calc Pharmacy 22.1 ml/min; Glucose 91.0 mg/dl (70-99(Fasting)); Magnesium 2.3 mg/dl (1.7-2.4); Potassium 4.4 mmol/L (3.5-5.1); Sodium 142.0 mmol/L (136-145)
[2024-12-17] MEDS: ABIRATERONE ACETATE PO SCH (09:13)
[2024-12-17] MEDS ORDERED: DEXAMETHASONE SOD INJ 4 MG/ML VIAL ONE (10:15)
[2024-12-17] MEDS ORDERED: LIDOCAINE 2% 2 ML VIAL/AMP(20MG/ML) INFIL ONE (10:15)
[2024-12-17] MEDS ORDERED: ONDANSETRON INJ 2 MG/ML 2 ML VIAL ONE (10:15)
[2024-12-17] MEDS ORDERED: MIDAZOLAM HCL 1 MG/ML 2ML VIAL ONE (10:15)
[2024-12-17] MEDS ORDERED: PROPOFOL IV EMULSION 10 MG/ML 20 ML VIAL IV ONE ×3 (10:15→10:16)
--- NOTE | 2024-12-17 10:25 | Anesthesiology Consultation ---
Date of Service December 17, 2024 Assessment & Plan Chart Review Chart Review: Acceptable Risk for Surgery and Patient NOT seen in Pre Admission Testing Consults Requested none ASA [id number] Proposed Anesthesia Anesthesia Type: General History Surgery Operation Date: 12/17/24 10:30 Proposed Procedures p Cystoscopy; Ureteral Stent Insertion/Removal-Bilateral - Valente Chilel MD Height/Weight Height: 5 ft 9 in Weight: 90.1 kg Allergies Allergy/AdvReac Type Severity Reaction Status Date / Time No Known Allergies Allergy Severe Verified 07/30/20 21:51 Medications Home Medications Medication Instructions Recorded Confirmed Last Taken abiraterone 250 mg tablet 1,000 mg PO DAILY 12/15/24 12/15/24 Unknown amlodipine 5 mg tablet 5 mg PO DAILY 12/15/24 12/15/24 Unknown atorvastatin 20 mg tablet 20 mg PO DAILY 12/15/24 12/15/24 Unknown citalopram 40 mg tablet 40 mg PO DAILY 12/15/24 12/15/24 Unknown clopidogrel 75 mg tablet 75 mg PO DAILY 12/15/24 12/15/24 Unknown gabapentin 800 mg tablet 800 mg PO TID 12/15/24 12/15/24 Unknown hydrocodone 5 mg-acetaminophen 325 1 tab PO Q6H PRN Pain 12/15/24 12/15/24 Unknown mg tablet lamotrigine 100 mg tablet 50 mg PO BID 12/15/24 12/15/24 Unknown multivitamin 1 tab PO DAILY 12/15/24 12/15/24 Unknown Active Medications Generic Name Dose Route Start Last Admin Trade Name Freq PRN Reason Stop Dose Admin Abiraterone Acetate 4 each 12/17/24 09:00 12/17/24 09:13 Abiraterone Acetate PO 01/16/25 08:59 4 each DAILY KOKI Administration Acetaminophen 650 mg 12/15/24 22:38 12/16/24 20:25 Acetaminophen 325 Mg Tab PO 01/14/25 22:37 650 mg Q4H PRN Administration Pain or Fever Heparin Sodium (Porcine) 5,000 units 12/15/24 22:38 12/17/24 05:54 Heparin Sod 5,000 Unit/0.5 Ml Vial SQ 01/14/25 22:37 5,000 units Q8 KOKI Administration Sodium Chloride 1,000 mls @ 100 mls/hr 12/15/24 22:38 12/17/24 10:21 Nss IV 12/18/24 22:37 Infused .Q10H KOKI Infusion Ceftriaxone Sodium 2,000 mg in 50 mls @ 100 mls/hr 12/16/24 12:30 12/16/24 13:55 Rocephin IV 12/23/24 12:29 Infused Q24H KOKI Infusion Morphine Sulfate 2 mg 12/16/24 20:06 12/16/24 20:26 Morphine Sulfate 4 Mg/Ml 1 Ml Carp\Vial IV 12/29/24 22:37 2 mg Q4H PRN Administration Chest Pain Nitroglycerin 0.4 mg 12/15/24 22:38 12/15/24 23:14 Nitroglycerin Sl 0.4 Mg/Tab Tab SL 01/14/25 22:37 0.4 mg Q5M PRN Administration Chest Pain Past Medical History HLD HTN Obesity Hx/o prostate cancer S/P CVA 22 years ago w/ residual right sided hemiparesis Depression CKD w/ new ANALILIA Anemia ASCVD Aorta + carotids + coronary arteries Hydronephrosis S/P Left CEA Exercise / Class Metabolic Activity III < 4 Walking/Shop/Light housework Past Anesthesia History No Hx of Anesthesia Complications and No Family Hx of Anesthesia Complications History of PONV No Hx of PONV and No Hx of Motion Sickness Social History Smoking Status: Former smoker Do You Dip or Chew Tobacco: No Hx Alcohol Use: Yes Alcohol type: beer alcohol intake frequency: 0-2 drinks per day Hx Substance Use: No Physical Exam Vital Signs Last Vital Signs Temp 36.6 C 12/17/24 07:48 Pulse 54 L 12/17/24 07:56 Resp 16 12/17/24 07:48 BP 99/62 L 12/17/24 07:48 Pulse Ox 93 12/17/24 07:48 O2 Del Method Room Air 12/17/24 07:48 Testing Laboratory Results 12/17/24 08:16 12/17/24 08:16 Urine Color Yellow 12/16/24 Unknown Urine Appearance Clear (Clear) 12/16/24 Unknown Urine pH 5.0 (4.5-7.5) 12/16/24 Unknown Ur Specific [place] 1.015 (1.000-1.030) 12/16/24 Unknown Urine Protein Trace (Negative) H 12/16/24 Unknown Urine Glucose (UA) Negative (Negative) 12/16/24 Unknown Urine Ketones Trace (Negative) H 12/16/24 Unknown Urine Nitrite Negative (Negative) 12/16/24 Unknown Ur Leukocyte Esterase Negative (Negative) 12/16/24 Unknown Urine WBC (Auto) 0-5 /hpf (0-5) 12/16/24 Unknown Urine RBC (Auto) 0-2 /hpf (0-2) 12/16/24 Unknown U Hyaline Cast (Auto) 0-2 /lpf (0-2) 12/16/24 Unknown U Epithel Cells (Auto) 0-2 /hpf (0-2) 12/16/24 Unknown Urine Bacteria (Auto) None Seen (None Seen) 12/16/24 Unknown Electrocardiogram Date: 12/16/24 Findings: + NSR @ (@ 60;NS T wave abnormality) Chest X-Ray Date: 12/15/24 Findings: + pleural effusion (left) Echocardiogram Date: 12/09/24 EF: 60% LV Function: normal RWMA: + none Other Findings: + LVH (mild) and + diastolic dysfunction (Grade 1) Valvular Disease: + no significant valvular disease
--- NOTE | 2024-12-17 10:27 | Hospitalist Progress Note ---
Date of Service December 17, 2024 Assessment & Plan (1) Chest pain: Plan: 64-year-old male past medical history significant for dyslipidemia, thyroid nodule, hypertension, malignant neoplasm of prostate, chronic pain syndrome secondary to cervical disc, history of stroke 22 years ago with residual right- sided weakness ambulates using leg brace, depression, who lives with his partner comes because of chest pain. Patient states since the morning 8 AM he is having left-sided chest pain constant pain. Severe in nature. No radiation. Also has shortness of breath. The pain is more when taking deep breath. No cough. No fevers. No headache. No runny nose or sore throat. No earaches. No nausea. No abdominal pain. Normal bowel and bladder movements. Hemodynamics are okay. Chest pain Pain more on taking deep breath Also has shortness of breath Hemodynamics okay and saturating okay on room air EKG and serial troponins have been unremarkable for any ACS echo of the heart showedLV is normal in size, mild concentric LVH, basal septum is thickened and angulated consistent with sigmoid septum, LV wall motion is normal with EF of 60 to 65%, grade 1 diastolic dysfunction and there is no significant valvular disease Appreciate cardiology input and recommendation CT of the chest showed trace layering right pleural effusion without any loculation and dependent segmental changes posterior lower lobes favors atelectasis. Subtle infection of the lung bases not excluded VQ scan was low probability for any pulmonary embolism Patient remains otherwise stable and will continue current management Denies any more chest pain and/or palpitation Hypotension with history of hypertension/ possible UTI He is lisinopril and amlodipine while at hold on recent discharge from the hospital Later on the PCP did restart amlodipine and the patient has been taking lisinopril too Amlodipine and lisinopril are on hold due to low blood pressure Will need to rule out any infection Urine culture has been sent and blood culture has been sent as well He has been started with intravenous ceftriaxone Will also give 500 mL of normal saline bolus for low blood pressure and check a.m. cortisol level Blood pressure remains on the lower side at 99/62Will continue intravenous fluid Urine culture and blood cultures are pending Elevated D-dimer Lower EXTR Doppler negative Will follow VQ scan- negative for any pulmonary embolism ANALILIA Baseline creatinine 1.4 Presented with creatinine 3.4 Will hold lisinopril Patient states current is not taking Motrin History of kidney stones CT abdomen and pelvis showing migration of staghorn calculus to right UVJ Gentle fluids BUN and creatinine remain unchanged Appreciate nephrology input and recommendation Creatinine has gone up and discussed with the urologist and will have the procedure today History of renal calculi Staghorn calculus of the right renal pelvis resulting mild hydronephrosis on previous CAT scan and also 1.4 cm calculus in the left renal pelvis resulting mild pelvocaliectasis CT of the abd/pelvis showing: "migration of the previously noted stone in the right renal pelvis, with the 2 cm long stone no impacted at the UPJ with moderate right hydronephrosis and perinephric fat stranding". Urology consulted and appreciate inputs- appreciate input and recommendation for possible cystoscopy as an inpatient versus outpatient Discussed with the urologist for possible stent placement sometime today History of CVA Right-sided weakness On Plavix and statin Hyperlipidemia On statin History of left carotid endarterectomy On statin and Plavix Depression On citalopram History of prostate cancer On Zytiga and prednisone Follows with heme-onc History of 2 back surgeries Chronic pain On gabapentin and hydrocodone as needed Anemia Chronic Hemoglobin 11.2. Seems around baseline Will follow labs DVT prophylaxis Heparin subcu Disposition Telemetry Full code. Admission and Anticipated Discharge Date Admission Date: December 15, 2024 Subjective 12/16/2024 The patient was seen and examined medical telemetry not He was admitted with chest pain He remains weak and lethargic and denies any abdominal symptoms Still has minimal chest pain 12/17/2024 The patient was seen and examined in medical telemetry unit He has been better and denies any more chest pain Does not have any abdominal pain and has been making out urine Blood pressure remains on the lower side at 99/62 Review of Systems Review of Systems: All systems reviewed and are unremarkable except as noted below Physical Exam Physical Exam: Lying in bed without any acute distress Constitutional: well developed, well nourished, + ill appearing and + obese Eyes: PERRL, conjunctivae normal, anicteric sclerae ENMT: external ear and nose normal, oropharynx normal Neck: trachea midline, no thyromegaly Respiratory: no respiratory distress Auscultation: lungs clear to auscultation bilaterally Cardiovascular: Rate/Rhythm: regular rate and regular rhythm; not tachycardic Heart Sounds: normal S1, normal S2 and + murmur Extremities: no edema Gastrointestinal (Abdomen): Inspection/Auscultation: normal bowel sounds; abdo men not distended Percussion/Palpation: abdomen soft; abdomen nontender ( no tenderness in renal angles) Musculoskeletal: No acute arthritis involving any of the joint Neurologic: normal touch/pain/proprioception, moves all extremities and + focal motor deficit ( has left-sided hemiparesis secondary to prior stroke) Lymphatic: no cervical or axillary lymphadenopathy Results & Data Results & Data Vital Signs (Past 12 Hours) Vital Signs Temp Pulse Pulse Resp BP Pulse Ox O2 Del Method 12/17/24 07:56 54 L 12/17/24 07:48 36.6 C 55 L 16 99/62 L 93 Room Air 12/17/24 02:29 36.9 C 58 L 18 107/66 92 Room Air 12/16/24 23:05 63 96/55 L 12/16/24 22:33 36.9 C 66 20 90/50 L 92 Room Air Laboratory Results Short CBC 12/17/24 Range/Units 08:16 WBC 5.92 (4.8-10.8) K/ul Hgb 9.7 L (14.0-18.0) g/dl Hct 30.0 L (42.0-52.0) % Plt Count 254 (130-400) K/uL BMP 12/17/24 08:16 Sodium 142 Potassium 4.4 Chloride 112 H Carbon Dioxide 22 BUN 46 H Creatinine 3.69 H D Glucose 91 Calcium 8.6 Medications Administered Current Inpatient Medications Abiraterone Acetate (Abiraterone Acetate) 4 each PO DAILY KOKI Stop: 01/16/25 08:59 Last Admin: 12/17/24 09:13 Dose: 4 each Acetaminophen (Acetaminophen 325 Mg Tab) 650 mg PO Q4H PRN PRN Reason: Pain or Fever Stop: 01/14/25 22:37 Last Admin: 12/16/24 20:25 Dose: 650 mg Heparin Sodium (Porcine) (Heparin Sod 5,000 Unit/0.5 Ml Vial) 5,000 units SQ Q8 KOKI Stop: 01/14/25 22:37 Last Admin: 12/17/24 05:54 Dose: 5,000 units Sodium Chloride (Nss) 1,000 mls @ 100 mls/hr IV .Q10H KOKI Stop: 12/18/24 22:37 Last Infusion: 12/17/24 10:21 Dose: Infused Ceftriaxone Sodium (Rocephin) 2,000 mg in 50 mls @ 100 mls/hr IV Q24H KOKI Stop: 12/23/24 12:29 Last Infusion: 12/16/24 13:55 Dose: Infused Morphine Sulfate (Morphine Sulfate 4 Mg/Ml 1 Ml Carp\\Vial) 2 mg IV Q4H PRN PRN Reason: Chest Pain Stop: 12/29/24 22:37 Last Admin: 12/16/24 20:26 Dose: 2 mg Nitroglycerin (Nitroglycerin Sl 0.4 Mg/Tab Tab) 0.4 mg SL Q5M PRN PRN Reason: Chest Pain Stop: 01/14/25 22:37 Last Admin: 12/15/24 23:14 Dose: 0.4 mg Polyethylene Glycol (Polyethylene (Miralax) 17 Gm Pack) 17 gm PO DAILY PRN PRN Reason: Constipation Stop: 01/14/25 22:37
[2024-12-17] MEDS ORDERED: ATROPINE SULFATE 0.1 MG/ML 10ML SYR IV PRN (10:44)
[2024-12-17] MEDS ORDERED: NALOXONE HCL 0.4 MG/1 ML VIAL/CARP IV PRN (10:44)
--- NOTE | 2024-12-17 10:45 | Urology Consultation ---
<Statement entered by Valente Chilel MD - 12/22/24 12:20> Chart reviewed plan reviewed and agree as written. Gradually improving Cr with maximal drainage, ideally would see cr continue to improve while patient voiding spontaneously without catheter. Date of Consultation December 17, 2024 History of Present Illness Allergies Allergy/AdvReac Type Severity Reaction Status Date / Time No Known Allergies Allergy Severe Verified 07/30/20 21:51 Home Medications Medication Instructions Recorded Confirmed Type abiraterone 250 mg tablet 1,000 mg PO DAILY 12/15/24 12/15/24 History amlodipine 5 mg tablet 5 mg PO DAILY 12/15/24 12/15/24 History atorvastatin 20 mg tablet 20 mg PO DAILY 12/15/24 12/15/24 History citalopram 40 mg tablet 40 mg PO DAILY 12/15/24 12/15/24 History clopidogrel 75 mg tablet 75 mg PO DAILY 12/15/24 12/15/24 History gabapentin 800 mg tablet 800 mg PO TID 12/15/24 12/15/24 History hydrocodone 5 mg-acetaminophen 325 1 tab PO Q6H PRN Pain 12/15/24 12/15/24 History mg tablet lamotrigine 100 mg tablet 50 mg PO BID 12/15/24 12/15/24 History multivitamin 1 tab PO DAILY 12/15/24 12/15/24 History L.acidop,casei,lactis,rham-B.lact,nazario 1 cap PO DAILY #7 caps 12/25/24 Rx 625 mg (10 billion cell) capsule (Advanced Probiotic) loperamide 2 mg capsule 2 mg PO Q8H PRN loose stool #10 12/25/24 Rx caps tamsulosin 0.4 mg capsule 0.4 mg PO QAM #30 caps 12/25/24 Rx Patient History Social History Smoking Status: Former smoker Tobacco Type: Cigarettes and Pipe Second Hand Exposure: No; Do You Dip or Chew Tobacco: No; Hx Alcohol Use: Yes Alcohol type: beer Hx Substance Use: No Preferred Language: [place] Communication Ability: Effective Film Painter Required: No Beliefs That Will Affect Care: None marital status: Current Living Situation: Significant Other Current Living Situation Comment: home w/ partner Feels Safe at Home: Yes Assistive Devices: Brace/Splint/Immobilizer and Walker Results & Data Vital Signs (Past 12 Hours) Vital Signs Temp Pulse Pulse Resp BP Pulse Ox O2 Del Method 12/17/24 07:56 54 L 12/17/24 07:48 36.6 C 55 L 16 99/62 L 93 Room Air 12/17/24 02:29 36.9 C 58 L 18 107/66 92 Room Air 12/16/24 23:05 63 96/55 L PG Care Time/CCT Total # of Minutes Spent Total Time Spent with Patient: Total time spent is greater than 50% in coordination of care (as documented) at patient's floor/unit and/or counseling patient: Coding Level of Care Code 18132 IN/OBS CONSULT LVL 2,35M
--- NOTE | 2024-12-17 10:47 | Urology Progress Note ---
Date of Service December 17, 2024 Assessment & Plan Admission and Anticipated Discharge Date Admission Date: December 15, 2024 Subjective doing ok overnight no pain, CTa chest negative and vq scan reportedly low risk VTE, cardiac workup largely negative does have increasing cr with bilateral stone atrophic left kidney right kidney obstructed by large stone. [place] obstruction most likely cause of ANALILIA/ARF at this point and planned for bilateral ureteral stent placement for maximal renal drainage will also place leahy in OR. DW patient risks and benefits agrees to proceed Results & Data Vital Signs (Past 12 Hours) Vital Signs Temp Pulse Pulse Resp BP Pulse Ox O2 Del Method 12/17/24 07:56 54 L 12/17/24 07:48 36.6 C 55 L 16 99/62 L 93 Room Air 12/17/24 02:29 36.9 C 58 L 18 107/66 92 Room Air 12/16/24 23:05 63 96/55 L PG Care Time/CCT Total # of Minutes Spent Total Time Spent with Patient: Total time spent is greater than 50% in coordination of care (as documented) at patient's floor/unit and/or counseling patient: Coding Level of Care Code 46021 SUB INP/OBS CARE 2/35MIN
--- NOTE | 2024-12-17 10:47 | History & Physical Bridge Note ---
Date of Service December 17, 2024 History & Physical Bridge Note I have examined the patient, reviewed the History & Physical and in the interval since the performance of the History & Physical I have noted the following changes of clinical significance: no changes noted
[2024-12-17] MEDS: DIATRIZOATE MEGLUMINE 30% 100ML VIAL INSTIL ONE (11:14)
--- NOTE | 2024-12-17 11:45 | Anesthesiology Progress Note ---
Date of Service December 17, 2024 Anesthesia Post Procedure Vital Signs Vital Signs: Temp Pulse Pulse Pulse Resp BP Pulse Ox 12/17/24 11:40 60 16 125/79 99 12/17/24 11:30 58 L 19 107/61 100 12/17/24 11:25 59 L 12 108/60 100 12/17/24 11:22 36 C L 55 L 12 78/44 L 100 12/17/24 07:56 54 L 12/17/24 07:48 36.6 C 55 L 16 99/62 L 93 12/17/24 02:29 36.9 C 58 L 18 107/66 92 12/16/24 23:05 63 96/55 L 12/16/24 22:33 36.9 C 66 20 90/50 L 92 12/16/24 21:40 61 12/16/24 20:00 12/16/24 19:45 36.6 C 67 20 103/59 L 94 12/16/24 14:28 36.8 C 60 20 130/75 95 12/16/24 12:00 59 L O2 Del Method O2 Flow Rate 12/17/24 11:40 Oxymask 2 12/17/24 11:30 Oxymask 4 12/17/24 11:25 Oxymask 4 12/17/24 11:22 Oxymask 8 12/17/24 07:56 12/17/24 07:48 Room Air 12/17/24 02:29 Room Air 12/16/24 23:05 12/16/24 22:33 Room Air 12/16/24 21:40 12/16/24 20:00 Room Air 12/16/24 19:45 Room Air 12/16/24 14:28 Room Air 12/16/24 12:00 Pain Intensity Left Chest: Pain Intensity: 8 Transfer of Care Handoff Completed per policy Notes Mental Status: alert / awake / arousable Patient Amnestic to Procedure: Yes Nausea / Vomiting: adequately controlled Pain: adequately controlled Airway Patency, RR, SpO2: stable & adequate BP & HR: stable & adequate Hydration State: stable & adequate Anesthetic Complications: no major complications apparent
--- NOTE | 2024-12-17 11:47 | Fluoroscopy Report ---
FL KUB CLINICAL HISTORY: Bilateral stent placement. COMPARISON STUDY: CT of the abdomen and pelvis December 15, 2024. Fluoroscopy time: 14 seconds. Number of fluoroscopic images: 6. Ka,r: 4.36 mGy. FINDINGS: Fluoroscopy was provided during cystoscopy with bilateral ureteral stent insertion. The rig ht ureteral stent is well-positioned. Distal aspect of the left ureteral stent is within the urinary bladder. The proximal aspect of the left ureteral stent is not included on these images. IMPRESSION: Fluoroscopy provided during cystoscopy and bilateral ureteral stent placement. ACT 112: Negative or not required by law. Electronically signed by: Noel Stoddard M.D. 12/17/2024 11:45 AM
--- NOTE | 2024-12-17 11:54 | Post Operative Brief Note ---
PG Immediate Post Op with CF Date of Surgery December 17, 2024 Pre & Post Diagnosis Operation Date: 12/17/24 10:30 Pre-Op Diagnosis: (1) ANALILIA (acute kidney injury) (2) Staghorn calculus Post-Op Diagnosis: (1) ANALILIA (acute kidney injury) (2) Staghorn calculus I identified the patient and participated in the time-out.: Yes Procedure Operation Date: 12/17/24 10:30 Actual Procedures p Cystoscopy with Bilateral Ureteral Stent Insertion(Not Applicable) - Valente Chilel MD Surgeon Valente Chilel MD [employer] na Estimated Blood Loss 2 Findings Consistent with Post-Op Diagnosis bilateral ureteral stents placed positioning confirmed Specimens Specimen Description: No specimen per surgeon Drains Coude Catheter and Other
--- NOTE | 2024-12-17 12:02 | Operative Report ---
PG Post Operative Report Pre & Post Diagnosis Operation Date: 12/17/24 10:30 Pre-Op Diagnosis: (1) ANALILIA (acute kidney injury) (2) Staghorn calculus Post-Op Diagnosis: (1) ANALILIA (acute kidney injury) (2) Staghorn calculus I identified the patient and participated in the time-out.: Yes Procedure Operation Date: 12/17/24 10:30 Actual Procedures p Cystoscopy with Bilateral Ureteral Stent Insertion(Not Applicable) - Valente Chilel MD Surgeon Valente Chilel MD [employer] na Estimated Blood Loss 2 Findings Consistent with Post-Op Diagnosis Specimens none Drains left and right 6 fr x 24 cm ureteral stents, coude catheter Description of Procedure SURGEON: Dr. Chilel WIND TECHNICIAN: N/A PREOPERATIVE DIAGNOSIS: bilateral renal stones, right ureteral stone POSTOPERATIVE DIAGNOSIS: Same PROCEDURE: cystoscopy, bilateral retrograde pyelogram, bilateral ureteral stent placement FINDINGS: 1. bilateral stents placed position correctly strings removed ANESTHESIA: General ESTIMATED BLOOD LOSS: N/A TUBES AND DRAINS: bilateral ureteral stent 6 fr x 24 cm SPECIMENS: none COMPLICATIONS: none INDICATIONS FOR PROCEDURE: See preoperative diagnosis OPERATIVE DETAIL: The patient was prepped and draped in the usual fashion in the operating room. Antibiotics were given prior to starting the procedure. A well lubricated rigid cystoscope was inserted into the urethral meatus and advanced into the bladder. Care was taken to keep the lumen in the center of view. Cystourethroscopy was completed and remarkable for an enlarged prostate. The left and right ureteral orifices were identified in the orthotopic positions. A retrograde pyelogram was performed on the left using a 5 fr open ended catheter, this was notable for a narrow ureter with filling defects in the upper tract consistent with stone. The wire was replaced and a 6 fr x 24 cm ureteral stent was then placed with positioning confirmed visually and fluoroscopically. This process was repeated on the right and that RPG was notable for a filling defect in the proximal left ureter which was able to be passed by contrast. The wire was replaced and a 6 fr x 24 cm ureteral stent was then placed with positioning confirmed visually. All parts of the cystoscope and ureteroscope were removed intact from the patient. An 18 fr coude catheter was placed. The patient tolerated the procedure well. Please note thatI was present for and directly performed all components of the procedure. I attest to the content of the Intraoperative Record and any orders documented therein. Any exceptions are noted below.
[2024-12-17] MEDS: GABAPENTIN 800 MG TAB PO SCH (13:38)
--- NOTE | 2024-12-17 13:51 | Nephrology Progress Note ---
Date of Service December 17, 2024 Assessment & Plan Admission and Anticipated Discharge Date Admission Date: December 15, 2024 Subjective Assessment & Plan (1) ANALILIA (acute kidney injury): He had Creat of 1.36 just 2 months ago and now has 3.49 and 3.37 and today was 3.69 he had normal/Slightly high BP on presentation. Low BP yesterday but now back to normal. taken to OR earlier for b/l stent--I agree. Give empiric Abx--iv ceftriaxone x 1 and do urine C/s also given Staghorn calculi--these are commonly associated with Infection Daily labs.lower IVF to 75/hr. (2) Staghorn calculus: Give empiric Abx--iv ceftriaxone x 1 and do urine C/s also given Staghorn calculi--these are commonly associated with Infection. he does have moderate Hydronephrosis. There is no good alternate explanation for this Significant ANALILIA. unlikely for patients to just randomly get severe vol depletion in the absence of Diuretics or any GI Symptoms. Plus he was eating and drinking normally up until yesterday. UA is bland so ATN and other causes like GN are not very likely. reviewed urology note from 12/15 and 12/16. I believe this Hydronephrosis is the primary cause of ANALILIA here. would recommend urological procedure to relieve the hydro. if in doubt always better to give benefit of doubt toward relieving the Obstruction. (3) Hypotension: BP low now but was not on Adm. Hold Lisnopril and And also amlodipine S--labs got worse despite iVF. Then taken to OR for b/l ureteric stent.'' Physical Exam Physical Exam: General-Not in distress MM moist. Neck- supple, no JVD. Lungs- clear to auscultation no wheezing or crackles Heart- regular rate and rhythm; no murmur, no gallop Abdomen- normal bowel sounds, soft, nontender, no distension. No CVA tenderness Extremities- no edema Neuro- alert, oriented right sided weakness Results & Data Vital Signs (Past 12 Hours) Vital Signs Temp Pulse Pulse Pulse Resp BP Pulse Ox 12/17/24 13:41 36.3 C L 65 16 146/77 H 93 12/17/24 13:12 36.8 C 59 L 16 153/84 H 94 12/17/24 12:56 36.4 C 58 L 16 144/81 H 94 12/17/24 12:42 36.9 C 60 16 156/84 H 93 12/17/24 12:29 36.9 C 60 16 145/83 H 94 12/17/24 12:05 37 C 59 L 21 123/68 94 12/17/24 11:50 59 L 17 122/65 96 12/17/24 11:40 60 16 125/79 99 12/17/24 11:30 58 L 19 107/61 100 12/17/24 11:25 59 L 12 108/60 100 12/17/24 11:22 36 C L 55 L 12 78/44 L 100 12/17/24 07:56 54 L 12/17/24 07:48 36.6 C 55 L 16 99/62 L 93 12/17/24 02:29 36.9 C 58 L 18 107/66 92 O2 Del Method O2 Flow Rate 12/17/24 13:41 Room Air 12/17/24 13:12 Room Air 12/17/24 12:56 Room Air 12/17/24 12:42 Room Air 12/17/24 12:29 Room Air 12/17/24 12:05 Room Air 12/17/24 11:50 Oxymask 2 12/17/24 11:40 Oxymask 2 12/17/24 11:30 Oxymask 4 12/17/24 11:25 Oxymask 4 12/17/24 11:22 Oxymask 8 12/17/24 07:56 12/17/24 07:48 Room Air 12/17/24 02:29 Room Air
[2024-12-17] MEDS: NITROGLYCERIN 2% OINTMENT 30GM TUBE EXT STA (15:55)
[2024-12-17] MEDS: lamoTRIgine 25 MG TAB PO SCH (20:14)
[2024-12-17] MEDS: HYDROCODONE/ACETAMOPHEN 5/325MG TAB PO PRN (21:22)
[2024-12-18 08:16] LABS: Hematocrit (blood only) 30.0 % (42.0-52.0); Hemoglobin 9.9 g/dl (14.0-18.0); Immature Granulocytes # (auto) 0.03 K/uL (0.01-0.20); Immature Granulocytes % (auto) 0.4 %; Mean Corpuscular Hemoglobin 30.9 pg (25.0-34.0); Mean Corpuscular Volume 93.8 fL (80.0-100.0); Platelet Count 275 K/uL (130-400); RDW Standard Deviation 41.8 fL (36.4-46.3); Red Blood Count 3.20 M/uL (4.70-6.10); White Blood Count 7.26 K/ul (4.8-10.8)
[2024-12-18 08:33] LABS: Anion Gap 7.0 (3-11); Blood Urea Nitrogen 49.0 mg/dl (6-23); Calcium 9.0 mg/dl (8.6-10.3); Carbon Dioxide 23.0 mmol/L (21-32); Chloride 111.0 mmol/L (98-107); Creatinine Clr Calc Pharmacy 25.5 ml/min; Glucose 125.0 mg/dl (70-99(Fasting)); Magnesium 2.2 mg/dl (1.7-2.4); Potassium 4.6 mmol/L (3.5-5.1); Sodium 141.0 mmol/L (136-145)
[2024-12-18] MEDS: CITALOPRAM 40 MG TAB PO SCH (09:10)
[2024-12-18] MEDS: CLOPIDOGREL BISULFATE 75 MG TAB PO SCH (09:10)
[2024-12-18] MEDS: ATORVASTATIN 20 MG TAB PO SCH (09:10)
[2024-12-18] MEDS: MULTIVITAMIN TAB PO SCH (09:10)
--- NOTE | 2024-12-18 10:34 | Urology Progress Note ---
Date of Service December 18, 2024 Assessment & Plan Admission and Anticipated Discharge Date Admission Date: December 15, 2024 Subjective Doing well overnight, denies fevers or chills, some urinary complaints bothered by stents and catheter urine a little bit bloody this is unsurprising with recent intervention and bilateral stents + leahy, extensive discussion regarding options going forward, patient is established with Dr. Dolan in town would like to continue care with him after recovering from this acute episode for stone and stent management. Discussed should at least have management of right sided stones as appears right kidney is more functional than left and that right was acutely obstructed precipitating renal failure. Patient understands right kidney likely to fail without stone management and that he would likely be in ESRD at that point. Gen: NAD Psych: Alert and Oriented Abd: Nontender nondistended : leahy in place koolaid urine A/p: Afebrile hd stable 64M with ARF now seems to be improving with b/l ureteral stent placement. Would remove leahy for trial of void and monitor cr one further day to ensure ANALILIA/ARF resolving., - Start flomax and continue as outpatient if tolerated for stent comfort - urine culture negative no further abx needed from gu standpoint - patient prefers to follow with established urologist which is reasonable patient should obtain copy of medical records on dc and call his urologist for sooner appointment to discuss stones and stents - otherwise I am happy to see him in my clinic for further discussion if this cannot be arranged, please call in that case but patients partner Uriel very insistent that patient should not receive further care in this hospital - urology to signoff please call with questions Results & Data Vital Signs (Past 12 Hours) Vital Signs Temp Pulse Pulse Resp BP Pulse Ox O2 Del Method 12/18/24 07:51 36.7 C 52 L 16 125/74 93 Room Air 12/18/24 07:05 53 L 12/18/24 03:00 36.9 C 59 L 18 125/72 95 Room Air 12/17/24 23:08 37.0 C 56 L 18 106/63 94 Room Air PG Care Time/CCT Total # of Minutes Spent Total Time Spent with Patient: Total time spent is greater than 50% in coordination of care (as documented) at patient's floor/unit and/or counseling patient: Coding Level of Care Code 81666 SUB INP/OBS CARE 2/35MIN
--- NOTE | 2024-12-18 11:55 | Nephrology Progress Note ---
Date of Service December 18, 2024 Assessment & Plan Admission and Anticipated Discharge Date Admission Date: December 15, 2024 Subjective Assessment & Plan (1) ANALILIA (acute kidney injury): He had Creat of 1.36 just 2 months ago and now has 3.49 and 3.37 and today was 3.69 he had normal/Slightly high BP on presentation. Low BP yesterday but now back to normal. taken to OR for b/l stent--I agree. On empiric Abx--iv ceftriaxone and do urine C/s also given Staghorn calculi--these are commonly associated with Infection. But urine c/s was negative from 12/16 Daily labs. d/c IVF. he can eat and drink fine. Creat slightly less today than yesterday. made 1475 ml urine. Not clear how much his renal function will improve from here (2) Staghorn calculus: he does have moderate Hydronephrosis. There is no good alternate explanation for this Significant ANALILIA. unlikely for patients to just randomly get severe vol depletion in the absence of Diuretics or any GI Symptoms. Plus he was eating and drinking normally up until yesterday. UA is bland so ATN and other causes like GN are not very likely. reviewed urology note I believe this Hydronephrosis is the primary cause of ANALILIA here. would recommend urological procedure to relieve the hydro. if in doubt always better to give benefit of doubt toward relieving the Obstruction. (3) Hypotension: BP low now but was not on Adm. Hold Lisnopril and And also amlodipine S--labs got worse despite iVF. Then taken to OR for b/l ureteric stent. Now making urine and labs slightly better Physical Exam Physical Exam: General-Not in distress MM moist. Neck- supple, no JVD. Lungs- clear to auscultation no wheezing or crackles Heart- regular rate and rhythm; no murmur, no gallop Abdomen- normal bowel sounds, soft, nontender, no distension. No CVA tenderness Extremities- no edema Neuro- alert, oriented right sided weakness Results & Data Vital Signs (Past 12 Hours) Vital Signs Temp Pulse Pulse Resp BP Pulse Ox O2 Del Method 12/18/24 10:54 36.9 C 61 16 105/67 94 Room Air 12/18/24 07:51 36.7 C 52 L 16 125/74 93 Room Air 12/18/24 07:05 53 L 12/18/24 03:00 36.9 C 59 L 18 125/72 95 Room Air
--- NOTE | 2024-12-18 12:01 | Hospitalist Progress Note ---
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 Patient states since the morning 8 AM he is having left-sided chest pain constant pain. Severe in nature. No radiation. Also has shortness of breath. The pain is more when taking deep breath. No cough. No fevers. No headache. No runny nose or sore throat. No earaches. No nausea. No abdominal pain. Normal bowel and bladder movements. Hemodynamics are okay. Chest pain Pain more on taking deep breath Also has shortness of breath Hemodynamics okay and saturating okay on room air EKG and serial troponins have been unremarkable for any ACS echo of the heart showedLV is normal in size, mild concentric LVH, basal septum is thickened and angulated consistent with sigmoid septum, LV wall motion is normal with EF of 60 to 65%, grade 1 diastolic dysfunction and there is no significant valvular disease Appreciate cardiology input and recommendation CT of the chest showed trace layering right pleural effusion without any loculation and dependent segmental changes posterior lower lobes favors atelectasis. Subtle infection of the lung bases not excluded VQ scan was low probability for any pulmonary embolism Patient remains otherwise stable and will continue current management Denies any more chest pain and/or palpitation Does not have any chest pain and denies any other cardiac symptoms Hypotension with history of hypertension/ possible UTI He is lisinopril and amlodipine while at hold on recent discharge from the [facility] Later on the PCP did restart amlodipine and the patient has been taking lisinopril too Amlodipine and lisinopril are on hold due to low blood pressure Will need to rule out any infection Urine culture has been sent and blood culture has been sent as well He has been started with intravenous ceftriaxone Will also give 500 mL of normal saline bolus for low blood pressure and check a.m. cortisol level Blood pressure remains on the lower side at 99/62Will continue intravenous fluid Blood pressure remains normal Urine and blood cultures have been negative Will continue intravenous ceftriaxone for a total of 5 days Medications for his hypertension has been started only amlodipine for now Elevated D-dimer Lower EXTR Doppler negative Will follow VQ scan- negative for any pulmonary embolism ANALILIA Baseline creatinine 1.4 Presented with creatinine 3.4 Will hold lisinopril Patient states current is not taking Motrin History of kidney stones CT abdomen and pelvis showing migration of staghorn calculus to right UVJ Gentle fluids BUN and creatinine remain unchanged Appreciate nephrology input and recommendation Creatinine has gone up and discussed with the urologist and will have the p rocedure today Creatinine is slightly better following the procedure Flomax has been added as per the urologist History of renal calculi Staghorn calculus of the right renal pelvis resulting mild hydronephrosis on previous CAT scan and also 1.4 cm calculus in the left renal pelvis resulting mild pelvocaliectasis CT of the abd/pelvis showing: "migration of the previously noted stone in the right renal pelvis, with the 2 cm long stone no impacted at the UPJ with moderate right hydronephrosis and perinephric fat stranding". Urology consulted and appreciate inputs- appreciate input and recommendation for possible cystoscopy as an inpatient versus outpatient Discussed with the urologist for possible stent placement sometime today Status post bilateral ureteral stent placement and further management of stones will be done as an outpatient as per the urologist History of CVA Right-sided weakness On Plavix and statin Hyperlipidemia On statin History of left carotid endarterectomy On statin and Plavix Depression On citalopram History of prostate cancer On Zytiga and prednisone Follows with heme-onc History of 2 back surgeries Chronic pain On gabapentin and hydrocodone as needed Anemia Chronic Hemoglobin 11.2. Seems around baseline Will follow labs DVT prophylaxis Heparin subcu Disposition Telemetry Full code. Admission and Anticipated Discharge Date Admission Date: December 15, 2024 Subjective 12/16/2024 The patient was seen and examined medical telemetry not He was admitted with chest pain He remains weak and lethargic and denies any abdominal symptoms Still has minimal chest pain 12/17/2024 The patient was seen and examined in medical telemetry unit He has been better and denies any more chest pain Does not have any abdominal pain and has been making out urine Blood pressure remains on the lower side at 99/62 12/18/2024 The patient was seen and examined in medical telemetry unit He is a status post cystoscopy with bilateral ureteral stent placement on 12/17/2024 Has been feeling much better following the procedure and is still having hematuria Denies any other significant symptoms Review of Systems Review of Systems: All systems reviewed and are unremarkable except as noted below Physical Exam Physical Exam: Lying in bed without any acute distress Constitutional: well developed, well nourished, + ill appearing and + obese Eyes: PERRL, conjunctivae normal, anicteric sclerae ENMT: external ear and nose normal, oropharynx normal Neck: trachea midline, no thyromegaly Respiratory: no respiratory distress Auscultation: lungs clear to auscultation bilaterally Cardiovascular: Rate/Rhythm: regular rate and regular rhythm; not tachycardic Heart Sounds: normal S1, normal S2 and + murmur Extremities: no edema Gastrointestinal (Abdomen): Inspection/Auscultation: normal bowel sounds; abdomen not distended Percussion/Palpation: abdomen soft; abdomen nontender ( no tenderness in renal angles) Musculoskeletal: No acute arthritis involving any of the joint Neurologic: normal touch/pain/proprioception, moves all extremities and + focal motor deficit ( has left-sided hemiparesis secondary to prior stroke) Lymphatic: no cervical or axillary lymphadenopathy Results & Data Results & Data Vital Signs (Past 12 Hours) Vital Signs Temp Pulse Pulse Resp BP Pulse Ox O2 Del Method 12/18/24 10:54 36.9 C 61 16 105/67 94 Room Air 12/18/24 07:51 36.7 C 52 L 16 125/74 93 Room Air 12/18/24 07:05 53 L 12/18/24 03:00 36.9 C 59 L 18 125/72 95 Room Air Laboratory Results Short CBC 12/18/24 Range/Units 07:30 WBC 7.26 (4.8-10.8) K/ul Hgb 9.9 L (14.0-18.0) g/dl Hct 30.0 L (42.0-52.0) % Plt Count 275 (130-400) K/uL BMP 12/18/24 07:30 Sodium 141 Potassium 4.6 Chloride 111 H Carbon Dioxide 23 BUN 49 H Creatinine 3.24 H D Glucose 125 H Calcium 9.0 Medications Administered Current Inpatient Medications Abiraterone Acetate (Abiraterone Acetate) 4 each PO DAILY [facility] Stop: 01/16/25 08:59 Last Admin: 12/18/24 09:11 Dose: 4 each Acetaminophen (Acetaminophen 325 Mg Tab) 650 mg PO Q4H PRN PRN Reason: Pain or Fever Stop: 01/14/25 22:37 Last Admin: 12/17/24 20:12 Dose: 650 mg Hydrocodone Bitart/Acetaminophen (Hydrocodone/Acetamophen 5/325mg Tab) 1 tab PO Q6H PRN PRN Reason: Pain Stop: 12/31/24 12:24 Last Admin: 12/18/24 03:42 Dose: 1 tab Amlodipine Besylate (Amlodipine Besylate 5 Mg Tab) 5 mg PO DAILY [facility] Stop: 01/17/25 08:59 Last Admin: 12/18/24 09:11 Dose: 5 mg Atorvastatin Calcium (Atorvastatin 20 Mg Tab) 20 mg PO DAILY [facility] Stop: 01/17/25 08:59 Last Admin: 12/18/24 09:10 Dose: 20 mg Citalopram Hydrobromide (Citalopram 40 Mg Tab) 40 mg PO DAILY [facility] Stop: 01/17/25 08:59 Last Admin: 12/18/24 09:10 Dose: 40 mg Clopidogrel Bisulfate (Clopidogrel Bisulfate 75 Mg Tab) 75 mg PO DAILY [facility] Stop: 01/17/25 08:59 Last Admin: 12/18/24 09:10 Dose: 75 mg Gabapentin (Gabapentin 800 Mg Tab) 800 mg PO TID [facility] Stop: 01/16/25 13:59 Last Admin: 12/18/24 09:10 Dose: 800 mg Heparin Sodium (Porcine) (Heparin Sod 5,000 Unit/0.5 Ml Vial) 5,000 units SQ Q8 [facility] Stop: 01/14/25 22:37 Last Admin: 12/18/24 05:48 Dose: 5,000 units Ceftriaxone Sodium (Rocephin) 2,000 mg in 50 mls @ 100 mls/hr IV Q24H [facility] Stop: 12/23/24 12:29 Last Infusion: 12/17/24 14:27 Dose: Infused Lamotrigine (Lamotrigine 25 Mg Tab) 50 mg PO BID [facility]; Protocol Stop: 01/16/25 20:59 Last Admin: 12/18/24 09:10 Dose: 50 mg Morphine Sulfate (Morphine Sulfate 4 Mg/Ml 1 Ml Carp\\Vial) 2 mg IV Q4H PRN PRN Reason: Chest Pain Stop: 12/29/24 22:37 Last Admin: 12/17/24 14:25 Dose: 2 mg Multivitamins (Multivitamin Tab) 1 tab PO DAILY [facility] Stop: 01/17/25 08:59 Last Admin: 12/18/24 09:10 Dose: 1 tab Nitroglycerin (Nitroglycerin Sl 0.4 Mg/Tab Tab) 0.4 mg SL Q5M PRN PRN Reason: Chest Pain Stop: 01/14/25 22:37 Last Admin: 12/15/24 23:14 Dose: 0.4 mg Polyethylene Glycol (Polyethylene (Miralax) 17 Gm Pack) 17 gm PO DAILY PRN PRN Reason: Constipation Stop: 01/14/25 22:37 Tamsulosin HCl (Tamsulosin Hcl 0.4 Mg Cap) 0.4 mg PO QAM [facility] Stop: 01/17/25 10:59
[2024-12-18] MEDS: TAMSULOSIN HCL 0.4 MG CAP PO SCH (12:05)
[2024-12-19 08:20] LABS: Anion Gap 7.0 (3-11); Blood Urea Nitrogen 46.0 mg/dl (6-23); Calcium 9.0 mg/dl (8.6-10.3); Carbon Dioxide 23.0 mmol/L (21-32); Chloride 113.0 mmol/L (98-107); Creatinine Clr Calc Pharmacy 25.3 ml/min; Glucose 95.0 mg/dl (70-99(Fasting)); Potassium 4.5 mmol/L (3.5-5.1); Sodium 143.0 mmol/L (136-145)
--- NOTE | 2024-12-19 08:21 | Nephrology Progress Note ---
Date of Service December 19, 2024 Assessment & Plan (1) ANALILIA (acute kidney injury): Plan: He had Creat of 1.36 just 2 months ago. admitted 12/15 w/ creat 3.5, peak of 3.7 on 12/17, down to 3.2 yesterday; today's labs pending and once updated w/ creat 3.3 he had normal/Slightly high BP on presentation. Currently Lower BP this AM, though not severe >> held amlodipine. cont to hold Lisinopril. increased NS to 100 ml/hr yesterday and to continue same rate blood and urine cxs are negative to date >he is 1.3 L negative today >repeat CBC ordered for tomorrrow (2) Staghorn calculus: Plan: cont empiric Abx--iv ceftriaxone x 1 and do urine C/s also given Staghorn calculi--these are commonly associated with Infection. he does have moderate Hydronephrosis. There is no good alternate explanation for this Significant ANALILIA. unlikely for patients to just randomly get severe vol depletion in the absence of Diuretics or any GI Symptoms. Plus he was eating and drinking normally up until yesterday. UA is bland so ATN and other causes like GN are not very likely. s/p BL stent on 12/18 (3) Hypotension: Plan: BP still soft though was not on admission and higher than SBP 70-80s around 12/17 Hold Lisnopril and And also amlodipine>>I put hold order on [facility] Plan Time spent 64 mins Admission and Anticipated Discharge Date Admission Date: December 15, 2024 Subjective s/p stent yesterday pm; tells me he's a bit dizzy w/ position change; no c/o uncontrolled pain or n/v, no sob or diarrhea Review of Systems 2 Review of Systems: All systems reviewed & are unremarkable except as noted in Subjective Physical Exam 2 Constitutional: well developed and well nourished Eyes: EOM intact bilaterally ENMT: Mouth: + dry oral mucous membranes Respiratory: normal respiratory effort Auscultation: + diminished lung sounds Cardiovascular: Rate/Rhythm: + bradycardic (regularly spaced beats in 50s) Gastrointestinal (Abdomen): Inspection/Auscultation: normal bowel sounds P ercussion/Palpation: abdomen soft; abdomen nontender Musculoskeletal: Extremities: strength 5/5 throughout Skin: no rashes, warm and dry Neurologic: reyes, fluent speech, no tremor Genitourinary: leahy w/ heavily sedimented dark red/rust colored urine Results & Data Vital Signs (Past 12 Hours) Vital Signs Temp Pulse Pulse Resp BP Pulse Ox O2 Del Method 12/19/24 08:06 54 L 12/19/24 07:55 36.9 C 56 L 16 106/65 95 Room Air 12/19/24 04:04 36.7 C 82 16 104/62 94 Room Air 12/18/24 23:40 37.1 C 72 16 130/72 98 Room Air 12/18/24 22:04 60 12/18/24 20:30 Room Air Laboratory Results 12/18/24 07:30 12/19/24 07:26
--- NOTE | 2024-12-19 11:38 | Urology Progress Note ---
<Statement entered by Valente Chilel MD - 12/19/24 14:15> Chart reviewed plan reviewed and agree as written. Date of Service December 19, 2024 Assessment & Plan (1) Staghorn calculus: (2) ANALILIA (acute kidney injury): Plan POD #2 s/p Cystoscopy with Bilateral Ureteral Stent Insertion - Pt afebrile, hemodynamically stable - Creatinine- 3.29 (was 3.24 yesterday) - Urine culture negative; Blood culture prelim no growth x48 hours - Padron intact and draining pink urine - Maintain Padron catheter for now for maximum drainage of the urinary tract - Continue to trend labs/creatinine - Patient prefers to follow-up with his established urologist on discharge (Dr. Dolan of [facility] u[facility]) - Urology will follow peripherally, please contact us with any questions/concerns Admission and Anticipated Discharge Date Admission Date: December 15, 2024 Subjective Patient seen at bedside this morning. Awake and resting in bed on arrival. No acute distress. Padron draining pink-tinged urine. No complaints of pain. Review of Systems Constitutional: as per Subjective / HPI Genitourinary: + as per Subjective / HPI Physical Exam Constitutional: no acute distress Respiratory: no respiratory distress and no labored breathing Neurologic: awake Psychiatric: A+Ox3, euthymic affect Genitourinary: Padron intact Results & Data Vital Signs (Past 12 Hours) Vital Signs Temp Pulse Pulse Resp BP Pulse Ox O2 Del Method 12/19/24 11:19 36.6 C 58 L 16 94/59 L 93 Room Air 12/19/24 08:06 54 L 12/19/24 07:55 36.9 C 56 L 16 106/65 95 Room Air 12/19/24 04:04 36.7 C 82 16 104/62 94 Room Air 12/18/24 23:40 37.1 C 72 16 130/72 98 Room Air PG Care Time/CCT Total # of Minutes Spent Total Time Spent with Patient: Total time spent is greater than 50% in coordination of care (as documented) at patient's floor/unit and/or counseling patient: Coding Level of Care Code 26815 SUB INP/OBS CARE 2/35MIN Diagnoses Staghorn calculus N20.0 ANALILIA (acute kidney injury) N17.9
--- NOTE | 2024-12-19 12:46 | Hospitalist Progress Note ---
Date of Service December 19, 2024 Assessment & Plan (1) Chest pain: Plan: 64-year-old male past medical history significant for dyslipidemia, thyroid nodule, hypertension, malignant neoplasm of prostate, chronic pain syndrome secondary to cervical disc, history of stroke 22 years ago with residual right- sided weakness ambulates using leg brace, depression, who lives with his partner comes because of chest pain. Patient states since the morning 8 AM he is having left-sided chest pain constant pain. Severe in nature. No radiation. Also has shortness of breath. The pain is more when taking deep breath. No cough. No fevers. No headache. No runny nose or sore throat. No earaches. No nausea. No abdominal pain. Normal bowel and bladder movements. Hemodynamics are okay. Chest pain Pain more on taking deep breath Also has shortness of breath Hemodynamics okay and saturating okay on room air EKG and serial troponins have been unremarkable for any ACS echo of the heart showedLV is normal in size, mild concentric LVH, basal septum is thickened and angulated consistent with sigmoid septum, LV wall motion is normal with EF of 60 to 65%, grade 1 diastolic dysfunction and there is no significant valvular disease Appreciate cardiology input and recommendation CT of the chest showed trace layering right pleural effusion without any loculation and dependent segmental changes posterior lower lobes favors atelectasis. Subtle infection of the lung bases not excluded VQ scan was low probability for any pulmonary embolism Patient remains otherwise stable and will continue current management Denies any more chest pain and/or palpitation Does not have any chest pain and denies any other cardiac symptoms Denies any more chest pain and/or palpitation ANALILIA Baseline creatinine 1.4 Presented with creatinine 3.4 Will hold lisinopril Patient states current is not taking Motrin History of kidney stones CT abdomen and pelvis showing migration of staghorn calculus to right UVJ Gentle fluids BUN and creatinine remain unchanged Appreciate nephrology input and recommendation Creatinine has gone up and discussed with the urologist and will have the procedure today Creatinine is slightly better following the procedure Flomax has been added as per the urologist Creatinine remains stable and not improved since yesterday Will start intravenous fluid at a rate of 100 cc an hour for at least 3 L Will check PRP tomorrow Hypotension with history of hypertension/ possible UTI He is lisinopril and amlodipine while at hold on recent discharge from the hospital Later on the PCP did restart amlodipine and the patient has been taking lisinopril too Amlodipine and lisinopril are on hold due to low blood pressure Will need to rule out any infection Urine culture has been sent and blood culture has been sent as well He has been started with intravenous ceftriaxone Will also give 500 mL of normal saline bolus for low blood pressure and check a.m. cortisol level Blood pressure remains on the lower side at 99/62Will continue intravenous flu id Blood pressure remains normal Urine and blood cultures have been negative Will continue intravenous ceftriaxone for a total of 5 days Medications for his hypertension has been started only amlodipine for now blood pressure remains on the lower side at 94/59 Elevated D-dimer Lower EXTR Doppler negative Will follow VQ scan- negative for any pulmonary embolism History of renal calculi Staghorn calculus of the right renal pelvis resulting mild hydronephrosis on previous CAT scan and also 1.4 cm calculus in the left renal pelvis resulting mild pelvocaliectasis CT of the abd/pelvis showing: "migration of the previously noted stone in the right renal pelvis, with the 2 cm long stone no impacted at the UPJ with moderate right hydronephrosis and perinephric fat stranding". Urology consulted and appreciate inputs- appreciate input and recommendation for possible cystoscopy as an inpatient versus outpatient Discussed with the urologist for possible stent placement sometime today Status post bilateral ureteral stent placement and further management of stones will be done as an outpatient as per the urologist Noted to have hematuria yesterday but it has been clearing since this morning History of CVA Right-sided weakness On Plavix and statin Hyperlipidemia On statin History of left carotid endarterectomy On statin and Plavix Depression On citalopram History of prostate cancer On Zytiga and prednisone Follows with heme-onc History of 2 back surgeries Chronic pain On gabapentin and hydrocodone as needed Anemia Chronic Hemoglobin 11.2. Seems around baseline Will follow labs DVT prophylaxis Heparin subcu Disposition Telemetry Full code. Admission and Anticipated Discharge Date Admission Date: December 15, 2024 Subjective 12/16/2024 The patient was seen and examined medical telemetry not He was admitted with chest pain He remains weak and lethargic and denies any abdominal symptoms Still has minimal chest pain 12/17/2024 The patient was seen and examined in medical telemetry unit He has been better and denies any more chest pain Does not have any abdominal pain and has been making out urine Blood pressure remains on the lower side at 99/62 12/18/2024 The patient was seen and examined in medical telemetry unit He is a status post cystoscopy with bilateral ureteral stent placement on 12/17/2024 Has been feeling much better following the procedure and is still having hematuria Denies any other significant symptoms 12/19/2024 The patient was seen and examined in medical telemetry unit He has been feeling much better and denies any more chest pain and/or palpitation His blood pressure remains on the lower side at 94/59 without any symptoms His hematuria seems to have improved Review of Systems Review of Systems: All systems reviewed and are unremarkable except as noted below Physical Exam Physical Exam: Lying in bed without any acute distress Constitutional: well developed, well nourished, + ill appearing and + obese Eyes: PERRL, conjunctivae normal, anicteric sclerae ENMT: external ear and nose normal, oropharynx normal Neck: trachea midline, no thyromegaly Respiratory: no respiratory distress Auscultation: lungs clear to auscultation bilaterally Cardiovascular: Rate/Rhythm: regular rate and regular rhythm; not tachycardic Heart Sounds: normal S1, normal S2 and + murmur Extremities: no edema Gastrointestinal (Abdomen): Inspection/Auscultation: normal bowel sounds; abdomen not distended Percussion/Palpation: abdomen soft; abdomen nontender ( no tenderness in renal angles) Musculoskeletal: No acute arthritis involving any of the joint Neurologic: normal touch/pain/proprioception, moves all extremities and + focal motor deficit ( has left-sided hemiparesis secondary to prior stroke) Lymphatic: no cervical or axillary lymphadenopathy Results & Data Results & Data Vital Signs (Past 12 Hours) Vital Signs Temp Pulse Pulse Resp BP Pulse Ox O2 Del Method 12/19/24 11:19 36.6 C 58 L 16 94/59 L 93 Room Air 12/19/24 08:06 54 L 12/19/24 07:55 36.9 C 56 L 16 106/65 95 Room Air 12/19/24 04:04 36.7 C 82 16 104/62 94 Room Air Laboratory Results [facility] 12/19/24 07:26 Sodium 143 Potassium 4.5 Chloride 113 H Carbon Dioxide 23 BUN 46 H Creatinine 3.29 H Glucose 95 Calcium 9.0 Medications Administered Current Inpatient Medications Abiraterone Acetate (Abiraterone Acetate) 4 each PO DAILY [facility] Stop: 12/08/25 08:59 Last Admin: 12/19/24 09:42 Dose: 4 each Acetaminophen (Acetaminophen 325 Mg Tab) 650 mg PO Q4H PRN PRN Reason: Pain or Fever Stop: 01/14/25 22:37 Last Admin: 12/17/24 20:12 Dose: 650 mg Hydrocodone Bitart/Acetaminophen (Hydrocodone/Acetamophen 5/325mg Tab) 1 tab PO Q6H PRN PRN Reason: Pain Stop: 12/31/24 12:24 Last Admin: 12/18/24 03:42 Dose: 1 tab Amlodipine Besylate (Amlodipine Besylate 5 Mg Tab) 5 mg PO DAILY [facility] Stop: 01/17/25 08:59 Last Admin: 12/18/24 09:11 Dose: 5 mg Atorvastatin Calcium (Atorvastatin 20 Mg Tab) 20 mg PO DAILY [facility] Stop: 01/17/25 08:59 Last Admin: 12/19/24 09:40 Dose: 20 mg Citalopram Hydrobromide (Citalopram 40 Mg Tab) 40 mg PO DAILY [facility] Stop: 01/17/25 08:59 Last Admin: 12/19/24 09:41 Dose: 40 mg Clopidogrel Bisulfate (Clopidogrel Bisulfate 75 Mg Tab) 75 mg PO DAILY [facility] Stop: 01/17/25 08:59 Last Admin: 12/19/24 09:41 Dose: 75 mg Gabapentin (Gabapentin 800 Mg Tab) 800 mg PO TID [facility] Stop: 01/16/25 13:59 Last Admin: 12/19/24 09:41 Dose: 800 mg Heparin Sodium (Porcine) (Heparin Sod 5,000 Unit/0.5 Ml Vial) 5,000 units SQ Q8 [facility] Stop: 01/14/25 22:37 Last Admin: 12/19/24 06:31 Dose: 5,000 units Ceftriaxone Sodium (Rocephin) 2,000 mg in 50 mls @ 100 mls/hr IV Q24H [facility] Stop: 12/23/24 12:29 Last Infusion: 12/18/24 12:55 Dose: Infused Lamotrigine (Lamotrigine 25 Mg Tab) 50 mg PO BID [facility]; Protocol Stop: 01/16/25 20:59 Last Admin: 12/19/24 09:40 Dose: 50 mg Morphine Sulfate (Morphine Sulfate 4 Mg/Ml 1 Ml Carp\\Vial) 2 mg IV Q4H PRN PRN Reason: Chest Pain Stop: 12/29/24 22:37 Last Admin: 12/17/24 14:25 Dose: 2 mg Multivitamins (Multivitamin Tab) 1 tab PO DAILY [facility] Stop: 01/17/25 08:59 Last Admin: 12/19/24 09:40 Dose: 1 tab Nitroglycerin (Nitroglycerin Sl 0.4 Mg/Tab Tab) 0.4 mg SL Q5M PRN PRN Reason: Chest Pain Stop: 01/14/25 22:37 Last Admin: 12/15/24 23:14 Dose: 0.4 mg Polyethylene Glycol (Polyethylene (Miralax) 17 Gm Pack) 17 gm PO DAILY PRN PRN Reason: Constipation Stop: 01/14/25 22:37 Tamsulosin HCl (Tamsulosin Hcl 0.4 Mg Cap) 0.4 mg PO QAM [facility] Stop: 01/17/25 10:59 Last Admin: 12/19/24 09:47 Dose: 0.4 mg
[2024-12-19] MEDS: SODIUM CHLORIDE 0.9% 1,000 ML IV SCH (12:54)
[2024-12-19] MEDS: POLYETHYLENE (MIRALAX) 17 GM PACK PO PRN (18:28)
[2024-12-20 06:19] LABS: Hematocrit (blood only) 28.6 % (42.0-52.0); Hemoglobin 9.3 g/dl (14.0-18.0); Mean Corpuscular Hemoglobin 31.1 pg (25.0-34.0); Mean Corpuscular Volume 95.7 fL (80.0-100.0); Platelet Count 265 K/uL (130-400); RDW Standard Deviation 43.8 fL (36.4-46.3); Red Blood Count 2.99 M/uL (4.70-6.10); White Blood Count 7.15 K/ul (4.8-10.8)
[2024-12-20 06:36] LABS: Anion Gap 8.0 (3-11); Blood Urea Nitrogen 44.0 mg/dl (6-23); Calcium 8.5 mg/dl (8.6-10.3); Carbon Dioxide 22.0 mmol/L (21-32); Chloride 115.0 mmol/L (98-107); Creatinine Clr Calc Pharmacy 28.1 ml/min; Glucose 103.0 mg/dl (70-99(Fasting)); Potassium 3.8 mmol/L (3.5-5.1); Sodium 145.0 mmol/L (136-145)
--- NOTE | 2024-12-20 10:43 | Nephrology Progress Note ---
Date of Service December 20, 2024 Assessment & Plan (1) ANALILIA (acute kidney injury): Plan: He had Creat of 1.36 just 2 months ago. admitted 12/15 w/ creat 3.5, peak of 3.7 on 12/17, plateaued at 3.2 yesterday; today's creatinine 3.0 he had normal/Slightly high BP on presentation. Currently Lower BP this AM, though not severe >> held amlodipine. cont to hold Lisinopril. He is developing a hyperchloremic acidosis and will change IV fluids to LR at 100 mL hourly blood and urine cxs are negative to date >he is 1.1 L negative today hgb slowly downtrending >> was 11.2 on presentation adn dropped to 9.7 36 hrs later > daily bmp Care reviewed w/ Dr Fontaine in person regarding IVF change, prx for renal recovery, d/c dispo; we are in agreement (2) Staghorn calculus: Plan: cont empiric Abx--iv ceftriaxonegiven Staghorn calculi--these are commonly associated with Infection. he does have moderate Hydronephrosis. There is no good alternate explanation for this Significant ANALILIA. unlikely for patients to just randomly get severe vol depletion in the absence of Diuretics or any GI Symptoms. Plus he was eating and drinking normally up until yesterday. UA is bland so ATN and other causes like GN are not very likely. s/p BL stent on 12/18 Blood and urine cultures from December 16 are all negative to date (3) Hypotension: Plan: BP still soft though was not on admission and higher than SBP 70-80s around 12/17 Hold Lisinopril and And also amlodipine Continue IV fluids with changes above Admission and Anticipated Discharge Date Admission Date: December 15, 2024 Subjective no interval clinical events. denies sob, poor appetite, edema, diarrhea, pain Review of Systems 2 Review of Systems: All systems reviewed & are unremarkable except as noted in Subjective Physical Exam 2 Constitutional: well developed and well nourished Eyes: EOM intact bilaterally ENMT: Mouth: + dry oral mucous membranes Respiratory: normal respiratory effort Auscultation: + diminished lung sounds Cardiovascular: Rate/Rhythm: regular rate and regular rhythm Gastrointestinal (Abdomen): Inspection/Auscultation: normal bowel sounds P ercussion/Palpation: abdomen soft; abdomen nontender Musculoskeletal: Extremities: strength 5/5 throughout Skin: no rashes, warm and dry Neurologic: stable R sided weakness Results & Data Vital Signs (Past 12 Hours) Vital Signs Temp Pulse Pulse Resp BP Pulse Ox O2 Del Method 12/20/24 09:27 Room Air 12/20/24 07:59 37.0 C 67 16 124/69 96 Room Air 12/20/24 07:38 63 12/20/24 02:01 36.8 C 70 18 126/69 94 Room Air Laboratory Results 12/20/24 05:37 12/20/24 05:37
--- NOTE | 2024-12-20 11:15 | Urology Progress Note ---
<Statement entered by Valente Chilel MD - 12/20/24 13:48> Chart reviewed plan reviewed and agree as written. Ideally would undergo trial of void one day before discharge so that we can ensure cr remains downtrending without catheter. Otherwise should have Cr check < 1 week after dc to ensure not rising again without bladder drainage. Date of Service December 20, 2024 Assessment & Plan (1) Staghorn calculus: (2) ANALILIA (acute kidney injury): Plan POD #3 s/p Cystoscopy with Bilateral Ureteral Stent Insertion - Pt afebrile, hemodynamically stable - No leukocytosis - Creatinine down from 3.29 - 2.97 today, continue to trend - Urine culture negative; Blood culture prelim no growth x48 hours - Can remove Padron for trial of void and monitor creatinine, would monitor at least one further day to ensure ANALILIA/ARF resolving - If creatinine worsens after removal, would recommend catheter replacement and follow-up w/primary urologist - Patient prefers to follow-up with his established urologist on discharge (Dr. Dolan of [facility] u[facility]) - Urology will follow peripherally, please contact us with any questions/concerns Admission and Anticipated Discharge Date Admission Date: December 15, 2024 Subjective Patient seen at bedside this morning. Awake and resting in bed on arrival. No acute distress. Padron intact. Review of Systems Constitutional: as per Subjective / HPI Genitourinary: + as per Subjective / HPI Physical Exam Constitutional: no acute distress Respiratory: no respiratory distress and no labored breathing Neurologic: awake Psychiatric: A+Ox3, euthymic affect Genitourinary: Padron intact Results & Data Vital Signs (Past 12 Hours) Vital Signs Temp Pulse Pulse Resp BP Pulse Ox O2 Del Method 12/20/24 11:11 36.8 C 67 20 126/67 95 Room Air 12/20/24 09:27 Room Air 12/20/24 07:59 37.0 C 67 16 124/69 96 Room Air 12/20/24 07:38 63 12/20/24 02:01 36.8 C 70 18 126/69 94 Room Air PG Care Time/CCT Total # of Minutes Spent Total Time Spent with Patient: Total time spent is greater than 50% in coordination of care (as documented) at patient's floor/unit and/or counseling patient: Coding Level of Care Code 00144 SUB INP/OBS CARE 35MIN Diagnoses Staghorn calculus N20.0 ANALILIA (acute kidney injury) N17.9
[2024-12-20] MEDS: LACTATED RINGER'S 1,000 ML IV SCH (12:31)
--- NOTE | 2024-12-20 14:17 | Hospitalist Progress Note ---
Date of Service December 20, 2024 Assessment & Plan (1) Chest pain: Plan: 64-year-old male past medical history significant for dyslipidemia, thyroid nodule, hypertension, malignant neoplasm of prostate, chronic pain syndrome secondary to cervical disc, history of stroke 22 years ago with residual right- sided weakness ambulates using leg brace, depression, who lives with his partner comes because of chest pain. Patient states since the morning 8 AM he is having left-sided chest pain constant pain. Severe in nature. No radiation. Also has shortness of breath. The pain is more when taking deep breath. No cough. No fevers. No headache. No runny nose or sore throat. No earaches. No nausea. No abdominal pain. Normal bowel and bladder movements. Hemodynamics are okay. Chest pain Pain more on taking deep breath Also has shortness of breath Hemodynamics okay and saturating okay on room air EKG and serial troponins have been unremarkable for any ACS echo of the heart showedLV is normal in size, mild concentric LVH, basal septum is thickened and angulated consistent with sigmoid septum, LV wall motion is normal with EF of 60 to 65%, grade 1 diastolic dysfunction and there is no significant valvular disease Appreciate cardiology input and recommendation CT of the chest showed trace layering right pleural effusion without any loculation and dependent segmental changes posterior lower lobes favors atelectasis. Subtle infection of the lung bases not excluded VQ scan was low probability for any pulmonary embolism Patient remains otherwise stable and will continue current management Denies any more chest pain and/or palpitation Does not have any chest pain and denies any other cardiac symptoms Denies any more chest pain and/or palpitation No more chest pain and/or palpitations and the patient remains stable PT OT evaluation prior to discharge ANALILIA Baseline creatinine 1.4 Presented with creatinine 3.4 Will hold lisinopril Patient states current is not taking Motrin History of kidney stones CT abdomen and pelvis showing migration of staghorn calculus to right UVJ Gentle fluids BUN and creatinine remain unchanged Appreciate nephrology input and recommendation Creatinine has gone up and discussed with the urologist and will have the procedure today Creatinine is slightly better following the procedure Flomax has been added as per the urologist Creatinine remains stable and not improved since yesterday Will start intravenous fluid at a rate of 100 cc an hour for at least 3 L Creatinine has improved from 3.29-2.97Will continue intravenous fluid and was advised to drink more fluid Monitor PRP and if improving he may be discharged tomorrow Hypotension with history of hypertension/ possible UTI He is lisinopril and amlodipine while at hold on recent discharge from the hospital Later on the PCP did restart amlodipine and the patient has been taking lisinopril too Amlodipine and lisinopril are on hold due to low blood pressure Will need to rule out any infection Urine culture has been sent and blood culture has been sent as well He has been started with intravenous ceftriaxone Will also give 500 mL of normal saline bolus for low blood pressure and check a.m. cortisol level Blood pressure remains on the lower side at 99/62Will continue intravenous fluid Blood pressure remains normal Urine and blood cultures have been negative Will continue intravenous ceftriaxone for a total of 5 days Medications for his hypertension has been started only amlodipine for now blood pressure remains on the lower side at 94/59 Blood pressure has been maintaining since the procedure Elevated D-dimer Lower EXTR Doppler negative Will follow VQ scan- negative for any pulmonary embolism History of renal calculi Staghorn calculus of the right renal pelvis resulting mild hydronephrosis on previous CAT scan and also 1.4 cm calculus in the left renal pelvis resulting mild pelvocaliectasis CT of the abd/pelvis showing: "migration of the previously noted stone in the right renal pelvis, with the 2 cm long stone no impacted at the UPJ with moderate right hydronephrosis and perinephric fat stranding". Urology consulted and appreciate inputs- appreciate input and recommendation for possible cystoscopy as an inpatient versus outpatient Discussed with the urologist for possible stent placement sometime today Status post bilateral ureteral stent placement and further management of stones will be done as an outpatient as per the urologist Noted to have hematuria yesterday but it has been clearing since this morning Will need to have outpatient follow-up appointment with urologist on discharge History of CVA Right-sided weakness On Plavix and statin Hyperlipidemia On statin History of left carotid endarterectomy On statin and Plavix Depression On citalopram History of prostate cancer On Zytiga and prednisone Follows with heme-onc History of 2 back surgeries Chronic pain On gabapentin and hydrocodone as needed Anemia Chronic Hemoglobin 11.2. Seems around baseline Will follow labs DVT prophylaxis Heparin subcu Disposition Telemetry Full code. Admission and Anticipated Discharge Date Admission Date: December 15, 2024 Subjective 12/16/2024 The patient was seen and examined medical telemetry not He was admitted with chest pain He remains weak and lethargic and denies any abdominal symptoms Still has minimal chest pain 12/17/2024 The patient was seen and examined in medical telemetry unit He has been better and denies any more chest pain Does not have any abdominal pain and has been making out urine Blood pressure remains on the lower side at 99/62 12/18/2024 The patient was seen and examined in medical telemetry unit He is a status post cystoscopy with bilateral ureteral stent placement on 12/17/2024 Has been feeling much better following the procedure and is still having hematuria Denies any other significant symptoms 12/19/2024 The patient was seen and examined in medical telemetry unit He has been feeling much better and denies any more chest pain and/or palpitation His blood pressure remains on the lower side at 94/59 without any symptoms His hematuria seems to have improved 12/20/2024 The patient was seen and examined in medical telemetry unit He has been stable and denies any significant symptoms No more chest pain and/or palpitation Hematuria has been clearing up Review of Systems Review of Systems: All systems reviewed and are unremarkable except as noted below Physical Exam Physical Exam: Lying in bed without any acute distress Constitutional: well developed, well nourished, + ill appearing and + obese Eyes: PERRL, conjunctivae normal, anicteric sclerae ENMT: external ear and nose normal, oropharynx normal Neck: trachea midline, no thyromegaly Respiratory: no respiratory distress Auscultation: lungs clear to auscultation bilaterally Cardiovascular: Rate/Rhythm: regular rate and regular rhythm; not tachycardic Heart Sounds: normal S1, normal S2 and + murmur Extremities: no edema Gastrointestinal (Abdomen): Inspection/Auscultation: normal bowel sounds; abdomen not distended Percussion/Palpation: abdomen soft; abdomen nontender ( no tenderness in renal angles) Musculoskeletal: No acute arthritis involving any of the joint Neurologic: normal touch/pain/proprioception, moves all extremities and + focal motor deficit ( has left-sided hemiparesis secondary to prior stroke) Genitourinary: Catheter has been taken out and hematuria seems to be clearing up Lymphatic: no cervical or axillary lymphadenopathy Results & Data Results & Data Vital Signs (Past 12 Hours) Vital Signs Temp Pulse Pulse Resp BP Pulse Ox O2 Del Method 12/20/24 11:11 36.8 C 67 20 126/67 95 Room Air 12/20/24 09:27 Room Air 12/20/24 07:59 37.0 C 67 16 124/69 96 Room Air 12/20/24 07:38 63 Laboratory Results Short CBC 12/20/24 Range/Units 05:37 WBC 7.15 (4.8-10.8) K/ul Hgb 9.3 L (14.0-18.0) g/dl Hct 28.6 L (42.0-52.0) % Plt Count 265 (130-400) K/uL BMP 12/20/24 05:37 Sodium 145 Potassium 3.8 Chloride 115 H Carbon Dioxide 22 BUN 44 H Creatinine 2.97 H D Glucose 103 H Calcium 8.5 L Medications Administered Current Inpatient Medications Abiraterone Acetate (Abiraterone Acetate) 4 each PO DAILY KOKI Stop: 01/16/25 08:59 Last Admin: 12/20/24 08:11 Dose: 4 each Acetaminophen (Acetaminophen 325 Mg Tab) 650 mg PO Q4H PRN PRN Reason: Pain or Fever Stop: 01/14/25 22:37 Last Admin: 12/17/24 20:12 Dose: 650 mg Hydrocodone Bitart/Acetaminophen (Hydrocodone/Acetamophen 5/325mg Tab) 1 tab PO Q6H PRN PRN Reason: Pain Stop: 12/31/24 12:24 Last Admin: 12/18/24 03:42 Dose: 1 tab Amlodipine Besylate (Amlodipine Besylate 5 Mg Tab) 5 mg PO DAILY KOKI Stop: 01/17/25 08:59 Last Admin: 12/18/24 09:11 Dose: 5 mg Atorvastatin Calcium (Atorvastatin 20 Mg Tab) 20 mg PO DAILY KOKI Stop: 01/17/25 08:59 Last Admin: 12/20/24 08:12 Dose: 20 mg Citalopram Hydrobromide (Citalopram 40 Mg Tab) 40 mg PO DAILY KOKI Stop: 01/17/25 08:59 Last Admin: 12/20/24 08:12 Dose: 40 mg Clopidogrel Bisulfate (Clopidogrel Bisulfate 75 Mg Tab) 75 mg PO DAILY KOKI Stop: 01/17/25 08:59 Last Admin: 12/20/24 08:13 Dose: 75 mg Gabapentin (Gabapentin 800 Mg Tab) 800 mg PO TID [facility]OKI Stop: 01/16/25 13:59 Last Admin: 12/20/24 13:22 Dose: 800 mg Heparin Sodium (Porcine) (Heparin Sod 5,000 Unit/0.5 Ml Vial) 5,000 units SQ Q8 [facility] Stop: 01/14/25 22:37 Last Admin: 12/20/24 13:22 Dose: 5,000 units Ceftriaxone Sodium (Rocephin) 2,000 mg in 50 mls @ 100 mls/hr IV Q24H [facility] Stop: 12/23/24 12:29 Last Infusion: 12/20/24 12:38 Dose: Infused Lactated Ringer's (Lr) 1,000 mls @ 80 mls/hr IV .[id number] [facility] Stop: 12/23/24 10:59 Last Admin: 12/20/24 12:31 Dose: 80 mls/hr Lamotrigine (Lamotrigine 25 Mg Tab) 50 mg PO BID [facility]; Protocol Stop: 01/16/25 20:59 Last Admin: 12/20/24 08:12 Dose: 50 mg Morphine Sulfate (Morphine Sulfate 4 Mg/Ml 1 Ml Carp\\Vial) 2 mg IV Q4H PRN PRN Reason: Chest Pain Stop: 12/29/24 22:37 Last Admin: 12/17/24 14:25 Dose: 2 mg Multivitamins (Multivitamin Tab) 1 tab PO DAILY [facility] Stop: 01/17/25 08:59 Last Admin: 12/20/24 08:12 Dose: 1 tab Nitroglycerin (Nitroglycerin Sl 0.4 Mg/Tab Tab) 0.4 mg SL Q5M PRN PRN Reason: Chest Pain Stop: 01/14/25 22:37 Last Admin: 12/15/24 23:14 Dose: 0.4 mg Polyethylene Glycol (Polyethylene (Miralax) 17 Gm Pack) 17 gm PO DAILY PRN PRN Reason: Constipation Stop: 01/14/25 22:37 Last Admin: 12/19/24 18:28 Dose: 17 gm Tamsulosin HCl (Tamsulosin Hcl 0.4 Mg Cap) 0.4 mg PO QAM [facility] Stop: 01/17/25 10:59 Last Admin: 12/20/24 08:12 Dose: 0.4 mg
[2024-12-21 07:26] LABS: Hematocrit (blood only) 29.3 % (42.0-52.0); Hemoglobin 9.6 g/dL (14.0-18.0); Mean Corpuscular Hemoglobin 30.5 pg (25.0-34.0); Mean Corpuscular Volume 93.0 fL (80.0-100.0); Platelet Count 288 K/uL (130-400); RDW Standard Deviation 43.3 fL (36.4-46.3); Red Blood Count 3.15 M/uL (4.70-6.10); White Blood Count 7.44 K/ul (4.8-10.8)
[2024-12-21 07:50] LABS: Anion Gap 9.0 (3-11); Blood Urea Nitrogen 34.0 mg/dl (6-23); Calcium 8.7 mg/dl (8.6-10.3); Carbon Dioxide 22.0 mmol/L (21-32); Chloride 114.0 mmol/L (98-107); Creatinine Clr Calc Pharmacy 33.9 ml/min; Glucose 111.0 mg/dl (70-99(Fasting)); Magnesium 2.0 mg/dl (1.7-2.4); Potassium 2.8 mmol/L (3.5-5.1); Sodium 145.0 mmol/L (136-145)
[2024-12-21] MEDS: POTASSIUM CHLORIDE / WTR 10 MEQ/100 ML PLCT IV SCH (09:44)
[2024-12-21] MEDS: POTASSIUM CHLORIDE 10 MEQ TABCR PO ONE (10:26)
--- NOTE | 2024-12-21 10:36 | Nephrology Progress Note ---
Date of Service December 21, 2024 Assessment & Plan (1) ANALILIA (acute kidney injury): Plan: He had Creat of 1.36 just 2 months ago. admitted 12/15 w/ creat 3.5, peak of 3.7 on 12/17, plateaued at 3.2 yesterday; today's creatinine 2.5 he had normal/Slightly high BP on presentation. Currently Lower BP this AM, though not severe >> held amlodipine (last does 12/18) and on 12/21 BP has normalized. He remains with hyperchloremic acidosis and today significant hypokalemia despite aggressive repletion; tells me he's had some loose BM > changed IV fluids to LR at 100 mL hourly with 20 mEq/L K >started K 20 mEq elixir bid blood and urine cxs are negative to date ensure lamictal is renally dosed >he is 0.7 L positive today hgb slowly downtrending >> was 11.2 on presentation and dropped to 9.7 36 hrs later > stable at 9.6 today Care reviewed w/ Dr Woods via TText re K replacement, renal status, d/c dispo; we are in agreement (2) Staghorn calculus: Plan: cont empiric Abx--iv ceftriaxonegiven Staghorn calculi--these are commonly associated with Infection. he does have moderate Hydronephrosis. There is no good alternate explanation for this Significant ANALILIA. unlikely for patients to just randomly get severe vol depletion in the absence of Diuretics or any GI Symptoms. Plus he was eating and drinking normally up until yesterday. UA is bland so ATN and other causes like GN are not very likely. s/p BL stent on 12/18 Blood and urine cultures from December 16 are all negative to date (3) Hypotension: Plan: BP still soft though was not on admission and higher than SBP 70-80s around 12/17 Hold Lisinopril and And also amlodipine Continue IV fluids with changes above Admission and Anticipated Discharge Date Admission Date: December 15, 2024 Subjective no acute interval events clinically accept he is having some diarrhea and potassium was low today; status post repletion. Denies shortness of breath, denies edema denies uncontrolled pain; denies nausea vomiting Review of Systems 2 Review of Systems: All systems reviewed & are unremarkable except as noted in Subjective Physical Exam 2 Constitutional: well developed and well nourished Eyes: EOM intact bilaterally ENMT: Mouth: + dry oral mucous membranes Respiratory: normal respiratory effort Auscultation: + diminished lung sounds Cardiovascular: Rate/Rhythm: regular rate and regular rhythm Extremities: n o edema Gastrointestinal (Abdomen): Inspection/Auscultation: normal bowel sounds P ercussion/Palpation: abdomen soft; abdomen nontender Musculoskeletal: Extremities: + abnormal strength Skin: no rashes, warm and dry Results & Data Vital Signs (Past 12 Hours) Vital Signs Temp Pulse Pulse Resp BP Pulse Ox O2 Del Method 12/21/24 07:44 37.1 C 68 18 147/77 H 92 Room Air 12/21/24 07:12 66 12/21/24 03:10 36.8 C 74 16 125/68 94 Room Air 12/20/24 22:54 37.6 C H 74 18 172/81 H 97 Room Air Laboratory Results 12/21/24 06:50 12/21/24 06:50
--- NOTE | 2024-12-21 14:18 | Hospitalist Progress Note ---
Date of Service December 21, 2024 Assessment & Plan (1) Chest pain: Plan: 64-year-old male past medical history significant for dyslipidemia, thyroid nodule, hypertension, malignant neoplasm of prostate, chronic pain syndrome secondary to cervical disc, history of stroke 22 years ago with residual right- sided weakness ambulates using leg brace, depression, who lives with his partner comes because of chest pain. Patient states since the morning 8 AM he is having left-sided chest pain constant pain. Severe in nature. No radiation. Also has shortness of breath. The pain is more when taking deep breath. No cough. No fevers. No headache. No runny nose or sore throat. No earaches. No nausea. No abdominal pain. Normal bowel and bladder movements. Hemodynamics are okay. Chest pain Likely Pleuritic/Musculoskeletal --Chest CT:Trace layering right pleural effusion noted posteriorly at the right lung base. No loculation. Dependent subsegmental changes involving the posterior aspect of both lower lobes. Favor subsegmental atelectasis. --Venous Doppler: No evidence for deep vein thrombosis involving the bilateral lower extremities. --Troponin Negative --ECHO: Mild concentric LVH. Basal septum thickened and angulated consistent with sigmoid septum. Left ventricular wall motion is normal. Grade 1 diastolic dysfunction. No significant valvular disease. Evaluated by cardiology, appreciate input PT OT evaluation prior to discharge Acute Kidney Injury Baseline creatinine 1.4 Presented with creatinine 3.4 Cr 2.4 today Continue to hold lisinopril Patient states current is not taking Motrin Continue IV fluids per nephrology Appreciate nephrology input Monitor renal function and avoid nephrotoxic agents as able Staghorn calculus Obstructive uropathy H/O nephrolithiasis --CT ABD:There has been interval migration of the previously noted stone in the right renal pelvis, with the 2 cm long stone no impacted at the UPJ with moderate right hydronephrosis and perinephric fat stranding. Trace left pleural effusion noted in the posterior costophrenic margin. --S/P cystoscopy with bilateral ureteral stent placement by on 12/17/24 -- Blood culture negative to date --Urine culture negative Appreciate urology input Needs follow-up with urology on discharge Empirically on IV Rocephin Continue tamsulosin Hypertension Lisinopril held due to ANALILIA Amlodipine on hold as well Started on tamsulosin as above Monitor blood pressure and adjust medications as needed Elevated D-dimer Lower EXTR Doppler negative VQ scan- Low probability for pulmonary embolus. Hypokalemia Replace and monitor History of CVA with residual Right-sided weakness On Plavix and statin Hyperlipidemia On statin History of left carotid endarterectomy On statin and Plavix Depression On citalopram History of prostate cancer On Zytiga and prednisone Follows with heme-onc History of 2 back surgeries Chronic pain On gabapentin and hydrocodone as needed Anemia Chronic Monitor CBC DVT Px: SQ Heparin Code Status Full Code Disposition Home with Admission and Anticipated Discharge Date Admission Date: December 15, 2024 Subjective Patient is seen and examined at bedside States feeling tired today Also reported transient chest discomfort this morning which resolved No other complaints today Updated patient's friend/contact over the phone Review of Systems Review of Systems: All systems reviewed & are unremarkable except as noted in Subjective Physical Exam Physical Exam: Physical Exam: Vitals signs as noted above General Appearance:Moderately built and nourished, no apparent distress, chronic ill appearing Head: normocephalic, Atraumatic Eyes: normal inspection, EOMI Neck: supple, Trachea midline Respiratory/Chest: Decreased breath sounds, CTA, No accessory muscle use Cardiovascular: S1, S2, + murmur Abdomen/GI:Soft, Non tender, Bowel sounds present Extremities/Musculoskeletal:normal inspection, Trace edema Neurologic/Psych:AAOX3, R UE 0/5, R LE 1/5 Skin: normal color, warm Results & Data Results & Data Vital Signs (Past 12 Hours) Vital Signs Temp Pulse Pulse Resp BP Pulse Ox O2 Del Method 12/21/24 11:28 37.1 C 67 18 130/71 93 Room Air 12/21/24 07:44 37.1 C 68 18 147/77 H 92 Room Air 12/21/24 07:12 66 12/21/24 03:10 36.8 C 74 16 125/68 94 Room Air Laboratory Results Short CBC 12/21/24 Range/Units 06:50 WBC 7.44 (4.8-10.8) K/ul Hgb 9.6 L (14.0-18.0) g/dL Hct 29.3 L (42.0-52.0) % Plt Count 288 (130-400) K/uL BMP 12/21/24 06:50 Sodium 145 Potassium 2.8 L D Chloride 114 H Carbon Dioxide 22 BUN 34 H Creatinine 2.47 H D Glucose 111 H Calcium 8.7
[2024-12-21 15:38] LABS: Anion Gap 11.0 (3-11); Blood Urea Nitrogen 31.0 mg/dl (6-23); Calcium 8.9 mg/dl (8.6-10.3); Carbon Dioxide 21.0 mmol/L (21-32); Chloride 114.0 mmol/L (98-107); Creatinine Clr Calc Pharmacy 31.6 ml/min; Glucose 114.0 mg/dl (70-99(Fasting)); Potassium 3.1 mmol/L (3.5-5.1); Sodium 146.0 mmol/L (136-145)
[2024-12-21] MEDS: POTASSIUM CHLORIDE 20 MEQ/15 ML UDC PO ONE (16:19)
[2024-12-21] MEDS: POTASSIUM CHLORIDE 20 MEQ in LACTATED RINGER'S 1,000 ML IV SCH (18:00)
[2024-12-21] MEDS: POTASSIUM CHLORIDE 20 MEQ/15 ML UDC PO SCH (22:07)
[2024-12-22 09:01] LABS: Anion Gap 8.0 (3-11); Blood Urea Nitrogen 27.0 mg/dl (6-23); Calcium 8.8 mg/dl (8.6-10.3); Carbon Dioxide 22.0 mmol/L (21-32); Chloride 117.0 mmol/L (98-107); Creatinine Clr Calc Pharmacy 35.1 ml/min; Glucose 121.0 mg/dl (70-99(Fasting)); Magnesium 1.9 mg/dl (1.7-2.4); Potassium 3.2 mmol/L (3.5-5.1); Sodium 147.0 mmol/L (136-145)
[2024-12-22] MEDS: POTASSIUM CHLORIDE / WTR 10 MEQ/100 ML PLCT IV SCH (09:24)
--- NOTE | 2024-12-22 10:10 | Nephrology Progress Note ---
Date of Service December 22, 2024 Assessment & Plan (1) ANALILIA (acute kidney injury): Plan: He had Creat of 1.36 just 2 months ago. admitted 12/15 w/ creat 3.5, peak of 3.7 on 12/17, plateaued at 3.2 yesterday; today's creatinine 2.5 he had normal/Slightly high BP on presentation. Currently Lower BP this AM, though not severe >> held amlodipine (last does 12/18) and on 12/21 BP has normalized. He remains with hyperchloremic acidosis and today significant hypokalemia despite aggressive repletion; tells me he's had some loose BM /diarrhea > changed IV fluids from LR at 100 mL hourly with 20 mEq/L K to D5W w/ 40 mEq / L K at 125 ML hourly to address hypernatremia, worsening hypokalemia, stalled renal recovery in setting of losses from diarrhea >continue K 20 mEq elixir bid blood and urine cxs are negative to date ensure lamictal is renally dosed >he is 0.7 L positive today hgb slowly downtrending >> was 11.2 on presentation and dropped to 9.7 36 hrs later > stable at 9.6 today Care reviewed w/ Dr Woods via TText re K replacement, IVF change, renal status, postopining d/c d/t electrolytes and diarrhea; we are in agreement (2) Staghorn calculus: Plan: cont empiric Abx--iv ceftriaxonegiven Staghorn calculi--these are commonly associated with Infection. he does have moderate Hydronephrosis. There is no good alternate explanation for this Significant ANALILIA. unlikely for patients to just randomly get severe vol depletion in the absence of Diuretics or any GI Symptoms. Plus he was eating and drinking normally up until yesterday. UA is bland so ATN and other causes like GN are not very likely. s/p BL stent on 12/18 Blood and urine cultures from December 16 are all negative to date (3) Hypotension: Plan: BP still soft though was not on admission and higher than SBP 70-80s around 12/17 Hold Lisinopril and And also amlodipine Continue IV fluids with changes above Admission and Anticipated Discharge Date Admission Date: December 15, 2024 Subjective seen on late AM rounds; "I have the shits" no sob, no cough, no chest pain no flank pain or n/v Review of Systems 2 Review of Systems: All systems reviewed & are unremarkable except as noted in Subjective Physical Exam 2 Constitutional: well developed and well nourished Eyes: EOM intact bilaterally ENMT: Mouth: + dry oral mucous membranes Respiratory: normal respiratory effort Auscultation: + diminished lung sounds Cardiovascular: Rate/Rhythm: regular rate and regular rhythm Extremities: n o edema Gastrointestinal (Abdomen): Inspection/Auscultation: normal bowel sounds P ercussion/Palpation: abdomen soft; abdomen nontender Musculoskeletal: Extremities: strength 5/5 throughout and + abnormal strength Skin: no rashes, warm and dry Results & Data Vital Signs (Past 12 Hours) Vital Signs Temp Pulse Pulse Resp BP Pulse Ox O2 Del Method 12/22/24 08:10 37.5 C 83 16 161/77 H 96 Room Air 12/22/24 06:54 76 12/22/24 04:08 37.2 C 77 14 166/77 H 95 Room Air 12/22/24 01:28 Room Air 12/21/24 22:27 37.6 C H 72 14 146/80 H 93 Room Air Laboratory Results 12/21/24 06:50 12/22/24 08:16
--- NOTE | 2024-12-22 12:41 | Hospitalist Progress Note ---
Date of Service December 22, 2024 Assessment & Plan (1) Chest pain: Plan: 64-year-old male past medical history significant for dyslipidemia, thyroid nodule, hypertension, malignant neoplasm of prostate, chronic pain syndrome secondary to cervical disc, history of stroke 22 years ago with residual right- sided weakness ambulates using leg brace, depression, who lives with his partner comes because of chest pain. Patient states since the morning 8 AM he is having left-sided chest pain constant pain. Severe in nature. No radiation. Also has shortness of breath. The pain is more when taking deep breath. No cough. No fevers. No headache. No runny nose or sore throat. No earaches. No nausea. No abdominal pain. Normal bowel and bladder movements. Hemodynamics are okay. Chest pain Likely Pleuritic/Musculoskeletal --Chest CT:Trace layering right pleural effusion noted posteriorly at the right lung base. No loculation. Dependent subsegmental changes involving the posterior aspect of both lower lobes. Favor subsegmental atelectasis. --Venous Doppler: No evidence for deep vein thrombosis involving the bilateral lower extremities. --Troponin Negative --ECHO: Mild concentric LVH. Basal septum thickened and angulated consistent with sigmoid septum. Left ventricular wall motion is normal. Grade 1 diastolic dysfunction. No significant valvular disease. Evaluated by cardiology, appreciate input PT OT evaluation prior to discharge Plan to discharge home with home health as able Acute Kidney Injury Baseline creatinine 1.4 Presented with creatinine 3.4 Cr 2.3 today Continue to hold lisinopril Patient states current is not taking Motrin Continue IV fluids per nephrology Appreciate nephrology input Monitor renal function and avoid nephrotoxic agents as able Diarrhea likely contributing to dehydration/slow recovery Staghorn calculus Obstructive uropathy H/O nephrolithiasis --CT ABD:There has been interval migration of the previously noted stone in the right renal pelvis, with the 2 cm long stone no impacted at the UPJ with moderate right hydronephrosis and perinephric fat stranding. Trace left pleural effusion noted in the posterior costophrenic margin. --S/P cystoscopy with bilateral ureteral stent placement by on 12/17/24 -- Blood culture negative to date --Urine culture negative Appreciate urology input Needs follow-up with urology on discharge Empirically received IV Rocephin for 7 days Continue tamsulosin Voiding trial, bladder scan every shift If renal function worsens, plan to replace Padron catheter tomorrow Diarrhea Likely due to IV antibiotics Check stool for C. difficile Monitor volume status Hypertension Lisinopril held due to ANALILIA Amlodipine on hold as well due to low BP Also on tamsulosin as above Monitor blood pressure and adjust medications as needed Elevated D-dimer Lower EXTR Doppler negative VQ scan- Low probability for pulmonary embolus. Hypokalemia Replace and monitor History of CVA with residual Right-sided weakness On Plavix and statin Hyperlipidemia On statin History of left carotid endarterectomy On statin and Plavix Depression On citalopram History of prostate cancer On Zytiga and prednisone Follows with heme-onc History of 2 back surgeries Chronic pain On gabapentin and hydrocodone as needed Anemia Chronic Monitor CBC DVT Px: SQ Heparin Code Status Full Code Disposition Home with HH as able Admission and Anticipated Discharge Date Admission Date: December 15, 2024 Subjective Patient is seen and examined at bedside States having diarrhea overnight Still feels tired today Discussed with nephrology today Renal function slowly improving Denies any chest pain, dyspnea, abdominal pain No other complaints Review of Systems Review of Systems: All systems reviewed & are unremarkable except as noted in Subjective Physical Exam Physical Exam: Physical Exam: Vitals signs as noted above General Appearance:Moderately built and nourished, no apparent distress, chronic ill appearing Head: normocephalic, Atraumatic Eyes: normal inspection, EOMI Neck: supple, Trachea midline Respiratory/Chest: Decreased breath sounds, CTA, No accessory muscle use Cardiovascular: S1, S2, + murmur Abdomen/GI:Soft, Non tender, Bowel sounds present Extremities/Musculoskeletal:normal inspection, Trace edema Neurologic/Psych:AAOX3, R UE 0/5, R LE 1/5 Skin: normal color, warm Results & Data Results & Data Vital Signs (Past 12 Hours) Vital Signs Temp Pulse Pulse Resp BP Pulse Ox O2 Del Method 12/22/24 11:53 37.2 C 92 H 16 116/67 97 Room Air 12/22/24 08:10 37.5 C 83 16 161/77 H 96 Room Air 12/22/24 06:54 76 12/22/24 04:08 37.2 C 77 14 166/77 H 95 Room Air 12/22/24 01:28 Room Air Laboratory Results [facility] 12/21/24 12/22/24 14:57 08:16 Sodium 146 H 147 H Potassium 3.1 L 3.2 L Chloride 114 H 117 H Carbon Dioxide 21 22 BUN 31 H 27 H Creatinine 2.65 H 2.38 H Glucose 114 H 121 H Calcium 8.9 8.8
--- NOTE | 2024-12-22 12:47 | Urology Progress Note ---
<Statement entered by Valente Chilel MD - 12/23/24 08:36> Chart reviewed plan reviewed and agree as written. Date of Service December 22, 2024 Assessment & Plan (1) Staghorn calculus: (2) ANALILIA (acute kidney injury): Plan S/p Cystoscopy with Bilateral Ureteral Stent Insertion on 12/[address] Chilel - Pt afebrile (Tmax 37.6C last night), hemodynamically stable - Padron removed yesterday and patient has been voiding spontaneously - Creatinine yesterday 2.47 -2.65 -2.38 today - Urine and blood cultures negative - Can check bladder scans/PVRs as needed - Monitor creatinine - Patient prefers to follow-up with his established urologist on discharge (Dr. Dolan of [facility]) - Urology will follow peripherally, please contact us with any questions/concerns or changes in patient status Admission and Anticipated Discharge Date Admission Date: December 15, 2024 Subjective Patient seen at bedside today. Awake and resting in bed on arrival. NAD. Padron removed yesterday. Has been voiding and also incontinent. No c/o pain at present. Tmax 37.6C last night. Review of Systems Constitutional: as per Subjective / HPI Genitourinary: + as per Subjective / HPI Physical Exam Constitutional: no acute distress Respiratory: no respiratory distress and no labored breathing Neurologic: awake Psychiatric: Orientation: alert and cooperative Results & Data Vital Signs (Past 12 Hours) Vital Signs Temp Pulse Pulse Resp BP Pulse Ox O2 Del Method 12/22/24 11:53 37.2 C 92 H 16 116/67 97 Room Air 12/22/24 08:10 37.5 C 83 16 161/77 H 96 Room Air 12/22/24 06:54 76 12/22/24 04:08 37.2 C 77 14 166/77 H 95 Room Air 12/22/24 01:28 Room Air PG Care Time/CCT Total # of Minutes Spent Total Time Spent with Patient: Total time spent is greater than 50% in coordination of care (as documented) at patient's floor/unit and/or counseling patient: Coding Level of Care Code 76356 SUB INP/OBS CARE 2/35MIN Diagnoses Staghorn calculus N20.0 ANALILIA (acute kidney injury) N17.9
[2024-12-22] MEDS: ADVANCED PROBIOTIC 625 MG CAPSULE PO SCH (13:39)
[2024-12-22 14:53] LABS: Cdiff Toxin B Gene (2yr or >) Negative Cdiff Gene (Neg)
[2024-12-22] MEDS: LOPERAMIDE HCL 2 MG CAP PO PRN (21:45)
[2024-12-23 07:21] LABS: Hematocrit (blood only) 26.7 % (42.0-52.0); Hemoglobin 8.7 g/dL (14.0-18.0); Mean Corpuscular Hemoglobin 30.3 pg (25.0-34.0); Mean Corpuscular Volume 93.0 fL (80.0-100.0); Platelet Count 239 K/uL (130-400); RDW Standard Deviation 43.7 fL (36.4-46.3); Red Blood Count 2.87 M/uL (4.70-6.10); White Blood Count 5.99 K/ul (4.8-10.8)
[2024-12-23 07:46] LABS: Anion Gap 5.0 (3-11); Blood Urea Nitrogen 24.0 mg/dl (6-23); Calcium 8.4 mg/dl (8.6-10.3); Carbon Dioxide 23.0 mmol/L (21-32); Chloride 117.0 mmol/L (98-107); Creatinine Clr Calc Pharmacy 35.2 ml/min; Glucose 98.0 mg/dl (70-99(Fasting)); Magnesium 1.8 mg/dl (1.7-2.4); Potassium 3.1 mmol/L (3.5-5.1); Sodium 145.0 mmol/L (136-145)
--- NOTE | 2024-12-23 08:38 | Electrocardiogram Report ---
Test Reason : Blood Pressure : */* mmHG Vent. Rate : 73 BPM Atrial Rate : 73 BPM P-R Int : 152 ms QRS Dur : 92 ms QT Int : 376 ms P-R-T Axes : 105 26 -36 degrees QTcB Int : 414 ms Normal sinus rhythm Abnormal ECG When compared with ECG of 20-Dec-2024 07:47, (unconfirmed) ST now depressed in Anterior leads Inverted T waves have replaced nonspecific T wave abnormality in Anterior leads Confirmed by Paul Dhaliwal ([id number]) on 12/23/2024 8:37:42 AM Referred By: REFERRED SELF Confirmed By: Paul Dhaliwal
--- NOTE | 2024-12-23 09:56 | Electrocardiogram Report ---
Test Reason : Blood Pressure : */* mmHG Vent. Rate : 73 BPM Atrial Rate : 73 BPM P-R Int : 152 ms QRS Dur : 92 ms QT Int : 376 ms P-R-T Axes : 105 26 -36 degrees QTcB Int : 414 ms Normal sinus rhythm Abnormal ECG When compared with ECG of 20-Dec-2024 07:47, (unconfirmed) ST now depressed in Anterior leads Inverted T waves have replaced nonspecific T wave abnormality in Anterior leads Confirmed by Paul Dhaliwal ([id number]) on 12/23/2024 8:37:42 AM Also confirmed by Paul Dhaliwal ([id number]), international editorial producer [employer] Thorpe ([id number]) on 12/23/2024 9:56:35 AM Referred By: REFERRED SELF Confirmed By: Paul Dhaliwal
--- NOTE | 2024-12-23 10:38 | Hospitalist Progress Note ---
Date of Service December 23, 2024 Assessment & Plan (1) Chest pain: Plan: 64-year-old male past medical history significant for dyslipidemia, thyroid nodule, hypertension, malignant neoplasm of prostate, chronic pain syndrome secondary to cervical disc, history of stroke 22 years ago with residual right- sided weakness ambulates using leg brace, depression, who lives with his partner comes because of chest pain. Patient states since the morning 8 AM he is having left-sided chest pain constant pain. Severe in nature. No radiation. Also has shortness of breath. The pain is more when taking deep breath. No cough. No fevers. No headache. No runny nose or sore throat. No earaches. No nausea. No abdominal pain. Normal bowel and bladder movements. Hemodynamics are okay. Chest pain Likely Pleuritic/Musculoskeletal --Chest CT:Trace layering right pleural effusion noted posteriorly at the right lung base. No loculation. Dependent subsegmental changes involving the posterior aspect of both lower lobes. Favor subsegmental atelectasis. --Venous Doppler: No evidence for deep vein thrombosis involving the bilateral lower extremities. --Troponin Negative --ECHO: Mild concentric LVH. Basal septum thickened and angulated consistent with sigmoid septum. Left ventricular wall motion is normal. Grade 1 diastolic dysfunction. No significant valvular disease. Evaluated by cardiology, appreciate input PT OT evaluation prior to discharge Plan to discharge home with home health as able Acute Kidney Injury Baseline creatinine 1.4 Presented with creatinine 3.4 Cr 2.3 today Continue to hold lisinopril Patient states current is not taking Motrin Continue IV fluids per nephrology Appreciate nephrology input Monitor renal function and avoid nephrotoxic agents as able Diarrhea likely contributing to dehydration/slow recovery Will recheck renal function tomorrow Needs follow-up with nephrology on discharge Staghorn calculus Obstructive uropathy H/O nephrolithiasis --CT ABD:There has been interval migration of the previously noted stone in the right renal pelvis, with the 2 cm long stone no impacted at the UPJ with moderate right hydronephrosis and perinephric fat stranding. Trace left pleural effusion noted in the posterior costophrenic margin. --S/P cystoscopy with bilateral ureteral stent placement by on 12/17/24 -- Blood culture negative to date --Urine culture negative Appreciate urology input Needs follow-up with urology on discharge Completed IV Rocephin for 7 days Continue tamsulosin Voiding trial, bladder scan every shift If renal function worsens, plan to replace Padron catheter if needed Diarrhea Likely due to IV antibiotics Stool for C. difficile negative Imodium as needed Monitor volume status Hypertension Lisinopril held due to ANALILIA Amlodipine on hold as well due to low BP Also on tamsulosin as above Blood pressure better today Monitor blood pressure and adjust medications as needed Elevated D-dimer Lower EXTR Doppler negative VQ scan- Low probability for pulmonary embolus. Hypokalemia Replace and monitor History of CVA with residual Right-sided weakness On Plavix and statin Hyperlipidemia On statin History of left carotid endarterectomy On statin and Plavix Depression On citalopram History of prostate cancer On Zytiga and prednisone Follows with heme-onc History of 2 back surgeries Chronic pain On gabapentin and hydrocodone as needed Anemia Chronic Monitor CBC DVT Px: SQ Heparin Code Status Full Code Disposition Home with HH in 1 to 2 days Admission and Anticipated Discharge Date Admission Date: December 15, 2024 Subjective Patient is seen and examined at bedside Diarrhea slowly improving Patient subjectively feels well and offers no other complaints Renal function stable Discussed with nephrology today Updated patient's family contact over the phone Denies any chest pain, dyspnea, nausea, vomiting, abdominal pain Review of Systems Review of Systems: All systems reviewed & are unremarkable except as noted in Subjective Physical Exam Physical Exam: Physical Exam: Vitals signs as noted above General Appearance:Moderately built and nourished, no apparent distress, chronic ill appearing Head: normocephalic, Atraumatic Eyes: normal inspection, EOMI Neck: supple, Trachea midline Respiratory/Chest: Decreased breath sounds, CTA, No accessory muscle use Cardiovascular: S1, S2, + murmur Abdomen/GI:Soft, Non tender, Bowel sounds present Extremities/Musculoskeletal:normal inspection, Trace edema Neurologic/Psych:AAOX3, R UE 0/5, R LE 1/5 Skin: normal color, warm Results & Data Results & Data Vital Signs (Past 12 Hours) Vital Signs Temp Pulse Pulse Resp BP Pulse Ox O2 Del Method 12/23/24 07:44 37.2 C 67 18 142/74 H 96 Room Air 12/23/24 07:03 66 12/23/24 02:20 37.3 C 68 16 154/77 H 93 Room Air Laboratory Results Short CBC 12/23/24 Range/Units 06:45 WBC 5.99 (4.8-10.8) K/ul Hgb 8.7 L (14.0-18.0) g/dL Hct 26.7 L (42.0-52.0) % Plt Count 239 (130-400) K/uL [facility] 12/23/24 06:45 Sodium 145 Potassium 3.1 L Chloride 117 H Carbon Dioxide 23 BUN 24 H Creatinine 2.37 H Glucose 98 Calcium 8.4 L
--- NOTE | 2024-12-23 10:44 | Nephrology Progress Note ---
Date of Service December 23, 2024 Assessment & Plan (1) ANALILIA (acute kidney injury): Plan: He had Creat of 1.36 just 2 months ago. admitted 12/15 w/ creat 3.5, peak of 3.7 on 12/17, plateaued at 3.2 yesterday; today's creatinine 2.4 he had normal/Slightly high BP on presentation. Held amlodipine (last dose 12/18) and on 12/21 BP has normalized. He remains with hyperchloremic acidosis and again today significant hypokalemia despite aggressive repletion; ongoing loose BM /diarrhea >continue D5W w/ 40 mEq / L K at 125 ML hourly to address borderline hypernatremia, ongoing hypokalemia, stalled renal recovery in setting of losses from diarrhea >increase K 20 mEq elixir dose frequency from bid to qid blood and urine cxs are negative to date ensure lamictal is renally dosed hgb slowly downtrending >> was 11.2 on presentation and dropped to 9.7 36 hrs later > dropped some today to 8.7 which I think is truer reflection of actual hgb/ was hemoconcentrated previously still requiring aggressive measures to maintain acceptable chemistries ; orders in to trial turning off IVF at 1700 today (orders in) to see how labs look in am; may not be ready even then Care reviewed w/ Dr Woods via [employer]Text re K replacement, IVF change, renal status, postoponing d/c d/t electrolytes; we are in agreement (2) Staghorn calculus: Plan: cont empiric Abx--iv ceftriaxonegiven Staghorn calculi--these are commonly associated with Infection. he does have moderate Hydronephrosis. There is no good alternate explanation for this Significant ANALILIA. unlikely for patients to just randomly get severe vol depletion in the absence of Diuretics or any GI Symptoms. Plus he was eating and drinking normally up until yesterday. UA is bland so ATN and other causes like GN are not very likely. s/p BL stent on 12/18 Blood and urine cultures from December 16 are all negative to date (3) Hypotension: Plan: BP still soft though was not on admission and higher than SBP 70-80s around 12/17 Hold Lisinopril and And also amlodipine Continue IV fluids with changes above Admission and Anticipated Discharge Date Admission Date: December 15, 2024 Subjective C diff negative report that diarrhea improved; seen on evening rounds nad last bm this morning. leahy out and voiding spontaneously. no sob, no n/v Review of Systems 2 Review of Systems: All systems reviewed & are unremarkable except as noted in Subjective Physical Exam 2 Constitutional: well developed and well nourished Eyes: EOM intact bilaterally ENMT: Mouth: + dry oral mucous membranes Respiratory: normal respiratory effort Auscultation: + diminished lung sounds Cardiovascular: Rate/Rhythm: regular rate and regular rhythm Extremities: n o edema Gastrointestinal (Abdomen): Inspection/Auscultation: normal bowel sounds P ercussion/Palpation: abdomen soft; abdomen nontender Musculoskeletal: Extremities: strength 5/5 throughout and + abnormal strength Skin: no rashes, warm and dry Neurologic: R sided weakness Results & Data Vital Signs (Past 12 Hours) Vital Signs Temp Pulse Pulse Resp BP Pulse Ox O2 Del Method 12/23/24 07:44 37.2 C 67 18 142/74 H 96 Room Air 12/23/24 07:03 66 12/23/24 02:20 37.3 C 68 16 154/77 H 93 Room Air Laboratory Results 12/23/24 06:45 12/23/24 06:45
[2024-12-23] MEDS: POTASSIUM CHLORIDE 20 MEQ/15 ML UDC PO SCH (12:58)
--- NOTE | 2024-12-23 19:47 | Electrocardiogram Report ---
Test Reason : Blood Pressure : */* mmHG Vent. Rate : 63 BPM Atrial Rate : 63 BPM P-R Int : 160 ms QRS Dur : 92 ms QT Int : 448 ms P-R-T Axes : 19 22 -10 degrees QTcB Int : 458 ms Normal sinus rhythm Inferior T wave abnormality Abnormal ECG When compared with ECG of 16-Dec-2024 07:41, No significant change was found Confirmed by Paul Dhaliwal ([id number]) on 12/23/2024 7:46:59 PM Referred By: REFERRED SELF Confirmed By: Paul Dhaliwal
[2024-12-23] MEDS: NYSTATIN POWDER 15GM BTL EXT PRN (20:40)
[2024-12-24 06:47] LABS: Anion Gap 8.0 (3-11); Blood Urea Nitrogen 23.0 mg/dl (6-23); Calcium 8.7 mg/dl (8.6-10.3); Carbon Dioxide 22.0 mmol/L (21-32); Chloride 113.0 mmol/L (98-107); Creatinine Clr Calc Pharmacy 37.7 ml/min; Glucose 94.0 mg/dl (70-99(Fasting)); Magnesium 1.9 mg/dl (1.7-2.4); Potassium 4.2 mmol/L (3.5-5.1); Sodium 143.0 mmol/L (136-145)
--- NOTE | 2024-12-24 11:21 | Hospitalist Progress Note ---
Date of Service December 24, 2024 Assessment & Plan (1) Chest pain: Plan: 64-year-old male past medical history significant for dyslipidemia, thyroid nodule, hypertension, malignant neoplasm of prostate, chronic pain syndrome secondary to cervical disc, history of stroke 22 years ago with residual right- sided weakness ambulates using leg brace, depression, who lives with his partner comes because of chest pain. Patient states since the morning 8 AM he is having left-sided chest pain constant pain. Severe in nature. No radiation. Also has shortness of breath. The pain is more when taking deep breath. No cough. No fevers. No headache. No runny nose or sore throat. No earaches. No nausea. No abdominal pain. Normal bowel and bladder movements. Hemodynamics are okay. Chest pain Likely Pleuritic/Musculoskeletal --Chest CT:Trace layering right pleural effusion noted posteriorly at the right lung base. No loculation. Dependent subsegmental changes involving the posterior aspect of both lower lobes. Favor subsegmental atelectasis. --Venous Doppler: No evidence for deep vein thrombosis involving the bilateral lower extremities. --Troponin Negative --ECHO: Mild concentric LVH. Basal septum thickened and angulated consistent with sigmoid septum. Left ventricular wall motion is normal. Grade 1 diastolic dysfunction. No significant valvular disease. Evaluated by cardiology, appreciate input PT OT evaluation prior to discharge Plan to discharge home with home health No recurrence of chest pain currently Acute Kidney Injury Baseline creatinine 1.4 Presented with creatinine 3.4 Cr 2.2 today Continue to hold lisinopril Patient states current is not taking Motrin Appreciate nephrology input: Will start on IV fluids per nephrology Monitor renal function and avoid nephrotoxic agents as able Needs follow-up with nephrology with repeat blood work on discharge Staghorn calculus Obstructive uropathy H/O nephrolithiasis --CT ABD:There has been interval migration of the previously noted stone in the right renal pelvis, with the 2 cm long stone no impacted at the UPJ with moderate right hydronephrosis and perinephric fat stranding. Trace left pleural effusion noted in the posterior costophrenic margin. --S/P cystoscopy with bilateral ureteral stent placement by on 12/17/24 -- Blood culture negative to date --Urine culture negative Appreciate urology input Needs follow-up with urology on discharge Completed IV Rocephin for 7 days Continue tamsulosin Voiding trial, bladder scan every shift Monitor for urinary retention Diarrhea Likely due to IV antibiotics Stool for C. difficile negative Imodium as needed Monitor volume status Diarrhea improving Hypertension Lisinopril held due to ANALILIA Amlodipine on hold as well due to low BP Also on tamsulosin as above Blood pressure stable currently Monitor blood pressure and adjust medications as needed Elevated D-dimer Lower EXTR Doppler negative VQ scan- Low probability for pulmonary embolus. Hypokalemia Replace and monitor History of CVA with residual Right-sided weakness On Plavix and statin Hyperlipidemia On statin History of left carotid endarterectomy On statin and Plavix Depression On citalopram History of prostate cancer On Zytiga and prednisone Follows with heme-onc History of 2 back surgeries Chronic pain On gabapentin and hydrocodone as needed Anemia Chronic Monitor CBC DVT Px: SQ Heparin Code Status Full Code Disposition Home with HH in 1 to 2 days Admission and Anticipated Discharge Date Admission Date: December 15, 2024 Subjective Patient is seen and examined at bedside Diarrhea much improved No new complaints Discussed with Nephrology today Denies any chest pain, dyspnea, nausea, vomiting, abdominal pain Renal function is improving Review of Systems Review of Systems: All systems reviewed & are unremarkable except as noted in Subjective Physical Exam Physical Exam: Physical Exam: Vitals signs as noted above General Appearance:Moderately built and nourished, no apparent distress, chronic ill appearing Head: normocephalic, Atraumatic Eyes: normal inspection, EOMI Neck: supple, Trachea midline Respiratory/Chest: Decreased breath sounds, CTA, No accessory muscle use Cardiovascular: S1, S2, + murmur Abdomen/GI:Soft, Non tender, Bowel sounds present Extremities/Musculoskeletal:normal inspection, Trace edema Neurologic/Psych:AAOX3, R UE 0/5, R LE 1/5 Skin: normal color, warm Results & Data Results & Data Vital Signs (Past 12 Hours) Vital Signs Temp Pulse Pulse Resp BP Pulse Ox O2 Del Method 12/24/24 07:22 36.6 C 67 17 131/75 95 Room Air 12/24/24 07:13 65 12/24/24 02:33 36.6 C 65 18 118/70 96 Room Air 12/23/24 23:31 37 C 63 18 120/74 96 Room Air Laboratory Results [facility] 12/24/24 05:36 Sodium 143 Potassium 4.2 D Chloride 113 H Carbon Dioxide 22 BUN 23 Creatinine 2.24 H Glucose 94 Calcium 8.7
[2024-12-24] MEDS: PLASMA-LYTE A 1,000 ML IV ONE (11:41)
--- NOTE | 2024-12-24 15:45 | Nephrology Progress Note ---
Date of Service December 24, 2024 Assessment & Plan (1) ANALILIA (acute kidney injury): Plan: He had Creat of 1.36 just 2 months ago. admitted 12/15 w/ creat 3.5, peak of 3.7 on 12/17, plateaued at 3.2 yesterday; today's creatinine 2.4 he had normal/Slightly high BP on presentation. Held amlodipine (last dose 12/18) and on 12/21 BP has normalized. He remains with hyperchloremic acidosis and again today significant hypokalemia despite aggressive repletion; ongoing loose BM /diarrhea>> this has improved >Start in plsamlyte 75 mls/hr >Decrease K 20 mEq elixir dose frequency from qid to Bid from tmrw Care reviewed w/ Dr Woods via [employer] re K replacement, IVF change, renal status, we are in agreement (2) Staghorn calculus: Plan: cont empiric Abx--iv ceftriaxone>> completed 7 days he does have moderate Hydronephrosis -Continue tamsulosin Voiding trial, bladder scan every shift There is no good alternate explanation for this Significant ANALILIA. unlikely for patients to just randomly get severe vol depletion in the absence of Diuretics or any GI Symptoms. Plus he was eating and drinking normally up until yesterday. UA is bland so ATN and other causes like GN are not very likely. s/p BL stent on 12/18 Blood and urine cultures from December 16 are all negative (3) Hypotension: Plan: BP still soft though was not on admission and higher than SBP 70-80s around 12/17 Hold Lisinopril and And also amlodipine Continue IV fluids with changes above Admission and Anticipated Discharge Date Admission Date: December 15, 2024 Subjective Patient is seen and examined at bedside Diarrhea much improved No new complaints Review of Systems 2 Review of Systems: All systems reviewed & are unremarkable except as noted in HPI & below Results & Data Vital Signs (Past 12 Hours) Vital Signs Temp Pulse Pulse Resp BP Pulse Ox O2 Del Method 12/24/24 11:32 37.1 C 68 16 144/77 H 94 Room Air 12/24/24 08:30 Room Air 12/24/24 07:22 36.6 C 67 17 131/75 95 Room Air 12/24/24 07:13 65 Laboratory Results 12/23/24 06:45 12/24/24 05:36
[2024-12-25 06:16] LABS: Anion Gap 5.0 (3-11); Blood Urea Nitrogen 21.0 mg/dl (6-23); Calcium 8.8 mg/dl (8.6-10.3); Carbon Dioxide 24.0 mmol/L (21-32); Chloride 114.0 mmol/L (98-107); Creatinine Clr Calc Pharmacy 39.3 ml/min; Glucose 93.0 mg/dl (70-99(Fasting)); Potassium 4.8 mmol/L (3.5-5.1); Sodium 143.0 mmol/L (136-145)
[2024-12-25 07:43] VITALS: O2SAT 94
[2024-12-25 11:19] VITALS: BP 132/75; RESP 18; TEMP 98.4
--- NOTE | 2024-12-25 11:38 | Hospitalist Progress Note ---
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 Patient states since the morning 8 AM he is having left-sided chest pain constant pain. Severe in nature. No radiation. Also has shortness of breath. The pain is more when taking deep breath. No cough. No fevers. No headache. No runny nose or sore throat. No earaches. No nausea. No abdominal pain. Normal bowel and bladder movements. Hemodynamics are okay. Chest pain Likely Pleuritic/Musculoskeletal --Chest CT:Trace layering right pleural effusion noted posteriorly at the right lung base. No loculation. Dependent subsegmental changes involving the posterior aspect of both lower lobes. Favor subsegmental atelectasis. --Venous Doppler: No evidence for deep vein thrombosis involving the bilateral lower extremities. --Troponin Negative --ECHO: Mild concentric LVH. Basal septum thickened and angulated consistent with sigmoid septum. Left ventricular wall motion is normal. Grade 1 diastolic dysfunction. No significant valvular disease. Evaluated by cardiology, appreciate input No recurrence of chest pain currently Plan to be discharged home today Acute Kidney Injury Baseline creatinine 1.4 Presented with creatinine 3.4 Cr 2.1 today Continue to hold lisinopril Patient states current is not taking Motrin Appreciate nephrology input: Recommended repeat blood work in 1 week and encourage increase oral fluid intake on discharge Monitor renal function and avoid nephrotoxic agents as able Needs follow-up with nephrology on discharge Staghorn calculus Obstructive uropathy H/O nephrolithiasis --CT ABD:There has been interval migration of the previously noted stone in the right renal pelvis, with the 2 cm long stone no impacted at the UPJ with moderate right hydronephrosis and perinephric fat stranding. Trace left pleural effusion noted in the posterior costophrenic margin. --S/P cystoscopy with bilateral ureteral stent placement by on 12/17/24 -- Blood culture negative to date --Urine culture negative Appreciate urology input Needs follow-up with urology on discharge Completed IV Rocephin for 7 days Continue tamsulosin Voiding trial, bladder scan every shift Monitor for urinary retention Diarrhea Likely due to IV antibiotics Stool for C. difficile negative Imodium as needed Monitor volume status Diarrhea improved Hypertension Lisinopril held due to ANALILIA Resume amlodipine Also on tamsulosin as above Monitor blood pressure and adjust medications as needed Elevated D-dimer Lower EXTR Doppler negative VQ scan- Low probability for pulmonary embolus. Hypokalemia Replace and monitor History of CVA with residual Right-sided weakness On Plavix and statin Hyperlipidemia On statin History of left carotid endarterectomy On statin and Plavix Depression On citalopram History of prostate cancer On Zytiga and prednisone Follows with heme-onc History of 2 back surgeries Chronic pain On gabapentin and hydrocodone as needed Anemia Chronic Monitor CBC DVT Px: SQ Heparin Code Status Full Code Disposition Home with Admission and Anticipated Discharge Date Admission Date: December 15, 2024 Subjective Patient is seen and examined at bedside No diarrhea this morning Discussed with nephrology today Patient offers no complaints Denies any chest pain, dyspnea, nausea, vomiting, abdominal pain Renal function continues to improve Review of Systems Review of Systems: All systems reviewed & are unremarkable except as noted in Subjective Physical Exam Physical Exam: Physical Exam: Vitals signs as noted above General Appearance:Moderately built and nourished, no apparent distress, chronic ill appearing Head: normocephalic, Atraumatic Eyes: normal inspection, EOMI Neck: supple, Trachea midline Respiratory/Chest: Decreased breath sounds, CTA, No accessory muscle use Cardiovascular: S1, S2, + murmur Abdomen/GI:Soft, Non tender, Bowel sounds present Extremities/Musculoskeletal:normal inspection, Trace edema Neurologic/Psych:AAOX3, R UE 0/5, R LE 1/5 Skin: normal color, warm Results & Data Results & Data Vital Signs (Past 12 Hours) Vital Signs Temp Pulse Pulse Resp BP Pulse Ox O2 Del Method 12/25/24 11:17 36.9 C 75 18 132/75 94 Room Air 12/25/24 07:40 36.8 C 66 17 148/81 H 94 Room Air 12/25/24 07:08 58 L 12/25/24 02:48 36.8 C 66 16 135/77 93 Room Air Laboratory Results [facility] 12/25/24 05:24 Sodium 143 Potassium 4.8 Chloride 114 H Carbon Dioxide 24 BUN 21 Creatinine 2.14 H Glucose 93 Calcium 8.8
--- NOTE | 2024-12-25 11:43 | Discharge Summary ---
Date of Service December 25, 2024 Admission HPI Per Admitting Provider 64-year-old male past medical history significant for dyslipidemia, thyroid nodule, hypertension, malignant neoplasm of prostate, chronic pain syndrome secondary to cervical disc, history of stroke 22 years ago with residual right- sided weakness ambulates using leg brace, depression, who lives with his partner comes because of chest pain. Patient states since the morning 8 AM he is having left-sided chest pain constant pain. Severe in nature. No radiation. Also has shortness of breath. The pain is more when taking deep breath. No cough. No fevers. No headache. No runny nose or sore throat. No earaches. No nausea. No abdominal pain. Normal bowel and bladder movements. Hemodynamics are okay. Past medical history. As mentioned above. Past surgical history. Colonoscopy. Lumbar surgery x 2. Left carotid endarterectomy. Social history. Quit smoking 2002. Smoked 0.5 packs a day for 28 years. Drinks 2 beers daily. Liquor 2 shots daily. No drug use. Family history. Father had diabetes. [place]. Hypertension and stroke. Uncle had [place]. Admission Exam Per Admitting Provider General-Not in distress Head- atraumatic Eyes- PERRL. ENT- oropharynx clear Neck- supple, no JVD. Lungs- clear to auscultation no wheezing or crackles Heart- regular rate and rhythm; no murmur, no gallop. Abdomen- normal bowel sounds, soft, nontender, no distension Extremities- no pretibial edema, no erythema seen Neuro- alert, oriented PERRL, no facial palsy; no dysarthria; right sided weakness Principal Diagnosis Acute Kidney Injury Chest Pain Obstructive uropathy Nephrolithiasis Hypokalemia Hypertension Discharge Data Allergies Allergy/AdvReac Type Severity Reaction Status Date / Time No Known Allergies Allergy Severe Verified 07/30/20 21:51 Consultations 12/16/24 08:00 Consult Cardiology Routine Consult Nephrology Routine Consult Urology Routine Procedures Performed Operation Date: 12/17/24 10:30 Actual Procedures p Cystoscopy with Bilateral Ureteral Stent Insertion(Not Applicable) - Valente Chilel MD Ordered Studies Laboratory Results WBC 5.99 K/ul (4.8-10.8) 12/23/24 06:45 RBC 2.87 M/uL (4.70-6.10) L 12/23/24 06:45 Hgb 8.7 g/dL (14.0-18.0) L 12/23/24 06:45 POC Hgb 12.9 g/dl (14.0-18.0) L 12/15/24 19:43 Hct 26.7 % (42.0-52.0) L 12/23/24 06:45 POC Hct 38 % (42-52) L 12/15/24 19:43 MCV 93.0 fL (80.0-100.0) 12/23/24 06:45 MCH 30.3 pg (25.0-34.0) 12/23/24 06:45 MCHC 32.6 g/dL (32.0-36.0) 12/23/24 06:45 RDW Std Deviation 43.7 fL (36.4-46.3) 12/23/24 06:45 RDW Coeff of Jamarcus 12.8 % (11.5-14.5) 12/23/24 06:45 Plt Count 239 K/uL (130-400) 12/23/24 06:45 MPV 10.9 fL (9.4-12.4) 12/23/24 06:45 Immature Gran % (Auto) 0.4 % 12/18/24 07:30 Neut % (Auto) 76.4 % 12/18/24 07:30 Lymph % (Auto) 11.4 % 12/18/24 07:30 [place] % (Auto) 10.5 % 12/18/24 07:30 Eos % (Auto) 0.7 % 12/18/24 07:30 Baso % (Auto) 0.6 % 12/18/24 07:30 Neut # (Auto) 5.55 K/uL (1.40-6.50) 12/18/24 07:30 Lymph # (Auto) 0.83 K/uL (1.20-3.40) L 12/18/24 07:30 [place] # (Auto) 0.76 K/uL (0.11-0.59) H 12/18/24 07:30 Eos # (Auto) 0.05 K/uL (0.00-0.50) 12/18/24 07:30 Baso # (Auto) 0.04 K/uL (0.00-0.20) 12/18/24 07:30 Immature Gran # (Auto) 0.03 K/uL (0.01-0.20) 12/18/24 07:30 D-Dimer 2290 ug/L FEU (0-500) H* 12/15/24 16:46 POC Sodium 140 mmol/L (135-144) 12/15/24 19:43 Sodium 143 mmol/L (136-145) 12/25/24 05:24 POC Potassium 4.7 mmol/L (3.3-5.0) 12/15/24 19:43 Potassium 4.8 mmol/L (3.5-5.1) 12/25/24 05:24 POC Chloride 110 mmol/L (101-112) 12/15/24 19:43 Chloride 114 mmol/L (98-107) H 12/25/24 05:24 Carbon Dioxide 24 mmol/L (21-32) 12/25/24 05:24 POC Total CO2 23 mmol/L (24-31) L 12/15/24 19:43 Anion Gap 5 (3-11) 12/25/24 05:24 POC Anion Gap 12.0 mmol/L (16-25) L 12/15/24 19:43 POC BUN 42 mg/dl (7-18) H 12/15/24 19:43 BUN 21 mg/dl (6-23) 12/25/24 05:24 Creatinine 2.14 mg/dl (0.6-1.4) H 12/25/24 05:24 POC Creatinine 3.9 mg/dl (0.6-1.3) H 12/15/24 19:43 Est Cr Clr Drug Dosing 39.3 ml/min 12/25/24 05:24 eGFR 33.52 12/25/24 05:24 BUN/Creatinine Ratio 9.8 (10-20) L 12/25/24 05:24 Glucose 93 mg/dl (70-99(Fasting)) 12/25/24 05:24 POC Glucose (other) 80 mg/dl (70-99) 12/15/24 19:43 Calcium 8.8 mg/dl (8.6-10.3) 12/25/24 05:24 POC Ioniz Calcium Chanel 1.06 mmol/l (1.12-1.32) L 12/15/24 19:43 Phosphorus 3.5 mg/dl (2.5-4.9) 12/18/24 07:30 Magnesium 1.9 mg/dl (1.7-2.4) 12/24/24 05:36 Total Bilirubin 0.6 mg/dl (0.2-1.0) 12/15/24 16:46 AST 9 U/L (13-39) L 12/15/24 19:23 ALT 3 U/L (7-52) L 12/15/24 16:46 Alkaline Phosphatase 126 U/L (34-104) H 12/15/24 16:46 Troponin I High Sens 5.6 pg/ml (0-20) 12/15/24 19:23 Total Protein 7.2 gm/dl (6.0-8.3) 12/15/24 16:46 Albumin 4.1 gm/dl (3.4-5.0) 12/15/24 16:46 Globulin 3.1 gm/dl (2.5-4.0) 12/15/24 16:46 Albumin/Globulin Ratio 1.3 (0.9-2) 12/15/24 16:46 Lipase 24 U/L (11-82) 12/15/24 16:46 Urine Color Yellow 12/16/24 Unknown Urine Appearance Clear (Clear) 12/16/24 Unknown Urine pH 5.0 (4.5-7.5) 12/16/24 Unknown Ur Specific Jay 1.015 (1.000-1.030) 12/16/24 Unknown Urine Protein Trace (Negative) H 12/16/24 Unknown Urine Glucose (UA) Negative (Negative) 12/16/24 Unknown Urine Ketones Trace (Negative) H 12/16/24 Unknown Urine Blood Negative (Negative) 12/16/24 Unknown Urine Nitrite Negative (Negative) 12/16/24 Unknown Urine Bilirubin Negative (Negative) 12/16/24 Unknown Urine Urobilinogen Negative (Negative) 12/16/24 Unknown Ur Leukocyte Esterase Negative (Negative) 12/16/24 Unknown Urine WBC (Auto) 0-5 /hpf (0-5) 12/16/24 Unknown Urine RBC (Auto) 0-2 /hpf (0-2) 12/16/24 Unknown U Hyaline Cast (Auto) 0-2 /lpf (0-2) 12/16/24 Unknown U Epithel Cells (Auto) 0-2 /hpf (0-2) 12/16/24 Unknown Urine Bacteria (Auto) None Seen (None Seen) 12/16/24 Unknown Urine Comment 12/16/24 Unknown Stl C. diff Tox B Gene Negative Cdiff Gene (Neg) 12/22/24 Unknown Stl C. diff [id number] NEGATIVE 12/22/24 Unknown Impressions Chest X-Ray 12/15/24 16:47 EXAM: X-ray chest one-view portable CLINICAL HISTORY: Chest pain PRIORS: 09/12/2024 radiograph, CT 11/22/2023 TECHNIQUE: Frontal view chest FINDINGS: The chest is well-expanded. Elevation of the left hemidiaphragm again noted. Moderate left pleural effusion also demonstrated. No airspace consolidation. Heart size is top normal. No pneumothorax. Trachea is patent. Osseous structures demonstrate no acute abnormality. No radiopaque foreign body. IMPRESSION: Left pleural effusion. ACT 112: Positive. There are findings on this examination that require communication between the performing entity and the patient following Patient Test Result Information Act ([place] ACT 112) guidelines. Electronically signed by Wanda Mejia 12-15-2024 6:10 PM Abdomen/Pelvis CT 12/15/24 19:51 Exam(s): CT ABDOMEN + PELVIS Without Contrast EXAM: CT Abdomen and Pelvis Without Intravenous Contrast CLINICAL HISTORY: analilia. hx of kidney stones. TECHNIQUE: Axial computed tomography images of the abdomen and pelvis without intravenous contrast. CTDI is 20.48 mGy and DLP is 1459.13 mGy-cm. Automated exposure control was utilized for the study. A dose lowering technique was utilized adhering to the principles of ALARA. COMPARISON: CT abdomen and pelvis dated 11/22/2023 FINDINGS: Artifacts: Scatter artifact likely related to patient's arm position. Limitations: There is respiratory artifact, which degrades image quality on multiple image slices. Lung bases: Nonspecific subsegmental changes involving the posterior aspect of both lower lobes. No consolidation. Pleural space: Trace left pleural effusion noted in the posterior costophrenic margin. ABDOMEN: Liver: Unremarkable. Gallbladder and bile ducts: Subcentimeter gallstone noted in the posterior gallbladder near the gallbladder neck. The gallbladder is only mildly distended without gallbladder wall thickening. No biliary dilatation. Pancreas: Unremarkable. No ductal dilation. Spleen: Unremarkable. No splenomegaly. Adrenals: Unremarkable. No mass. Kidneys and ureters: There has been interval migration of the previously noted stone in the right renal pelvis, with the 2 cm long stone no impacted at the UPJ with moderate right hydronephrosis and perinephric fat stranding. Additional nonobstructive nephrolithiasis involving the inferior aspect of the right kidney. There is extensive calcifications involving the left kidney which is atrophic in appearance. No left hydronephrosis or left ureteral stones. Stomach and bowel: No evidence for bowel obstruction. Evaluation of the bowel mucosa is slightly limited without contrast; however, no definite focal asymmetry suggested. At least moderate stool burden. No diverticulitis. PELVIS: Appendix: No findings to suggest acute appendicitis. Bladder: Unremarkable. No stones. Reproductive: Unremarkable as visualized. ABDOMEN and PELVIS: Intraperitoneal space: Unremarkable. No free air. No significant fluid collection. Bones/joints: No acute fracture. No dislocation. Soft tissues: Unremarkable. Vasculature: Atherosclerotic disease. No abdominal aortic aneurysm. Lymph nodes: Unremarkable. No enlarged lymph nodes. IMPRESSION: 1. There has been interval migration of the previously noted stone in the right renal pelvis, with the 2 cm long stone no impacted at the UPJ with moderate right hydronephrosis and perinephric fat stranding. 2. Trace left pleural effusion noted in the posterior costophrenic margin. Electronically signed by: Jay Mccray MD 12/15/24 22:[address] 12/15/24 19:51 Exam(s): CT CHEST Without Contrast EXAM: CT Chest Without Intravenous Contrast CLINICAL HISTORY: chest pain and sob. TECHNIQUE: Axial computed tomography images of the chest without intravenous contrast. CTDI is 20.48 mGy and DLP is 1459.13 mGy-cm. Automated exposure control was utilized for the study. A dose lowering technique was utilized adhering to the principles of ALARA. COMPARISON: No relevant prior studies available. FINDINGS: Lungs: Dependent subsegmental changes involving the posterior aspect of both lower lobes. Minimal curvilinear changes involving the inferior and posterior lingula. No mass. No consolidation. Pleural space: Trace layering right pleural effusion noted posteriorly at the right lung base. No loculation. No pneumothorax. Heart: Cardiac chambers are normal in size. Prominent coronary artery calcification. No significant pericardial effusion. Bones/joints: Unremarkable. No acute fracture. Soft tissues: Unremarkable. Vasculature: Atherosclerotic disease. Lymph nodes: Unremarkable. No enlarged lymph nodes. IMPRESSION: 1. Trace layering right pleural effusion noted posteriorly at the right lung base. No loculation. 2. Dependent subsegmental changes involving the posterior aspect of both lower lobes. Favor subsegmental atelectasis. Subtle infection of the left lung base is difficult to entirely exclude. Electronically signed by: Jay Mccray MD 12/15/24 23:13 PM Venous Doppler Study 12/15/24 19:51 Exam(s): US VENOUS BILATERAL LOWER EXTREMITIES EXAM: US Duplex Bilateral Lower Extremities Veins CLINICAL HISTORY: elevated d dimer. Evaluate for potential DVT. TECHNIQUE: Real-time duplex ultrasound scan of the bilateral lower extremity veins integrating B-mode two-dimensional vascular structure, Doppler spectral analysis, color flow Doppler imaging and compression. COMPARISON: No relevant prior studies available. FINDINGS: Right deep veins: No DVT in the right common femoral, femoral, proximal deep femoral or popliteal veins. The veins demonstrate normal color flow, are normally compressible, with normal phasic flow and/or augmentation response. The interrogated calf veins are patent. Right superficial veins: No thrombus in the saphenofemoral junction. Left deep veins: No DVT in the left common femoral, femoral, proximal deep femoral or popliteal veins. The veins demonstrate normal color flow, are normally compressible, with normal phasic flow and/or augmentation response. The interrogated calf veins are patent. Left superficial veins: No thrombus in the saphenofemoral junction. Soft tissues: No acute findings. No popliteal cyst. IMPRESSION: No evidence for deep vein thrombosis involving the bilateral lower extremities. Electronically signed by: Jay Mccray MD 12/15/24 22:52 PM Pulmonary Perfusion Imaging 12/16/24 08:00 NM pul perfusion HISTORY: 64 years-old Male elevated d dimer, sob/chest pain. analilia acute chest pain with shortness of breath COMPARISON: Chest CT 12/15/2024 TECHNIQUE: Perfusion study was obtained following the intravenous demonstration of 5.0 mCi technetium 99 MAA injected through the left arm FINDINGS: Yesterday's chest CT demonstrated trace left pleural effusion with mild bibasilar opacities suggestive of atelectasis versus pneumonitis along with mild pulmonary emphysema. No large segmental perfusion defects identified. IMPRESSION: Low probability for pulmonary embolus. ACT 112: Negative or not required by law. The above report was generated using voice recognition software. It may contain grammatical, syntax or spelling errors. Electronically signed by: Azam Shelton M.D. 12/16/2024 12:09 PM Retrograde Pyelogram 12/17/24 00:00 FL KUB CLINICAL HISTORY: Bilateral stent placement. COMPARISON STUDY: CT of the abdomen and pelvis December 15, 2024. Fluoroscopy time: 14 seconds. Number of fluoroscopic images: 6. Ka,r: 4.36 mGy. FINDINGS: Fluoroscopy was provided during cystoscopy with bilateral ureteral stent insertion. The right ureteral stent is well-positioned. Distal aspect of the left ureteral stent is within the urinary bladder. The proximal aspect of the left ureteral stent is not included on these images. IMPRESSION: Fluoroscopy provided during cystoscopy and bilateral ureteral stent placement. ACT 112: Negative or not required by law. Electronically signed by: Noel Stoddard M.D. 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 Patient states since the morning 8 AM he is having left-sided chest pain constant pain. Severe in nature. No radiation. Also has shortness of breath. The pain is more when taking deep breath. No cough. No fevers. No headache. No runny nose or sore throat. No earaches. No nausea. No abdominal pain. Normal bowel and bladder movements. Hemodynamics are okay. Chest pain Likely Pleuritic/Musculoskeletal --Chest CT:Trace layering right pleural effusion noted posteriorly at the right lung base. No loculation. Dependent subsegmental changes involving the posterior aspect of both lower lobes. Favor subsegmental atelectasis. --Venous Doppler: No evidence for deep vein thrombosis involving the bilateral lower extremities. --Troponin Negative --ECHO: Mild concentric LVH. Basal septum thickened and angulated consistent with sigmoid septum. Left ventricular wall motion is normal. Grade 1 diastolic dysfunction. No significant valvular disease. Evaluated by cardiology, appreciate input No recurrence of chest pain currently Plan to be discharged home today Acute Kidney Injury Baseline creatinine 1.4 Presented with creatinine 3.4 Cr 2.1 today Continue to hold lisinopril Patient states current is not taking Motrin Appreciate nephrology input: Recommended repeat blood work in 1 week and encourage increase oral fluid intake on discharge Monitor renal function and avoid nephrotoxic agents as able Needs follow-up with nephrology on discharge Staghorn calculus Obstructive uropathy H/O nephrolithiasis --CT ABD:There has been interval migration of the previously noted stone in the right renal pelvis, with the 2 cm long stone no impacted at the UPJ with moderate right hydronephrosis and perinephric fat stranding. Trace left pleural effusion noted in the posterior costophrenic margin. --S/P cystoscopy with bilateral ureteral stent placement by on 12/17/24 -- Blood culture negative to date --Urine culture negative Appreciate urology input Needs follow-up with urology on discharge Completed IV Rocephin for 7 days Continue tamsulosin Voiding trial, bladder scan every shift Monitor for urinary retention Diarrhea Likely due to IV antibiotics Stool for C. difficile negative Imodium as needed Monitor volume status Diarrhea improved Hypertension Lisinopril held due to ANALILIA Resume amlodipine Also on tamsulosin as above Monitor blood pressure and adjust medications as needed Elevated D-dimer Lower EXTR Doppler negative VQ scan- Low probability for pulmonary embolus. Hypokalemia Replace and monitor History of CVA with residual Right-sided weakness On Plavix and statin Hyperlipidemia On statin History of left carotid endarterectomy On statin and Plavix Depression On citalopram History of prostate cancer On Zytiga and prednisone Follows with heme-onc History of 2 back surgeries Chronic pain On gabapentin and hydrocodone as needed Anemia Chronic Monitor CBC DVT Px: SQ Heparin Code Status Full Code Disposition Home with Total Time Total Time Spent Total Time Spent (In Minutes): 53 minutes Discharge Plan Discharge Items Patient Disposition: Home - Home Health Services Reason For Visit: CHEST PAIN Discharge Diagnosis: Acute Kidney Injury Chest Pain Obstructive uropathy Nephrolithiasis Hypokalemia Hypertension Condition on Discharge: Fair Activity: Per Instructions section Exercise/Sports: Gradually increase as tolerated Non-emergency contact: Primary Care Provider, Solid Waste Manager and Urologist Call non-emergency contact if: you have any medication questions, your symptoms worsen, your pain is concerning for you and you have a fever Follow-up/Referrals: Jamal Dolan MD [Outside Practitioners] - (Date & Time 01/17/2025 8:00 AM Provider: Jamal Dolan MD Urology, [facility] ) Laura Ball MD, PhD [Physician] - (The office will call you with a follow up appointment.) Tay Mckay PA-C [Primary Care Provider] - (Date & Time 12/26/2024 1:00 PM Provider: Tay Mckay PA-C Family Practice/Pediatrics, [place] ) Diet: Heart Healthy Addtl Attending Provider Instructions: -- Follow-up with your primary care physician Tay Mckay PA-C on 12/26/2024 1:00 PM -- Follow-up with your urologist Dr. Dolan on 01/17/2025 8:00 AM -- Follow-up with your art therapy certified supervisor Dr. Ball in 1 week as recommended -- Obtain blood test (basic metabolic panel) in 1 week and follow-up with your art therapy certified supervisor for further recommendations. --Monitor your blood pressure regularly as advised. Discuss with your primary care physician for further adjustment of medications as needed. -- Stop taking lisinopril for now as recommended by your art therapy certified supervisor. Seek immediate medical attention if your symptoms reoccur or worsen Please review medication list provided on discharge for any medication changes as instructed. Please call if you have any questions or problems. You can reach a [facility] hospitalist on duty at [facility] 24 hours a day by calling [phone] Pending Studies at Discharge: No Stand-Alone Forms: My [facility], Smoking Cessation Medications and DC Order Prescriptions: New tamsulosin 0.4 mg Capsule 0.4 mg PO QAM Qty: 30 0RF Advanced Probiotic 625 mg (10 billion cell) Capsule 1 cap PO DAILY Qty: 7 0RF loperamide 2 mg Capsule 2 mg PO Q8H PRN (Reason: loose stool) Qty: 10 0RF Continued multivitamin Tablet 1 tab PO DAILY atorvastatin 20 mg tablet 20 mg PO DAILY citalopram 40 mg tablet 40 mg PO DAILY clopidogrel 75 mg tablet 75 mg PO DAILY amlodipine 5 mg tablet 5 mg PO DAILY gabapentin 800 mg tablet 800 mg PO TID lamotrigine 100 mg tablet 50 mg PO BID abiraterone 250 mg tablet 1,000 mg PO DAILY hydrocodone-acetaminophen 5-325 mg tablet 1 tab PO Q6H PRN (Reason: Pain) Discharge Orders: Discharge Order (Routine); Ordered 12/25/24 Ordered By: Alejandro Woods Admission Data Admit Date/Time: 12/15/24 19:51 Attending Provider: Alejandro Woods Admit Provider: Donny Lin Primary Care Provider: Tay Mckay Other Providers: Laura Ball; Tray Thompson; Vidhya Mcbride; Bryon Salas; Lin Spencer; Apoorva Davison; Jelani Knott; June Sarah; Satish Delgado; Sunday Vargas; Valente Chilel; Seng Fontanez; [facility]
[2024-12-25] MEDS: INFLUENZA VACC TS2025-26(65y+)/PF (IIV3) 0.5mL Syr IM ONE (14:50)
[2024-12-25] MEDS: PNEUMOCOCCAL VACCINE (PCV20) 20-VAL CONJ-DIP CRM/PF 0.5 ML SYR IM ONE (14:57)
[2024-12-25 15:14] VITALS: PULSE 75
== END 2024-12-25 16:35 | disposition home health service (06) | DRG 660 ==
LOC: ED 16:39 → SUATTDRO 19:51 → 2N 19:51